=== PATIENT | female | born 1965 | race Caucasian/White ===

== ENCOUNTER 2020-04-01 14:48 | Emergency (ER) | payer OTHER, SELFPAY ==
[2020-04-01 14:48] VITALS: BP 132/66; PULSE 70; RESP 20; TEMP 37; O2SAT 95; BMI 52.4
[2020-04-01 15:18] VITALS: BP 130/70; PULSE 67; RESP 18; O2SAT 91
--- NOTE | 2020-04-01 15:29 | HMH.EDGENADL ---
ED Disposition Clinical Impression: Sciatica of left side Disposition: Home, Self-Care Condition on Discharge: Good Instructions: DI for Sciatica Prescriptions: predniSONE [Prednisone 20mg Tab] 20 mg PO DAILY 3 Days #3 tab Transmission Status: Pending to [facility] # methocarbamoL [Robaxin 750mg Tab] 750 mg PO BID PRN 4 Days #8 tab PRN Reason: back spasm Transmission Status: Pending to [facility] # Referrals: Lizzeth Guerrero [Primary Care Provider] - - Critical Care Critical Care Time: No Attestation: On 04/01/20, the high probability of a clinically significant, sudden or life threatening deterioration of the following system(s) required my full and direct attention, intervention and personal management. The time I documented below is in addition to time spent performing reported procedures but includes the following listed in this critical care notation. Medical Decision Making - Medical Records Medical records reviewed: Yes: I reviewed the patient's medical records. - Win Inquiry Pt receiving controlled substance: No Vital Signs: 04/01/20 14:48 04/01/20 15:18 04/01/20 15:36 Temperature 98.6 F Temperature Source Oral Pulse Rate [Left Radial] 70 67 70 Respiratory Rate 20 18 18 Blood Pressure [Right Arm] 132/66 130/70 125/76 Blood Pressure Mean [Right Arm] 88 90 92 Blood Pressure Source [Right Arm] Automatic Cuff Automatic Cuff Automatic Cuff Blood Pressure Position [Right Arm] Sitting Sitting Supine 02 Sat by Pulse Oximetry 95 91 L 92 L Oxygen Delivery Method Room Air 04/01/20 16:31 Temperature Temperature Source Pulse Rate [Left Radial] 73 Respiratory Rate 18 Blood Pressure [Right Arm] 103/77 L Blood Pressure Mean [Right Arm] 85 Blood Pressure Source [Right Arm] Automatic Cuff Blood Pressure Position [Right Arm] Sitting 02 Sat by Pulse Oximetry 95 Oxygen Delivery Method Orders (Tests/Meds): ED MEDICATIONS Discontinued Medications Generic Name Dose Route Start Last Admin Trade Name Freq PRN Reason Stop Dose Admin Diazepam 5 mg 04/01/20 15:29 04/01/20 15:38 Diazepam 10mg/2ml Syringe IM 04/01/20 15:30 5 mg ONCE ONE Administration Ketorolac Tromethamine 30 mg 04/01/20 15:29 04/01/20 15:39 Ketorolac 30mg/Ml Vial IM 04/01/20 15:30 30 mg ONCE ONE Administration Methocarbamol 500 mg 04/01/20 15:30 04/01/20 15:38 Methocarbamol 500mg Tablet PO 04/01/20 15:31 500 mg ONCE ONE Administration Medical Decision Narrative: 54-year-old female who presents with shooting left hip pain that goes down the back of the leg worse with movement and raising of the leg. Patient has no history of surgery on the lower back has no symptoms of compressive syndrome and is overall well-appearing nontoxic. She was given 30 mg of Toradol IM and 5 mg of IM diazepam. With no recent trauma and no compressive symptoms feel there is no reason for imaging at this time. Following the medication therapy the patient was reevaluated and had significant improvement in symptoms. The diagnosis of sciatica was explained to the patient and she was given conservative management instructions and discharged home in good condition. General Adult HPI - General Chief complaint: PAIN Stated complaint: back pain Time Seen by Provider: 04/01/20 15:00 Mode of Arrival: EMS Source of Information: Patient Limitations: Physical Limitations Description of Symptoms (Recalled from ER Triage Doc. by RN): c/o left hip pain that goes into her left knee and calf. Denies any injury. States she has been having this pain for 3 days but when she went to turn earlier she has severe pain that made it hard to walk - History of Present Illness HPI narrative: 54-year-old female who presents with EMS for shooting left hip pain radiating from her left hip down the back of her left leg is worse with movement and raising the leg. Denies weakness to the leg denies numbne
[2020-04-01 15:36] VITALS: BP 125/76; PULSE 70; RESP 18; O2SAT 92
[2020-04-01 16:31] VITALS: BP 103/77; PULSE 73; RESP 18; O2SAT 95
[2020-04-01 17:13] VITALS: BP 111/68; PULSE 72; RESP 18; O2SAT 92
[2020-04-01 17:17] VITALS: BP 111/68; PULSE 78; RESP 20; TEMP 37; O2SAT 93
== END 2020-04-01 17:18 | disposition home or self-care (01) ==
PROVIDERS: Emergency Provider Student in an Organized Health Care Education/Training Program; PCP Family Medicine
DX: M54.32 Sciatica, left side (principal)
CPT/HCPCS: 96372; 99282

== ENCOUNTER → 2022-04-23 06:51 | Outpatient (CLI) | payer OTHER, SELFPAY ==
[2022-04-23 18:33] LABS: Basophils # 0.1 K/mm3 (0-0.2); Basophils % 0.9 % (0.1-2.0); Eosinophils # 0.3 K/mm3 (0.0-0.4); Eosinophils % 2.5 % (0.1-12.0); Hematocrit 54.5 % (37.0-47.0); Hemoglobin 16.4 g/dL (12.2-16.2); Lymphocytes # 2.8 K/mm3 (0.7-4.5); Lymphocytes % 24.7 % (10-50); Mean Corpuscular Hemoglobin 29.2 pg (27.0-31.2); Mean Corpuscular Volume 97.2 fl (81-99); Mean Platelet Volume 9.9 fl (7.4-10.4); Monocytes # 0.7 K/mm3 (0.1-1.0); Monocytes % 6.3 % (1.7-9.3); Neutrophils # 7.3 K/mm3 (1.8-7.8); Neutrophils % 65.6 % (37.0-80.0); Platelet Count 328 K/mm3 (142-424); Red Cell Distribution Width 15.9 % (11.5-17.5); White Blood Count 11.2 K/mm3 (4.8-10.8)
[2022-04-23 18:44] LABS: Alanine Aminotransferase 37 U/L (12-78); Albumin Level 4.1 g/dl (3.5-5.0); Albumin/Globulin Ratio 1.3 (1.1-1.8); Alkaline Phosphatase 96 U/L (38-126); Aspartate Amino Transferase 33 U/L (14-36); Bilirubin,Total 0.5 mg/dl (0.2-1.3); Blood Urea Nitrogen 16 mg/dl (7-17); Calcium 9.1 mg/dl (8.4-10.2); Carbon Dioxide 28 mmol/L (22.0-30.0); Chol/HDL Ratio 4.6 (1-3.5); Cholesterol 238 mg/dl (140-200); Estimated Glomerular Filt Rate 128 ml/min (>60); GFR (African American) 155 ML/MIN (>60); Globulin 3.1 g/dL (1.3-3.2); Glucose 148 mg/dl (74-100); HDL Cholesterol 52 mg/dl (40-60); Potassium 4.5 mmoL/L (3.5-5.1); Sodium 138 mmol/L (136-145); Total Protein,Serum 7.2 g/dl (6.3-8.2); Triglycerides 197 mg/dl (30-150); VLDL Cholesterol 39 mg/dL (0-40)
[2022-04-23 18:55] LABS: Direct LDL Cholesterol 137.94 mg/dL (100-129)
[2022-04-23 19:15] LABS: Thyroid Stimulating Hormone < 0.02 uIU/mL (0.465-4.68)
[2022-04-23 19:36] LABS: Hemoglobin A1C 7.1 % (4.0-6.0)
[2022-04-23 19:46] LABS: Anion Gap 10.5 mEq/L (5-15); Chloride 104 mmol/L (98-107)
== END ==
PROVIDERS: PCP Nurse Practitioner Family; Visit Provider Nurse Practitioner Family
DX: E11.9 Type 2 diabetes mellitus without complications (principal); Z79.84 Long term (current) use of oral hypoglycemic drugs
CPT/HCPCS: 80053; 80061; 83036; 84443; 85025

== ENCOUNTER 2022-06-20 11:10 | Observation (INO) | payer OTHER, SELFPAY ==
[2022-06-20] VITALS (15 sets, daily range): BP systolic 107–152; BP diastolic 59–96; PULSE 86–112; RESP 18–22; TEMP 36.4–37.2; O2SAT 88–95; BMI 51.6; BMI 57.9
--- NOTE | 2022-06-20 11:34 | PC.NURSE ---
FÉLIX NEGRON at
--- NOTE | 2022-06-20 11:38 | CT_ITS ---
PROCEDURE INFORMATION: Exam: CT Chest With Contrast; Diagnostic Exam date and time: 06/20/2022 12:20 PM Age: 56 years old Clinical indication: Pain; Right-sided; Additional info: Right breast mass vs abscess, pain TECHNIQUE: Imaging protocol: Diagnostic computed tomography of the chest with contrast. Radiation optimization: All CT scans at this facility use at least one of these dose optimization techniques: automated exposure control; mA and/or kV adjustment per patient size (includes targeted exams where dose is matched to clinical indication); or iterative reconstruction. Contrast material: ISOVUE; Contrast volume: 75 ml; Contrast route: IV; REPORTING DATA: Count of CT and Cardiac NM exams in prior 12 months: This patient has received 0 known CTs and 0 known cardiac nuclear medicine studies in the 12 months prior to the current study. COMPARISON: No relevant prior studies available. FINDINGS: Lungs: Mild hypoventilatory changes posteriorly at the lung bases otherwise lung bowie are aerated and clear. No suspicious nodules or masses detected. Scattered granulomatous calcifications within the mediastinum and right hilum, chronic. Pleural spaces: Unremarkable. No pneumothorax. No pleural effusion. Heart: Heart is not significantly enlarged. No significant coronary artery calcifications. No significant pericardial effusion. Lymph nodes: Mild-moderate right axillary lymph nodes measuring up to 2.5 cm, nonspecific. Vasculature: Unremarkable. No aortic aneurysm. Adrenal glands: 3 cm left adrenal lesion, indeterminate. Bones/joints: Unremarkable. No acute fracture. Soft tissues: Unremarkable. IMPRESSION: 1. No acute intrathoracic abnormalities. 2. Mild-moderate right axillary lymphadenopathy, nonspecific. 3. 3 cm indeterminate left adrenal lesion. Recommend follow-up nonemergent CT adrenal imaging for further assessment.
[2022-06-20 11:51] LABS: Basophils # 0.1 K/mm3 (0-0.2); Basophils % 1.2 % (0.1-2.0); Eosinophils # 0.2 K/mm3 (0.0-0.4); Eosinophils % 2.1 % (0.1-12.0); Hematocrit 46.4 % (37.0-47.0); Hemoglobin 15.1 g/dL (12.2-16.2); Lymphocytes # 1.7 K/mm3 (0.7-4.5); Lymphocytes % 15.5 % (10-50); Mean Corpuscular HGB Conc 32.6 g/dL (31.8-35.4); Mean Corpuscular Hemoglobin 29.2 pg (27.0-31.2); Mean Corpuscular Volume 89.5 fl (81-99); Mean Platelet Volume 9.1 fl (7.4-10.4); Monocytes # 0.8 K/mm3 (0.1-1.0); Monocytes % 7.4 % (1.7-9.3); Neutrophils # 8.3 K/mm3 (1.8-7.8); Neutrophils % 73.8 % (37.0-80.0); Platelet Count 292 K/mm3 (142-424); Red Blood Count 5.19 M/mm3 (4.20-5.40); Red Cell Distribution Width 15.5 % (11.5-17.5); White Blood Count 11.2 K/mm3 (4.8-10.8)
--- NOTE | 2022-06-20 11:51 | PC.NURSE ---
Pt updated on plan of care.
[2022-06-20 12:05] LABS: Chloride 101 mmol/L (98-107)
[2022-06-20 12:06] LABS: Sodium 138 mmol/L (136-145)
[2022-06-20 12:08] LABS: Alanine Aminotransferase 25 U/L (12-78); Alkaline Phosphatase 82 U/L (38-126); Aspartate Amino Transferase 26 U/L (14-36); Bilirubin,Total 0.5 mg/dl (0.2-1.3); Blood Urea Nitrogen 13 mg/dl (7-17); Creatinine Clearance Estimated 85 mL/min (50-200); Estimated Glomerular Filt Rate 87 ml/min (>60); GFR (African American) 105 ML/MIN (>60)
[2022-06-20 12:09] LABS: Albumin Level 3.9 g/dl (3.5-5.0); Albumin/Globulin Ratio 1.1 (1.1-1.8); Calcium 8.8 mg/dl (8.4-10.2); Carbon Dioxide 30 mmol/L (22.0-30.0); Globulin 3.7 g/dL (1.3-3.2); Glucose 124 mg/dl (74-100); Total Protein,Serum 7.6 g/dl (6.3-8.2)
--- NOTE | 2022-06-20 12:13 | PC.NURSE ---
pt to radiology
[2022-06-20 12:14] LABS: C-Reactive Protein 211.8 mg/L (0-4)
--- NOTE | 2022-06-20 12:58 | PC.NURSE ---
SaO2 87% on RA placed pt on O2 at 2L per [facility] ER aware
--- NOTE | 2022-06-20 13:15 | PC.NURSE ---
speaking with surgeon certified recreational therapist
--- NOTE | 2022-06-20 13:33 | PC.NURSE ---
FÉLIX NEGRON at
--- NOTE | 2022-06-20 14:02 | PC.NURSE ---
FÉLIX NEGRON speaking with Dr. Yung (hospitalist.
--- NOTE | 2022-06-20 14:07 | PC.NURSE ---
notified bath house attendant of admission
--- NOTE | 2022-06-20 14:07 | PC.NURSE ---
notified pharmacy of vancomycin consult
--- NOTE | 2022-06-20 14:10 | HMH.EDGENADL ---
Discharge Plan Disposition Patient Disposition: Admitted As Inpatient Condition: Good Chief Complaint: Skin/Abscess/Foreign Body Prescriptions Prescriptions: No Action methocarbamol 750 mg tablet 750 mg PO HS levothyroxine 125 mcg tablet See Rx Instructions .ROUTE .COMPLEX Qty: 60 0RF Dose Instruction: TAKE 2 TABLETS BY MOUTH ONCE DAILY Rx Instructions: TAKE 2 TABLETS BY MOUTH ONCE DAILY losartan 50 mg tablet 50 mg PO DAILY metformin 500 mg tablet 500 mg PO BID simvastatin 10 mg tablet 10 mg PO HS atenolol 25 mg tablet 25 mg PO DAILY GaviLyte-C 240-22.72-6.72 -5.84 gram recon soln 240 ml PO Q10M Rx Instructions: follow mailed instructions Referrals Follow up/Referrals: Rosanna Ricardo APRN [Primary Care Provider] - See instructions Clinical Impressions Clinical Impression: Breast abscess, Cellulitis of right breast Instructions Patient Instructions: DI for Skin Abscess Discharge ED Provider: Magdalena Henning General Adult HPI General Chief complaint: Skin/Abscess/Foreign Body Stated complaint: Cyst on right breast Time Seen by Provider: 06/20/22 12:00 Mode of Arrival: Ambulatory Source of Information: Patient and Significant Other Limitations: No Limitations Description of Symptoms (Recalled from ER Triage Doc. by RN): Patient presents via POV. Pt went to [facility] ED d/t right breast abscess on 06/18/22. Given (2) abx, Septra DS 800-160 and Cephalexin. Pt has started only Septra d/t allergy to Cephalexin. Pt states the abscess is unchanged. [facility] recommended I&D, however told the patient they do not perform at bedside. History of Present Illness HPI narrative: The patient is a 56 year old female wiht a history of morbid obesity and DM who presents with right breast pain and swelling. The patient states that she had something like this in the past in the same spot which required surgical washout and admission to the hospital for a few days. She states her breast started hurting in the last week. She was seen at an outside hospital and put on bactrim and keflex but she states she was allergic to the keflex and her pain was getting worse. She denies fevers, nausea, vomiting, diarrhea or any other symptoms. Related Data Home Medications Medication Instructions Recorded Confirmed methocarbamol 750 mg tablet 750 mg PO HS muscle relaxant 04/23/22 04/28/22 atenolol 25 mg tablet 25 mg PO DAILY HTN 04/28/22 04/28/22 losartan 50 mg tablet 50 mg PO DAILY HTN 04/28/22 04/28/22 metformin 500 mg tablet 500 mg PO BID Diabetes 04/28/22 04/28/22 peg 3350 240 gram-electrolytes 240 ml PO Q10M prep 04/28/22 04/28/22 22.72 gram-6.72 g-5.84 g powdr for soln (Gavilyte-C) simvastatin 10 mg tablet 10 mg PO HS Cholesterol 04/28/22 04/28/22 Previous Rx's Medication Instructions Recorded levothyroxine 125 mcg tablet See Rx Instructions .Route 05/25/22 .COMPLEX #60 tabs Allergies Allergy/AdvReac Type Severity Reaction Status Date / Time cephalexin Allergy Verified 06/20/22 14:07 acetaminophen AdvReac Verified 04/23/22 09:21 [facility] Disclaimer: The information contained in this section may have been updated after the patient was seen, as this information can be updated by other users. Medical History (Updated 06/20/22 @ 14:19 by Magdalena Henning MD) Hypertension Renal cancer Thyroid cancer Surgical History H/O thyroidectomy History of Family History Mother Diabetes Hypertension Father Diabetes Hypertension Brother Cancer Social History Smoking Status: Current every day smoker tobacco type: cigarettes quit status: considering quitting alcohol intake: never substance use type: denies use current occupational status: disabled Travel in
--- NOTE | 2022-06-20 14:16 | EXP.PHA.CONS ---
Pharmacy Consult Date: 06/20/22 Time: 14:16 Referring provider: DR. ANDERSON Reason for Consult:: VANCOMYCIN DOSING Allergies Allergy/AdvReac Type Severity Reaction Status Date / Time cephalexin Allergy Verified 06/20/22 14:07 acetaminophen AdvReac Verified 04/23/22 09:21 Home Medications Medication Instructions Recorded Confirmed Type methocarbamol 750 mg tablet 750 mg PO HS muscle relaxant 04/23/22 04/28/22 History atenolol 25 mg tablet 25 mg PO DAILY HTN 04/28/22 04/28/22 History losartan 50 mg tablet 50 mg PO DAILY HTN 04/28/22 04/28/22 History metformin 500 mg tablet 500 mg PO BID Diabetes 04/28/22 04/28/22 History peg 3350 240 gram-electrolytes 240 ml PO Q10M prep 04/28/22 04/28/22 History 22.72 gram-6.72 g-5.84 g powdr for soln (Gavilyte-C) simvastatin 10 mg tablet 10 mg PO HS Cholesterol 04/28/22 04/28/22 History levothyroxine 125 mcg tablet See Rx Instructions .Route 05/25/22 Rx .COMPLEX #60 tabs New Prescriptions to Start Prescriptions: Height: 1.68 m Weight: 145.15 kg Laboratory Results:: Laboratory Results - last 24 hr 06/20/22 11:41: WBC 11.2 H, RBC 5.19, Hgb 15.1, Hct 46.4, MCV 89.5, MCH 29.2, MCHC 32.6, RDW 15.5, Plt Count 292, MPV 9.1, Neut % (Auto) 73.8, Lymph % (Auto) 15.5, [place] % (Auto) 7.4, Eos % (Auto) 2.1, Baso % (Auto) 1.2, Neut # (Auto) 8.3 H, Lymph # (Auto) 1.7, [place] # (Auto) 0.8, Eos # (Auto) 0.2, Baso # (Auto) 0.1 06/20/22 11:41: Sodium 138, Potassium 4.0, Chloride 101, Carbon Dioxide 30, Anion Gap 11.0, BUN 13, Creatinine 0.70, Estimated Creat Clear 85, Estimated GFR 87, Est GFR ( Amer) 105, Glucose 124 H, Calcium 8.8, Total Bilirubin 0.5, AST 26, ALT 25, Alkaline Phosphatase 82, C-Reactive Protein 211.8 H, Total Protein 7.6, Albumin 3.9, Globulin 3.7 H, Albumin/Globulin Ratio 1.1 Medical History: Medical History (Updated 04/23/22 @ 10:10 by Rosanna Ricardo APRN) Hypertension Renal cancer Thyroid cancer Assessment and Plan Assessment and plan all Dx Assessment and Plan for all problems:: Pharmacokinetic dosing service Objective: Patient: Floor: Age: 56 yo Serum creatinine: 0.70 mg/dL Height: 66.0 Inches Weight (kg): 145.2 Assessment: IBW (kg): 59.30 Dosing wt(kg): 145.2 Estimated Creatinine clearance (ml/min): 85.0 CRCL method: Cockcroft and Gault using ibw(default). Drug selected: Vancomycin Loading dose (mg): Vd (liters): 108.9 (factor used: 0.75 L/kg) Olaf (hr-1): 0.075 Half life (hrs): 9.24 CLvanco=?? 8.168 L/hr Recommended dose: 2250 mg Interval: 12 hrs Infusion time (hrs): 2.0 Predicted peak (mcg/mL): 32.3 Predicted trough (mcg/mL): 15.26 Total body weight is being used for vancomycin dosing. Recommendations: Give Vancomycin 2250 mg q 12 hrs with an expected Cpeak of 32.3 mcg/ml and an expected Ctrough of 15.26 mcg/ml AUC 0-24 /BRYON Data: BRYON 0.5 mcg/mL:?? AUC/BRYON:? 1101.9 BRYON 1.0 mcg/mL:?? AUC/BRYON:? 550.9 --------- BRYON 1.5 mcg/mL:?? AUC/BRYON:? 367.3 BRYON 2.0 mcg/mL:?? AUC/BRYON:? 275.5 Thank you for the consult, will continue to follow. -ERROL TUTTLED
[2022-06-20 14:17] LABS: Coronavirus 19, PCR Not Detected (NotDetected); Influenza A, PCR Not Detected (NotDetected); Influenza B, PCR Not Detected (NotDetected)
--- NOTE | 2022-06-20 14:34 | EXP.HP ---
History of Present Illness *Admission Date: 06/20/22 *Reason for visit:: right breast pain *History of present illness: Ms. Rodriguez is a 56-year-old female with history of diabetes and hypertension who presents with a week of worsening right breast pain and redness around her right nipple. She was seen at [facility] ED 2 days ago on 06/18 and started on Bactrim out of concern for abscess for cellulitis of her right breast. Unable to perform I&D at that time. Recommended she follow-up for further care if no improvement in the next day or 2. She presented today to the ER because of worsening swelling and pain. She has had a similar lesion like this in the past on the right breast which required surgical washout and admission for a few days of IV antibiotics. Denies any fever, nausea, vomiting, diarrhea. Pain is only gotten worse after starting antibiotics. Denies any nipple discharge or bleeding. No trauma prior to onset. ER consulted medicine for admission for further management and IV antibiotics. Discussed case with surgeon prior to admission. After arrival to the floor, patient states she feels a little better after aspiration of the abscess. ER was able to obtain approximately 80 cc of purulent material via needle aspiration. Right breast is quite tender. Started on vancomycin. Labs reviewed showing elevated inflammatory markers but otherwise relatively normal lab work. [facility] Disclaimer: The information contained in this section may have been updated after the patient was seen, as this information can be updated by other users. Medical History Hypertension Renal cancer Thyroid cancer Surgical History H/O thyroidectomy History of Family History Diabetes Mother Father Cancer Brother Hypertension Mother Father Social History Smoking Status: Current every day smoker tobacco type: cigarettes quit status: considering quitting alcohol intake: never substance use type: denies use current occupational status: disabled Travel in the last 8 weeks: None household members: children housing: apartment lives independently: Yes marital status: single education level: high school special cal needs: No agree to transfusion: No do you feel safe at home: Yes victim of physical abuse: No victim of emotional abuse: No victim of sexual abuse: No would you like helpful sources: No Review of Systems Review of Systems Review of systems (narrative): 14 point review of systems performed, pertinent positives and negatives as per [facility] Meds Home Medications and Allergies Home Medications Medication Instructions Recorded Confirmed Type atenolol 25 mg tablet 25 mg PO DAILY Hypertension 04/28/22 04/28/22 History losartan 50 mg tablet 50 mg PO DAILY Hypertension 04/28/22 04/28/22 History metformin 500 mg tablet 500 mg PO BID Diabetes 04/28/22 04/28/22 History simvastatin 10 mg tablet 10 mg PO HS Cholesterol 04/28/22 04/28/22 History levothyroxine 125 mcg tablet 250 mcg PO DAILY THYROID 06/20/22 06/20/22 History oxycodone 5 mg tablet 5 mg PO TIDP PRN Severe Pain 06/20/22 06/20/22 History (Scale Score 7-10) sulfamethoxazole 800 2 tab PO BID Infection 06/20/22 06/20/22 History mg-trimethoprim 160 mg tablet New Prescriptions to Start Prescriptions: Allergies Allergy/AdvReac Type Severity Reaction Status Date / Time cephalexin Allergy Verified 06/20/22 14:07 acetaminophen AdvReac Verified 04/23/22 09:21 Exam Data for Last 24 hours Vital signs and Labs for Last 24 Hours: Temp Pulse Resp BP Pulse Ox 98.1 F 87 22 124/77 93 L 06/20/22 11:21 06/20/22 14:10 06/20/22 14:10 06/20/22 14:10 06/20/22 14:10 Laboratory Results - last 24 hr
[2022-06-20 14:37] LABS: Hemoglobin A1C 6.5 % (4.0-6.0)
--- NOTE | 2022-06-20 14:50 | PC.NURSE ---
Report given to FATOUMATA Bonilla
[2022-06-20 14:56] LABS: Thyroid Stimulating Hormone < 0.02 uIU/mL (0.465-4.68)
--- NOTE | 2022-06-20 15:22 | PC.NURSE ---
Pt arrived to the floor at this time
--- NOTE | 2022-06-20 16:06 | PC.NURSE ---
pt has been admitted to the floor. Her R breast is reddened and inflamed. Painful to the touch. Pt denies any recent fevers. Reports this is not the first time she has had an abcess. went to psychiatric two days ago but did not take the medications given to her because they wanted to send her to [place]. Dr. Yung saw pt. Will fransico edges of redness to keep an eye on size.
--- NOTE | 2022-06-20 17:21 | PC.NURSE ---
pts pharmacy is closed and she is unsure of home medication dosages.
[2022-06-21 04:00] VITALS: BP 134/83; PULSE 85; RESP 20; TEMP 36.6; O2SAT 94; BMI 58.2
--- NOTE | 2022-06-21 06:07 | PC.NURSE ---
PATIENT UP AND HAD BATH. HAS BEEN NPO SINCE CO.
[2022-06-21 06:45] LABS: Basophils # 0.1 K/mm3 (0-0.2); Eosinophils # 0.3 K/mm3 (0.0-0.4); Eosinophils % 3.3 % (0.1-12.0); Hemoglobin 13.9 g/dL (12.2-16.2); Lymphocytes % 22.4 % (10-50); Mean Corpuscular HGB Conc 31.6 g/dL (31.8-35.4); Mean Corpuscular Hemoglobin 28.8 pg (27.0-31.2); Mean Platelet Volume 9.2 fl (7.4-10.4); Monocytes # 0.7 K/mm3 (0.1-1.0); Neutrophils # 5.7 K/mm3 (1.8-7.8); Neutrophils % 65.3 % (37.0-80.0); Platelet Count 258 K/mm3 (142-424); Red Blood Count 4.83 M/mm3 (4.20-5.40); Red Cell Distribution Width 15.5 % (11.5-17.5); White Blood Count 8.7 K/mm3 (4.8-10.8)
[2022-06-21 06:53] LABS: Alanine Aminotransferase 22 U/L (12-78); Albumin Level 3.3 g/dl (3.5-5.0); Alkaline Phosphatase 82 U/L (38-126); Anion Gap 7.4 mEq/L (5-15); Aspartate Amino Transferase 24 U/L (14-36); Bilirubin,Total 0.4 mg/dl (0.2-1.3); Blood Urea Nitrogen 10 mg/dl (7-17); Carbon Dioxide 33 mmol/L (22.0-30.0); Chloride 98 mmol/L (98-107); Creatinine Clearance Estimated 85 mL/min (50-200); Estimated Glomerular Filt Rate 87 ml/min (>60); GFR (African American) 105 ML/MIN (>60); Globulin 3.4 g/dL (1.3-3.2); Glucose 129 mg/dl (74-100); Magnesium 2.1 mg/dl (1.6-2.3); Potassium 4.4 mmoL/L (3.5-5.1); Sodium 134 mmol/L (136-145); Total Protein,Serum 6.7 g/dl (6.3-8.2)
[2022-06-21 06:59] LABS: C-Reactive Protein 153.8 mg/L (0-4)
[2022-06-21 07:18] LABS: Erythrocyte Sedimentation Rate 17 mm/hr (0-30)
[2022-06-21 07:29] VITALS: BP 128/76; PULSE 76; RESP 18; TEMP 36.7; O2SAT 90
--- NOTE | 2022-06-21 09:34 | HMH.PHAINT1 ---
Pharmacy Intervention Comments: MEDICATION RECONCILIATION COMPLETED ON PATIENT USING EXTERNAL FILL HISTORY FROM PHARMACY, PATIENT INTERVIEW, AND PATIENT RX BOTTLES. -CLARY SHIELDS, ERROLD
[2022-06-21 10:59] VITALS: BP 88/52; PULSE 89; RESP 18; TEMP 36.7; O2SAT 92
[2022-06-21 11:05] VITALS: BP 90/60
--- NOTE | 2022-06-21 11:55 | EXP.ACUTE.PN ---
Subjective *Date: 06/21/22 *Time: 11:55 Interval history: Patient remained afebrile overnight. Having some receding of redness on breast. Scant drainage from breast wound. No nausea or vomiting. Improvement in labs this morning with improvement in white cell count. Tolerating IV antibiotics. Pain still prominent but decreasing after aspiration yesterday. No acute complaints at this time Medical Exam Vital signs and Labs for Last 24 Hours: Vital Signs Temp Pulse Pulse Resp BP BP Pulse Ox 06/21/22 11:05 90/60 L 06/21/22 10:59 98.1 F 89 18 88/52 L 92 L 06/21/22 07:29 98.0 F 76 18 128/76 90 L 06/21/22 04:00 97.8 F 85 20 134/83 94 L 06/20/22 20:00 94 L 06/20/22 23:50 98.7 F 86 20 138/80 94 L 06/20/22 19:52 99.0 F 98 H 22 110/71 90 L 06/20/22 15:48 97.6 F 97 H 22 135/88 94 L 06/20/22 15:00 89 19 107/59 L 95 06/20/22 14:57 98 F 93 H 18 114/96 H 06/20/22 14:30 91 H 19 114/96 H 93 L 06/20/22 14:10 87 22 124/77 93 L 06/20/22 14:00 87 22 125/81 94 L 06/20/22 13:31 87 19 137/65 93 L 06/20/22 13:00 88 125/82 92 L 06/20/22 12:30 92 H 22 130/82 88 L 06/20/22 12:00 97 H 138/83 93 L 06/20/22 11:30 102 H 129/75 95 06/20/22 11:21 98.1 F 112 H 18 152/87 H 95 Intake and Output 06/20/22 06/21/22 06/21/22 22:59 07:59 15:59 Intake Total Output Total 0 / 0 Balance 0 / 350 Intake: Intake, Oral Amount Intake, Total IV Amount Meropenem 1 gm In 0.9 % Sodium Chloride 100 ml @ 100 mls/hr IV Q12H [facility] Rx#:[id number] Vancomycin HCl 2,250 mg In 0.9 % Sodium Chloride 250 ml @ 125 mls/hr IV Q12H [facility] Rx#:[id number] Output: Output, Urine Amount 0 / 0 Other: Number of Unmeasured Voids 1 Weight Patient Weight 06/22/22 00:59 Weight 164.427 kg Laboratory Results - last 24 hr 06/20/22 11:41: WBC 11.2 H, RBC 5.19, Hgb 15.1, Hct 46.4, MCV 89.5, MCH 29.2, MCHC 32.6, RDW 15.5, Plt Count 292, MPV 9.1, Neut % (Auto) 73.8, Lymph % (Auto) 15.5, Stanley % (Auto) 7.4, Eos % (Auto) 2.1, Baso % (Auto) 1.2, Neut # (Auto) 8.3 H, Lymph # (Auto) 1.7, Stanley # (Auto) 0.8, Eos # (Auto) 0.2, Baso # (Auto) 0.1 06/20/22 11:41: Sodium 138, Potassium 4.0, Chloride 101, Carbon Dioxide 30, Anion Gap 11.0, BUN 13, Creatinine 0.70, Estimated Creat Clear 85, Estimated GFR 87, Est GFR ( Amer) 105, Glucose 124 H, Calcium 8.8, Total Bilirubin 0.5, AST 26, ALT 25, Alkaline Phosphatase 82, C-Reactive Protein 211.8 H, Total Protein 7.6, Albumin 3.9, Globulin 3.7 H, Albumin/Globulin Ratio 1.1 06/20/22 11:41: Hemoglobin A1c 6.5 H 06/20/22 11:41: TSH < 0.02 L 06/20/22 14:10: SARS-CoV-2 (PCR) Not detected, Influenza A Untype (PCR) Not detected, Influenza Type B (PCR) Not detected 06/20/22 14:10: Lactate 1.0 06/21/22 06:15: WBC 8.7, RBC 4.83, Hgb 13.9, Hct 44.0, MCV 91.0, MCH 28.8, MCHC 31.6 L, RDW 15.5, Plt Count 258, MPV 9.2, Neut % (Auto) 65.3, Lymph % (Auto) 22.4, [place] % (Auto) 8.0, Eos % (Auto) 3.3, Baso % (Auto) 1.0, Neut # (Auto) 5.7, Lymph # (Auto) 2.0, Stanley # (Auto) 0.7, Eos # (Auto) 0.3, Baso # (Auto) 0.1, ESR 17 06/21/22 06:15: Sodium 134 L, Potassium 4.4, Chloride 98, Carbon Dioxide 33 H, Anion Gap 7.4, BUN 10, Creatinine 0.70, Estimated Creat Clear 85, Estimated GFR 87, Est GFR ( Amer) 105, Glucose 129 H, Calcium 8.0 L, Magnesium 2.1, Total Bilirubin 0.4, AST 24, ALT 22, Alkaline Phosphatase 82, C-Reactive Protein 153.8 H, Total Protein 6.7, Albumin 3.3 L D, Globulin 3.4 H, Albumin/Globulin Ratio 1.0 L I & O for Labs for Last 24 Hours: Intake & Output 06/18/22 06/19/22 06/20/22 06/22/22 23:59 23:59 23:59 00:59 Intake Total 480 / 480 350 / 350 Output Total 0 / 0 Balance 480 / 480 350 / 350 Weight 162.896 kg 164.427 kg Microbiology Reports for the Last 24 Hours: Microbiology 06/20/22 14:10 Blood Blood Culture - Preliminary
--- NOTE | 2022-06-21 12:39 | EXP.SURG.CON ---
History of Present Illness *Admission Date: 06/20/22 *Reason for visit:: Right breast abscess *History of present illness: Patient is a 56-year-old female from [place] with history of diabetes, class IV obesity (BMI 58.3), with prior history of right breast abscess treated with incision and drainage in [place]. She had presented yesterday with about a 1 week history of worsening right breast pain redness and tenderness. She had been seen at an outside emergency department on 06/18/2022 and started on Bactrim. She presented to the emergency department here at [facility] yesterday because of worsening swelling and pain. ER had performed aspiration after ultrasound revealed moderate abscess of 80 cc of purulent material after discussion with surgery. She was admitted for inpatient management with initiation of IV antibiotics and surgical consultation. She has subsequently shown some improvement in her inflammatory markers and cellulitis has shown some regression. [facility] Disclaimer: The information contained in this section may have been updated after the patient was seen, as this information can be updated by other users. Medical History Hypertension Renal cancer Thyroid cancer Surgical History H/O thyroidectomy History of Family History Diabetes Mother Father Cancer Brother Hypertension Mother Father Social History Smoking Status: Current every day smoker tobacco type: cigarettes quit status: considering quitting alcohol intake: never substance use type: denies use current occupational status: disabled Travel in the last 8 weeks: None household members: children housing: apartment lives independently: Yes marital status: single education level: high school special cal needs: No agree to transfusion: No do you feel safe at home: Yes victim of physical abuse: No victim of emotional abuse: No victim of sexual abuse: No would you like helpful sources: No Meds Home Medications and Allergies Home Medications Medication Instructions Recorded Confirmed Type atenolol 25 mg tablet 25 mg PO DAILY Hypertension 04/28/22 06/20/22 History losartan 50 mg tablet 50 mg PO DAILY Hypertension 04/28/22 06/20/22 History metformin 500 mg tablet 500 mg PO BID Diabetes 04/28/22 06/20/22 History simvastatin 10 mg tablet 10 mg PO HS Cholesterol 04/28/22 06/20/22 History levothyroxine 125 mcg tablet 250 mcg PO DAILY THYROID 06/20/22 06/20/22 History oxycodone 5 mg tablet 5 mg PO TIDP PRN Severe Pain 06/20/22 06/20/22 History (Scale Score 7-10) sulfamethoxazole 800 2 tab PO BID Infection 06/20/22 06/20/22 History mg-trimethoprim 160 mg tablet New Prescriptions to Start Prescriptions: Allergies Allergy/AdvReac Type Severity Reaction Status Date / Time cephalexin Allergy Verified 06/20/22 14:07 acetaminophen AdvReac Verified 04/23/22 09:21 Exam (Inpt) Vital signs and Labs for Last 24 Hours: Temp Pulse Resp BP Pulse Ox 98.1 F 89 18 90/60 L 92 L 06/21/22 10:59 06/21/22 10:59 06/21/22 10:59 06/21/22 11:05 06/21/22 10:59 Laboratory Results - last 24 hr 06/20/22 11:41: WBC 11.2 H, RBC 5.19, Hgb 15.1, Hct 46.4, MCV 89.5, MCH 29.2, MCHC 32.6, RDW 15.5, Plt Count 292, MPV 9.1, Neut % (Auto) 73.8, Lymph % (Auto) 15.5, [place] % (Auto) 7.4, Eos % (Auto) 2.1, Baso % (Auto) 1.2, Neut # (Auto) 8.3 H, Lymph # (Auto) 1.7, [place] # (Auto) 0.8, Eos # (Auto) 0.2, Baso # (Auto) 0.1 06/20/22 11:41: Sodium 138, Potassium 4.0, Chloride 101, Carbon Dioxide 30, Anion Gap 11.0, BUN 13, Creatinine 0.70, Estimated Creat Clear 85, Estimated GFR 87, Est GFR ( Amer) 105, Glucose 124 H, Calcium 8.8, Total Bilirubin 0.5, AST 26, ALT 25, Alkaline Phosphatase
[2022-06-21 15:05] VITALS: BP 93/63; PULSE 66; RESP 18; TEMP 36.5; O2SAT 91
--- NOTE | 2022-06-21 17:59 | PC.NURSE ---
No pain reported by patient unless palpating on abscess site. Pain medication given as pt stated her lower back had chronic pain. VS stable, pt remained on 2LNC. Abscess site redness getting better and receeding, some purulent drainage noticed on bandage, new telfa pad with gauze on top placed.
[2022-06-21 20:00] VITALS: BP 99/63; PULSE 60; RESP 17; TEMP 36.7; O2SAT 95
[2022-06-22] VITALS (18 sets, daily range): BP systolic 81–117; BP diastolic 50–69; PULSE 58–72; RESP 14–20; TEMP 35.9–43; O2SAT 91–100; BMI 58.2; BMI 58.1
[2022-06-22 02:47] LABS: Vancomycin,Trough 12.2 ug/mL (5.0-10.0)
--- NOTE | 2022-06-22 04:43 | PC.NURSE ---
patient rested well through the night. npo at midnight for ultrasound today (possible sx), 2L nc prn. no complaints of pain. iv abx.
[2022-06-22 06:24] LABS: Anion Gap 6.4 mEq/L (5-15); Blood Urea Nitrogen 14 mg/dl (7-17); Calcium 8.2 mg/dl (8.4-10.2); Carbon Dioxide 30 mmol/L (22.0-30.0); Chloride 102 mmol/L (98-107); Creatinine Clearance Estimated 74 mL/min (50-200); Estimated Glomerular Filt Rate 74 ml/min (>60); GFR (African American) 90 ML/MIN (>60); Glucose 119 mg/dl (74-100); Potassium 4.4 mmoL/L (3.5-5.1); Sodium 134 mmol/L (136-145)
[2022-06-22 06:30] LABS: C-Reactive Protein 87.7 mg/L (0-4)
[2022-06-22 06:40] LABS: Basophils # 0.1 K/mm3 (0-0.2); Basophils % 0.9 % (0.1-2.0); Eosinophils # 0.3 K/mm3 (0.0-0.4); Eosinophils % 2.9 % (0.1-12.0); Hematocrit 43.9 % (37.0-47.0); Hemoglobin 13.9 g/dL (12.2-16.2); Lymphocytes # 2.6 K/mm3 (0.7-4.5); Lymphocytes % 24.3 % (10-50); Mean Corpuscular HGB Conc 31.6 g/dL (31.8-35.4); Mean Corpuscular Hemoglobin 28.3 pg (27.0-31.2); Mean Corpuscular Volume 89.7 fl (81-99); Monocytes # 0.7 K/mm3 (0.1-1.0); Monocytes % 6.6 % (1.7-9.3); Neutrophils # 6.9 K/mm3 (1.8-7.8); Neutrophils % 65.2 % (37.0-80.0); Platelet Count 293 K/mm3 (142-424); Red Blood Count 4.89 M/mm3 (4.20-5.40); Red Cell Distribution Width 15.5 % (11.5-17.5); White Blood Count 10.6 K/mm3 (4.8-10.8)
--- NOTE | 2022-06-22 07:29 | P.PN_ITS ---
Subjective Patient reports: no new complaints Exam Data for Last 24 hours Vital signs and Labs for Last 24 Hours: Temp Pulse Resp BP Pulse Ox 98.2 F 67 16 117/68 95 06/22/22 04:00 06/22/22 04:00 06/22/22 04:00 06/22/22 04:00 06/22/22 04:00 Laboratory Results - last 24 hr 06/22/22 01:50: Vancomycin Trough 12.2 H 06/22/22 05:45: WBC 10.6, RBC 4.89, Hgb 13.9, Hct 43.9, MCV 89.7, MCH 28.3, MCHC 31.6 L, RDW 15.5, Plt Count 293, MPV 9.0, Neut % (Auto) 65.2, Lymph % (Auto) 24.3, [place] % (Auto) 6.6, Eos % (Auto) 2.9, Baso % (Auto) 0.9, Neut # (Auto) 6.9, Lymph # (Auto) 2.6, [place] # (Auto) 0.7, Eos # (Auto) 0.3, Baso # (Auto) 0.1 06/22/22 05:45: Sodium 134 L, Potassium 4.4, Chloride 102, Carbon Dioxide 30, Anion Gap 6.4, BUN 14 D, Creatinine 0.80, Estimated Creat Clear 74, Estimated GFR 74, Est GFR ( Amer) 90, Glucose 119 H, Calcium 8.2 L, C-Reactive Protein 87.7 H D 06/22/22 06:30: Vancomycin Peak 27.0 I & O for Last 24 hours: Intake & Output 06/19/22 06/20/22 06/21/22 06/22/22 10:59 10:59 11:59 11:59 Intake Total 1100 / 1100 Output Total 2 / 2 Balance 1098 / 1098 Weight 362 lb 8 oz Microbiology Reports for the Last 24 Hours: Microbiology 06/20/22 13:40 Breast,Right - Abscess Gram Stain - Final 06/20/22 13:40 Breast,Right - Abscess Abscess Culture - Preliminary NO GROWTH AFTER 24 HOURS 06/20/22 14:10 Blood Blood Culture - Preliminary Routine Chest/Breast/Axilla Exam Comments: She has decreased cellulitis. There is slightly diminished induration. She has developed focal fluctuance with some purulent drainage at previous incision and drainage scar. Progress Note: A&P Assessment and plan (1) Breast abscess: Status: Acute Assessment and plan: Likely be best treated with operative incision and drainage and either packing or drain placement. This is to be arranged for later today.
--- NOTE | 2022-06-22 08:46 | EXP.PHA.CONS ---
Pharmacy Consult Date: 06/22/22 Time: 08:46 Referring provider: DR. ANDERSON Reason for Consult:: VANCOMCYIN LEVELS Allergies Allergy/AdvReac Type Severity Reaction Status Date / Time cephalexin Allergy Verified 06/20/22 14:07 acetaminophen AdvReac Verified 04/23/22 09:21 Home Medications Medication Instructions Recorded Confirmed Type atenolol 25 mg tablet 25 mg PO DAILY Hypertension 04/28/22 06/20/22 History losartan 50 mg tablet 50 mg PO DAILY Hypertension 04/28/22 06/20/22 History metformin 500 mg tablet 500 mg PO BID Diabetes 04/28/22 06/20/22 History simvastatin 10 mg tablet 10 mg PO HS Cholesterol 04/28/22 06/20/22 History levothyroxine 125 mcg tablet 250 mcg PO DAILY THYROID 06/20/22 06/20/22 History oxycodone 5 mg tablet 5 mg PO TIDP PRN Severe Pain 06/20/22 06/20/22 History (Scale Score 7-10) sulfamethoxazole 800 2 tab PO BID Infection 06/20/22 06/20/22 History mg-trimethoprim 160 mg tablet New Prescriptions to Start Prescriptions: Height: 1.68 m Weight: 164.427 kg Laboratory Results:: Laboratory Results - last 24 hr 06/22/22 01:50: Vancomycin Trough 12.2 H 06/22/22 05:45: WBC 10.6, RBC 4.89, Hgb 13.9, Hct 43.9, MCV 89.7, MCH 28.3, MCHC 31.6 L, RDW 15.5, Plt Count 293, MPV 9.0, Neut % (Auto) 65.2, Lymph % (Auto) 24.3, [place] % (Auto) 6.6, Eos % (Auto) 2.9, Baso % (Auto) 0.9, Neut # (Auto) 6.9, Lymph # (Auto) 2.6, [place] # (Auto) 0.7, Eos # (Auto) 0.3, Baso # (Auto) 0.1 06/22/22 05:45: Sodium 134 L, Potassium 4.4, Chloride 102, Carbon Dioxide 30, Anion Gap 6.4, BUN 14 D, Creatinine 0.80, Estimated Creat Clear 74, Estimated GFR 74, Est GFR ( Amer) 90, Glucose 119 H, Calcium 8.2 L, C-Reactive Protein 87.7 H D 06/22/22 06:30: Vancomycin Peak 27.0 Medical History: Medical History (Updated 06/20/22 @ 16:02 by Raheem Anderson MD) Hypertension Renal cancer Thyroid cancer Assessment and Plan Assessment and plan all Dx Assessment and Plan for all problems:: PATIENT'S VANCOMCYIN LEVELS WERE 24.0 MCG/ML AND 12.2 MCG/ML FOR PEAK AND TROUGH, RESPECTIVLY. RECOMMEND CONTINUING WITH CURRENT DOSE AND INTERVAL OF VANCOMYCIN 2250 MG Q12H AT THIS TIME.
--- NOTE | 2022-06-22 12:25 | PC.NURSE ---
Patient down to surgery department via bed
--- NOTE | 2022-06-22 12:37 | P.PN_ITS ---
[facility] Disclaimer: The information contained in this section may have been updated after the patient was seen, as this information can be updated by other users. Medical History Hypertension Renal cancer Thyroid cancer Surgical History H/O thyroidectomy History of Family History Diabetes Mother Father Cancer Brother Hypertension Mother Father Social History Smoking Status: Current every day smoker tobacco type: cigarettes quit status: considering quitting alcohol intake: never substance use type: denies use current occupational status: disabled Travel in the last 8 weeks: None household members: children housing: apartment lives independently: Yes marital status: single education level: high school special cal needs: No agree to transfusion: No do you feel safe at home: Yes victim of physical abuse: No victim of emotional abuse: No victim of sexual abuse: No would you like helpful sources: No [facility] Anesthesia Checklist Patient Identification Patient Identification: Arm Band and Verbal (Name & ) Structural Data Admitted From: Inpatient Planned Operative Procedure/s: I&D right breast Consent for Planned Operative Procedure(s) Verified: Yes Verified Documents: Surgical Consent NPO Status Verified Time NPO: 00:00 Chart Verification Results Verified: CBC and BMP Airway Assessment C-Spine Mobility Assessed: Yes TMJ Mobility Assessed: Yes Dentition: Edentulous Neurological Assessment Level of Consciousness: Awake, Alert and Appropriate Anesthesia Plan Anesthesia Risk discussed: Yes ASA Class: III Anesthesia Type: MAC
--- NOTE | 2022-06-22 13:33 | EXP.ACUTE.PN ---
Subjective *Date: 06/22/22 *Time: 13:33 Interval history: Patient stable overnight. Tolerating room air. N.p.o. this morning for planned I&D. Denies any chest pain. Swelling still prominent in breast. More fluctuant on exam today. Redness stable, no further recession. Denies shortness of breath, nausea, vomiting, sweats or fevers. Medical Exam Vital signs and Labs for Last 24 Hours: Vital Signs Temp Pulse Resp BP Pulse Ox 06/22/22 12:00 98.1 F 60 18 98/61 L 95 06/22/22 08:00 98.3 F 72 18 112/64 100 06/22/22 04:00 98.2 F 67 16 117/68 95 06/22/22 00:00 97.9 F 61 16 101/68 L 96 06/21/22 20:00 98.1 F 60 17 99/63 L 95 06/21/22 15:05 97.7 F 66 18 93/63 L 91 L Intake and Output 06/21/22 06/22/22 06/22/22 23:59 07:59 15:59 Intake Total 590 / 1450 150 / 150 0 / 150 Output Total 0 / 0 2 / 2 Balance 590 / 1450 148 / 148 0 / 148 Intake: Intake, Oral Amount 240 / 750 150 / 150 0 / 150 Intake, Total IV Amount 350 / 700 Meropenem 1 gm In 0.9 % Sodium 100 / 200 Chloride 100 ml @ 100 mls/hr IV Q12H ALIYA Rx#:[id number] Vancomycin HCl 2,250 mg In 0.9 250 / 500 % Sodium Chloride 250 ml @ 125 mls/hr IV Q12H ALIYA Rx#:[id number] Output: Output, Urine Amount 0 / 0 2 / 2 Other: Number of Voids 1 Number of Unmeasured Voids 1 1 Number of Bowel Movements 1 Weight 164.427 kg 164.427 kg Patient Weight 06/22/22 23:59 Weight 164.427 kg Laboratory Results - last 24 hr 06/22/22 01:50: Vancomycin Trough 12.2 H 06/22/22 05:45: WBC 10.6, RBC 4.89, Hgb 13.9, Hct 43.9, MCV 89.7, MCH 28.3, MCHC 31.6 L, RDW 15.5, Plt Count 293, MPV 9.0, Neut % (Auto) 65.2, Lymph % (Auto) 24.3, [place] % (Auto) 6.6, Eos % (Auto) 2.9, Baso % (Auto) 0.9, Neut # (Auto) 6.9, Lymph # (Auto) 2.6, [place] # (Auto) 0.7, Eos # (Auto) 0.3, Baso # (Auto) 0.1 06/22/22 05:45: Sodium 134 L, Potassium 4.4, Chloride 102, Carbon Dioxide 30, Anion Gap 6.4, BUN 14 D, Creatinine 0.80, Estimated Creat Clear 74, Estimated GFR 74, Est GFR ( Amer) 90, Glucose 119 H, Calcium 8.2 L, C-Reactive Protein 87.7 H D 06/22/22 06:30: Vancomycin Peak 27.0 I & O for Labs for Last 24 Hours: Intake & Output 06/19/22 06/20/22 06/21/22 06/22/22 22:59 22:59 23:59 23:59 Intake Total 150 / 150 Output Total 2 / 2 Balance 148 / 148 Weight 164.427 kg Microbiology Reports for the Last 24 Hours: Microbiology 06/20/22 14:10 Blood Blood Culture - Preliminary Gram Positive Cocci 06/20/22 13:40 Breast,Right - Abscess Gram Stain - Final 06/20/22 13:40 Breast,Right - Abscess Abscess Culture - Preliminary NO GROWTH AFTER 24 HOURS Constitutional: Present no acute distress, morbidly obese and cooperative Head: Present atraumatic and normocephalic ENT: Present normal exam Neck: Present normal inspection Respiratory: Present normal respiratory effort; Absent rhonchi, wheezes or crackles Cardiac: Present Reg Rate and Rhythm GI: Present soft and normal bowel sounds; Absent distention or tenderness Extremities: Present normal inspection and full ROM; Absent edema Comment:: Varicosities of bilateral lower extremities Skin: Present intact and erythema (Right breast, stable leading edge of erythema. Induration has become more fluctuant today. Scant purulent nipple discharge. Tender to palpation) Neuro: Present Grossly Intact, alert, awake, oriented x 3 and moves all extremities Assessment and Plan *Assessment and plan (1) Breast abscess: Status: Acute Category: Medical Code(s): N61.1 - Abscess of the breast and nipple (2) Cellulitis of right breast: Status: Acute Category: Medical Code(s): N61.0 - Mastitis without abscess (3) Hypertension: Status: Chronic Qualifiers: Hypertension type: primary hypertension Qualified Code(s): I10 - Essential (primary) hypertensi
--- NOTE | 2022-06-22 13:53 | P.OP_ITS ---
Date of procedure: 06/22/22 Pre-op Diagnosis:: Right breast abscess Post-op Diagnosis:: Same Procedure performed:: Incision and drainage of complex right breast abscess Surgeon:: Rao Aguiar MD FORENSIC ACCOUNTANT:: Michael Norton Anesthesia: MAC and local Estimated blood loss (mL): 20 Clinical Note:: Patient is a 56-year-old female from [place] with history of diabetes, class IV obesity (BMI 58.3), with prior history of right breast abscess treated with incision and drainage in [place].? She had presented 06/19/22 with about a 1 week history of worsening right breast pain redness and tenderness.? She had been seen at an outside emergency department on 06/18/2022 and started on Bactrim.? She presented to the emergency department here at [facility] because of worsening swelling and pain.? ER had performed aspiration after ultrasound revealed moderate abscess of 80 cc of purulent material after discussion with surgery.? She was admitted for inpatient management with initiation of IV antibiotics and surgical consultation.? She has subsequently shown some improvement in her inflammatory markers and cellulitis has shown some regression. She continued to show some regression of the cellulitis and mild regression of induration. Consideration was being given for possible follow-up ultrasound and aspiration. However, she developed fluctuance in her previous incision and drainage site scar and it was felt that the best plan of action would be operative incision and drainage. Operative findings:: She had well formed abscess pocket with findings consistent with established chronic abscess with firm fibrotic tissues. There was reddish-brown and pus which exuded from the abscess cavity after incision and drainage. Operative note:: Patient was taken the operating room. She was positioned in supine position. Heavy intravenous sedation was achieved. The area was prepped and draped in the standard surgical fashion. Local anesthetic was infiltrated at the site of fluctuance. Limited incision was performed. There was relatively thin reddish- brown pus which exuded from the wound. This was sent for culture. Incision was opened somewhat. Wound was probed and there was findings consistent with firm fibrotic established inflammation and abscess cavity. Any potential loculations were digitally broken up. A portion of the firm tissues, likely inflamed, was grasped with an Allis clamp and incised and sent for histopathology. Wound was then thoroughly irrigated. There appeared to be good hemostasis. Wound was packed with dry 4 x 4 and covered with clean dry sterile dressing. Condition: stable Disposition: PACU Complications:: None immediately apparent
--- NOTE | 2022-06-22 16:31 | PC.NURSE ---
Pt alert and oriented. VSS. Up ad barb in room. Right breast I&D with dressing intact with shadow. Percocet for pain. On 1L O2 while sleeping postop. IV antibiotics infusing per orders.
[2022-06-23] VITALS: BP 93/57; PULSE 66; RESP 20; TEMP 37.3; O2SAT 92
[2022-06-23 04:00] VITALS: BP 110/70; PULSE 78; RESP 20; TEMP 36.8; O2SAT 91; BMI 59.3
[2022-06-23 07:03] LABS: Basophils # 0.1 K/mm3 (0-0.2); Basophils % 0.6 % (0.1-2.0); Eosinophils # 0.3 K/mm3 (0.0-0.4); Eosinophils % 2.3 % (0.1-12.0); Hematocrit 42.8 % (37.0-47.0); Hemoglobin 13.4 g/dL (12.2-16.2); Lymphocytes # 2.4 K/mm3 (0.7-4.5); Lymphocytes % 21.7 % (10-50); Mean Corpuscular HGB Conc 31.4 g/dL (31.8-35.4); Mean Corpuscular Hemoglobin 28.4 pg (27.0-31.2); Mean Corpuscular Volume 90.4 fl (81-99); Mean Platelet Volume 9.2 fl (7.4-10.4); Monocytes # 0.6 K/mm3 (0.1-1.0); Monocytes % 5.5 % (1.7-9.3); Neutrophils # 7.8 K/mm3 (1.8-7.8); Neutrophils % 69.8 % (37.0-80.0); Platelet Count 318 K/mm3 (142-424); Red Blood Count 4.73 M/mm3 (4.20-5.40); Red Cell Distribution Width 15.7 % (11.5-17.5); White Blood Count 11.1 K/mm3 (4.8-10.8)
[2022-06-23 07:10] LABS: Anion Gap 11.4 mEq/L (5-15); Blood Urea Nitrogen 18 mg/dl (7-17); Calcium 8.1 mg/dl (8.4-10.2); Carbon Dioxide 28 mmol/L (22.0-30.0); Chloride 99 mmol/L (98-107); Creatinine Clearance Estimated 66 mL/min (50-200); Estimated Glomerular Filt Rate 65 ml/min (>60); GFR (African American) 79 ML/MIN (>60); Glucose 109 mg/dl (74-100); Potassium 4.4 mmoL/L (3.5-5.1); Sodium 134 mmol/L (136-145)
[2022-06-23 07:15] LABS: C-Reactive Protein 83.5 mg/L (0-4)
--- NOTE | 2022-06-23 07:20 | EXP.SURG.PN ---
Subjective Patient reports: no new complaints Narrative: Tolerated dressing changes. Exam Data for Last 24 hours Vital signs and Labs for Last 24 Hours: Temp Pulse Resp BP Pulse Ox 98.2 F 78 20 110/70 91 L 06/23/22 04:00 06/23/22 04:00 06/23/22 04:00 06/23/22 04:00 06/23/22 04:00 Laboratory Results - last 24 hr 06/23/22 06:40: WBC 11.1 H, RBC 4.73, Hgb 13.4, Hct 42.8, MCV 90.4, MCH 28.4, MCHC 31.4 L, RDW 15.7, Plt Count 318, MPV 9.2, Neut % (Auto) 69.8, Lymph % (Auto) 21.7, [place] % (Auto) 5.5, Eos % (Auto) 2.3, Baso % (Auto) 0.6, Neut # (Auto) 7.8, Lymph # (Auto) 2.4, [place] # (Auto) 0.6, Eos # (Auto) 0.3, Baso # (Auto) 0.1 06/23/22 06:40: Sodium 134 L, Potassium 4.4, Chloride 99, Carbon Dioxide 28, Anion Gap 11.4, BUN 18 H D, Creatinine 0.90, Estimated Creat Clear 66, Estimated GFR 65, Est GFR ( Amer) 79, Glucose 109 H, Calcium 8.1 L, C-Reactive Protein 83.5 H I & O for Last 24 hours: Intake & Output 06/20/22 06/21/22 06/22/22 06/23/22 10:59 11:59 11:59 11:59 Intake Total 1100 / 1100 1490 / 1490 Output Total 2 / 2 0 / 0 Balance 1098 / 1098 1490 / 1490 Weight 362 lb 8 oz 369 lb 1.6 oz Microbiology Reports for the Last 24 Hours: Microbiology 06/22/22 13:40 Breast,Right - Abscess Gram Stain - Final 06/20/22 14:10 Blood Blood Culture - Preliminary NO GROWTH AFTER 48 HOURS 06/20/22 13:40 Breast,Right - Abscess Gram Stain - Final 06/20/22 13:40 Breast,Right - Abscess Abscess Culture - Preliminary NO GROWTH AFTER 48 HOURS 06/20/22 14:10 Blood Blood Culture - Preliminary Gram Positive Cocci Routine Chest/Breast/Axilla Exam Comments: Wound with stable cellulitis. Somewhat diminished induration. Progress Note: A&P Assessment and plan (1) Breast abscess: Status: Acute Assessment and plan: Continue dressing changes and wound care. (2) Cellulitis of right breast: Status: Acute (3) Hypertension: Status: Chronic (4) Diabetes: Status: Chronic (5) Hypothyroidism (acquired): Status: Chronic (6) Class 3 obesity: Status: Chronic (7) Tobacco use disorder: Status: Chronic
[2022-06-23 08:00] VITALS: BP 126/68; PULSE 69; RESP 20; TEMP 36.8; O2SAT 93
--- NOTE | 2022-06-23 08:32 | EXP.PHA.PN ---
Subjective *Date: 06/23/22 *Time: 08:32 Medical Exam Vital signs and Labs for Last 24 Hours: Vital Signs Temp Pulse Resp BP BP Pulse Ox 06/23/22 08:00 98.3 F 69 20 126/68 93 L 06/23/22 04:00 98.2 F 78 20 110/70 91 L 06/23/22 00:00 99.1 F 66 20 93/57 L 92 L 06/22/22 20:00 97.9 F 67 20 96/69 L 91 L 06/22/22 18:24 98 F 65 18 91/55 L 94 L 06/22/22 17:43 98 F 65 18 91/55 L 92 L 06/22/22 16:50 63 18 101/67 L 94 L 06/22/22 16:22 97.8 F 58 L 16 88/56 L 91 L 06/22/22 15:58 62 16 117/62 93 L 06/22/22 15:25 97.3 F L 66 18 110/67 93 L 06/22/22 14:55 97.2 F L 66 18 101/66 L 93 L 06/22/22 14:40 96.7 F L 60 16 102/52 L 92 L 06/22/22 14:25 97.7 F 61 18 103/65 L 92 L 06/22/22 14:20 63 16 100/66 L 92 L 06/22/22 14:10 61 14 92/57 L 91 L 06/22/22 14:06 97.0 F L 61 14 81/50 L 92 L 06/22/22 12:00 98.1 F 60 18 98/61 L 95 Intake and Output 06/22/22 06/23/22 06/23/22 23:59 07:59 15:59 Intake Total 840 / 1640 650 / 1250 600 / 1250 Output Total 0 / 2 0 / 0 Balance 840 / 1638 650 / 1250 600 / 1250 Intake: Intake, Oral Amount 840 / 1290 300 / 900 600 / 900 Intake, Total IV Amount 350 / 350 Meropenem 1 gm In 0.9 % Sodium 100 / 100 Chloride 100 ml @ 100 mls/hr IV Q12H ALIYA Rx#:[id number] Vancomycin HCl 2,250 mg In 0.9 250 / 250 % Sodium Chloride 250 ml @ 125 mls/hr IV Q12H ALIYA Rx#:[id number] Output: Output, Urine Amount 0 / 2 0 / 0 Other: Number of Voids 3 Number of Unmeasured Voids 1 1 Weight 167.421 kg Patient Weight 06/23/22 23:59 Weight 167.421 kg Laboratory Results - last 24 hr 06/23/22 06:40: WBC 11.1 H, RBC 4.73, Hgb 13.4, Hct 42.8, MCV 90.4, MCH 28.4, MCHC 31.4 L, RDW 15.7, Plt Count 318, MPV 9.2, Neut % (Auto) 69.8, Lymph % (Auto) 21.7, [place] % (Auto) 5.5, Eos % (Auto) 2.3, Baso % (Auto) 0.6, Neut # (Auto) 7.8, Lymph # (Auto) 2.4, [place] # (Auto) 0.6, Eos # (Auto) 0.3, Baso # (Auto) 0.1 06/23/22 06:40: Sodium 134 L, Potassium 4.4, Chloride 99, Carbon Dioxide 28, Anion Gap 11.4, BUN 18 H D, Creatinine 0.90, Estimated Creat Clear 66, Estimated GFR 65, Est GFR ( Amer) 79, Glucose 109 H, Calcium 8.1 L, C-Reactive Protein 83.5 H I & O for Labs for Last 24 Hours: Intake & Output 06/20/22 06/21/22 06/22/22 06/23/22 22:59 23:59 23:59 23:59 Intake Total 990 / 1640 1250 / 1250 Output Total 2 / 2 0 / 0 Balance 988 / 1638 1250 / 1250 Weight 164 kg 167.421 kg Microbiology Reports for the Last 24 Hours: Microbiology 06/20/22 13:40 Breast,Right - Abscess Gram Stain - Final 06/20/22 13:40 Breast,Right - Abscess Abscess Culture - Preliminary 06/20/22 14:10 Blood Blood Culture - Final Staphylococcus hominis 06/22/22 13:40 Breast,Right - Abscess Gram Stain - Final 06/20/22 14:10 Blood Blood Culture - Preliminary NO GROWTH AFTER 48 HOURS The patient's infection will respond to the chosen ABx?: Yes Is the patient receiving the right drug, dose, and route?: Yes Could a more targeted ABx be ordered?: No (wbc 11.1k, afebrile, cx pending still, cellulitis improving.)
--- NOTE | 2022-06-23 11:48 | EXP.ACUTE.PN ---
Subjective *Date: 06/23/22 *Time: 13:14 Interval history: Patient had no significant pain overnight. Taken for I&D yesterday. Tolerated procedure well. Packing in place with bloody discharge but no purulence. Improved redness on exam. Denies any shortness of breath, chest pain, nausea, vomiting. Medical Exam Vital signs and Labs for Last 24 Hours: Vital Signs Temp Pulse Resp BP BP Pulse Ox 06/23/22 08:00 98.3 F 69 20 126/68 93 L 06/23/22 04:00 98.2 F 78 20 110/70 91 L 06/23/22 00:00 99.1 F 66 20 93/57 L 92 L 06/22/22 20:00 97.9 F 67 20 96/69 L 91 L 06/22/22 18:24 98 F 65 18 91/55 L 94 L 06/22/22 17:43 98 F 65 18 91/55 L 92 L 06/22/22 16:50 63 18 101/67 L 94 L 06/22/22 16:22 97.8 F 58 L 16 88/56 L 91 L 06/22/22 15:58 62 16 117/62 93 L 06/22/22 15:25 97.3 F L 66 18 110/67 93 L 06/22/22 14:55 97.2 F L 66 18 101/66 L 93 L 06/22/22 14:40 96.7 F L 60 16 102/52 L 92 L 06/22/22 14:25 97.7 F 61 18 103/65 L 92 L 06/22/22 14:20 63 16 100/66 L 92 L 06/22/22 14:10 61 14 92/57 L 91 L 06/22/22 14:06 97.0 F L 61 14 81/50 L 92 L 06/22/22 12:00 98.1 F 60 18 98/61 L 95 Intake and Output 06/22/22 06/23/22 06/23/22 23:59 07:59 15:59 Intake Total 840 / 1640 650 / 1250 600 / 1250 Output Total 0 / 2 0 / 0 0 / 0 Balance 840 / 1638 650 / 1250 600 / 1250 Intake: Intake, Oral Amount 840 / 1290 300 / 900 600 / 900 Intake, Total IV Amount 350 / 350 Meropenem 1 gm In 0.9 % Sodium 100 / 100 Chloride 100 ml @ 100 mls/hr IV Q12H [facility] Rx#:[id number] Vancomycin HCl 2,250 mg In 0.9 250 / 250 % Sodium Chloride 250 ml @ 125 mls/hr IV Q12H [facility] Rx#:[id number] Output: Output, Urine Amount 0 / 2 0 / 0 0 / 0 Other: Number of Voids 3 Number of Unmeasured Voids 1 1 1 Weight 167.421 kg Patient Weight 06/23/22 23:59 Weight 167.421 kg Laboratory Results - last 24 hr 06/23/22 06:40: WBC 11.1 H, RBC 4.73, Hgb 13.4, Hct 42.8, MCV 90.4, MCH 28.4, MCHC 31.4 L, RDW 15.7, Plt Count 318, MPV 9.2, Neut % (Auto) 69.8, Lymph % (Auto) 21.7, [place] % (Auto) 5.5, Eos % (Auto) 2.3, Baso % (Auto) 0.6, Neut # (Auto) 7.8, Lymph # (Auto) 2.4, [place] # (Auto) 0.6, Eos # (Auto) 0.3, Baso # (Auto) 0.1 06/23/22 06:40: Sodium 134 L, Potassium 4.4, Chloride 99, Carbon Dioxide 28, Anion Gap 11.4, BUN 18 H D, Creatinine 0.90, Estimated Creat Clear 66, Estimated GFR 65, Est GFR ( Amer) 79, Glucose 109 H, Calcium 8.1 L, C-Reactive Protein 83.5 H I & O for Labs for Last 24 Hours: Intake & Output 06/20/22 06/21/22 06/22/22 06/23/22 22:59 23:59 23:59 23:59 Intake Total 990 / 1640 1250 / 1250 Output Total 2 / 2 0 / 0 Balance 988 / 1638 1250 / 1250 Weight 164 kg 167.421 kg Microbiology Reports for the Last 24 Hours: Microbiology 06/20/22 13:40 Breast,Right - Abscess Gram Stain - Final 06/20/22 13:40 Breast,Right - Abscess Abscess Culture - Preliminary 06/20/22 14:10 Blood Blood Culture - Final Staphylococcus hominis 06/22/22 13:40 Breast,Right - Abscess Gram Stain - Final 06/20/22 14:10 Blood Blood Culture - Preliminary NO GROWTH AFTER 48 HOURS Constitutional: Present no acute distress, morbidly obese and cooperative Head: Present atraumatic and normocephalic ENT: Present normal exam Neck: Present normal inspection Respiratory: Present normal respiratory effort; Absent rhonchi, wheezes or crackles Cardiac: Present Reg Rate and Rhythm GI: Present soft and normal bowel sounds; Absent distention or tenderness Extremities: Present normal inspection and full ROM; Absent edema Comment:: Varicosities of bilateral lower extremities Skin: Present intact and erythema (Right breast, improved redness. Improved induration. Packing and wound with bloody discharge, no purulence. Improved tenderness) Neuro: Present Grossly In
[2022-06-23 12:00] VITALS: BP 108/65; PULSE 73; RESP 16; TEMP 36.9; O2SAT 95
--- NOTE | 2022-06-23 15:48 | PC.NURSE ---
Patient alert and oriented. VSS. UP ad brab in room for voids and to chair. Dressing/packing changed prn. Percocet for pain after dressing change. Oral bactrim administered this afternoon. Patient states understanding of reporting increased pain or redness.
[2022-06-23 16:00] VITALS: BP 123/79; PULSE 79; RESP 18; TEMP 36.9; O2SAT 96
[2022-06-23 20:00] VITALS: BP 116/80; PULSE 70; RESP 18; TEMP 36.8; O2SAT 94
[2022-06-24 03:44] VITALS: BP 103/47; PULSE 64; RESP 20; TEMP 37.1; O2SAT 92; BMI 60.1
[2022-06-24 06:21] LABS: Basophils # 0.1 K/mm3 (0-0.2); Basophils % 0.9 % (0.1-2.0); Eosinophils # 0.3 K/mm3 (0.0-0.4); Eosinophils % 2.7 % (0.1-12.0); Hematocrit 42.5 % (37.0-47.0); Hemoglobin 13.2 g/dL (12.2-16.2); Lymphocytes # 2.3 K/mm3 (0.7-4.5); Lymphocytes % 20.3 % (10-50); Mean Corpuscular HGB Conc 31.1 g/dL (31.8-35.4); Mean Corpuscular Hemoglobin 27.9 pg (27.0-31.2); Mean Corpuscular Volume 89.9 fl (81-99); Monocytes # 0.8 K/mm3 (0.1-1.0); Monocytes % 6.9 % (1.7-9.3); Neutrophils # 7.8 K/mm3 (1.8-7.8); Neutrophils % 69.3 % (37.0-80.0); Platelet Count 305 K/mm3 (142-424); Red Blood Count 4.73 M/mm3 (4.20-5.40); Red Cell Distribution Width 15.5 % (11.5-17.5); White Blood Count 11.2 K/mm3 (4.8-10.8)
[2022-06-24 06:35] LABS: Anion Gap 5.4 mEq/L (5-15); Blood Urea Nitrogen 16 mg/dl (7-17); Calcium 8.7 mg/dl (8.4-10.2); Carbon Dioxide 32 mmol/L (22.0-30.0); Chloride 100 mmol/L (98-107); Creatinine Clearance Estimated 74 mL/min (50-200); Estimated Glomerular Filt Rate 74 ml/min (>60); GFR (African American) 90 ML/MIN (>60); Glucose 125 mg/dl (74-100); Potassium 4.4 mmoL/L (3.5-5.1); Sodium 133 mmol/L (136-145)
[2022-06-24 06:41] LABS: C-Reactive Protein 78.6 mg/L (0-4)
[2022-06-24 08:00] VITALS: BP 118/65; PULSE 65; RESP 18; TEMP 36.9; O2SAT 94
--- NOTE | 2022-06-24 08:22 | P.PN_ITS ---
Subjective Patient reports: no new complaints and feels better Exam Data for Last 24 hours Vital signs and Labs for Last 24 Hours: Temp Pulse Resp BP Pulse Ox 98.4 F 65 18 118/65 94 L 06/24/22 08:00 06/24/22 08:00 06/24/22 08:00 06/24/22 08:00 06/24/22 08:00 Laboratory Results - last 24 hr 06/24/22 05:30: WBC 11.2 H, RBC 4.73, Hgb 13.2, Hct 42.5, MCV 89.9, MCH 27.9, MCHC 31.1 L, RDW 15.5, Plt Count 305, MPV 9.0, Neut % (Auto) 69.3, Lymph % (Auto) 20.3, [place] % (Auto) 6.9, Eos % (Auto) 2.7, Baso % (Auto) 0.9, Neut # (Auto) 7.8, Lymph # (Auto) 2.3, [place] # (Auto) 0.8, Eos # (Auto) 0.3, Baso # (Auto) 0.1 06/24/22 05:30: Sodium 133 L, Potassium 4.4, Chloride 100, Carbon Dioxide 32 H, Anion Gap 5.4, BUN 16, Creatinine 0.80, Estimated Creat Clear 74, Estimated GFR 74, Est GFR ( Amer) 90, Glucose 125 H, Calcium 8.7, C-Reactive Protein 78.6 H I & O for Last 24 hours: Intake & Output 06/21/22 06/22/22 06/23/22 06/24/22 11:59 11:59 11:59 11:59 Intake Total 1100 / 1100 2089 1570 / 1570 Output Total 2 / 2 0 / 0 0 / 0 Balance 1098 / 1098 2089 1570 / 1570 Weight 362 lb 8 oz 369 lb 1.6 oz 374 lb 6.4 oz Microbiology Reports for the Last 24 Hours: Microbiology 06/20/22 13:40 Breast,Right - Abscess Gram Stain - Final 06/20/22 13:40 Breast,Right - Abscess Abscess Culture - Preliminary 06/22/22 13:40 Breast,Right - Abscess Gram Stain - Final 06/22/22 13:40 Breast,Right - Abscess Wound Culture - Preliminary NO GROWTH AFTER 24 HOURS 06/20/22 14:10 Blood Blood Culture - Final Staphylococcus hominis Constitutional Constitutional: no acute distress Routine Chest/Breast/Axilla Exam Comments: Right breast wound base and margin clean. Minimal blush (significant improvement with regard to cellulitic component). *Routine Respiratory Exam Respiratory: Absent respiratory distress *Routine Cardiovascular Exam Cardiovascular: Absent tachycardia Progress Note: A&P Assessment and plan (1) Breast abscess: Status: Acute Assessment and plan: Significant improvement status post incision and drainage. Now on Bactrim with no sign of clinical regression. Likely discharge home with close outpatient follow-up Continue dressing changes Complete course of antibiotics (2) Cellulitis of right breast: Status: Acute Assessment and plan: Dramatic improvement with regard to cellulitic component (almost resolved with only blush remaining). (3) Hypothyroidism (acquired): Status: Chronic
[2022-06-24 12:00] VITALS: BP 124/66; PULSE 66; RESP 18; TEMP 36.8; O2SAT 94
--- NOTE | 2022-06-24 12:39 | EXP.DC.SUM ---
General Admission date:: 06/20/22 Discharge date: 06/24/22 HPI HPI HPI: Patient is a 56-year-old female from [place] with history of diabetes, class IV obesity (BMI 58.3), with prior history of right breast abscess treated with incision and drainage in [place]. She had presented yesterday with about a 1 week history of worsening right breast pain redness and tenderness. She had been seen at an outside emergency department on 06/18/2022 and started on Bactrim. She presented to the emergency department here at [facility] yesterday because of worsening swelling and pain. ER had performed aspiration after ultrasound revealed moderate abscess of 80 cc of purulent material after discussion with surgery. She was admitted for inpatient management with initiation of IV antibiotics and surgical consultation. She has subsequently shown some improvement in her inflammatory markers and cellulitis has shown some regression. Hospital Course Hospital Course Hospital Course: The patient was admitted to the medical floor with general surgery consult. Blood cultures were acquired that identified 1 bottle growing a contaminant and the second bottle being no growth to date. General surgery recommended operative intervention and she underwent evaluation in the ER on 06/22/2022. Her laboratory studies and inflammatory markers were trended. She tolerated her IV antibiotic with no adverse events. Her wound cultures identified no growth to date. Wound care education and dressing changes were reviewed with the patient. She identified improvement and inquired about discharge home. She will be discharged home on antibiotic therapy to follow-up with general surgery as scheduled. I spent 35 minutes in [id number] time with the patient and nursing staff (Chelsea HAM) concerning the discharge process. We discussed the admitting diagnoses and hospital course. We discussed identified improvement and the patient's desire to be discharged. We reviewed inpatient studies and imaging. The patient voiced understanding on the importance of follow-up with her primary care provider and general surgeon. The patient plans to be compliant with the medication regimen prescribed and follow-up appointments. She understands that she can return to the emergency department with any sudden changes or concerns. Exam Data for Last 24 hours Vital signs and Labs for Last 24 Hours: Temp Pulse Resp BP Pulse Ox 98.4 F 65 18 118/65 94 L 06/24/22 08:00 06/24/22 08:00 06/24/22 08:00 06/24/22 08:00 06/24/22 08:00 Laboratory Results - last 24 hr 06/24/22 05:30: WBC 11.2 H, RBC 4.73, Hgb 13.2, Hct 42.5, MCV 89.9, MCH 27.9, MCHC 31.1 L, RDW 15.5, Plt Count 305, MPV 9.0, Neut % (Auto) 69.3, Lymph % (Auto) 20.3, [place] % (Auto) 6.9, Eos % (Auto) 2.7, Baso % (Auto) 0.9, Neut # (Auto) 7.8, Lymph # (Auto) 2.3, [place] # (Auto) 0.8, Eos # (Auto) 0.3, Baso # (Auto) 0.1 06/24/22 05:30: Sodium 133 L, Potassium 4.4, Chloride 100, Carbon Dioxide 32 H, Anion Gap 5.4, BUN 16, Creatinine 0.80, Estimated Creat Clear 74, Estimated GFR 74, Est GFR ( Amer) 90, Glucose 125 H, Calcium 8.7, C-Reactive Protein 78.6 H I & O for Last 24 hours: Intake & Output 06/21/22 06/22/22 06/23/22 06/24/22 23:59 23:59 23:59 23:59 Intake Total 990 / 1640 2210 / 2460 610 / 610 Output Total 2 / 2 0 / 0 0 / 0 Balance 988 / 1638 2210 / 2460 610 / 610 Weight 164 kg 167.421 kg 169.825 kg Microbiology Reports for the Last 24 Hours: Microbiology 06/20/22 13:40 Breast,Right - Abscess Gram Stain - Final 06/20/22 13:40 Breast,Right - Abscess Abscess Culture - Preliminary 06/22/22 13:40 Breast,Right - Abscess Gram Stain - Final 06/22/22 13:40 Breast,Right - Abscess Wound Culture - Preliminary NO GROWTH AFTER 24 HOURS Constitutional Constitutional: no acute distress *Routine HEENT Exam Head: Present normocephalic Eye: Present EOMI and PERRL ENT:
--- NOTE | 2022-06-24 12:59 | HMH.PHAINT1 ---
Pharmacy Intervention Comments: Discussed discharge medications with patient. Patient verbalized understanding and had no questions at this time
--- NOTE | 2022-06-29 11:17 | CARE MANAGER ---
Attempted to contact patient x2 related to hospital discharge. Unable to leave . FATOUMATA Stack
== END 2022-06-24 13:47 | disposition home or self-care (01) ==
LOC: ER 14:19 → 2ND 14:35
PROVIDERS: Surgery; Admitting Provider Internal Medicine Adolescent Medicine; Emergency Provider Emergency Medicine; PCP Nurse Practitioner Family; Visit Provider Internal Medicine Adolescent Medicine
DX: N61.1 Abscess of the breast and nipple (principal); N61.0 Mastitis without abscess; I10 Essential (primary) hypertension; E11.9 Type 2 diabetes mellitus without complications; E03.9 Hypothyroidism, unspecified; E66.01 Morbid (severe) obesity due to excess calories; Z68.43 Body mass index [BMI] 50.0-59.9, adult; Z79.84 Long term (current) use of oral hypoglycemic drugs; Z20.822 Contact with and (suspected) exposure to COVID-19
CPT/HCPCS: 19020; 10060; 36415; 71260; 80048; 80053; 80202; 83036; 83605; 83735; 84443; 85025; 85651; 86140; 87040; 87070; 87075; 87077; 87186; 87205; 88304; 88312; 99285; C9803; G0378; J2185; J2405; J3370; Q9967; U0003; U0005

== ENCOUNTER → 2022-07-06 10:10 | Outpatient (CLI) | payer OTHER, SELFPAY ==
[2022-07-06 18:34] LABS: Chloride 98 mmol/L (98-107); Potassium 5.1 mmoL/L (3.5-5.1); Sodium 136 mmol/L (136-145)
[2022-07-06 18:37] LABS: Alanine Aminotransferase 34 U/L (12-78); Albumin Level 4.2 g/dl (3.5-5.0); Albumin/Globulin Ratio 1.2 (1.1-1.8); Alkaline Phosphatase 109 U/L (38-126); Anion Gap 14.1 mEq/L (5-15); Aspartate Amino Transferase 36 U/L (14-36); Bilirubin,Total 0.7 mg/dl (0.2-1.3); Blood Urea Nitrogen 16 mg/dl (7-17); Carbon Dioxide 29 mmol/L (22.0-30.0); Cholesterol 291 mg/dl (140-200); Estimated Glomerular Filt Rate 65 ml/min (>60); GFR (African American) 79 ML/MIN (>60); Globulin 3.6 g/dL (1.3-3.2); Total Protein,Serum 7.8 g/dl (6.3-8.2); Triglycerides 273 mg/dl (30-150); VLDL Cholesterol 55 mg/dL (0-40)
[2022-07-06 18:38] LABS: Calcium 9.5 mg/dl (8.4-10.2); Chol/HDL Ratio 6.5 (1-3.5); Glucose 137 mg/dl (74-100); HDL Cholesterol 45 mg/dl (40-60)
[2022-07-06 18:38] LABS: Basophils # 0.1 K/mm3 (0-0.2); Eosinophils # 0.2 K/mm3 (0.0-0.4); Eosinophils % 1.9 % (0.1-12.0); Hemoglobin 15.5 g/dL (12.2-16.2); Lymphocytes # 3.1 K/mm3 (0.7-4.5); Lymphocytes % 25.3 % (10-50); Mean Corpuscular HGB Conc 31.6 g/dL (31.8-35.4); Mean Corpuscular Hemoglobin 28.8 pg (27.0-31.2); Mean Corpuscular Volume 91.2 fl (81-99); Mean Platelet Volume 9.4 fl (7.4-10.4); Monocytes # 0.7 K/mm3 (0.1-1.0); Monocytes % 6.2 % (1.7-9.3); Neutrophils # 7.9 K/mm3 (1.8-7.8); Neutrophils % 65.6 % (37.0-80.0); Platelet Count 469 K/mm3 (142-424); Red Blood Count 5.38 M/mm3 (4.20-5.40); Red Cell Distribution Width 15.9 % (11.5-17.5)
[2022-07-06 18:49] LABS: Direct LDL Cholesterol 177.31 mg/dL (100-129)
[2022-07-06 18:59] LABS: Hemoglobin A1C 6.7 % (4.0-6.0)
[2022-07-06 19:08] LABS: Thyroid Stimulating Hormone < 0.02 uIU/mL (0.465-4.68)
--- NOTE | 2022-09-03 12:13 | PC.NURSE ---
I have attempted to call the patient in regards to a HST but the call goes straight to voicemail box which is full and unable to leave a message.
== END ==
PROVIDERS: PCP Family Medicine; Visit Provider Family Medicine
DX: Z00.00 Encounter for general adult medical examination without abnormal findings (principal); I10 Essential (primary) hypertension; E11.9 Type 2 diabetes mellitus without complications; E03.9 Hypothyroidism, unspecified; Z79.84 Long term (current) use of oral hypoglycemic drugs
CPT/HCPCS: 80053; 80061; 83036; 84443; 85025

== ENCOUNTER 2022-10-19 19:49 | Emergency (ER) | payer OTHER, SELFPAY ==
[2022-10-19 19:50] VITALS: BP 157/93; PULSE 89; RESP 20; TEMP 37.2; O2SAT 100; BMI 51.6
--- NOTE | 2022-10-19 20:18 | HMH.EDGENADL ---
Discharge Plan Disposition Patient Disposition: Home, Self-Care Prescriptions Prescriptions: New doxycycline hyclate 100 mg capsule 100 mg PO BID Qty: 14 0RF No Action clindamycin HCl 300 mg capsule 300 mg PO Q8H 7 Days Qty: 21 0RF atenolol 25 mg tablet 25 mg PO DAILY 30 Days Qty: 30 3RF losartan 50 mg tablet 50 mg PO DAILY 30 Days Qty: 30 3RF simvastatin 10 mg tablet 20 mg PO HS 30 Days Qty: 60 2RF metformin 500 mg tablet 500 mg PO BID 30 Days Qty: 60 2RF levothyroxine 125 mcg tablet 250 mcg PO DAILY Referrals Follow up/Referrals: Martinez Weaver MD [Primary Care Provider] - See instructions Activity Restrictions/Add. Instructions Additional Instructions/Restrictions: Return for worsening pain swelling or any other concerns within the next 8 hours. Take out the packing after improvement in the wound site. Otherwise follow-up with surgery within the next few days for reevaluation Clinical Impressions Clinical Impression: Abscess of breast Instructions Patient Instructions: DI for Skin Abscess Discharge ED Provider: Antony Panchal General Adult HPI General Chief complaint: Skin/Abscess/Foreign Body Stated complaint: breast drainage Time Seen by Provider: 10/19/22 20:00 Mode of Arrival: Wheelchair Source of Information: Patient Limitations: No Limitations Description of Symptoms (Recalled from ER Triage Doc. by RN): pt c/o rt breast abcess that started on wednesday. pt does have history of abcess. History of Present Illness HPI narrative: 56-year-old female with recurrent breast abscesses presents to the emergency department with a right breast abscess. She says this is typical for her as she has had this several times. No drainage from the breast and no fever or chills no chest pain abdominal pain vomiting back pain or any other concerns Related Data Home Medications Medication Instructions Recorded Confirmed levothyroxine 125 mcg tablet 250 mcg PO DAILY hypothyroidism 06/20/22 07/06/22 Previous Rx's Medication Instructions Recorded clindamycin HCl 300 mg capsule 300 mg PO Q8H 7 days #21 caps 06/30/22 atenolol 25 mg tablet 25 mg PO DAILY Hypertension 30 07/07/22 days #30 tabs losartan 50 mg tablet 50 mg PO DAILY Hypertension 30 07/07/22 days #30 tabs metformin 500 mg tablet 500 mg PO BID Diabetes 30 days #60 07/10/22 tabs simvastatin 10 mg tablet 20 mg PO HS Cholesterol 30 days 07/10/22 #60 tabs doxycycline hyclate 100 mg capsule 100 mg PO BID #14 caps 10/19/22 Allergies Allergy/AdvReac Type Severity Reaction Status Date / Time cephalexin Allergy Verified 07/06/22 09:24 acetaminophen AdvReac Verified 07/06/22 09:24 [facility] Disclaimer: The information contained in this section may have been updated after the patient was seen, as this information can be updated by other users. Medical History Class 3 obesity Diabetes Hypertension Hypothyroidism (acquired) Renal cancer Sciatica of left side Thyroid cancer Tobacco use disorder Surgical History H/O thyroidectomy History of History of incision and drainage Rt breast Family History Mother Diabetes Hypertension Father Diabetes Hypertension Brother Cancer Social History Smoking Status: Current every day smoker tobacco type: cigarettes quit status: considering quitting alcohol intake: never substance use type: denies use current occupational status: disabled Travel in the last 8 weeks: None household members: children housing: apartment lives independently: Yes marital status: single education level: high school special cal needs: No agree to transfusion: No do you feel safe at home: Yes victim of physical abuse: No victim of
[2022-10-19 20:32] VITALS: BP 134/85; PULSE 94; RESP 18; TEMP 37.2; O2SAT 96
== END 2022-10-19 20:32 | disposition home or self-care (01) ==
PROVIDERS: Emergency Provider Emergency Medicine; PCP Family Medicine
DX: N61.1 Abscess of the breast and nipple (principal); E11.9 Type 2 diabetes mellitus without complications; I10 Essential (primary) hypertension; E89.0 Postprocedural hypothyroidism; F17.210 Nicotine dependence, cigarettes, uncomplicated
CPT/HCPCS: 10060; 99283; 99284

== ENCOUNTER → 2022-11-17 10:31 | Outpatient (CLI) | payer OTHER, SELFPAY ==
--- NOTE | 2022-11-17 10:31 | US_ITS ---
PROCEDURE INFORMATION: Exam: US Right Breast, Complete Exam date and time: 11/17/2022 11:10 AM Age: 57 years old Clinical indication: Screening exam; No personal or family HX of malignancy; possible abcess x 1 month ago no prev imaging TECHNIQUE: Imaging protocol: Complete ultrasound of all four quadrants of the right breast and the retroareolar regions, including ultrasound of the axilla when performed. COMPARISON: No relevant prior studies available. FINDINGS: Breast: Sonographic images of the right breast including the retroareolar region, all 4 quadrants and the axilla do not demonstrate any solid or cystic masses. No architectural distortion or acoustical shadowing. No skin thickening or axillary adenopathy. IMPRESSION: No sonographic evidence of malignancy or abscess. A diagnostic bilateral mammogram is recommended at the current time if the patient has not already done ASSESSMENT: BI-RADS Category 0: Incomplete- Need Additional Imaging Evaluation and/or Prior Mammograms for Comparison
== END ==
PROVIDERS: PCP Family Medicine; Visit Provider Surgery
DX: N61.1 Abscess of the breast and nipple (principal)
CPT/HCPCS: 76641

== ENCOUNTER 2023-07-06 20:30 | Outpatient (CLI) | payer OTHER, SELFPAY ==
[2023-07-06 18:00] LABS: Basophils # 0.2 K/mm3 (0-0.2); Basophils % 1.5 % (0.1-2.0); Eosinophils # 0.4 K/mm3 (0.0-0.4); Eosinophils % 3.8 % (0.1-12.0); Hematocrit 50.1 % (37.0-47.0); Hemoglobin 15.5 g/dL (12.2-16.2); Lymphocytes # 2.7 K/mm3 (0.7-4.5); Lymphocytes % 24.5 % (10-50); Mean Corpuscular HGB Conc 30.9 g/dL (31.8-35.4); Mean Corpuscular Hemoglobin 30.8 pg (27.0-31.2); Mean Corpuscular Volume 99.8 fl (81-99); Monocytes # 0.8 K/mm3 (0.1-1.0); Monocytes % 7.4 % (1.7-9.3); Neutrophils # 6.8 K/mm3 (1.8-7.8); Neutrophils % 62.8 % (37.0-80.0); Platelet Count 262 K/mm3 (142-424); Red Blood Count 5.01 M/mm3 (4.20-5.40); White Blood Count 10.8 K/mm3 (4.8-10.8)
[2023-07-06 18:50] LABS: Chloride 104 mmol/L (98-107); Sodium 138 mmol/L (136-145)
[2023-07-06 18:51] LABS: Potassium 5.4 mmoL/L (3.5-5.1)
[2023-07-06 18:53] LABS: Alanine Aminotransferase 24 U/L (12-78); Albumin Level 3.7 g/dl (3.5-5.0); Albumin/Globulin Ratio 1.2 (1.1-1.8); Alkaline Phosphatase 115 U/L (38-126); Anion Gap 11.4 mEq/L (5-15); Aspartate Amino Transferase 22 U/L (14-36); Bilirubin,Total 0.3 mg/dl (0.2-1.3); Blood Urea Nitrogen 21 mg/dl (7-17); Calcium 9.7 mg/dl (8.4-10.2); Carbon Dioxide 28 mmol/L (22.0-30.0); Estimated Glomerular Filt Rate 87 ml/min (>60); GFR (African American) 105 ML/MIN (>60); Globulin 3.1 g/dL (1.3-3.2); Glucose 354 mg/dl (74-100); Total Protein,Serum 6.8 g/dl (6.3-8.2)
[2023-07-06 19:24] LABS: Thyroid Stimulating Hormone 0.02 uIU/mL (0.465-4.68)
[2023-07-06 19:59] LABS: Hemoglobin A1C 8.8 % (4.0-6.0)
== END 2023-07-06 23:59 ==
LOC: LAB.DROPOF 20:31
PROVIDERS: PCP Family Medicine; Visit Provider Family Medicine
DX: E11.9 Type 2 diabetes mellitus without complications (principal); E03.9 Hypothyroidism, unspecified; I10 Essential (primary) hypertension; Z79.84 Long term (current) use of oral hypoglycemic drugs; F17.210 Nicotine dependence, cigarettes, uncomplicated
CPT/HCPCS: 80053; 83036; 84443; 85025

== ENCOUNTER 2023-10-25 11:00 | Outpatient (CLI) | payer OTHER, SELFPAY ==
[2023-10-25 17:57] LABS: Chloride 100 mmol/L (98-107); Sodium 136 mmol/L (136-145)
[2023-10-25 17:58] LABS: Potassium 4.8 mmoL/L (3.5-5.1)
[2023-10-25 18:00] LABS: Alanine Aminotransferase 41 U/L (12-78); Albumin Level 3.8 g/dl (3.5-5.0); Albumin/Globulin Ratio 1.1 (1.1-1.8); Alkaline Phosphatase 122 U/L (38-126); Anion Gap 12.8 mEq/L (5-15); Aspartate Amino Transferase 31 U/L (14-36); Bilirubin,Total 0.5 mg/dl (0.2-1.3); Blood Urea Nitrogen 14 mg/dl (7-17); Carbon Dioxide 28 mmol/L (22.0-30.0); Cholesterol 259 mg/dl (140-200); Estimated Glomerular Filt Rate 87 ml/min (>60); GFR (African American) 105 ML/MIN (>60); Globulin 3.4 g/dL (1.3-3.2); Total Protein,Serum 7.2 g/dl (6.3-8.2); Triglycerides 185 mg/dl (30-150); VLDL Cholesterol 37 mg/dL (0-40)
[2023-10-25 18:01] LABS: Calcium 9.2 mg/dl (8.4-10.2); Chol/HDL Ratio 5.5 (1-3.5); Glucose 205 mg/dl (74-100); HDL Cholesterol 47 mg/dl (40-60)
[2023-10-25 18:13] LABS: Direct LDL Cholesterol 170.23 mg/dL (100-129)
[2023-10-25 18:27] LABS: Thyroid Stimulating Hormone 0.16 uIU/mL (0.465-4.68)
[2023-10-25 20:09] LABS: Hemoglobin A1C 11.2 % (4.0-6.0)
== END 2023-10-25 23:59 | disposition home or self-care (01) ==
LOC: LAB.DROPOF 10-26 11:00
PROVIDERS: PCP Family Medicine; Visit Provider Family Medicine
DX: E03.9 Hypothyroidism, unspecified (principal); I10 Essential (primary) hypertension; F17.210 Nicotine dependence, cigarettes, uncomplicated
CPT/HCPCS: 80053; 80061; 83036; 84443

== ENCOUNTER 2024-02-09 11:17 | Outpatient (CLI) | payer OTHER, SELFPAY ==
[2024-02-09 16:42] LABS: Basophils # 0.1 K/mm3 (0-0.2); Eosinophils # 0.2 K/mm3 (0.0-0.4); Eosinophils % 1.9 % (0.1-12.0); Lymphocytes # 2.8 K/mm3 (0.7-4.5); Lymphocytes % 25.8 % (10-50); Mean Corpuscular HGB Conc 32.1 g/dL (31.8-35.4); Mean Corpuscular Hemoglobin 29.6 pg (27.0-31.2); Mean Corpuscular Volume 92.1 fl (81-99); Mean Platelet Volume 9.6 fl (7.4-10.4); Monocytes # 0.7 K/mm3 (0.1-1.0); Neutrophils # 7.2 K/mm3 (1.8-7.8); Neutrophils % 65.3 % (37.0-80.0); Platelet Count 312 K/mm3 (142-424); Red Blood Count 5.75 M/mm3 (4.20-5.40); Red Cell Distribution Width 16.3 % (11.5-17.5)
[2024-02-09 17:01] LABS: Alanine Aminotransferase 26 U/L (12-78); Albumin/Globulin Ratio 1.3 (1.1-1.8); Alkaline Phosphatase 95 U/L (38-126); Anion Gap 15.8 mEq/L (5-15); Aspartate Amino Transferase 24 U/L (14-36); Bilirubin,Total 0.6 mg/dl (0.2-1.3); Blood Urea Nitrogen 17 mg/dl (7-17); Carbon Dioxide 27 mmol/L (22.0-30.0); Chloride 101 mmol/L (98-107); Cholesterol 245 mg/dl (140-200); Estimated Glomerular Filt Rate 103 ml/min (>60); GFR (African American) 125 ML/MIN (>60); Glucose 151 mg/dl (74-100); HDL Cholesterol 49 mg/dl (40-60); Potassium 4.8 mmoL/L (3.5-5.1); Sodium 139 mmol/L (136-145); Triglycerides 172 mg/dl (30-150); VLDL Cholesterol 34 mg/dL (0-40)
[2024-02-09 17:02] LABS: Microalbumin/Creatinine Ratio 55.2
[2024-02-09 17:17] LABS: Creatinine,Urine Random 216 mg/dL (Not Estab.)
[2024-02-09 17:30] LABS: Thyroid Stimulating Hormone < 0.02 uIU/mL (0.465-4.68)
[2024-02-09 17:35] LABS: HIV (1&2) Antibody Rapid NONREACTIVE (NONREACTIVE)
[2024-02-09 17:38] LABS: Hemoglobin A1C 8.1 % (4.0-6.0)
[2024-02-10 08:22] LABS: HCV Ab Non Reactive (Non Reactive)
== END 2024-02-09 23:59 | disposition home or self-care (01) ==
LOC: LAB.DROPOF 02-10 11:17
PROVIDERS: PCP Family Medicine; Visit Provider Family Medicine
DX: E03.9 Hypothyroidism, unspecified (principal); E11.9 Type 2 diabetes mellitus without complications; Z00.00 Encounter for general adult medical examination without abnormal findings; Z79.84 Long term (current) use of oral hypoglycemic drugs
CPT/HCPCS: 80050; 80053; 80061; 82043; 82570; 83036; 84443; 85025; 86803; 87389

== ENCOUNTER 2024-05-24 11:37 | Observation (INO) | payer OTHER, SELFPAY ==
[2024-05-24] VITALS (8 sets, daily range): BP systolic 105–124; BP diastolic 70–82; PULSE 70–85; RESP 13–26; TEMP 36.4–36.8; O2SAT 88–93; BMI 56.5; BMI 55.6
--- NOTE | 2024-05-24 11:36 | ECG_ITS ---
APPROVED REPORT Exam: Resting ECG HR:78 bpm ECG Measurements Heart Rate 78 AXES RI 169 P 29 QRSd 94 QRS 77 QT 383 T 75 QTc 416 Conclusion SINUS RHYTHM LOW QRS VOLTAGE IN PRECORDIAL LEADS [QRS DEFLECTION < 1.0 mV IN CHEST LEADS] Electronically signed by : LIBIA PORTILLO, 05/24/2024 15:57:46
--- NOTE | 2024-05-24 11:42 | XR_ITS ---
FINAL REPORT CLINICAL HISTORY: Shortness of breath, resp failure COMPARISON: None FINDINGS: A portable view of the chest is obtained. The heart is normal size. There is abnormal right hilar contour, mass or lymphadenopathy not excluded. Bibasilar opacity is present, right greater than left, atelectasis versus pneumonia. There is no pleural effusion or pneumothorax. IMPRESSION: Abnormal right hilar contour, mass or lymphadenopathy not excluded. Recommend upright PA and lateral chest x-ray. Right greater than left basilar opacity, atelectasis versus pneumonia. Reviewed, Interpreted and Dictated by Lupe Caballero MD Transcribed by Lory Wray Authenticated and [facility]
--- NOTE | 2024-05-24 11:47 | PC.NURSE ---
placed patient on 2L of O2 via NC due to triaged room air sat being 88%, pt came up to 94% with O2
[2024-05-24 11:56] LABS: Coronavirus 19, PCR Not Detected (NotDetected); Influenza B, PCR Not Detected (NotDetected)
[2024-05-24 11:57] LABS: Basophils % 0.2 % (0.1-2.0); Eosinophils % 0.3 % (0.1-12.0); Hematocrit 46.3 % (37.0-47.0); Hemoglobin 15.1 g/dL (12.2-16.2); Lymphocytes # 1.7 K/mm3 (0.7-4.5); Lymphocytes % 19.2 % (10-50); Mean Corpuscular HGB Conc 32.6 g/dL (31.8-35.4); Mean Corpuscular Hemoglobin 28.8 pg (27.0-31.2); Mean Corpuscular Volume 88.2 fl (81-99); Mean Platelet Volume 11.9 fl (7.4-10.4); Monocytes # 0.8 K/mm3 (0.1-1.0); Monocytes % 9.1 % (1.7-9.3); Neutrophils # 6.1 K/mm3 (1.8-7.8); Neutrophils % 70.7 % (37.0-80.0); Platelet Count 181 K/mm3 (142-424); Red Blood Count 5.25 M/mm3 (4.20-5.40); Red Cell Distribution Width 15.5 % (11.5-17.5); White Blood Count 8.6 K/mm3 (4.8-10.8)
[2024-05-24 11:59] LABS: Lactate Venous 1.7 mmol/L (0.4-2.0); VBG Base Excess -1.2 mmol/L (-2.4-2.3); VBG HCO3 24.4 mmol/L (23-30); VBG Oxygen Saturation 75.1 % (50-70); VBG PCO2 45.2 mmol/L (35-51); VBG PH 7.35 mmol/L (7.31-7.41); VBG PO2 42.9 mmol/L (28-40); VBG Total CO2 25.8 mmol/L (23-27)
[2024-05-24] MEDS: METHYLPREDNISOLONE SOD SUCC 125MG VIAL 125 MG IV (11:59)
[2024-05-24] MEDS: IPRATROPIUM/ALBUTEROL 3 ML NEB 9 ML IH (11:59)
[2024-05-24 12:09] LABS: Alanine Aminotransferase 44 U/L (12-78); Albumin/Globulin Ratio 1.3 (1.1-1.8); Alkaline Phosphatase 60 U/L (38-126); Anion Gap 14.4 mEq/L (5-15); Aspartate Amino Transferase 50 U/L (14-36); Bilirubin,Total 0.3 mg/dl (0.2-1.3); Blood Urea Nitrogen 20 mg/dl (7-17); Calcium 8.7 mg/dl (8.4-10.2); Carbon Dioxide 27 mmol/L (22.0-30.0); Chloride 100 mmol/L (98-107); Creatinine Clearance Estimated 58 mL/min (50-200); Estimated Glomerular Filt Rate 57 ml/min (>60); GFR (African American) 69 ML/MIN (>60); Globulin 3.2 g/dL (1.3-3.2); Glucose 161 mg/dl (74-100); Magnesium 1.6 mg/dl (1.6-2.3); Potassium 4.4 mmoL/L (3.5-5.1); Sodium 137 mmol/L (136-145); Total Protein,Serum 7.2 g/dl (6.3-8.2)
[2024-05-24 12:14] LABS: D-Dimer 0.79 ug/mL (0.0-0.5)
[2024-05-24 12:21] LABS: Influenza A, PCR Detected (NotDetected)
[2024-05-24 12:23] LABS: NT Pro Brain Natriuretic Pep. < 20.0 pg/mL (0-125)
[2024-05-24 12:25] LABS: Troponin I < 0.01 ng/ml (0.00-0.034)
[2024-05-24 12:28] LABS: T4 (Thyroxine) 12.7 ug/dl (5.53-11.0)
[2024-05-24 12:41] LABS: Thyroid Stimulating Hormone 0.11 uIU/mL (0.465-4.68)
--- NOTE | 2024-05-24 13:22 | PC.NURSE ---
DR PORTILLO SPEAKING WITH HOSPITALIST FOR ADMISSION
--- NOTE | 2024-05-24 13:23 | PC.NURSE ---
ROUNDED ON THE PT. THE PT VOICES THAT SHE DOES NOT NEED ANYTHING AT THIS TIME. CALL LIGHT IS WITHIN REACH OF THE PT.
--- NOTE | 2024-05-24 13:24 | PC.NURSE ---
SOFTWARE QUALITY SPECIALIST NOTIFIED OF ADMISSION
--- NOTE | 2024-05-24 13:24 | HMH.EDCP ---
Discharge Plan Disposition Patient Disposition: Admitted Condition: Good Prescriptions Prescriptions: No Action (DME) blood-glucose meter [Blood Glucose Monitoring] Kit See Rx Instructions .Route Qty: 1 0RF Rx Instructions: As directed (DME) lancets [Fingerstix Lancets] Misc See Rx Instructions .Route Qty: 100 1RF Rx Instructions: Pt is to test BID prn meloxicam 15 mg tablet 15 mg PO DAILY Qty: 30 2RF (DME) blood-glucose meter [Blood Glucose Monitoring] Kit See Rx Instructions .ROUTE .MEDSUPPLY Qty: 1 1RF Rx Instructions: As directed (DME) Blood Glucose Test Strip See Rx Instructions .Route Qty: 100 1RF Rx Instructions: pt is to test BID prn losartan 50 mg tablet 50 mg PO DAILY 30 Days Qty: 30 3RF albuterol sulfate 90 mcg/actuation HFA aerosol inhaler 2 puff inhalation Q6H PRN (Reason: shortness of breath or wheezing) Qty: 8.5 3RF metformin 500 mg tablet 1,000 mg PO BID 30 Days Qty: 120 3RF simvastatin 80 mg tablet 80 mg PO HS 30 Days Qty: 30 3RF levothyroxine 125 mcg tablet 250 mcg PO DAILY Qty: 180 3RF atenolol 25 mg tablet 25 mg PO DAILY 30 Days Qty: 30 2RF Clinical Impressions Clinical Impression: Influenza A, Acute exacerbation of chronic obstructive pulmonary disease, Hyperthyroidism, Respiratory failure Print Language Print Language: [place] Discharge ED Provider: Malena Black HPI General Chief Complaint: Shortness of Breath/Dyspnea Stated Complaint: Flu like symptoms,SOA Time Seen by Provider: 05/24/24 11:39 Mode of Arrival: EMS Source of Information: Patient and EMS Limitations: No Limitations Description of Symptoms (Recalled from ER Triage Doc. by RN): pt was on way to pcp office to be evaulated for soa possible flu and became short of breath and leaning over and someone called 911. pt does have hx of copd and ems gave one breathing treatment, 20g left ac History of Present Illness HPI narrative: This patient is a 58-year-old female with a history of obesity, hypothyroidism, tobacco use disorder, COPD, hypertension, hyperlipidemia, and diabetes presenting to the emergency department for evaluation with concern for shortness of breath. Patient was on her way to her doctor's office because she had been short of breath and having cough for couple days, she thought maybe she had the flu. She was trying to walk into the doctor's office but was not able to catch her breath to walk up there, leaning over in the parking lot. A bystander called 911. She arrives by EMS who noted that she was hypoxic on room air. They gave a neb with some improvement in her breathing, but she still feels very short of breath. She notes cough and congestion but denies any other concerns or complaints at this time. Related Data Previous Rx's ?Medication ?Instructions ?Recorded blood-glucose meter (Blood Glucose #1 ea 07/06/23 Monitoring kit) lancets (Fingerstix Lancets) #100 ea 07/06/23 albuterol sulfate 90 mcg/actuation 2 puff inhalation Q6H PRN 12/16/23 aerosol inhaler shortness of breath or wheezing #8.5 grams losartan 50 mg tablet 50 mg PO DAILY Hypertension 30 12/16/23 days #30 tabs blood sugar diagnostic (Blood #100 ea 02/09/24 Glucose Test strips) blood-glucose meter (Blood Glucose #1 ea 02/09/24 Monitoring kit) meloxicam 15 mg tablet 15 mg PO DAILY Arthritis #30 tabs 02/09/24 metformin 500 mg tablet 1,000 mg (2 x 500 mg) PO BID 30 02/10/24 days #120 tabs simvastatin 80 mg tablet 80 mg PO HS 30 days #30 tabs 02/10/24 levothyroxine 125 mcg tablet 250 mcg (2 x 125 mcg) PO DAILY 02/11/24 hypothyroidism #180 tabs atenolol 25 mg tablet 25 mg PO DAILY 30 days #30 tabs 05/17/24 Allergies Allergy/AdvReac Type Severity Reaction Status Date / Time cephalexin Allergy Rash Verified 05/24/24 12:28 acetaminophen AdvReac Nausea Verified 05/24/24 12:28 [facility] Disclaimer: The information contained in this section may have been updated after the patient was seen, as this information can be updated by other users. Medical History Tobacco use disorder Class 3 obesity Hypothyroidism (acquired) Diabetes Renal cancer Thyroid cancer Hypertension Sciatica of left side Surgical History History of incision and drainage History of H/O thyroidectomy Family History Mother Diabetes Hypertension Father Diabetes Hypertension Brother Cancer Social History Smoking Status: Current every day smoker tobacco type: cigarettes quit status: considering quitting alcohol intake: never substance use type: denies use current occupational status: disabled Travel in the last 8 weeks: None household members: children housing: apartment lives independently: Yes marital status: single education level: high school special cal needs: No agree to transfusion: No do you feel safe at home: Yes victim of physical abuse: No victim of emotional abuse: No victim of sexual abuse: No would you like helpful sources: No Have you lived/traveled outside [place] in past 30 days?: No Contact w/someone who lives/traveled outside US past 30 days?: No Exposure to someone with infectious disease in past 14 days?: No Do you have a fever (greater than 100.4 F or 38 C)?: Yes Have you tested positive for COVID-19: No Exposed to someone with COVID-19 in past 14 days?: No Do you have a sore throat?: Yes Do you have a cough?: Yes Do you have any weakness?: Yes Do you have any diarrhea?: Yes Are you experiencing any unusual bleeding?: No Do you have any muscle aches/pain?: Yes Do you have any abdominal pain?: Yes Are you experiencing loss of taste or smell?: No Other Medical History Have you received the Flu Vaccine for this season: No Have you received the Pneumonia Vaccine: No ROS Obtained: Yes All systems reviewed & no additional complaints except as documented Physical Exam General General appearance: alert, in distress and obese Head Head exam: atraumatic and normocephalic Eye Eye exam: Present normal appearance, PERRL and EOMI ENT ENT exam: Present normal exam, normal oropharynx, mucous membranes moist and normal external ear exam Neck Neck exam: Present normal inspection, full ROM and trachea midline; Absent tenderness Chest Chest inspection: Present normal inspection and symmetric chest wall rise; Absent tenderness Respiratory Respiratory exam: Present respiratory distress, wheezes, accessory muscle use, prolonged expiratory phase and other (Bilateral wheezing and rhonchi heard); Absent stridor Cardiovascular Cardiovascular exam: Present regular rate and normal rhythm Abdominal Exam Abdominal exam: Present soft; Absent distention, tenderness or guarding Extremities Exam Extremities exam: Present normal inspection, full ROM and normal capillary refill; Absent tenderness or edema Back Exam Back exam: Present normal inspection and full ROM; Absent tenderness Neurological Exam Neurological exam: Present alert, oriented X3, CN II-XII intact and normal gait; Absent motor sensory deficit Psychiatric Psychiatric exam: Present normal affect and normal mood Skin Skin exam: Present warm and dry HEART Score HEART Score HEART Score assessment performed?: Yes History (anamnesis): Slightly suspicious ECG: Normal Age: 45-65 years Risk factors: 3 or more risk factors Troponin: </= normal limit HEART Score: 3 Critical Care Critical Care Time Critical Care Time: No Medical Decision Making Win Inquiry Pt receiving controlled substance: No Vital Signs Vital Signs: 05/24/24 11:37 05/24/24 12:00 05/24/24 12:30 Temperature 98.3 F Temperature Source Oral Pulse Rate 80 84 Pulse Rate [Right Radial] 78 Respiratory Rate 26 H 23 13 Blood Pressure 119/75 119/76 Blood Pressure [Right Arm] 120/82 Blood Pressure Mean [Right Arm] 94 02 Sat by Pulse Oximetry 88 L 93 L 90 L Oxygen Delivery Method Room Air 05/24/24 13:00 Temperature Temperature Source Pulse Rate 83 Pulse Rate [Right Radial] Respiratory Rate 16 Blood Pressure 122/77 Blood Pressure [Right Arm] Blood Pressure Mean [Right Arm] 02 Sat by Pulse Oximetry 91 L Oxygen Delivery Method Lab Data Labs: Lab Results 05/24/24 11:42: VBG pH 7.35, VBG pCO2 45.2, VBG pO2 42.9 H, VBG HCO3 24.4, VBG Total CO2 25.8, VBG O2 Saturation 75.1 H, VBG Base Excess -1.2, VBG Lactic Acid 1.7 05/24/24 11:50: WBC 8.6, RBC 5.25, Hgb 15.1, Hct 46.3, MCV 88.2, MCH 28.8, MCHC 32.6, RDW 15.5, Plt Count 181, MPV 11.9 H, Neut % (Auto) 70.7, Lymph % (Auto) 19.2, [place] % (Auto) 9.1, Eos % (Auto) 0.3, Baso % (Auto) 0.2, Neut # (Auto) 6.1, Lymph # (Auto) 1.7, [place] # (Auto) 0.8, Eos # (Auto) 0.0, Baso # (Auto) 0.0, D-Dimer 0.79 H, Sodium 137, Potassium 4.4, Chloride 100, Carbon Dioxide 27, Anion Gap 14.4, BUN 20 H, Creatinine 1.00, Estimated Creat Clear 58, Estimated GFR 57 L, Est GFR ( Amer) 69, Glucose 161 H, Calcium 8.7, Magnesium 1.6, Total Bilirubin 0.3, AST 50 H, ALT 44, Alkaline Phosphatase 60, Troponin I < 0.01, NT-Pro-B Natriuret Pep < 20.0, Total Protein 7.2, Albumin 4.0, Globulin 3.2, Albumin/Globulin Ratio 1.3, TSH 0.11 L, Thyroxine (T4) 12.7 H 05/24/24 11:53: SARS-CoV-2 (PCR) Not detected, Influenza A Untype (PCR) Detected A, Influenza Type B (PCR) Not detected 05/24/24 11:50 05/24/24 11:50 Response Orders (Tests/Meds): ED MEDICATIONS Discontinued Medications Generic Name Dose Route Start Last Admin Trade Name Freq PRN Reason Stop Dose Admin Albuterol/Ipratropium 9 ml 05/24/24 11:44 05/24/24 11:59 Ipratropium/Albuterol 3 Ml Neb IH 05/24/24 11:45 9 ml ONCE ONE Administration Doxycycline Hyclate 100 mg 05/24/24 13:19 Doxycycline Hycl 100 Mg Tablet PO 05/24/24 13:20 ONCE ONE Methylprednisolone Sodium Succinate 125 mg 05/24/24 11:44 05/24/24 11:59 Methylprednisolone Sod Succ 125mg Vial IV 05/24/24 11:45 125 mg ONCE ONE Administration ORDERS Category Date Time Status CXR --portable [XR chest portable] Stat Exams 05/24/24 11:42 Completed BNP [NT Pro Brain Natriuretic Pep.] Stat Lab 05/24/24 11:50 Completed Complete Blood Count Auto Diff Stat Lab 05/24/24 11:50 Completed Comprehensive Metabolic Panel Stat Lab 05/24/24 11:50 Completed D-Dimer Stat Lab 05/24/24 11:50 Completed MAG [Magnesium] Stat Lab 05/24/24 11:50 Completed Rapid PCR Covid and Flu A/B Stat Lab 05/24/24 11:53 Completed T4 (Thyroxine) Stat Lab 05/24/24 11:50 Completed TSH [Thyroid Stimulating Hormone] Stat Lab 05/24/24 11:50 Completed Trop I [Troponin I] Stat Lab 05/24/24 11:50 Completed Troponin I Q3H Lab 05/24/24 14:45 Ordered Troponin I Q3H Lab 05/24/24 17:45 Ordered Blood Culture Stat Micro 05/24/24 11:55 Received VBG [Venous Blood Gas] Stat RT 05/24/24 11:42 Completed ECG Data Tracing #1: Attestation: I reviewed this ECG and interpreted as documented below: ECG Narrative: Normal sinus rhythm with a ventricular rate of [address] changes concerning for STEMI. Normal intervals. Some motion artifact degrades study. ECG initial impression date: 05/24/24 ECG initial impression time: 11:39 MDM Narrative Medical Decision Narrative: In summary, this patient is a 58-year-old female presenting to the Emergency Department for evaluation of shortness of breath, cough, congestion. Differential diagnoses considered include but are not limited to viral syndrome, pneumonia, respiratory failure, COPD exacerbation, ACS, dysrhythmia, PE. Ruling out the most morbid conditions drove assessment. It should be noted patient's history includes morbid obesity, COPD, tobacco dependence, hypertension, lipidemia, diabetes which are not at goal therapy. This complicates all aspects of care by increasing patient's risk for morbidity. I reviewed patient's past medical records and noted previous PCP evaluations for maintenance of diabetes. On exam, the patient is in respiratory distress, but vitals are reassuring cardiac telemetry with the exception of hypoxia. She does have bilateral wheezes and rhonchi noted. Workup included lab evaluation to evaluate for infectious and cardiac causes. Unable to exclude PE given age greater than 50 using PERC criteria. Given this, D-dimer obtained.. I independently interpreted chest x-ray prior to the radiologist read and noted for developing pneumonia. Please see their read for final interpretation. Patient is positive for flu A. She also has hyperthyroidism in the setting of exogenous levothyroxine. Likely needs medication adjustment. Otherwise, labs reassuring with negative troponin, reassuring CBC with no significant leukocytosis, mildly elevated AST which is nonspecific. D-dimer is negative per years criteria. Ultimately, despite DuoNebs x 3, IV steroids, unable to wean the patient from oxygen with desaturations on room air. She is still tachypneic with wheezing rhonchi noted. She does not have oxygen at home and has never required in the past. Given continued oxygen requirement which is new, I feel the patient would benefit from mission for continued monitoring. I started the patient on doxycycline with concern for pneumonia. Patient was admitted in stable condition for further evaluation and management after I had an interactive discussion with the hospitalist.
--- NOTE | 2024-05-24 13:29 | PC.NURSE ---
Patient was given a phone to call her son and let him know she will be staying over night.
--- NOTE | 2024-05-24 13:35 | PC.NURSE ---
called austyn martinez report an answered all questsions
[2024-05-24] MEDS: DOXYCYCLINE HYCL 100 MG TABLET PO (13:36)
--- NOTE | 2024-05-24 13:48 | HMH.PHAINT1 ---
Pharmacy Intervention Comments: MEDICATION RECONCILIATION COMPLETED ON PATIENT USING EXTERNAL FILL HISTORY FROM PHARMACY. -[facility], [place]
--- NOTE | 2024-05-24 14:31 | EXP.HP ---
[facility] Disclaimer: The information contained in this section may have been updated after the patient was seen, as this information can be updated by other users. Medical History Tobacco use disorder Class 3 obesity Hypothyroidism (acquired) Diabetes Renal cancer Thyroid cancer Hypertension Sciatica of left side Surgical History History of incision and drainage History of H/O thyroidectomy Family History Mother Diabetes Hypertension Father Diabetes Hypertension Brother Cancer Social History Smoking Status: Current every day smoker tobacco type: cigarettes quit status: considering quitting alcohol intake: never substance use type: denies use current occupational status: disabled Travel in the last 8 weeks: None household members: children housing: apartment lives independently: Yes marital status: single education level: high school special cal needs: No agree to transfusion: No do you feel safe at home: Yes victim of physical abuse: No victim of emotional abuse: No victim of sexual abuse: No would you like helpful sources: No Have you lived/traveled outside US in past 30 days?: No Contact w/someone who lives/traveled outside [place] past 30 days?: No Exposure to someone with infectious disease in past 14 days?: No Do you have a fever (greater than 100.4 F or 38 C)?: Yes Have you tested positive for COVID-19: No Exposed to someone with COVID-19 in past 14 days?: No Do you have a sore throat?: Yes Do you have a cough?: Yes Do you have any weakness?: Yes Do you have any diarrhea?: Yes Are you experiencing any unusual bleeding?: No Do you have any muscle aches/pain?: Yes Do you have any abdominal pain?: Yes Are you experiencing loss of taste or smell?: No Other Medical History Have you received the Flu Vaccine for this season: No Have you received the Pneumonia Vaccine: No Meds Home Medications and Allergies Home Medications ?Medication ?Instructions ?Recorded ?Confirmed ?Type blood-glucose meter (Blood Glucose #1 ea 07/06/23 05/24/24 Rx Monitoring kit) lancets (Fingerstix Lancets) #100 ea 07/06/23 05/24/24 Rx losartan 50 mg tablet 50 mg PO DAILY Hypertension 30 12/16/23 05/24/24 Rx days #30 tabs blood sugar diagnostic (Blood #100 ea 02/09/24 05/24/24 Rx Glucose Test strips) blood-glucose meter (Blood Glucose #1 ea 02/09/24 05/24/24 Rx Monitoring kit) metformin 500 mg tablet 1,000 mg (2 x 500 mg) PO BID 30 02/10/24 05/24/24 Rx days #120 tabs simvastatin 80 mg tablet 80 mg PO HS 30 days #30 tabs 02/10/24 05/24/24 Rx atenolol 25 mg tablet 25 mg PO DAILY 30 days #30 tabs 05/17/24 05/24/24 Rx albuterol sulfate 90 mcg/actuation 2 puff inhalation Q6HP PRN 05/24/24 05/24/24 History aerosol inhaler shortness of breath or wheezing levothyroxine 125 mcg tablet 250 mcg PO DAILY 05/24/24 05/24/24 History meloxicam 15 mg tablet 15 mg PO DAILY 05/24/24 05/24/24 History New Prescriptions to Start Prescriptions: Allergies Allergy/AdvReac Type Severity Reaction Status Date / Time cephalexin Allergy Rash Verified 05/24/24 12:28 acetaminophen AdvReac Nausea Verified 05/24/24 12:28 Exam Data for Last 24 hours Vital signs and Labs for Last 24 Hours: Temp Pulse Resp BP Pulse Ox O2 Del Method O2 Flow Rate 98.2 F 85 20 120/76 91 L Nasal Cannula 2 05/24/24 13:38 05/24/24 13:38 05/24/24 13:38 05/24/24 13:38 05/24/24 13:00 05/24/24 13:38 05/24/24 13:38 Laboratory Results - last 24 hr 05/24/24 11:42: VBG pH 7.35, VBG pCO2 45.2, VBG pO2 42.9 H, VBG HCO3 24.4, VBG Total CO2 25.8, VBG O2 Saturation 75.1 H, VBG Base Excess -1.2, VBG Lactic Acid 1.7 05/24/24 11:50: WBC 8.6, RBC 5.25, Hgb 15.1, Hct 46.3, MCV 88.2, MCH 28.8, MCHC 32.6, RDW 15.5, Plt Count 181, MPV 11.9 H, Neut % (Auto) 70.7, Lymph % (Auto) 19.2, [place] % (Auto) 9.1, Eos % (Auto) 0.3, Baso % (Auto) 0.2, Neut # (Auto) 6.1, Lymph # (Auto) 1.7, [place] # (Auto) 0.8, Eos # (Auto) 0.0, Baso # (Auto) 0.0, D-Dimer 0.79 H, Sodium 137, Potassium 4.4, Chloride 100, Carbon Dioxide 27, Anion Gap 14.4, BUN 20 H, Creatinine 1.00, Estimated Creat Clear 58, Estimated GFR 57 L, Est GFR ( Amer) 69, Glucose 161 H, Calcium 8.7, Magnesium 1.6, Total Bilirubin 0.3, AST 50 H, ALT 44, Alkaline Phosphatase 60, Troponin I < 0.01, NT-Pro-B Natriuret Pep < 20.0, Total Protein 7.2, Albumin 4.0, Globulin 3.2, Albumin/Globulin Ratio 1.3, TSH 0.11 L, Thyroxine (T4) 12.7 H 05/24/24 11:53: SARS-CoV-2 (PCR) Not detected, Influenza A Untype (PCR) Detected A, Influenza Type B (PCR) Not detected I & O for Last 24 hours: Intake & Output 05/21/24 05/22/24 05/23/24 05/24/24 23:59 23:59 23:59 23:59 Weight 158.757 kg
--- NOTE | 2024-05-24 15:17 | PC.NURSE ---
Bug found crawling on patient. Bug collected and sent for confirmation. Patient instructed to remove all clothing and place in bag. Patient assisted to shower. All linens in room bagged and changed.
[2024-05-24 15:37] LABS: Troponin I < 0.01 ng/ml (0.00-0.034)
[2024-05-24] MEDS: MAGNESIUM SULFATE IN WATER 2 GM/50 ML PIGGYBACK IV ×2 (15:38→16:13)
[2024-05-24 17:00] LABS: POC Glucose,Bedside 190 (70-110)
[2024-05-24] MEDS: humaLOG 100 UNITS/ML 10ML VIAL (SSI) SUBCUT ×2 (17:13→20:55)
--- NOTE | 2024-05-24 17:24 | PC.NURSE ---
Pt alert and oriented. Bradycardic but asymptomatic. Other vital signs stable. On room air. Heart cath today with two stents. Right femoral site dressing dry and intact and right pedal pulse 2+. Patient denies pain, chest pain and shortness of breath. Plan for possible discharge home tomorrow.
--- NOTE | 2024-05-24 17:28 | PC.NURSE ---
Pt alert and oriented. Vital signs stable. On 2L O2. States she is feeling better than on arrival. Patient decontaminated after bedbug found. Up with 1 to BR for shower and void. Denies pain. Right breast discolored but skin is intact. Droplet/contact precautions observed.
[2024-05-24 18:25] LABS: Troponin I < 0.01 ng/ml (0.00-0.034)
[2024-05-24] MEDS: ACETAMINOPHEN 325MG TAB 650 MG PO (18:34)
[2024-05-24] MEDS: BUDESONIDE 0.5MG/2ML NEB 0.5 MG IH (18:52)
[2024-05-24] MEDS: IPRATROPIUM/ALBUTEROL 3 ML NEB IH (18:52)
--- NOTE | 2024-05-24 19:07 | P.HP_ITS ---
History of Present Illness *Admission Date: 05/24/24 *Reason for visit:: Shortness of breath *History of present illness: Sarah Acosta is a 58-year-old female with a medical history significant for COPD on room air, type 2 diabetes, hypertension, hypothyroidism, morbid obesity who presents with progressive shortness of breath over the past few days. She states she has been feeling dyspnea on exertion, especially today as she was trying to go to clinic. Endorses intermittent coughing, but denies fever/chills, abdominal pain, urinary symptoms, constipation/diarrhea. Workup in the ED significant for influenza A, with CXR showing bibasilar opacities. Case discussed with ED provider and decision was made to admit patient for acute hypoxic respiratory failure secondary to community-acquired pneumonia. [facility] Disclaimer: The information contained in this section may have been updated after the patient was seen, as this information can be updated by other users. Medical History Tobacco use disorder Class 3 obesity Hypothyroidism (acquired) Diabetes Renal cancer Thyroid cancer Hypertension Sciatica of left side Surgical History History of incision and drainage History of H/O thyroidectomy Family History Mother Diabetes Hypertension Father Diabetes Hypertension Brother Cancer Social History Smoking Status: Current every day smoker tobacco type: cigarettes quit status: considering quitting alcohol intake: never substance use type: denies use current occupational status: disabled Travel in the last 8 weeks: None household members: children housing: apartment lives independently: Yes marital status: single education level: high school special cal needs: No agree to transfusion: No do you feel safe at home: Yes victim of physical abuse: No victim of emotional abuse: No victim of sexual abuse: No would you like helpful sources: No Have you lived/traveled outside [place] in past 30 days?: No Contact w/someone who lives/traveled outside [place] past 30 days?: No Exposure to someone with infectious disease in past 14 days?: No Do you have a fever (greater than 100.4 F or 38 C)?: Yes Have you tested positive for COVID-19: No Exposed to someone with COVID-19 in past 14 days?: No Do you have a sore throat?: Yes Do you have a cough?: Yes Do you have any weakness?: Yes Do you have any diarrhea?: Yes Are you experiencing any unusual bleeding?: No Do you have any muscle aches/pain?: Yes Do you have any abdominal pain?: Yes Are you experiencing loss of taste or smell?: No Other Medical History Have you received the Flu Vaccine for this season: No Have you received the Pneumonia Vaccine: No Meds Home Medications and Allergies Home Medications ?Medication ?Instructions ?Recorded ?Confirmed ?Type blood-glucose meter (Blood Glucose #1 ea 07/06/23 05/24/24 Rx Monitoring kit) lancets (Fingerstix Lancets) #100 ea 07/06/23 05/24/24 Rx losartan 50 mg tablet 50 mg PO DAILY Hypertension 30 12/16/23 05/24/24 Rx days #30 tabs blood sugar diagnostic (Blood #100 ea 02/09/24 05/24/24 Rx Glucose Test strips) blood-glucose meter (Blood Glucose #1 ea 02/09/24 05/24/24 Rx Monitoring kit) metformin 500 mg tablet 1,000 mg (2 x 500 mg) PO BID 30 02/10/24 05/24/24 Rx days #120 tabs simvastatin 80 mg tablet 80 mg PO HS 30 days #30 tabs 02/10/24 05/24/24 Rx atenolol 25 mg tablet 25 mg PO DAILY 30 days #30 tabs 05/17/24 05/24/24 Rx albuterol sulfate 90 mcg/actuation 2 puff inhalation Q6HP PRN 05/24/24 05/24/24 History aerosol inhaler shortness of breath or wheezing levothyroxine 125 mcg tablet 250 mcg PO DAILY 05/24/24 05/24/24 History megestrol 40 mg tablet 40 mg PO DAILY 05/24/24 05/24/24 History meloxicam 15 mg tablet 15 mg PO DAILY 05/24/24 05/24/24 History New Prescriptions to Start Prescriptions: Allergies Allergy/AdvReac Type Severity Reaction Status Date / Time cephalexin Allergy Rash Verified 05/24/24 12:28 acetaminophen AdvReac Nausea Verified 05/24/24 12:28 Exam Data for Last 24 hours Vital signs and Labs for Last 24 Hours: Temp Pulse Resp BP Pulse Ox O2 Del Method O2 Flow Rate 98.2 F 70 20 120/76 90 L Nasal Cannula 2.5 05/24/24 13:38 05/24/24 18:53 05/24/24 13:38 05/24/24 13:38 05/24/24 18:53 05/24/24 18:53 05/24/24 18:53 Laboratory Results - last 24 hr 05/24/24 11:42: VBG pH 7.35, VBG pCO2 45.2, VBG pO2 42.9 H, VBG HCO3 24.4, VBG Total CO2 25.8, VBG O2 Saturation 75.1 H, VBG Base Excess -1.2, VBG Lactic Acid 1.7 05/24/24 11:50: WBC 8.6, RBC 5.25, Hgb 15.1, Hct 46.3, MCV 88.2, MCH 28.8, MCHC 32.6, RDW 15.5, Plt Count 181, MPV 11.9 H, Neut % (Auto) 70.7, Lymph % (Auto) 19.2, [place] % (Auto) 9.1, Eos % (Auto) 0.3, Baso % (Auto) 0.2, Neut # (Auto) 6.1, Lymph # (Auto) 1.7, [place] # (Auto) 0.8, Eos # (Auto) 0.0, Baso # (Auto) 0.0, D- Dimer 0.79 H, Sodium 137, Potassium 4.4, Chloride 100, Carbon Dioxide 27, Anion Gap 14.4, BUN 20 H, Creatinine 1.00, Estimated Creat Clear 58, Estimated GFR 57 L, Est GFR ( Amer) 69, Glucose 161 H, Calcium 8.7, Magnesium 1.6, Total Bilirubin 0.3, AST 50 H, ALT 44, Alkaline Phosphatase 60, Troponin I < 0.01, NT-Pro-B Natriuret Pep < 20.0, Total Protein 7.2, Albumin 4.0, Globulin 3.2, Albumin/Globulin Ratio 1.3, TSH 0.11 L, Thyroxine (T4) 12.7 H 05/24/24 11:53: SARS-CoV-2 (PCR) Not detected, Influenza A Untype (PCR) Detected A, Influenza Type B (PCR) Not detected 05/24/24 14:43: Troponin I < 0.01 05/24/24 16:17: POC Glucose 190 H 05/24/24 17:40: Troponin I < 0.01 I & O for Last 24 hours: Intake & Output 05/21/24 05/22/24 05/23/24 05/24/24 23:59 23:59 23:59 23:59 Intake Total 820 / 820 Output Total 0 / 0 Balance 820 / 820 Weight 157.028 kg Constitutional Constitutional: no acute distress and obese *Routine HEENT Exam Head: Present normocephalic Eye: Present EOMI and PERRL ENT: Present mucous membranes moist *Routine Neck Exam Neck: Present supple; Absent lymphadenopathy *Routine Respiratory Exam Respiratory: Present CTA bilaterally *Routine Cardiovascular Exam Cardiovascular: Present RRR *Routine Abdominal Exam Abdominal: Present soft and normoactive bowel sounds; Absent tenderness *Routine Rectal Exam Rectal:: deferred *Routine Genitalia Exam Genitalia:: deferred *Routine Extremities Exam Extremities: Absent cyanosis, clubbing or edema *Routine Skin Exam Skin: Present warm; Absent rash *Routine Neurological Exam Neurological: Present alert and oriented X3 Assessment and Plan *Assessment and plan (1) Pneumonia: Status: Acute Category: Medical Code(s): J18.9 - Pneumonia, unspecified organism Plan Sarah Acosta is a 58-year-old female with a medical history significant for COPD on room air, type 2 diabetes, hypertension, hypothyroidism, morbid obesity who presents with progressive shortness of breath over the past few days. She states she has been feeling dyspnea on exertion, especially today as she was trying to go to clinic. Endorses intermittent coughing, but denies fever/chills, abdominal pain, urinary symptoms, constipation/diarrhea. Workup in the ED significant for influenza A, with CXR showing bibasilar opacities. Case discussed with ED provider and decision was made to admit patient for acute hypoxic respiratory failure secondary to community-acquired pneumonia. #Acute hypoxic respiratory failure #Community-acquired pneumonia #Influenza A ? Progressive shortness of breath, positive for influenza A. VBG reassuring. ? CXR reveals bibasilar opacities. WBC normal, no signs of sepsis. ? Ceftriaxone, azithromycin day 04/16. ? Tamiflu 75 mg twice daily. ? Follow-up sputum, blood cultures, MRSA screen. #Physical deconditioning ? PT/OT consulted, pending recommendations. Open to SNF. #COPD ? Seems stable at this time. Continue monitor. #Type 2 diabetes ? LDSSI, ACHS glucose checks. ? Hemoglobin A1c 8.1, above goal for patient. ? Resume home metformin 1000 mg. #Hypertension ? Resume home medications once reconciled. #Hypothyroidism ? Hold home levothyroxine as TSH low 0.11. ? Follow-up free T4. Full code DVT prophylaxis: Lovenox 60 mg twice daily
[2024-05-24 20:40] LABS: POC Glucose,Bedside 314 (70-110)
[2024-05-24] MEDS: TRAZODONE 50MG TABLET 50 MG PO (20:57)
[2024-05-24] MEDS: METFORMIN 500MG TABLET 1000 MG PO (20:57)
[2024-05-24] MEDS: OSELTAMIVIR 75MG CAPSULE 75 MG PO (20:58)
[2024-05-25] VITALS: BP 111/72; PULSE 69; RESP 20; TEMP 36.4; O2SAT 91
[2024-05-25 04:00] VITALS: BP 126/88; PULSE 67; RESP 20; TEMP 36.4; O2SAT 95; BMI 56.3
[2024-05-25 05:50] LABS: POC Glucose,Bedside 202 (70-110)
[2024-05-25] MEDS: humaLOG 100 UNITS/ML 10ML VIAL (SSI) SUBCUT ×2 (05:55→11:38)
--- NOTE | 2024-05-25 06:17 | PC.NURSE ---
no significant changes overnight. pt slept on and off t/o shift. no complaints of soa voiced. cb within reach
[2024-05-25 06:36] LABS: Basophils % 0.1 % (0.1-2.0); Hematocrit 44.9 % (37.0-47.0); Hemoglobin 14.7 g/dL (12.2-16.2); Lymphocytes # 1.1 K/mm3 (0.7-4.5); Lymphocytes % 13.5 % (10-50); Mean Corpuscular HGB Conc 32.7 g/dL (31.8-35.4); Mean Corpuscular Hemoglobin 28.9 pg (27.0-31.2); Mean Corpuscular Volume 88.2 fl (81-99); Mean Platelet Volume 12.4 fl (7.4-10.4); Monocytes # 0.8 K/mm3 (0.1-1.0); Monocytes % 10.3 % (1.7-9.3); Neutrophils # 5.9 K/mm3 (1.8-7.8); Neutrophils % 75.6 % (37.0-80.0); Platelet Count 223 K/mm3 (142-424); Red Blood Count 5.09 M/mm3 (4.20-5.40); Red Cell Distribution Width 15.4 % (11.5-17.5); White Blood Count 7.8 K/mm3 (4.8-10.8)
[2024-05-25 07:25] LABS: Albumin Level 4.2 g/dl (3.5-5.0); Chloride 100 mmol/L (98-107); Potassium 4.4 mmoL/L (3.5-5.1); Sodium 134 mmol/L (136-145)
[2024-05-25 07:27] LABS: Blood Urea Nitrogen 32 mg/dl (7-17); Creatinine Clearance Estimated 53 mL/min (50-200); Estimated Glomerular Filt Rate 51 ml/min (>60)
[2024-05-25 07:28] LABS: Alanine Aminotransferase 43 U/L (12-78); Albumin/Globulin Ratio 1.2 (1.1-1.8); Alkaline Phosphatase 64 U/L (38-126); Anion Gap 15.4 mEq/L (5-15); Aspartate Amino Transferase 52 U/L (14-36); Bilirubin,Total 0.3 mg/dl (0.2-1.3); Calcium 8.8 mg/dl (8.4-10.2); Carbon Dioxide 23 mmol/L (22.0-30.0); GFR (African American) 62 ML/MIN (>60); Globulin 3.4 g/dL (1.3-3.2); Glucose 200 mg/dl (74-100); Total Protein,Serum 7.6 g/dl (6.3-8.2)
[2024-05-25 07:29] LABS: Magnesium 2.3 mg/dl (1.6-2.3)
[2024-05-25 07:43] LABS: Free T4 (Free Thyroxine) 1.89 ng/dl (0.78-2.19)
[2024-05-25 08:00] VITALS: BP 138/72; PULSE 69; RESP 20; TEMP 36.6; O2SAT 93
[2024-05-25] MEDS: OSELTAMIVIR PHOSPHATE 6MG/ML ORAL SUSP 60ML 30 MG PO (08:40)
[2024-05-25] MEDS: ENOXAPARIN 60MG/0.6ML SYRINGE 60 MG SUBCUT (08:40)
[2024-05-25] MEDS: METFORMIN 500MG TABLET 1000 MG PO (08:40)
[2024-05-25 09:00] VITALS: O2SAT 89
[2024-05-25] MEDS: SODIUM CHLORIDE 3% 15ML NEB 3 ML IH (10:12)
[2024-05-25 10:13] VITALS: PULSE 73; RESP 16
[2024-05-25 10:30] LABS: POC Glucose,Bedside 245 (70-110)
[2024-05-25] MEDS: LEVOTHYROXINE 150MCG (0.15MG)TAB 150 MCG PO (11:39)
--- NOTE | 2024-05-25 12:59 | PC.NURSE ---
pt room saturation @rest 86%
--- NOTE | 2024-05-25 13:07 | P.DS_ITS ---
General Admission date:: 05/24/24 HPI HPI HPI: Sarah Acosta is a 58-year-old female with a medical history significant for COPD on room air, type 2 diabetes, hypertension, hypothyroidism, morbid obesity who presents with progressive shortness of breath over the past few days. She states she has been feeling dyspnea on exertion, especially today as she was trying to go to clinic. Endorses intermittent coughing, but denies fever/ chills, abdominal pain, urinary symptoms, constipation/diarrhea. Workup in the ED significant for influenza A, with CXR showing bibasilar opacities. Case discussed with ED provider and decision was made to admit patient for acute hypoxic respiratory failure secondary to community-acquired pneumonia. Hospital Course Hospital Course Hospital Course: Sarah Acosta is a 58-year-old female with a medical history significant for COPD on room air, type 2 diabetes, hypertension, hypothyroidism, morbid obesity who presents with progressive shortness of breath over the past few days. She states she has been feeling dyspnea on exertion, especially today as she was trying to go to clinic. Endorses intermittent coughing, but denies fever/chills, abdominal pain, urinary symptoms, constipation/diarrhea. Workup in the ED significant for influenza A, with CXR showing bibasilar opacities. Case discussed with ED provider and decision was made to admit patient for acute hypoxic respiratory failure secondary to community-acquired pneumonia. #Acute hypoxic respiratory failure #Community-acquired pneumonia #Influenza A ? Progressive shortness of breath, positive for influenza A. VBG reassuring. ? CXR reveals bibasilar opacities. WBC normal, no signs of sepsis. ? Clinically improved with ceftriaxone, azithromycin, Tamiflu. ? Saturating 86% on room air with ambulation, requiring 2 L nasal cannula. ? Blood cultures NGTD. Will follow-up on sputum cultures. ? Discharged with levofloxacin and Tamiflu for 4 more days. #Hypothyroidism ? Hold home levothyroxine as TSH low 0.11. Free T4 normal at this time. ? Decreased levothyroxine from 250 to 200 mcg. ? Will need repeat TFTs in 4 to 6 weeks with PCP. #COPD #Obesity ? Seems stable at this time. Continue monitor. ? Referred to pulmonology for further evaluation and management. Would benefit from sleep study. #Type 2 diabetes ? LDSSI, ACHS glucose checks. ? Hemoglobin A1c 8.1, above goal for patient. ? Resume home metformin 1000 mg. #Hypertension ? Resume home medications. Exam Data for Last 24 hours Vital signs and Labs for Last 24 Hours: Temp Pulse Resp BP Pulse Ox O2 Del Method O2 Flow Rate 97.8 F 73 16 138/72 89 L Nasal Cannula 2 05/25/24 08:00 05/25/24 10:13 05/25/24 10:13 05/25/24 08:00 05/25/24 09:00 05/25/24 12:16 05/25/24 12:16 Laboratory Results - last 24 hr 05/24/24 14:43: Troponin I < 0.01 05/24/24 16:17: POC Glucose 190 H 05/24/24 17:40: Troponin I < 0.01 05/24/24 20:20: POC Glucose 314 H* 05/25/24 05:29: POC Glucose 202 H 05/25/24 05:58: WBC 7.8, RBC 5.09, Hgb 14.7, Hct 44.9, MCV 88.2, MCH 28.9, MCHC 32.7, RDW 15.4, Plt Count 223, MPV 12.4 H, Neut % (Auto) 75.6, Lymph % (Auto) 13.5, [place] % (Auto) 10.3 H, Eos % (Auto) 0.0 L, Baso % (Auto) 0.1, Neut # (Auto) 5.9, Lymph # (Auto) 1.1, [place] # (Auto) 0.8, Eos # (Auto) 0.0, Baso # (Auto) 0.0, Sodium 134 L, Potassium 4.4, Chloride 100, Carbon Dioxide 23, Anion Gap 15.4 H, BUN 32 H D, Creatinine 1.10 H, Estimated Creat Clear 53, Estimated GFR 51 L, Est GFR ( Amer) 62, Glucose 200 H D, Calcium 8.8, Magnesium 2.3 D, Total Bilirubin 0.3, AST 52 H, ALT 43, Alkaline Phosphatase 64, Total Protein 7.6, A lbumin 4.2, Globulin 3.4 H, Albumin/Globulin Ratio 1.2, Free T4 1.89 05/25/24 10:22: POC Glucose 245 H I & O for Last 24 hours: Intake & Output 05/22/24 05/23/24 05/24/24 02/13/25 23:59 23:59 23:59 23:59 Intake Total 820 / 820 600 / 600 Output Total 0 / 0 0 / 0 Balance 820 / 820 600 / 600 Weight 157.028 kg 158.984 kg Microbiology Reports for the Last 24 Hours: Microbiology 05/24/24 11:40 Blood Blood Culture - Preliminary NO GROWTH AFTER 24 HOURS 05/24/24 11:55 Blood Blood Culture - Preliminary Constitutional Constitutional: no acute distress and obese *Routine HEENT Exam Head: Present normocephalic Eye: Present EOMI and PERRL ENT: Present mucous membranes moist *Routine Neck Exam Neck: Present supple; Absent lymphadenopathy *Routine Respiratory Exam Respiratory: Present CTA bilaterally *Routine Cardiovascular Exam Cardiovascular: Present RRR *Routine Abdominal Exam Abdominal: Present soft and normoactive bowel sounds; Absent tenderness *Routine Extremities Exam Extremities: Absent cyanosis, clubbing or edema *Routine Skin Exam Skin: Present warm; Absent rash *Routine Neurological Exam Neurological: Present alert and oriented X3 Results Data Completed and Pending Labs on day of discharge: Labs from last 24 hours 05/25/24 05/25/24 05/25/24 10:22 05:58 05:29 WBC 7.8 RBC 5.09 Hgb 14.7 Hct 44.9 MCV 88.2 MCH 28.9 MCHC 32.7 RDW 15.4 Plt Count 223 MPV 12.4 H Neut % (Auto) 75.6 Lymph % (Auto) 13.5 [place] % (Auto) 10.3 H Eos % (Auto) 0.0 L Baso % (Auto) 0.1 Neut # (Auto) 5.9 Lymph # (Auto) 1.1 [place] # (Auto) 0.8 Eos # (Auto) 0.0 Baso # (Auto) 0.0 Sodium 134 L Potassium 4.4 Chloride 100 Carbon Dioxide 23 Anion Gap 15.4 H BUN 32 H D Creatinine 1.10 H Estimated Creat Clear 53 Estimated GFR 51 L Est GFR ( Amer) 62 Glucose 200 H D POC Glucose 245 H 202 H Calcium 8.8 Magnesium 2.3 D Total Bilirubin 0.3 AST 52 H ALT 43 Alkaline Phosphatase 64 Troponin I Total Protein 7.6 Albumin 4.2 Globulin 3.4 H Albumin/Globulin Ratio 1.2 Free T4 1.89 05/24/24 05/24/2405/24/25 20:20 17:40 16:17 WBC RBC Hgb Hct MCV MCH MCHC RDW Plt Count MPV Neut % (Auto) Lymph % (Auto) [place] % (Auto) Eos % (Auto) Baso % (Auto) Neut # (Auto) Lymph # (Auto) [place] # (Auto) Eos # (Auto) Baso # (Auto) Sodium Potassium Chloride Carbon Dioxide Anion Gap BUN Creatinine Estimated Creat Clear Estimated GFR Est GFR ( Amer) Glucose POC Glucose 314 H* 190 H Calcium Magnesium Total Bilirubin AST ALT Alkaline Phosphatase Troponin I < 0.01 Total Protein Albumin Globulin Albumin/Globulin Ratio Free T4 05/24/24 14:43 WBC RBC Hgb Hct MCV MCH MCHC RDW Plt Count MPV Neut % (Auto) Lymph % (Auto) [place] % (Auto) Eos % (Auto) Baso % (Auto) Neut # (Auto) Lymph # (Auto) [place] # (Auto) Eos # (Auto) Baso # (Auto) Sodium Potassium Chloride Carbon Dioxide Anion Gap BUN Creatinine Estimated Creat Clear Estimated GFR Est GFR ( Amer) Glucose POC Glucose Calcium Magnesium Total Bilirubin AST ALT Alkaline Phosphatase Troponin I < 0.01 Total Protein Albumin Globulin Albumin/Globulin Ratio Free T4 Preliminary micro results at discharge 05/24/24 11:40 Blood Culture - Preliminary Blood NO GROWTH AFTER 24 HOURS 05/24/24 11:55 Blood Culture - Preliminary Blood DS: Diagnosis Discharge Diagnosis (1) Pneumonia: Status: Acute Code(s): J18.9 - Pneumonia, unspecified organism Meds Home Medications and Allergies Home Medications ?Medication ?Instructions ?Recorded ?Confirmed ?Type blood-glucose meter (Blood Glucose #1 ea 07/06/23 05/24/24 Rx Monitoring kit) lancets (Fingerstix Lancets) #100 ea 07/06/23 05/24/24 Rx losartan 50 mg tablet 50 mg PO DAILY Hypertension 30 12/16/23 05/24/24 Rx days #30 tabs blood sugar diagnostic (Blood #100 ea 02/09/24 05/24/24 Rx Glucose Test strips) blood-glucose meter (Blood Glucose #1 ea 02/09/24 05/24/24 Rx Monitoring kit) metformin 500 mg tablet 1,000 mg (2 x 500 mg) PO BID 30 02/10/24 05/24/24 Rx days #120 tabs simvastatin 80 mg tablet 80 mg PO HS 30 days #30 tabs 02/10/24 05/24/24 Rx atenolol 25 mg tablet 25 mg PO DAILY 30 days #30 tabs 05/17/24 05/24/24 Rx albuterol sulfate 90 mcg/actuation 2 puff inhalation Q6HP PRN 05/24/24 05/24/24 History aerosol inhaler shortness of breath or wheezing megestrol 40 mg tablet 40 mg PO DAILY 05/24/24 05/24/24 History meloxicam 15 mg tablet 15 mg PO DAILY 05/24/24 05/24/24 History levofloxacin 750 mg tablet 750 mg PO DAILY 4 days #4 tabs 05/25/24 Rx levothyroxine 200 mcg capsule 200 mcg PO DAILY #30 caps 05/25/24 Rx oseltamivir 6 mg/mL oral 30 mg (5 mL) PO BID 4 days #40 mL 05/25/24 Rx suspension (Tamiflu) New Prescriptions to Start Prescriptions: levofloxacin George Wright levothyroxine George Wright oseltamivir [Tamiflu] George Wright Allergies Allergy/AdvReac Type Severity Reaction Status Date / Time cephalexin Allergy Rash Verified 05/24/24 12:28 acetaminophen AdvReac Nausea Verified 05/24/24 12:28 Discharge Plan Disposition Patient Disposition: Home, Self-Care Condition: Fair Follow up Plan Follow up with: Chance Reed MD [Physician] - 06/01/24 (Evaluation for sleep study) Prescriptions/Medication Reconciliation: New oseltamivir [Tamiflu] 6 mg/mL Suspension For Reconstitution 30 mg PO BID 4 Days Qty: 40 0RF levofloxacin 750 mg tablet 750 mg PO DAILY 4 Days Qty: 4 0RF levothyroxine 200 mcg capsule 200 mcg PO DAILY Qty: 30 0RF Continued (DME) blood-glucose meter [Blood Glucose Monitoring] Kit See Rx Instructions .Route Qty: 1 0RF Rx Instructions: As directed (DME) lancets [Fingerstix Lancets] Misc See Rx Instructions .Route Qty: 100 1RF Rx Instructions: Pt is to test BID prn (DME) blood-glucose meter [Blood Glucose Monitoring] Kit See Rx Instructions .ROUTE .MEDSUPPLY Qty: 1 1RF Rx Instructions: As directed (DME) Blood Glucose Test Strip See Rx Instructions .Route Qty: 100 1RF Rx Instructions: pt is to test BID prn losartan 50 mg tablet 50 mg PO DAILY 30 Days Qty: 30 3RF metformin 500 mg tablet 1,000 mg PO BID 30 Days Qty: 120 3RF simvastatin 80 mg tablet 80 mg PO HS 30 Days Qty: 30 3RF atenolol 25 mg tablet 25 mg PO DAILY 30 Days Qty: 30 2RF meloxicam 15 mg tablet 15 mg PO DAILY albuterol sulfate 90 mcg/actuation HFA aerosol inhaler 2 puff inhalation Q6HP PRN (Reason: shortness of breath or wheezing) megestrol 40 mg tablet 40 mg PO DAILY Discontinued levothyroxine 125 mcg tablet 250 mcg PO DAILY Problem Reconciliation Problems Reviewed?: Yes Patient Discharge Instructions Patient Instructions: How to Avoid a Cold or Flu, Influenza, Respiratory Failure Print Language: [place] Providers Primary Care Provider: Charlie Ortiz Admit Provider: George Wright Attending Provider: George Wright
--- NOTE | 2024-05-25 13:41 | CARE MANAGER ---
Patient will require O2 at home and requests [facility] as provider. Information sent to them.
--- NOTE | 2024-05-26 11:03 | SW/DCPLANNER ---
Spoke with patient on the phone. Patient stated that she is aware of her upcoming appointment. Patient stated that [facility] to bring her new medicine to her bedside before she was discharged. Patient stated that she has a question about her breast turning purple where they done the procedure. I gave patient the number to the DR that done patient procedure to talk with staff. Patient stated that she has no other concerns or questions. Daniel Cornell
== END 2024-05-25 15:55 | disposition home or self-care (01) ==
LOC: ER 13:22 → 2ND 13:28
PROVIDERS: Admitting Provider Student in an Organized Health Care Education/Training Program; Emergency Provider Emergency Medicine; PCP Internal Medicine; Visit Provider Student in an Organized Health Care Education/Training Program
DX: J18.9 Pneumonia, unspecified organism (principal); J96.01 Acute respiratory failure with hypoxia; J10.1 Influenza due to other identified influenza virus with other respiratory manifestations; E03.9 Hypothyroidism, unspecified; E66.01 Morbid (severe) obesity due to excess calories; E11.9 Type 2 diabetes mellitus without complications; J44.9 Chronic obstructive pulmonary disease, unspecified; F17.210 Nicotine dependence, cigarettes, uncomplicated; Z85.850 Personal history of malignant neoplasm of thyroid; Z85.528 Personal history of other malignant neoplasm of kidney; Z80.9 Family history of malignant neoplasm, unspecified; Z68.43 Body mass index [BMI] 50.0-59.9, adult; Z83.3 Family history of diabetes mellitus; Z82.49 Family history of ischemic heart disease and other diseases of the circulatory system; Z79.890 Hormone replacement therapy; Z79.84 Long term (current) use of oral hypoglycemic drugs; Z79.899 Other long term (current) drug therapy
CPT/HCPCS: 36415; 71045; 80053; 82803; 82962; 83735; 83880; 84436; 84439; 84443; 84484; 85025; 85378; 87040; 87077; 87186; 87636; 93005; 94640; 94761; 99285; G0378; J1650; J2919; J3475; J7620

== ENCOUNTER 2024-09-18 18:12 | Observation (INO) | payer OTHER, SELFPAY ==
--- NOTE | 2024-09-18 18:19 | ED_ITS ---
Discharge Plan Disposition Patient Disposition: Admitted Clinical Impressions Clinical Impression: Acute hypoxemic respiratory failure, Acute exacerbation of chronic obstructive pulmonary disease, Infection due to human metapneumovirus (hMPV), Pulmonary embolism Discharge ED Provider: Bakari Silverman General Adult HPI General Chief complaint: Shortness of Breath/Dyspnea Stated complaint: SOA; Possible Pnemonuia; Headaches Time Seen by Provider: 09/18/24 18:16 Mode of Arrival: Ambulatory Source of Information: Patient Limitations: No Limitations History of Present Illness HPI narrative: This is a 58-year-old female with a history of COPD on room air, type 2 diabetes, hypertension, hypothyroidism, morbid obesity who presents with worsening shortness of breath. States that she has felt more short of breath since yesterday. Reports dyspnea with exertion. States that she wears nasal cannula while sleeping occasionally. Denies any chest pain. Reports cough. Denies fever. Believes she might have pneumonia. Related Data Home Medications ?Medication ?Instructions ?Recorded ?Confirmed albuterol sulfate 90 mcg/actuation 2 puff inhalation Q 6HP PRN 05/24/24 05/24/24 aerosol inhaler shortness of breath or wheez ing Previous Rx's ?Medication ?Instructions ?Recorded blood-glucose meter (Blood Glucose #1 ea 07/06/23 Monitoring kit) lancets (Fingerstix Lancets) #100 ea 07/06/23 losartan 50 mg tablet 50 mg PO DAILY Hypertension 30 12/16/23 days #30 tabs blood sugar diagnostic (Blood #100 ea 02/09/24 Glucose Test strips) blood-glucose meter (Blood Glucose #1 ea 02/09/24 Monitoring kit) metformin 500 mg tablet 1,000 mg (2 x 500 mg) PO BID 30 02/10/24 days #120 tabs atenolol 25 mg tablet 25 mg PO DAILY 30 days #30 t abs 09/11/24 levothyroxine 200 mcg capsule 200 mcg PO DAILY #30 cap s 09/11/24 megestrol 40 mg tablet 40 mg PO DAILY #30 tabs 06/06 meloxicam 15 mg tablet See Rx Instructions .Route 0 09/11/24 .COMPLEX #30 tabs simvastatin 80 mg tablet 80 mg PO HS 30 days #30 tabs 09/11/24 Allergies Allergy/AdvReac Type Severity Reaction Status Date / Time cephalexin Allergy Rash Verified 09/18/24 18:39 acetaminophen AdvReac Nausea Verified 09/18/24 18:39 PFSH [facility] Disclaimer: The information contained in this section may have been updated after the patient was seen, as this information can be updated by other users. Medical History Tobacco use disorder Class 3 obesity Hypothyroidism (acquired) Diabetes Renal cancer Thyroid cancer Hypertension Sciatica of left side Surgical History History of incision and drainage History of H/O thyroidectomy Family History Mother Diabetes Hypertension Father Diabetes Hypertension Brother Cancer Social History Smoking Status: Current every day smoker tobacco type: cigarettes quit status: considering quitting alcohol intake: never substance use type: denies use current occupational status: disabled Travel in the last 8 weeks?: None household members: children housing: apartment lives independently: Yes marital status: single education level: high school special cal needs: No agree to transfusion: No do you feel safe at home: Yes victim of physical abuse: No victim of emotional abuse: No victim of sexual abuse: No would you like helpful sources: No Have you lived/traveled outside [place] in past 30 days?: No Contact w/someone who lives/traveled outside [place] past 30 days?: No Exposure to someone with infectious disease in past 14 days?: No Do you have a fever (greater than 100.4 F or 38 C)?: No Have you tested positive for COVID-19?: No Exposed to someone with COVID-19 in past 14 days?: No Do you have a sore throat?: No Do you have a cough?: No Do you have any weakness?: No Do you have any diarrhea?: No Are you experiencing any unusual bleeding?: No Do you have any muscle aches/pain?: No Do you have any abdominal pain?: No Are you experiencing loss of taste or smell?: No Other Medical History Have you received the Flu Vaccine for this season: No Have you received the Pneumonia Vaccine: No ROS Obtained: Yes All systems reviewed & no additional complaints except as documented Physical Exam General General appearance: alert Comment: In respiratory distress Head Head exam: atraumatic Eye Eye exam: Present normal appearance, PERRL and EOMI Neck Neck exam: Present normal inspection and full ROM Chest Chest inspection: Present symmetric chest wall rise Respiratory Respiratory exam: Present respiratory distress and other (Rhonchorous breath sounds bilaterally however significantly limited by body habitus) Cardiovascular Cardiovascular exam: Present regular rate and normal rhythm Abdominal Exam Abdominal exam: Present soft; Absent distention Extremities Exam Extremities exam: Present normal inspection Neurological Exam Neurological exam: Present alert and oriented X3 Psychiatric Psychiatric exam: Present normal affect and normal mood Skin Skin exam: Present warm and dry Medical Decision Making Medical Records Medical records reviewed: Yes I reviewed the patient's medical records. Screening: Per USPSTF and CDC recommendations, given the prevalence of disease in our region, it is our hospital?s policy to screen for HIV and viral Hepatitis for all patients aged 18 and over and those with ongoing risk factors. Win Inquiry Pt receiving controlled substance: No Vital Signs: 09/18/24 18:33 09/18/24 19:00 09/18/24 19:30 Temperature 98.6 F Temperature Source Oral Pulse Rate 77 89 Pulse Rate [Left Radial] 80 Respiratory Rate 20 Blood Pressure 139/81 135/82 Blood Pressure [Left Arm] 152/83 H Blood Pressure Mean [Left Arm] 106 Blood Pressure Source [Left Arm] Automatic Cuff 02 Sat by Pulse Oximetry 81 L 94 L 90 L Oxygen Delivery Method Room Air Oxygen Flow Rate (LPM) 2 2 09/18/24 20:30 09/18/24 21:01 Temperature Temperature Source Pulse Rate 77 76 Pulse Rate [Left Radial] Respiratory Rate Blood Pressure 135/75 133/79 Blood Pressure [Left Arm] Blood Pressure Mean [Left Arm] Blood Pressure Source [Left Arm] 02 Sat by Pulse Oximetry 90 L 93 L Oxygen Delivery Method Oxygen Flow Rate (LPM) Lab Data Lab Results 09/18/24 18:23: VBG pH 7.36, VBG pCO2 54.0 H, VBG pO2 45.8 H, VBG HCO3 29.6, VBG Total CO2 31.3 H, VBG O2 Saturation 82.2 H, VBG Base Excess 4.1 H, VBG Lactic Acid 1.9 09/18/24 18:34: WBC 13.3 H, RBC 5.07, Hgb 15.1, Hct 47.1 H, MCV 92.9, MCH 29.8, MCHC 32.1, RDW 14.7, Plt Count 284, MPV 10.7 H, Neut % (Auto) 66.7, Lymph % (Auto) 23.1, [place] % (Auto) 6.3, Eos % (Auto) 1.7, Baso % (Auto) 0.5, Neut # (Auto) 8.9 H, Lymph # (Auto) 3.1, Wy[place] # (Auto) 0.8, Eos # (Auto) 0.2, Baso # (Auto) 0.1, Sodium 139, Potassium 4.2, Chloride 100, Carbon Dioxide 35 H, Anion Gap 8.2, BUN 19 H, Creatinine 0.80, Estimated Creat Clear 73, Estimated GFR 74, Est GFR ( Amer) 89, Glucose 194 H, Calcium 9.2, Total Bilirubin 0.2, AST 22, ALT 29, Alkaline Phosphatase 76, Troponin I < 0.01, Total Protein 7.9, Albumin 4.0, Globulin 3.9 H, Albumin/Globulin Ratio 1.0 L 09/18/24 19:34: Chlamy pneumoniae PCR Not detected, Adenovirus (PCR) Not detected, B. pertussis DNA (PCR) Not detected, Coronavirus OC43 (PCR) Not detected, Coronavirus HKU1 (PCR) Not detected, Coronavirus 229E (PCR) Not detected, SARS-CoV-2 (PCR) Not detected, Coronavirus NL63 (PCR) Not detected, H uman Metapneumovir PCR Detected A, Influenza A (H1) PCR Not detected, Influ A (H1N1/09) PCR Not detected, Influenza A (H3) PCR Not detected, Influenza Type A (PCR) Not detected, Influenza Type B (PCR) Not detected, M. pneumoniae (PCR) Not detected, Parainfluenza 1 (PCR) Not detected, Parainfluenza 2 (PCR) Not detected, Parainfluenza 3 (PCR) Not detected, Parainfluenza 4 (PCR) Not detected, RSV (PCR) Not detected, Entero/Rhino (PCR) Not detected 09/18/24 18:34 09/18/24 18:34 Orders (Tests/Meds): ED MEDICATIONS Generic Name Dose Route Start Last Admin Trade Name Freq PRN Reason Stop Dose Admin Acetaminophen 650 mg 09/18/24 22:31 Acetaminophen 325mg Tab PO 07/09/25 22:30 Q4HP PRN Fever or Mild Pain (1-3) Hydrocodone Bitart/Acetaminophen 1 tab 09/18/24 22:31 Hydrocodone/Apap 5/325 Mg Tablet PO 10/18/24 22:30 Q4HP PRN Mild to Moderate Pain (1-6) Ceftriaxone Sodium 2 gm/ 100 mls @ 200 mls/hr 09/18/24 19:00 09/18/24 19:27 Sodium Chloride IV 09/28/24 18:59 200 mls/hr Q24H ALIYA Administration Azithromycin 500 mg/ Sodium 250 mls @ 250 mls/hr 09/18/24 19:00 09/18/24 19:28 Chloride IV 09/28/24 18:59 250 mls/hr Q24H ALIYA Administration Ondansetron HCl 4 mg 09/18/24 22:31 Ondansetron 4mg/2ml Vial IV 10/18/24 22:30 Q8HP PRN Nausea Pantoprazole Sodium 40 mg 09/18/24 22:31 Pantoprazole 40mg Tablet PO 10/19/24 20:59 HS PRN Acid Reflux Promethazine HCl 25 mg 09/18/24 22:31 Promethazine Hcl 25mg/Ml 1ml Vial IV 10/18/24 22:30 Q6HP PRN Nausea And Vomiting Rivaroxaban 15 mg 09/19/24 07:30 Rivaroxaban 15mg Tablet PO 10/09/24 07:29 BIDWMEAL ALIYA Rivaroxaban 20 mg 10/10/24 17:30 Rivaroxaban 10mg Tablet PO 11/09/24 17:29 QPMWITHMEAL ALIYA Sodium Chloride 25 ml 09/18/24 22:31 Sodium Chloride 0.9% 25ml Bag IV 09/18/24 22:32 ONCE ONE Discontinued Medications Generic Name Dose Route Start Last Admin Trade Name Freq PRN Reason Stop Dose Admin Albuterol/Ipratropium 9 ml 09/18/24 18:29 09/18/24 19:04 Ipratropium/Albuterol 3 Ml Neb IH 09/18/24 18:30 9 ml ONCE ONE Administration Iopamidol 80 ml 09/18/24 19:58 09/18/24 20:01 Iopamidol-370 (76%);100ml Bottle IV 09/18/24 19:59 80 ml ONCE ONE Administration Methylprednisolone Sodium Succinate 125 mg 09/18/24 18:29 09/18/24 19:19 Methylprednisolone Sod Succ 125mg Vial IV 09/18/24 18:30 125 mg ONCE ONE Administration Rivaroxaban 15 mg 09/18/24 22:18 Rivaroxaban 15mg Tablet PO 09/18/24 22:19 ONCE ONE Sodium Chloride 10 ml 09/18/24 19:58 09/18/24 20:00 Sodium Chloride 0.9% 10ml Syr (Rad Only) IV 09/18/24 19:59 10 ml ONCE ONE Administration Sodium Chloride 50 ml 09/18/24 19:58 09/18/24 20:00 0.9 % Sodium Chloride 50 Ml Vial IV 09/18/24 19:59 50 ml ONCE ONE Administration ORDERS Category Date Time Status CTA Chest [CT angio chest PE protocol] Stat Cat Scan 09/18/24 18:29 Completed Chest XR 2 view (NOT portable) [XR chest 2V] Stat Exams 09/18/24 18:23 Completed BNP [NT Pro Brain Natriuretic Pep.] Urgent Lab 09/18/24 21:33 Received CBC w/Auto Diff [Complete Blood Count Auto Diff] Stat Lab 09/18/24 18:34 Completed CMP [Comprehensive Metabolic Panel] Stat Lab 09/18/24 18:34 Completed Complete Blood Count Auto Diff AMLAB Lab 09/19/24 06:00 Ordered Comprehensive Metabolic Panel AMLAB Lab 09/19/24 06:00 Ordered D-Dimer Urgent Lab 09/18/24 22:40 Received Full Resp Panel w/COVID ([facility]) Routine Lab 09/18/24 19:34 Completed Magnesium AMLAB Lab 09/19/24 06:00 Ordered Phosphorous AMLAB Lab 09/19/24 06:00 Ordered Troponin I Q3H Lab 09/18/24 21:33 Received Troponin I Q3H Lab 09/19/24 00:30 Ordered Troponin I Stat Lab 09/18/24 18:34 Completed Blood Culture Stat Micro 09/18/24 19:24 Received VBG [Venous Blood Gas] Stat RT 09/18/24 18:23 Completed CA echo doppler complete Routine Y 09/18/24 22:33 Ordered ECG Data Tracing #1: I reviewed this ECG and interpreted as documented below: Normal sinus rhythm at a rate of 80, QTc 417, normal axis, no STEMI Medical Decision Narrative: In summary, this 58-year-old female with a history of COPD on room air, type 2 diabetes, hypertension, hypothyroidism, morbid obesity presents to the emergency department today with worsening shortness of breath since yesterday. On initial evaluation patient is afebrile, hemodynamically stable, in acute distress and satting 75% on room air while at rest. Differential diagnosis includes but is not limited to COPD exacerbation, pneumonia, pulmonary embolism, ACS. Based on these concerns, I ordered CBC, CMP, troponin, EKG, chest x-ray, VBG, CT PE. ECG personally interpreted as noted above. Patient received DuoNeb x 3, 125 of methylprednisolone for treatment. Labs personally reviewed demonstrate white blood cell count of 13, unremarkable VBG with venous pH of 7.36 and mild CO2 retention with a PCO2 of 54 that is likely patient's baseline, undetectable troponin. Also tested positive for human metapneumovirus. XR personally interpreted demonstrates right-sided infiltrates concerning for pneumonia. Started on ceftriaxone and azithromycin awaiting CT imaging. CT imaging personally interpreted demonstrates filling defects in the bibasilar segmental pulmonary arteries consistent with likely pulmonary emboli. No evidence of right heart strain. On reassessment patient remained requiring nasal cannula. Consulted hospital medicine. Patient was initiated on Xarelto and ultimately admitted for acute hypoxic respiratory failure secondary to pulmonary emboli and human metapneumovirus infection. Critical Care Critical Care Time Critical Care Time: No
--- OUTSIDE RECORDS SUMMARY | 2024-09-18 18:22 | XMS_ITS | Clinical Summary ---
Author Organization [facility] Address [address] [place] [address] Care Team Providers Care Injection Operator Name Role Phone Martinez Weaver MD Primary Care Provider [phone] Alycia Florence CASSEROLE PREPARER Unavailable [phone] Allergies Active Allergy Reactions Criticality Noted Date Comments Cephalexin Itching,Rash Medium 06/20/2022 Acetaminophen Nausea 02/29/2024 Medications potassium chloride CR (Klor-Con M20) 20 MEQ ER tablet 7 Active metFORMIN (Glucophage) 500 MG tablet Take 1 tablet (500 mg) by mouth 2 (two) times a day with meals. 0 Active losartan (Cozaar) 100 MG tablet Take 1 tablet (100 mg) by mouth 1 (one) time each day. 2 Active simvastatin (Zocor) 20 MG tablet 3 Active Ventolin HFA 108 (90 Base) MCG/ACT inhaler Please take 2 puffs every 4 to 6 hours as needed for cough or shortness of air. 1 each 3 Active atenolol (Tenormin) 25 MG tabletIndications :Papillary carcinoma, follicular variant,Elevated heart rate with elevated blood pressure and diagnosis of hypertension Take 1 tablet (25 mg) by mouth 1 (one) time each day. 90 tablet 3 3 Active ibuprofen 200 MG tablet Take 1 tablet (200 mg) by mouth every 6 (six) hours if needed for mild pain. Active levothyroxine (Synthroid) 125 MCG tabletIndications :Papillary carcinoma, follicular variant,Postproce dural hypothyroidism,Th yroid cancer (CMS/HCC) Take 2 tablets (250 mcg) by mouth 1 (one) time each day. Total daily dose 250mcg. 180 tablet 3 4 02/29/20 25 Active megestrol (Megace) 40 MG tablet Take 2 tablets (80 mg total) by mouth 2 (two) times a day. 120 tablet 11 4 Active Active Problems Problem Noted Date Diagnosed Date Medication management 02/29/2024 Mass of right ovary 02/29/2024 Endometrial cancer 02/29/2024 Second hand smoke exposure 01/06/2022 Sleep apnea 01/04/2020 Lower back pain 01/04/2020 DM2 (diabetes mellitus, type 2) 10/29/2017 Papillary carcinoma, follicular variant 10/16/19 Cancer Staging:Clinical stage from 01/07/2021:Stage I(ycT2, ycN0b, cM0, Age at diagnosis: < 55 years) - Signed by Martinez Gonzalez MD on 01/07/2021 Class 3 severe obesity due t o excess calories with serious comorbidity and body mass index (BMI) of 60.0 to 69.9 in adult 10/15/2016 Elevated tumor markers 10/15/2016 Tobacco dependence 08/22/2013 Essential (primary) hypertension 08/16/2012 Erosive osteoarthritis of multiple sites 013 Pulmonary emphysema 06/06/2012 Postprocedural hypothyroidism 06/06/2012 Asthma 05/04/2012 Gastro-esophageal reflux disease without esophag itis 05/04/2012 Immunizations Immunization Administration Dates Next Due Influenza, seasonal, injectable 02/12/2009,02/17 [employer] COVID-19 Vaccine (Purple Cap) 12 + 05/08/2021,01/23/2021 TD (adult), 2 Lf tetanus tox oid, preservative free, adsorbed 10/30/2005 Td (adult), unspecified 10/31/2010 Family History Medical History Relation Name Comments Diabetes type II Brother Conversions - Other Father Poor kid sienna function Diabetes type II Father Hypertension Father Conversions - Other Mother FH: CABG (coronary artery bypass surgery) Coronary artery disease Mother Diabetes Mother Diabetes Other 1 Hypertension Other 2 Diabetes type II Sister Thyroid cancer Neg Hx Relation Name Status Comments Brother Father Mother Other 1 Other 2 Sister Social History Tobacco Use Types Packs/Day Years Used Date Smoking Tobacco: Every Day Cigarettes 0.5 44.4 Started: 1980 Passive Smoke Exposure: Past Smokeless Tobacco: Former Tobacco Cessation:Ready to Q uit: No; Counseling Given: No Alcohol Use Standard Drinks/Week Comments No 0 (1 standard drink = 0.6 oz pure alcohol) Alcoholic Drinks/day: Never Drank Alcohol PHQ-2 Answer Date Recorded Patient Health Questionnaire-2 Score 2 04/14/2024 PHQ-2A Answer Date Recorded Patient Health Questionnaire-2 Score 1 02/24/2023 Comments No Sex and Gender Information Value Date Recorded Sex Assigned at Not on file Legal Sex Female 7:54 PM EDT Gender Identity Not on file Sexual Orientation Not on file Occupation Industry Job Start Date Job End Date unemployed Not on file Not on file Not on file Last Filed Vital Signs Vital Sign Reading Time Taken Comments Blood Pressure 137/90 04/14/2024 12:59 PM EST Pulse 80 04/14/2024 12:59 PM EST Temperature 35.6 C (96.1 F) 04/14/2024 12:59 PM EST Respiratory Rate 22 04/14/2024 12:59 PM EST Oxygen Saturation 91% 04/14/2024 12:59 PM EST Inhaled Oxygen Concentration - - Weight 164 kg (361 lb 15.9 oz) 04/14/2024 12:59 PM EST Height 167.6 cm (5' 6 ) 04/14/2024 12:59 PM EST Body Mass Index 58.43 04/14/2024 12:59 PM EST Plan of Treatment Upcoming Encounters Date Type Department Care Team (Late st Contact Info) Description 10/27/2024 12:20 PM EDT Appointment [facility] Radiology [address] [place] [phone] 10/27/2024 2:15 PM EDT Office Visit [facility] Gynecology [address] [place] [id number] Rosario Sam MD [address] [facility] [address] [place] [address] 01/24/2025 12:45 PM EDT Appointment [facility] [address] [place] [phone] 01/24/2025 2:30 PM EDT Clinical Support [facility] [address] [facility] [place] [address] 01/24/2025 3:00 PM EDT Office Visit [facility] [address] [facility] [place] [address] Savana Jamison, C[employer]EROLE PREPARER, [employer] [address] [place] [address] Health Maintenance Due Date Last Done Comments [facility]-Diabetes: Hemoglobin A1C 1966 [facility]-HIV Screening 1966 [facility]-Hepatitis C Screening 1966 [facility]-Infant/Child/Adol SDOH Screenings 1966 Diabetes: Dental Exam 1976 [facility]- SDOH Screenings 1984 [facility]-Adult SDOH Screenings 1984 [facility]-Hepatitis B Vaccines (1 of 3 - 19+ 3-dose series) 1985 [facility]-Pneumococcal Vaccine: 50+ Years (1 of 2 - PCV) 1985 [facility]-Zoster Vaccines (1 of 2) 1985 [facility]-DTaP,Tdap,and Td Vaccines (1 - Tdap) 11/01/2010 10/31/2010, 10/30/2005 CT Colonography 11/18/2011 Colonoscopy 11/18/2011 FIT-DNA 11/18/2011 FIT 11/18/2011 FOBT 11/18/2011 Sigmoidoscopy 11/18/2011 [facility]-Colorectal Cancer Screening 11/18/2011 [facility]-Breast Cancer Screening 2016 MLR-IXDOL-18 Vaccine (3 - Pfizer risk series) 06/05/2021 05/08/2021, 01/23/2021 [facility]-Influenza Vaccine (Season Ended) 2024 02/12/2009, 02/18/2008 [facility]-Depression Screening 04/14/2025 04/14/2024 [facility]-Lung Cancer Screening 04/14/20252024, 12/28/2022, 01/04/2020, Additional history exists [facility]-Pap Smear 01/22/2026 01/22/2023, 10/10/2003 [facility]-Cervical Cancer Screening 01/23/2028 [facility]-HPV/Cotest 01/23/2028 01/22/2023, 10/10/2003 [facility]-Obesity Intervention Completed 023, 02/24/2023, 12/28/2022, Additional history exists HPV Vaccines Aged Out No longer eligi ble based on patient's age to complete this topic [facility]-HIB Vaccines Aged Out No longer e ligible based on patient's age to complete this topic [facility]-Hepatitis A Vaccines Aged Out No longer eligible based on patient's age to complete this topic [facility]-IPV Vaccines Aged Out No longer e ligible based on patient's age to complete this topic [facility]-Rotavirus Vaccines Aged Out No lo nger eligible based on patient's age to complete this topic Procedures Procedure Name Priority Date/Time Associated Diagnosis Comments CT CHEST W IV CONTRAST Routine 04/14/2024 10:18 AM EST Endometrial cancer (CMS/HCC) PAP TEST - CYTOLOGY Routine 01/22/2023 1 :50 PM EDT Thickened endometrium from Last 3 Months or Most Recently Relevant to Health Maintenance Results * CT Chest w IV Contrast (04/14/2024 10:18 AM EST) Anatomical Region Laterality Modality Chest Computed Tomogra phy Impressions 04/14/2024 11:12 AM EST Chest: No evidence of disease progression. Abdomen/Pelvis: Small interval increase in size of the previously demonstrated right ovarian mass. Stable bilateral external iliac and inguinal adenopathy. No new evidence of metastases in the abdomen or pelvis. CRITICAL RESULT: No. COMMUNICATION: Per this written report. Drafted by Casey Baxter MD on 04/14/2024 11:08 AM Final report signed by Casey Baxter MD on 04/14/2024 11:12 AM Narrative 04/14/2024 11:12 AM EST CLINICAL INDICATION: Endometrial cancer, adnexal mass, pelvic pain TECHNIQUE: Multiple axial CT images were obtained from thoracic inlet through pubic symphysis following administration of IV contrast, Omnipaque 300, 100 mL. Reformatted images of the abdomen and pelvis in the coronal and sagittal planes were generated from the axial data set to facilitate diagnostic accuracy. Total DLP (Dose-Length Product): 2182.34 mGy.cm. Please note: The reported value represents the total of one or more individual components during the CT acquisition on this date and at this time, and as such, the same value may appear in more than one CT report depending on the interpreting/reporting physicians. COMPARISON: CT scan of the chest abdomen pelvis 12/28/2022, MRI scan of the pelvis 02/24/2023 FINDINGS: Chest: Lymph Nodes and Mediastinum: No lymphadenopathy by CT size criteria. No mediastinal mass lesions. No suspicious thyroid findings. Cardiovascular: The heart is normal in caliber. Thoracic great vessels are patent. Lungs and Pleura: A few scattered tiny 2 mm micronodules in the upper lobes are unchanged. No suspicious pulmonary nodules or masses to suggest metastases. No pleural effusions or suspicious thickening. Musculoskeletal and Body Wall: No clearly aggressive bone lesions. Abdomen/Pelvis: Solid Abdominal Organs: Moderate diffuse hepatic steatosis. No suspicious liver lesions. Normal gallbladder. No biliary obstruction. Normal pancreas, spleen. Stable bilateral renal low-attenuation lesions. Cortical scarring in the right kidney is unchanged. No hydronephrosis. Stable bilateral adrenal nodules. GI Tract/Mesentery/Peritoneum: The large and small bowel appear normal in caliber. No evidence of inflammatory change. No suspicious peritoneal/mesenteric findings.. Pelvic Viscera: Redemonstration of a bulky uterus. The right ovary is enlarged measuring approximately 7.8 x 6.9 cm, previously 7.7 x 6.1 cm (series 3 image 256). Normal-appearing left ovary. Lymph Nodes/Vasculature: Redemonstration of stable mildly enlarged external iliac nodes bilaterally measuring up to 12 mm (series 3 image 256, 263). There is also a stable 13 mm left external iliac node (series 3 image 261). Stable mildly enlarged inguinal nodes bilaterally, the largest measuring up to 17 mm in the left groin (series 3 image 25). No suspicious retroperitoneal lymph nodes. Patent portal and hepatic vasculature. Free Fluid:No ascites Musculoskeletal and Body Wall:No aggressive or suspicious findings. Procedure Note Casey Baxter MD - 04/14/2024 CLINICAL INDICATION: Endometrial cancer, adnexal mass, pelvic pain TECHNIQUE: Multiple axial CT images were obtained from thoracic inlet through pubicsymphysis following administration of IV contrast, Omnipaque 300, 100 mL.Reformatted images of the abdomen and pelvis in the coronal and sagittalplanes were generated from the axial data set to facilitate diagnosticaccuracy. Total DLP (Dose-Length Product): 2182.34 mGy.cm. Please note: The reportedvalue represents the total of one or more individual components during theCT acquisition on this date and at this time, and as such, the same valuemay appear in more than one CT report depending on theinterpreting/reporting physicians. COMPARISON: CT scan of the chest abdomen pelvis 12/28/2022, MRI scan of the ladvza0802/24/2023 FINDINGS: Chest: Lymph Nodes and Mediastinum: No lymphadenopathy by CT size criteria. Nomediastinal mass lesions. No suspicious thyroid findings. Cardiovascular: The heart is normal in caliber. Thoracic great vessels arepatent. Lungs and Pleura: A few scattered tiny 2 mm micronodules in the upperlobes are unchanged. No suspicious pulmonary nodules or masses to suggestmetastases. No pleural effusions or suspicious thickening. Musculoskeletal and Body Wall: No clearly aggressive bone lesions. Abdomen/Pelvis: Solid Abdominal Organs: Moderate diffuse hepatic steatosis. No suspiciousliver lesions. Normal gallbladder. No biliary obstruction. Normalpancreas, spleen. Stable bilateral renal low-attenuation lesions. Corticalscarring in the right kidney is unchanged. No hydronephrosis. Stablebilateral adrenal nodules. GI Tract/Mesentery/Peritoneum: The large and small bowel appear normal incaliber. No evidence of inflammatory change. No suspiciousperitoneal/mesenteric findings.. Pelvic Viscera: Redemonstration of a bulky uterus. The right ovary isenlarged measuring approximately 7.8 x 6.9 cm, previously 7.7 x 6.1 cm(series 3 image 256). Normal-appearing left ovary. Lymph Nodes/Vasculature: Redemonstration of stable mildly enlargedexternal iliac nodes bilaterally measuring up to 12 mm (series 3 [id number], 263). There is also a stable 13 mm left external iliac node (series 3image 261). Stable mildly enlarged inguinal nodes bilaterally, the largestmeasuring up to 17 mm in the left groin (series 3 image 25). No suspiciousretroperitoneal lymph nodes. Patent portal and hepatic vasculature. Free Fluid:No ascites Musculoskeletal and Body Wall:No aggressive or suspicious findings. IMPRESSION: Chest: No evidence of disease progression. Abdomen/Pelvis: Small interval increase in size of the previouslydemonstrated right ovarian mass. Stable bilateral external iliac and inguinal adenopathy. No new evidence of metastases in the abdomen or pelvis. CRITICAL RESULT: No. COMMUNICATION: Per this written report. Drafted by Casey Baxter MD on 04/14/2024 11:08 AM Final report signed by Casey Baxter MD on 04/14/2024 11:12 AM us Rosario Sam MD IMG CT PROCEDURES Final R esult * Pap Test (01/22/2023 1:50 PM EDT) Case Report Cytology Case: [id number] Authorizing Provider: Rosario Sam MD Collected: 01/22/2023 1350 Ordering Location: [facility] Gynecology Received: 01/25/2023 1102 First Screen: Aiden [place] Pathologist: Bernarda Allen MD Specimen: ThinPrep Pap Test, Liquid-Based Cervical/Vaginal 02/01/2023 10:46 AM EDT [facility] Interpretation NEGATIVE FOR INTRAEPITHELIAL LESION OR MALIGNANCY 02/01/2023 10:46 AM EDT [facility] at 1046 EDT Specimen Adequacy Satisfactory for evaluation; endocervical/colin sformation zone component absent/insufficie nt. Slide imaged by the ThinPrep Imaging system and selected 22 bowie reviewed then full manual screening. 02/01/2023 10:46 AM EDT [facility] Cervical cytology is a screening test primarily for squamous cancers and precursors and has associated false negative and positive results. New technologies such as liquid based sampling may decrease but will not eliminate all false negative results. Regular screening and follow-up of unexplained clinical signs and symptoms are recommended to minimize false negative results. Please see the ASCCP website (www.asccp.org)fo r followup recommendations. If HPV testing was requested, correlation with the results is suggested (please call Microbiology at [phone] for results). 02/01/2023 10:46 AM EDT [facility] Menstrual Status Post-Menopausal 10:46 AM EDT [facility] History of Hysterectomy Not Applicable 02/01/2023 10:46 AM EDT [facility] Contraceptive History Not Applicable 02/01/2023 10:46 AM EDT [facility] Screening Type Routine Screen 2022 10:46 AM EDT [facility] High Risk? No 02/01/2023 10:46 AM EDT [facility] HPV Testing Requested? Request HPV testing if ASCUS or LSIL. 02/01/2023 10:46 AM EDT [facility] Previous Cancer History No 02/01/2023 10:46 AM EDT [facility] Clinical Information R93.89 - Thickened endometrium [ICD-10-CM] 02/01/2023 10:46 AM EDT [facility] Swab Vaginal and cervical cytologic material / Unknown Non-blood Collection / Unknown 01/22/2023 1:50 PM EDT 01/25/2023 11:02 AM EDT Rosario Sam MD LAB CYTOLOGY ORDERABLES F inal Result [facility] [address] [place] [address] from Last 3 Months or Most Recently Relevant to Health Maintenance Insurance [employer] [facility] MEDICAID Advance Directives * Full Code (Latest Code Status on File) Date Activated Date Inactivated Comments 03/26/2023 11:15 AM 03/27/2023 2:37 AM Question Answer Comments Patient has decision-making capacity? Yes Care Teams Injection Operator Relationship Specialty Start Date End Date Martinez Weaver MD [address] [place] [address] PCP - General Family Medicine 11/24/22 Alycia Florence APRN [address] [address] Nurse Practitioner Medical Oncology 01/18/23
--- OUTSIDE RECORDS SUMMARY | 2024-09-18 18:22 | XMS_ITS ---
Author Organization [facility] Address [address] [place] [address] Care Team Providers Care Community Health Nurse Supervisor Name Role Phone Martinez Weaver MD Primary Care Provider [phone] Alycia Florence [employer]IMING M[employer]TURE CARRIER Unavailable [phone] Active Problems Problem Noted Date Diagnosed Date Medication management 02/29/2024 Mass of right ovary 02/29/2024 Endometrial cancer 02/29/2024 Second hand smoke exposure 01/06/2022 Sleep apnea 01/04/2020 Lower back pain 01/04/2020 DM2 (diabetes mellitus, type 2) 10/29/2017 Papillary carcinoma, follicular variant 10/16/19 17 Cancer Staging:Clinical stage from 01/07/2021:Stage I(ycT2, ycN0b, [...] Gastro-esophageal reflux disease without esophag itis 05/04/2012 Current Treatment and Therapy Plans No current plan information found. Past Treatment and Therapy Plans No past plan information found. Lifetime Dose Tracking * Chemical Lifetime Dose Automatic Entry Manual Entr y Radiation (DLP) Retired 3,446 mGy-cm. 3,446 mGy-cm. 0 mGy-cm. CTDIvol 456 mGy 456 mGy 0 mGy
--- OUTSIDE RECORDS SUMMARY | 2024-09-18 18:22 | XMS_ITS | Data Portability ---
Author Organization [facility] Address [address] [place] [address] Assessment Encounter Date Assessment Date Assessment LastModified by Organization Details LastModified Time 09/21/2019 09/21/2019 Service was provided using telemedicine. The patient verbally consents to virtual services and the consent is documented in the medical record prior to using the service. Patient is located at their place of residence Provider is located at medical clinic. Names and roles of all persons participating in telemedicine services include:Claudia Muro APRN, Horace Mayer MA and patient Sarah dupree Not available 09/21/2019 10:26:51 04/15/2020 04/15/2020 -Medications were reviewed and any necessary updates and renewals were made, patient instructed to complete as prescribed. -The potential side effects of medications were discussed. -Counseling was done on care goals and ways to prevent future hospitalizations . -Further treatment per orders listed below. Not available 04/15/2020 10:57:41 02/17/2021 02/17/2021 -Medications were reviewed and any necessary updates and renewals were made, patient instructed to complete as prescribed. -The potential side effects of medications were discussed. -Counseling was done on care goals and ways to prevent future hospitalizations . -Further treatment per orders listed below. Not available 02/17/2021 16:00:32 Plan of Treatment Reminders Order Date Submit Date Provider Last Modified By Organization Details Last Modified Time Details Appointments None recorded. Lab HbA1c (hemoglobi n A1c), blood 2020 021 [facility], [address], [address], [place], [address], 1 10:12:44 CMP, serum or plasma 2020 021 J[facility], [address], [address], [place], [address], 1 10:12:43 CBC w/ auto diff 2020 021 [facility], [address], [address], [place], [address], 1 10:12:42 TSH + free T4, serum 2020 021 [facility], [address], [address], [place], [address], 1 10:12:41 T3, free, serum or plasma 2020 021 [facility], [address], [address], [place], [address], 1 10:12:45 pathology study 2019 020 [facility], [address], [address], [place], [address], 0 13:08:37 Referral physical therapist referral 2020 021 joon [facility], [address], [place], [address], 1 13:01:33 bariatric surgery referral 2020 021 [facility], [address], [place], [address], 1 05:00:57 endocrinol ogy referral 2019 020 [email or web address] Savana Jamison [facility] [facility], [address] [facility], [place], [address], 0 16:49:19 Procedures None recorded. Surgeries None recorded. Imaging XR, lumbar spine 2020 [facility], [address] [place] [address], [place], [address], 1 13:05:30 US, transvagin al 2019 [place] [facility], [address] [place] [address] , [place], [address], 0 08:18:48 Medication Orders losartan 100 mg tablet [address] [facility], [address] [place] [address], [address], 1 16:16:26 Diflucan 150 mg tablet 2020 [facility], [address] [place] [address], [place], [address], 1 16:13:41 methocarba mol 750 mg tablet [address], [address] [place] [address], [address], 1 11:14:27 Solu-Medro l (PF) 125 mg/2 mL solution for injection [address] [facility], [address] [place] [address], [address], 1 11:25:34 OneTouch Ultra Blue Test Strip 2019 [facility] [place] [employer] [facility], [address] [place] [address], [address], 0 10:30:27 metformin 500 mg tablet 2019 [facility], [address] [place] [address], [address], 0 10:30:26 Patient TargetsNo targets recorded. Patient Instructions Encounter Date Encounter Id Patient Instructions Last Modified By Organization Details Last Modified Time 07/28/2019 [id number] 1. US images reviewed and discussed with patient. Anteverted uterus upper limits of normal size with 2 small fibroids with the largest measuring 1.7 cms. Endometrium measured 8 mm. Left ovary not visualized. Right ovary slightly enlarged without any obvious abnormality. Left ovary not visualized. 2. Recommend endometrial biopsy. [place] would like to schedule for another day. Not available 07/31/2019 08:22:01 08/30/2019 [id number] 1. Await pathology for further recommendations. She will need progestin therapy for any endometrial hyperplasia. Not available 08/30/2019 12:52:45 We will call abnormal test results in 7-10 days. Patient is advised that normal test results will be retrievable through [facility] Patient Portal and that they will be notified of the availability of normal results from [facility] by phone call, text or email. Not available 08/30/2019 12:52:49 09/21/2019 [id number] Plan for next steps: Not available 09/21/2019 10:08:01 Due to the natur e of telemedicine the ability to do a physical assessment was limited to what can be accomplished by patient directed video conferencing. Those limits are understood by the patient and myself. Impression is based on history, available information and physical findings accomplished with video assistance. Chronic disease/problem list/medication list reviewed and updated where indicated. Discussed diagnosis, plan including risks, benefits and options of treatment. PMH, FHx, SHx, Surgical Hx and preventive care review were addressed as documented today as part of this visit. Medication list was reviewed and adjusted as indicated. Medication requiring a refill was addressed. Risk and benefits of any new medications were discussed and all questions answered. Advised to call for new, worsening or persistent symptoms. Level of patient risk was of low complexity due to the documented nature of presentation, the information assessment required and the nature of the development of an evaluation and treatment plan as documented. [email or web address] Not available 09/21/2019 10:33:32 04/15/2020 [id number] body mass index: care instructions [email or web address] Not available 04/15/2020 11:13:39 learning about healthy weight [email or web address] Not available 04/15/2020 11:13:39 back care and preventing injuries: care instructions [email or web address] Not available 04/15/2020 11:13:39 getting back to normal after low back pain: care instructions [email or web address] Not available 04/15/2020 11:13:39 learning about relief for back pain Not available 04/15/2020 11:13:39 When You Want to Lose Weight: Care Instructions [email or web address] Not available 04/15/2020 11:16:11 plan on PT for low back pain as well as referral to bariatic surgery for weight loss options f.u if no improvement on back reports the muscle relaxants help that she got from the ER [email or web address] Not available 04/15/2020 12:53:00 02/17/2021 [id number] high blood pressure: care instructions [email or web address] Not available 02/17/2021 16:13:34 learning about high blood pressure [email or web address] Not available 02/17/2021 16:13:34 hypothyroidism: care instructions [email or web address] Not available 02/17/2021 16:13:34 Reason for Referral 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 Referring Physician: Claudia Muro [facility], Encounter Date: 09/21/2019 Physical Therapist Referral for Low back pain Referring Physician: Claudia Muro [facility], Encounter Date: 04/15/2020 Bariatric Surgery Referral f or Morbid obesity Referring Physician: Claudia Muro [facility], Encounter Date: 04/15/2020 Results Created Date Observation Date Name Description Value Unit Range Abnormal Flag Note LastModifiedBy Organization Detail LastModifiedTime 07/12/1907/13/2019 TSH + free T4, serum TSH 0.011 uIU/m L 0.450- 4.500 below low normal Not Available [facility] ([facility]) [address] [facility], [place], [address], 07/13/2019 06:14:15 07/12/1907/13/2019 TSH + free T4, serum T4,free(dire ct) 1.98 NG/dL 0.82-1 .77 above high normal Not Available [facility] ([facility]) [address] [place], [address], 07/13/2019 06:14:15 07/12/19 20 07/13/2019 CBC w/ auto diff WBC 10.8 x10e3 /uL 3.4-10 .8 Not Available [facility] ([facility]) [address] [place], [address], 07/13/2019 06:14:16 07/12/1907/13/2019 CBC w/ auto diff RBC 5.32 x10e6 /uL 3.77-5 .28 above high normal Not Available [facility] ([facility]) [address] [place], [address], 07/13/2019 06:14:16 07/12/1907/13/2019 CBC w/ auto diff hemoglobin 15.8 g/dL 11.1-1 5.9 Not Available [facility] ([facility]) [address] [place], [address], 07/13/2019 06:14:16 07/12/1907/13/2019 CBC w/ auto diff hematocrit 46.8 % 34.0-4 6.6 above high normal Not Available [facility] ([facility]) [address] [place], [address], 07/13/2019 06:14:16 07/12/1907/13/2019 CBC w/ auto diff MCV 88 fL 79-97 Not Available [facility] ([facility]) [address] [place], [address], 07/13/2019 06:14:16 07/12/1907/13/2019 CBC w/ auto diff MCH 29.7 pg 26.6-3 3.0 Not Available [facility] ([facility]) [address] [place], [address], 07/13/2019 06:14:16 07/12/1907/13/2019 CBC w/ auto diff MCHC 33.8 g/dL 31.5-3 5.7 Not Available [facility] ([facility]) [address] [facility], [place], [address], 07/13/2019 06:14:16 07/12/19 20 07/13/2019 CBC w/ auto diff RDW 15.4 % 11.7-1 5.4 Not Available [facility] ([facility]) [address] [facility], [place], [address], 07/13/2019 06:14:16 07/12/1907/13/2019 CBC w/ auto diff platelets 319 x10e3 /uL 150-45 0 Not Available [facility] ([facility]) [address] [facility], [place], [address], 07/13/2019 06:14:16 07/12/1907/13/2019 CBC w/ auto diff neutrophils 67 % not estab. Not Available [facility] ([facility]) [address] [facility], [place], [address], 07/13/2019 06:14:16 07/12/1907/13/2019 CBC w/ auto diff lymphs 22 % not estab. Not Available [facility] ([facility]) [address] [facility], [place], [address], 07/13/2019 06:14:16 07/12/1907/13/2019 CBC w/ auto diff monocytes 8 % not estab. Not Available [facility] ([facility]) [address] [place], [address], 07/13/2019 06:14:16 07/12/1907/13/2019 CBC w/ auto diff eos 2 % not estab. Not Available [facility] ([facility]) [address] [place], [address], 07/13/2019 06:14:16 07/12/19 20 07/13/2019 CBC w/ auto diff basos 0 % not estab. Not Available [facility] ([facility]) [address] [place], [address], 07/13/2019 06:14:16 07/12/19 20 07/13/2019 CBC w/ auto diff immature cells SUBSCRIPTION CLERK Not Available [facility] ([facility]) [address] [place], [address], 07/13/2019 06:14:16 07/12/1907/13/2019 CBC w/ auto diff neutrophils (absolute) 7.4 x10e3 /uL 1.4-7. 0 above high normal Not Available [facility] ([facility]) [address] [place], [address], 07/13/2019 06:14:16 07/12/19 20 07/13/2019 CBC w/ auto diff lymphs (absolute) 2.3 x10e3 /uL 0.7-3. 1 Not Available [facility] ([facility]) [address] [place], [address], 07/13/2019 06:14:16 07/12/19 20 07/13/2019 CBC w/ auto diff monocytes(ab solute) 0.9 x10e3 /uL 0.1-0. 9 Not Available [facility] ([facility]) [address] [place], [address], 07/13/2019 06:14:16 07/12/19 20 07/13/2019 CBC w/ auto diff eos (absolute) 0.2 x10e3 /uL 0.0-0. 4 Not Available [facility] ([facility]) [address] [place], [address], 07/13/2019 06:14:16 07/12/19 20 07/13/2019 CBC w/ auto diff baso (absolute) 0.0 x10e3 /uL 0.0-0. 2 Not Available [facility] ([facility]) [address] [facility] [place], [address], 07/13/2019 06:14:16 07/12/1907/13/2019 CBC w/ auto diff immature granulocytes 1 % not estab. Not Available [facility] ([facility]) [address] [facility] [place], [address], 07/13/2019 06:14:16 07/12/1907/13/2019 CBC w/ auto diff immature grans (abs) 0.1 x10e3 /uL 0.0-0. 1 Not Available [facility] ([facility]) [address] [facility] [place], [address], 07/13/2019 06:14:16 07/12/1907/13/2019 CBC w/ auto diff NRBC SUBSCRIPTION CLERK Not Available [facility] ([facility]) [address] [place], [address], 07/13/2019 06:14:16 07/12/1907/13/2019 CBC w/ auto diff hematology comments: SUBSCRIPTION CLERK Not Available [facility] ([facility]) [address] [facility], [place], [address], 07/13/2019 06:14:16 07/12/1907/13/2019 CMP, serum or plasm a glucose 119 mg/dL 65-99 above high normal Not Available [facility] ([facility]) [address] [place], [address], 07/13/2019 06:14:17 07/12/1907/13/2019 CMP, serum or plasm a BUN 9 mg/dL 6-24 Not Available [facility] ([facility]) [address] [place], [address], 07/13/2019 06:14:17 07/12/1907/13/2019 CMP, serum or plasm a creatinine 0.68 mg/dL 0.57-1 .00 Not Available [facility] ([facility]) [address] [facility] [place], [address], 07/13/2019 06:14:17 07/12/1907/13/2019 CMP, serum or plasm a eGFR if nonafricn AM 101 mL/mi n/1.7 3 >59 Not Available [facility] ([facility]) [address] [facility] [place], [address], 07/13/2019 06:14:17 07/12/19 20 07/13/2019 CMP, serum or plasm a eGFR if africn AM 116 mL/mi n/1.7 3 >59 Not Available [facility] ([facility]) [address] [facility] [place], [address], 07/13/2019 06:14:17 07/12/1907/13/2019 CMP, serum or plasm a BUN/creatini ne ratio 13 9-23 Not Available [facility] ([facility]) [address] [facility] [place], [address], 07/13/2019 06:14:17 07/12/1907/13/2019 CMP, serum or plasm a sodium 140 mmol/ L 134-14 4 Not Available [facility] ([facility]) [address] [facility] [place], [address], 07/13/2019 06:14:17 07/12/1907/13/2019 CMP, serum or plasm a potassium 4.5 mmol/ L 3.5-5. 2 Not Available [facility] ([facility]) [address] [facility] [place], [address], 07/13/2019 06:14:17 07/12/1907/13/2019 CMP, serum or plasm a chloride 99 mmol/ L 96-106 Not Available [facility] ([facility]) [address] [facility] [place], [address], 07/13/2019 06:14:17 07/12/1907/13/2019 CMP, serum or plasm a carbon dioxide, total 24 mmol/ L 20- Not Available [facility] ([facility]) [address] [facility] [place], [address], 07/13/2019 06:14:17 07/12/1907/13/2019 CMP, serum or plasm a calcium 9.6 mg/dL 8.7-10 .2 Not Available [facility] ([facility]) [address] [facility] [place], [address], 07/13/2019 06:14:17 07/12/1907/13/2019 CMP, serum or plasm a protein, total 7.2 g/dL 6.0-8. 5 Not Available [facility] ([facility]) [address] [facility] [place], [address], 07/13/2019 06:14:17 07/12/1907/13/2019 CMP, serum or plasm a albumin 4.2 g/dL 3.8-4. 9 Not Available [facility] ([facility]) [address] [facility] [place], [address], 07/13/2019 06:14:17 07/12/1907/13/2019 CMP, serum or plasm a globulin, total 3.0 g/dL 1.5-4. 5 Not Available [facility] ([facility]) [address] [place], [address], 07/13/2019 06:14:17 07/12/1907/13/2019 CMP, serum or plasm a A/G ratio 1.4 1.2-2. 2 Not Available [facility] ([facility]) [address] [facility] [place], [address], 07/13/2019 06:14:17 07/12/1907/13/2019 CMP, serum or plasm a bilirubin, total 0.4 mg/dL 0.0-1. 2 Not Available [facility] ([facility]) [address] [place], [address], 07/13/2019 06:14:17 07/12/19 20 07/13/2019 CMP, serum or plasm a alkaline phosphatase 87 IU/L 39-117 Not Available [facility] ([facility]) [address] [place], [address], 07/13/2019 06:14:17 07/12/19 20 07/13/2019 CMP, serum or plasm a AST (SGOT) 20 IU/L 0-40 Not Available [facility] ([facility]) [address] [place], [address], 07/13/2019 06:14:17 07/12/19 20 07/13/2019 CMP, serum or plasm a ALT (SGPT) 34 IU/L 0-32 above high normal Not Available [facility] ([facility]) [address] [place], [address], 07/13/2019 06:14:17 07/12/19 20 07/13/2019 lipid panel , serum cholesterol, total 201 mg/dL 100-19 9 above high normal Not Available [facility] ([facility]) [address] [place], [address], 07/13/2019 06:14:18 07/12/19 20 07/13/2019 lipid panel , serum triglyceride s 119 mg/dL 0-149 Not Available [facility] ([facility]) [address] [place], [address], 07/13/2019 06:14:18 07/12/19 20 07/13/2019 lipid panel , serum HDL cholesterol 49 mg/dL >39 Not Available [facility] ([facility]) [address] [place], [address], 07/13/2019 06:14:18 07/12/19 20 07/13/2019 lipid panel , serum VLDL cholesterol courtney 24 mg/dL 5-40 Not Available [facility] ([facility]) [address] [facility], [place], [address], 07/13/2019 06:14:18 07/12/1907/13/2019 lipid panel , serum LDL cholesterol calc 128 mg/dL 0-99 above high normal Not Available [facility] ([facility]) [address] [place], [address], 07/13/2019 06:14:18 07/12/1907/13/2019 lipid panel , serum comment: SUBSCRIPTION CLERK Not Available [facility] ([facility]) [address] [facility], [place], [address], 07/13/2019 06:14:18 07/12/1907/13/2019 HbA1c (hemo globi n A1c), blood hemoglobin A1C 6.2 % 4.8-5. 6 above high normal Predi abete s: 5.7 - 6.4 Diabe ousmane: >6.4 Glyce prashant contr ol for adult s with diabe ousmane: <7.0 Not Available [facility] ([facility]) [address] [facility], [place], [address], 07/13/2019 06:14:18 07/12/1907/13/2019 T3, free, serum or plasm a triiodothyro nine (T3), free 3.2 pg/mL 2.0-4. 4 Not Available [facility] ([facility]) [address] [facility], [place], [address], 07/13/2019 06:14:19 07/12/1907/13/2019 pap, IG + CT/NG + HR HPV + refle x HPV (16+1 8) diagnosis: Commen t NEGAT PAYTON FOR INTRA EPITH ELIAL LESIO N OR REGINE MACK . TRICH OMONA S VAGIN CALLI IS PRESE NT. CELLU LAR YANG ES ASSOC IATED WITH INFLA MMATI ON ARE PRESE NT. Not Available [facility] ([facility] [address] [facility] [place], [address], 07/13/2019 20:07:26 07/12/19 20 07/13/2019 pap, IG + CT/NG + HR HPV + refle x HPV (16+1 8) specimen adequacy: Nikki murphy Satis facto ry for evalu ation . Endoc ervic al and/o r squam ous metap lasti c cells (endo cervi courtney compo nent) are prese nt. Not Available [facility] ([facility]) [address] [facility], [place], [address], 07/13/2019 20:07:26 07/12/19 20 07/13/2019 pap, IG + CT/NG + HR HPV + refle x HPV (16+1 8) clinician provided ICD10: Nikki murphy N95.0 Z12.4 N89.8 Not Available [facility] ([facility]) [address] [place], [address], 07/13/2019 20:07:26 07/12/19 20 07/13/2019 pap, IG + CT/NG + HR HPV + refle x HPV (16+1 8) performed by: Nikki hanson, Tarsha murphy (ASCP ) Not Available [facility] ([facility]) [address] [place], [address], 07/13/2019 20:07:26 07/12/19 20 07/13/2019 pap, IG + CT/NG + HR HPV + refle x HPV (16+1 8) . . Not Available [facility] ([facility]) [address] [place], [address], 07/13/2019 20:07:26 07/12/19 20 07/13/2019 pap, IG + CT/NG + HR HPV + refle x HPV (16+1 8) note: Nikki murphy The Pap smear is a scree ammy test desfartun candy to aid in the detec tion of chris ligna nt and malig nant condi tions of the uteri ne cervi x. It is not a diagn ostic proce dure and shoul d not be used as the sole means of detec ting cervi courtney cance r. Both false -posi tive and false -nega tive repor ts do occur . Not Available [facility] ([facility]) [address] [place], [address], 07/13/2019 20:07:26 07/12/1907/13/2019 pap, IG + CT/NG + HR HPV + refle x HPV (16+1 8) test methodology: Commen t This liqui d based ThinP rep(R ) pap test was maríae candy with the use of an image guide alberto lawler. Not Available [facility] ([facility]) [address] [place], [address], 07/13/2019 20:07:26 07/12/19 20 07/13/2019 pap, IG + CT/NG + HR HPV + refle x HPV (16+1 8) HPV, high-risk Negati ve negati ve This nucle ic acid ampli ficat ion high- risk HPV test detec ts thirt een high- risk types (16,1 8,31, 33,35 ,39,4 5,51, 52,56 ,58,5 9,68) witho ut diffe renti ation . Not Available [facility] ([facility]) [address] [place], [address], 07/13/2019 20:07:26 07/12/1907/13/2019 pap, IG + CT/NG + HR HPV + refle x HPV (16+1 8) chlamydia, nuc. acid amp Negati ve negati ve Not Available [facility] ([facility]) [address] [place], [address], 07/13/2019 20:07:26 07/12/19 20 07/13/2019 pap, IG + CT/NG + HR HPV + refle x HPV (16+1 8) gonococcus, nuc. acid amp Negati ve negati ve Not Available [facility] ([facility]) [address] [place], [address], 07/13/2019 20:07:26 07/12/19 20 07/18/2019 bacte rial vagin osis + vagin itis panel , vagin al trich vag by MAX Positi ve negati ve abnormal Not Available [facility] ([facility]) [address] [place], [address], 07/19/2019 06:15:11 07/12/19 20 07/19/2019 bacte rial vagin osis + vagin itis panel , vagin al atopobium vaginae High - 2 score abnormal Not Available [facility] ([facility]) [address] [place], [address], 07/19/2019 06:15:11 07/12/19 20 07/19/2019 bacte rial vagin osis + vagin itis panel , vagin al bvab 2 High - 2 score abnormal Not Available [facility] ([facility]) [address] [place], [address], 07/19/2019 06:15:11 07/12/19 20 07/19/2019 bacte rial vagin osis + vagin itis panel , vagin al megasphaera 1 High - 2 score abnormal Calcu late total score by misael gauthier the 3 indiv idual bacte rial vagin osis (BV) marke r score s toget her. Total score is inter prete d as follo ws: Total score 0-1: Indic ates the absen ce of BV. Total score 2: Indet ermin ate for BV. Addit ional clini courtney data shoul d be evalu ated to estab eliza a diagn osis. Total score 3-6: Indic ates the prese nce of BV. This test was devel oped and its perfo rmanc e joyce cteri stics deter mined by [facility]. It has not been clear ed or appro janis by the Food and Drug Admin istra tion. The FDA has deter mined that such clear ance or appro zuleyma is not lauraandrea farfan. Not Available [facility] ([facility]) [address] [place], [address], 07/19/2019 06:15:11 07/12/1907/19/2019 bacte rial vagin osis + vagin itis panel , vagin al rashawn albicans, MAX Negati ve negati ve Not Available [facility] ([facility]) [address] [place], [address], 07/19/2019 06:15:11 07/12/1907/19/2019 bacte rial vagin osis + vagin itis panel , vagin al rashawn glabrata, MAX Negati ve negati ve Not Available [facility] ([facility]) [address] [place], [address], 07/19/2019 06:15:11 07/12/1907/13/2019 lh + FSH, serum LH 21.7 mIU/m L Adult Femal e: Folli cular phase 2.4 - 12.6 Ovula tion phase 14.0 - 95.6 Lutea l phase 1.0 - 11.4 Postm enopa usal 7.7 - 58.5 Not Available [facility] ([facility]) [address] [place], [address], 07/19/2019 06:15:11 07/12/1907/13/2019 lh + FSH, serum FSH 18.9 mIU/m L Adult Femal e: Folli cular phase 3.5 - 12.5 Ovula tion phase 4.7 - 21.5 Lutea l phase 1.7 - 7.7 Postm enopa usal 25.8 - 134.8 Not Available [facility] ([facility]) [address] [place], [address], 07/19/2019 06:15:11 07/12/1907/13/2019 estra diol, serum estradiol 26.9 pg/mL Adult Femal e: Folli cular phase 12.5 - 166.0 Ovula tion phase 85.8 - 498.0 Lutea l phase 43.8 - 211.0 Postm enopa usal <6.0 - 54.7 Pregn cortney 1st trime ster 215.0 - >4300 .0 Girls (1-10 years ) 6.0 - 27.0 Dewayne ECLIA metho dolog y Not Available [facility] ([facility]) [address] [facility], [place], [address], 07/19/2019 06:15:12 08/30/19 20 09/01/2019 patho logy study . Commen t Mater ial submi tted: . endom etriu m - ENDOM ETRIA L BIOPS Y Not Available [facility] ([facility]) [address] [facility], [place], [address], 09/01/2019 13:08:37 08/30/1909/01/2019 patho logy study . Commen t Diagn osis: ENDOM ETRIA L BIOPS Y: POLYP OID FRAGM ENTS OF WEAKL Y PROLI FERAT [place] TYPE ENDOM ETRIU M SUGGE STIVE OF BENIG N ENDOM ETRIA L POLYP S. SCANT Y BACKG ROUND ENDOM ETRIU M WITH FEATU RES SUGGE STIVE OF INACT [place] ENDOM ETRIU M. NO ATYPI A OR MALIG FREDERICK . [facility] 08/31 1250 Local Not Available [facility] ([facility]) [address] [facility], [place], [address], 09/01/2019 13:08:37 08/30/19 20 09/01/2019 patho logy study . Commtatiana t Britney brumfield d: . Kelsea guajardo MD, Patho logis t Not Available [facility] ([facility]) [address] [facility], [place], [address], 09/01/2019 13:08:37 08/30/19 20 09/01/2019 patho logy study . Commtatiana murphy Gross descr iptio n: . 1 Conta iner, forma vandana-f illed , label ed with patie nt ident ifica tion. ENDOM ETRIA L BIOPS Y: MULTI PLE FRAGM ENT(S ) OF SOFT MATER IAL, BLOOD , AND MUCUS MEASU RING 3.0 X 1.6 X 0.1 CM IN AGGRE GATE. FILTE RED AND SUBMI TTED IN CASSE TTE(S ) A1. HAV/H AV 08/30 0720 Local Not Available [facility] ([facility]) [address] [facility], [place], [address], 09/01/2019 13:08:37 08/30/19 20 09/01/2019 patho logy study . Commtatiana t Patho logis t provi ded ICD-1 0: N85.8 Not Available [facility] ([facility]) [address] [facility], [place], [address], 09/01/2019 13:08:37 08/30/19 20 09/01/2019 patho logy study . Commtatiana t CPT . 31798 1 Not Available [facility] ([facility]) [address] [facility], [place], [address], 09/01/2019 13:08:37 02/18/20 21 02/18/2021 TSH+F REE T4 TSH 0.010 uIU/m L 0.450- 4.500 below low normal Not Available [facility] ([facility]) [address] [facility], [place], [address], 02/18/2021 10:12:41 02/18/20 21 02/18/2021 TSH+F REE T4 T4,free(dire ct) 2.26 NG/dL 0.82-1 .77 above high normal Not Available [facility] ([facility]) [address] [facility], [place], [address], 02/18/2021 10:12:41 02/18/20 21 02/18/2021 CBC WITH DIFFE RENTI AL/PL ATELE T WBC 12.1 x10e3 /uL 3.4-10 .8 above high normal Not Available [facility] ([facility]) [address] [facility], [place], [address], 02/18/2021 10:12:42 02/18/20 21 02/18/2021 CBC WITH DIFFE RENTI AL/PL ATELE T RBC 5.31 x10e6 /uL 3.77-5 .28 above high normal Not Available [facility] ([facility]) [address] [place], [address], 02/18/2021 10:12:42 02/18/20 21 02/18/2021 CBC WITH DIFFE RENTI AL/PL ATELE T hemoglobin 15.3 g/dL 11.1-1 5.9 Not Available [facility] ([facility]) [address] [place], [address], 02/18/2021 10:12:42 02/18/20 21 02/18/2021 CBC WITH DIFFE RENTI AL/PL ATELE T hematocrit 45.0 % 34.0-4 6.6 Not Available [facility] ([facility]) [address] [place], [address], 02/18/2021 10:12:42 02/18/20 21 02/18/2021 CBC WITH DIFFE RENTI AL/PL ATELE T MCV 85 fL 79-97 Not Available [facility] ([facility]) [address] [facility], [place], [address], 02/18/2021 10:12:42 02/18/20 21 02/18/2021 CBC WITH DIFFE RENTI AL/PL ATELE T MCH 28.8 pg 26.6-3 3.0 Not Available [facility] ([facility]) [address] [facility], [place], [address], 02/18/2021 10:12:42 02/18/20 21 02/18/2021 CBC WITH DIFFE RENTI AL/PL ATELE T MCHC 34.0 g/dL 31.5-3 5.7 Not Available [facility] ([facility]) [address] [facility], [place], [address], 02/18/2021 10:12:42 02/18/20 21 02/18/2021 CBC WITH DIFFE RENTI AL/PL ATELE T RDW 14.2 % 11.7-1 5.4 Not Available [facility] ([facility]) [address] [place], [address], 02/18/2021 10:12:42 02/18/20 21 02/18/2021 CBC WITH DIFFE RENTI AL/PL ATELE T platelets 383 x10e3 /uL 150-45 0 Not Available [facility] ([facility]) [address] [facility], [place], [address], 02/18/2021 10:12:42 02/18/20 21 02/18/2021 CBC WITH DIFFE RENTI AL/PL ATELE T neutrophils 63 % not estab. Not Available [facility] ([facility]) [address] [place], [address], 02/18/2021 10:12:42 02/18/20 21 02/18/2021 CBC WITH DIFFE RENTI AL/PL ATELE T lymphs 24 % not estab. Not Available [facility] ([facility]) [address] [place], [address], 02/18/2021 10:12:42 02/18/20 21 02/18/2021 CBC WITH DIFFE RENTI AL/PL ATELE T monocytes 7 % not estab. Not Available [facility] ([facility]) [address] [facility], [place], [address], 02/18/2021 10:12:42 02/18/20 21 02/18/2021 CBC WITH DIFFE RENTI AL/PL ATELE T eos 3 % not estab. Not Available [facility] ([facility]) [address] [place], [address], 02/18/2021 10:12:42 02/18/20 21 02/18/2021 CBC WITH DIFFE RENTI AL/PL ATELE T basos 1 % not estab. Not Available [facility] ([facility]) [address] [facility], [place], [address], 02/18/2021 10:12:42 02/18/20 21 02/18/2021 CBC WITH DIFFE RENTI AL/PL ATELE T immature cells SUBSCRIPTION CLERK Not Available [facility] ([facility]) [address] [place], [address], 02/18/2021 10:12:42 02/18/20 21 02/18/2021 CBC WITH DIFFE RENTI AL/PL ATELE T neutrophils (absolute) 7.7 x10e3 /uL 1.4-7. 0 above high normal Not Available [facility] ([facility]) [address] [place], [address], 02/18/2021 10:12:42 02/18/20 21 02/18/2021 CBC WITH DIFFE RENTI AL/PL ATELE T lymphs (absolute) 2.9 x10e3 /uL 0.7-3. 1 Not Available [facility] ([facility]) [address] [place], [address], 02/18/2021 10:12:42 02/18/20 21 02/18/2021 CBC WITH DIFFE RENTI AL/PL ATELE T monocytes(ab solute) 0.9 x10e3 /uL 0.1-0. 9 Not Available [facility] ([facility]) [address] [facility], [place], [address], 02/18/2021 10:12:42 02/18/20 21 02/18/2021 CBC WITH DIFFE RENTI AL/PL ATELE T eos (absolute) 0.4 x10e3 /uL 0.0-0. 4 Not Available [facility] ([facility]) [address] [place], [address], 02/18/2021 10:12:42 02/18/20 21 02/18/2021 CBC WITH DIFFE RENTI AL/PL ATELE T baso (absolute) 0.1 x10e3 /uL 0.0-0. 2 Not Available [facility] ([facility]) [address] [facility], [place], [address], 02/18/2021 10:12:42 02/18/20 21 02/18/2021 CBC WITH DIFFE RENTI AL/PL ATELE T immature granulocytes 2 % not estab. Not Available [facility] ([facility]) [address] [place], [address], 02/18/2021 10:12:42 02/18/20 21 02/18/2021 CBC WITH DIFFE RENTI AL/PL ATELE T immature grans (abs) 0.2 x10e3 /uL 0.0-0. 1 above high normal (An eleva chin perce ntage of Immat ure Granu locyt es has not been found to be clini raj signi fican t as a sole clini courtney predi ctor of disea se. Does NOT inclu de bands or blast cells . Pregn cortney assoc iated physi ologi courtney leuko cytos is may also show incre ased immat ure granu locyt es witho ut clini courtney signi luaren ce.) Not Available [facility] ([facility]) [address] [facility], [place], [address], 02/18/2021 10:12:42 02/18/20 21 02/18/2021 CBC WITH DIFFE RENTI AL/PL ATELE T NRBC SUBSCRIPTION CLERK Not Available [facility] ([facility]) [address] [facility], [place], [address], 02/18/2021 10:12:42 02/18/20 21 02/18/2021 CBC WITH DIFFE RENTI AL/PL ATELE T hematology comments: SUBSCRIPTION CLERK Not Available [facility] ([facility]) [address] [facility], [place], [address], 02/18/2021 10:12:42 02/18/20 21 02/18/2021 COMP. METAB OLIC PANEL (14) glucose 110 mg/dL 65-99 above high normal Not Available [facility] ([facility]) [address] [facility], [place], [address], 02/18/2021 10:12:43 02/18/20 21 02/18/2021 COMP. METAB OLIC PANEL (14) BUN 11 mg/dL 6-24 Not Available [facility] ([facility]) [address] [place], [address], 02/18/2021 10:12:43 02/18/20 21 02/18/2021 COMP. METAB OLIC PANEL (14) creatinine 0.67 mg/dL 0.57-1 .00 Not Available [facility] ([facility]) [address] [place], [address], 02/18/2021 10:12:43 02/18/20 21 02/18/2021 COMP. METAB OLIC PANEL (14) eGFR if nonafricn AM 100 mL/mi n/1.7 3 >59 Not Available [facility] ([facility]) [address] [place], [address], 02/18/2021 10:12:43 02/18/20 21 02/18/2021 COMP. METAB OLIC PANEL (14) eGFR if africn AM 115 mL/mi n/1.7 3 >59 In accor dance with recom menda tichrystal from the NKF-A SN Task force , [facility] is in the proce ss of updat ing its eGFR calcu latio n to the 2020 CKD-E PI creat inine equat ion that estim ates kidne y funct ion witho ut a race varia ble. Not Available [facility] ([facility]) [address] [facility], [place], [address], 02/18/2021 10:12:43 02/18/20 21 02/18/2021 COMP. METAB OLIC PANEL (14) BUN/creatini ne ratio 16 9-23 Not Available [facility] ([facility]) [address] [facility], [place], [address], 02/18/2021 10:12:43 02/18/20 21 02/18/2021 COMP. METAB OLIC PANEL (14) sodium 142 mmol/ L 134-14 4 Not Available [facility] ([facility]) [address] [place], [address], 02/18/2021 10:12:43 02/18/20 21 02/18/2021 COMP. METAB OLIC PANEL (14) potassium 5.2 mmol/ L 3.5-5. 2 Not Available [facility] ([facility]) [address] [facility], [place], [address], 02/18/2021 10:12:43 02/18/20 21 02/18/2021 COMP. METAB OLIC PANEL (14) chloride 101 mmol/ L 96-106 Not Available [facility] ([facility]) [address] [facility], [place], [address], 02/18/2021 10:12:43 02/18/20 21 02/18/2021 COMP. METAB OLIC PANEL (14) carbon dioxide, total 23 mmol/ L 20-29 Not Available [facility] ([facility]) [address] [facility], [place], [address], 02/18/2021 10:12:43 02/18/20 21 02/18/2021 COMP. METAB OLIC PANEL (14) calcium 9.8 mg/dL 8.7-10 .2 Not Available [facility] ([facility]) [address] [facility], [place], [address], 02/18/2021 10:12:43 02/18/20 21 02/18/2021 COMP. METAB OLIC PANEL (14) protein, total 7.3 g/dL 6.0-8. 5 Not Available [facility] ([facility]) [address] [facility], [place], [address], 02/18/2021 10:12:43 02/18/20 21 02/18/2021 COMP. METAB OLIC PANEL (14) albumin 4.0 g/dL 3.8-4. 9 Not Available [facility] ([facility]) [address] [facility], [place], [address], 02/18/2021 10:12:43 02/18/20 21 02/18/2021 COMP. METAB OLIC PANEL (14) globulin, total 3.3 g/dL 1.5-4. 5 Not Available [facility] ([facility]) [address] [facility], [place], [address], 02/18/2021 10:12:43 02/18/20 21 02/18/2021 COMP. METAB OLIC PANEL (14) A/G ratio 1.2 1.2-2. 2 Not Available [facility] ([facility]) [address] [facility], [place], [address], 02/18/2021 10:12:43 02/18/20 21 02/18/2021 COMP. METAB OLIC PANEL (14) bilirubin, total <0.2 mg/dL 0.0-1. 2 Not Available [facility] ([facility]) [address] [place], [address], 02/18/2021 10:12:43 02/18/20 21 02/18/2021 COMP. METAB OLIC PANEL (14) alkaline phosphatase 87 IU/L 44-121 Ple ase note refer ence inter zuleyma yang e Not Available [facility] ([facility]) [address] [place], [address], 02/18/2021 10:12:43 02/18/20 21 02/18/2021 COMP. METAB OLIC PANEL (14) AST (SGOT) 30 IU/L 0-40 Not Available [facility] ([facility]) [address] [place], [address], 02/18/2021 10:12:43 02/18/20 21 02/18/2021 COMP. METAB OLIC PANEL (14) ALT (SGPT) 47 IU/L 0-32 above high normal Not Available [facility] ([facility]) [address] [place], [address], 02/18/2021 10:12:43 02/18/20 21 02/18/2021 HEMOG LOBIN A1C hemoglobin A1C 7.1 % 4.8-5. 6 above high normal Predi abete s: 5.7 - 6.4 Diabe ousmane: >6.4 Glyce prashant contr ol for adult s with diabe ousmane: <7.0 Not Available [facility] ([facility]) [address] [place], [address], 02/18/2021 10:12:44 02/18/20 21 02/18/2021 TRIIO DOTHY SIMONE E (T3), FREE triiodothyro nine (T3), free 3.1 pg/mL 2.0-4. 4 Not Available [facility] ([facility]) [address] [facility] [place], [address], 02/18/2021 10:12:45 02/18/20 21 02/17/2021 DESIREE Gomez NOTE please note Commen t The date and/o r time of colle ction was not indic ated on the requi sitio n as requi red by state and letty al law. The date of recei pt of the speci men was used as the colle ction date if not suppl ied. Not Available [facility] ([facility]) [address] [facility], [place], [address], 02/18/2021 10:12:46 07/28/19 20 US, trans vagin al No observ ation record ed. Not Available 2019 08:21:00 07/31/19 20 07/28/2019 US, trans vagin al No observ ation record ed. [email or web address] [place] [employer] [address] [place] [address] , [place], [address], 07/31/2019 09:25:52 07/31/19 20 07/28/2019 US, trans vagin al No observ ation record ed. [email or web address] [place] [employer] [address] [place] [address] , [place], [address], 07/31/2019 09:06:25 04/15/19 21 XR, lumba r spine No observ ation record ed. [facility] [address], [place], [address], 04/15/2020 13:37:05 Result Notes None recorded. Problems Name Problem SNOMED Code Status Onset Date Resolution Date Notes Provider Name and Address Organization Details Recorded Time Chronic obstructive pulmonary disease 78958058 Active 2017 EDI Santos - [facility] 8 09:11:47 Hypothyroidism 92621337 Active 2017 EDI Santos - [facility] 8 09:11:53 Hypertensive disorder 27806424 Active 2017 Horacegraham Mayer null, [place] - [facility] 8 09:12:11 Arthritis 9888600 Active 2017 Horacegraham Mayer null, [place] - [facility] 8 09:12:15 Gastroesophage al reflux disease 701261090 Active 2017 Horacegraham Mayer null, [place] - [facility] 8 09:16:17 Diabetes mellitus 03734786 Active 2017 Horace Mayer null, [place] - [facility] 8 13:29:33 Hyperlipidemia 25862711 Active 2017 Horace Mayer null, [place] - [facility] 8 13:29:47 History of malignant neoplasm of thyroid 218608198 Active 2019 Amanda Noonan, [employer] [address], [place], [address], [place] - [facility] 0 09:57:24 Trichomonal vaginitis 317857295 Active 2019 Amanda Noonan, [employer] [address], [place], [address], [place] - [facility] 0 07:53:58 Uterine leiomyoma 67231061 Active 2019 Amanda Noonan, [employer] [address], [place], [address], [place] - [facility] 0 08:22:08 Problem Notes None recorded. Procedures Surgical History Date Name Laterality Status Provider Name and Address Organization Details Recorded Time 02/18/20 21 Medication Reconcilliation completed Horace Mayer [place] - [facility] 02/17/2021 16:00:32 04/15/19 21 Diastolic B/P 80-89 mm Hg completed Horacekedar Mayer [place] - [facility] 04/15/2020 11:05:37 04/15/19 21 Systolic B/P 130-139 mm Hg completed Horace Trenton [place] - [facility] 04/15/2020 11:05:34 04/15/19 21 Medication Reconcilliation completed Horace Trenton [place] - [facility] 04/15/2020 10:57:42 08/30/19 20 Endometrial Biopsy completed Amanda Noonan APRN [address], [place], [address], [facility] - [facility] 08/30/2019 10:34:06 08/30/19 20 Endometrial Biopsy completed Amanda Noonan APRN [address], [place], [address], [facility] - [facility] 09/05/2019 09:55:18 07/12/19 Date of Last Pap Smear completed Amanda Noonan APRN [address], [place], [address], [facility] - [facility] 07/14/2019 07:55:20 02/24/20 04 Caesarean Section completed Gabriela DALEY [facility] 07/12/2019 09:44:41 Lipoma Removal completed Gabriela DALEY [facility] 07/12/2019 09:46:21 Thyroidectomy completed Gabriela Jamison [facility] 07/12/2019 09:45:14 Renal bx surg exposure kdn completed Gabriela Jamison [facility] 07/12/2019 09:45:58 Imaging Results None recorded. Procedure Notes None recorded. Medical Equipment None Reported. Allergies Allergen ID Allergen Name Allergen Category Reaction Reaction Severity Criticality Documentation Date Start Date Code Code System Note Provider Name and Address Organization Details Recorded Time 40375 codeine medicatio n vomiting Not available Not available 08/13/2017 2670 RxNorm [facility] 8 09:13:27 Medications Name Sig Start Date Stop Date Status Note LastModified by Organization Details LastModified Time losartan 50 mg tablet TAKE 1 TABLET BY MOUTH ONCE DAILY active Not Available Not Available No t Available cyclobenzap rine 10 mg tablet Take 1 tablet 3 times a day by oral route for 10 days. 06/18 completed Not Available Not Available Not Available furosemide 40 mg tablet Take 1 tablet every day by oral route for 30 days. 06/18 completed Not Available Not Available Not Available metformin 500 mg tablet TAKE 1 TABLET BY MOUTH TWICE A DAY 2021 active Not Available Not Available Not Avai lable clindamycin HCl 300 mg capsule TAKE 1 CAPSULE BY MOUTH EVERY 8 HOURS active Not Available Not Available No t Available albuterol sulfate 2.5 mg/3 mL (0.083 %) solution for nebulizatio n 06/18 completed Not Available Not Available Not Available azithromyci n 250 mg tablet 06/18 completed Not Available Not Available Not Available fluconazole 150 mg tablet TAKE ONE (1) TABLET EVERY OTHER DAY BY ORAL ROUTE FOR 8 DAYS. active Not Available Not Available No t Available hydrocodone 5 mg-acetamin ophen 325 mg tablet TAKE 1 TABLET BY MOUTH EVERY FOUR HOURS NEEDED FOR PAIN SCALE 4-6 active Not Available Not Available No t Available prednisone 20 mg tablet TAKE 1 TABLET BY MOUTH DAILY FOR 3 DAYS 04/15 completed Not Available Not Available Not Available simvastatin 10 mg tablet TAKE 1 TABLET BY MOUTH AT BEDTIME 2021 active Not Available Not Available Not Avai lable metronidazo le 500 mg tablet Take 4 tablets by oral route for 1 day. 08/29 completed Not Available Not Available Not Available sulfamethox azole 800 mg-trimetho prim 160 mg tablet 09/20 completed Not Available Not Available Not Available levothyroxi ne 25 mcg tablet 04/15 completed Not Available Not Available Not Available meloxicam 7.5 mg tablet Take 1 tablet every day by oral route for 30 days. 08/24 completed Not Available Not Available Not Available potassium chloride ER 20 mEq tablet,exte nded release(par t/cryst) TAKE 1 TABLET BY MOUTH TWO TIMES A DAY active Not Available Not Available No t Available methocarbam ol 750 mg tablet TAKE 1 TABLET BY MOUTH TWICE DAILY FOR 4 DAYS NEEDED FOR BACK OR SPASM active Not Available Not Available No t Available levothyroxi ne 50 mcg tablet TAKE 1 TABLET DAILY WITH A 200 MCG TABLET DAILY FOR A TOTAL OF 250 MCG DAILY. active Not Available Not Available No t Available cephalexin 500 mg capsule 08/13 completed Not Available Not Available Not Available levothyroxi ne 125 mcg tablet TAKE 2 TABLETS BY MOUTH ONCE DAILY(TOT AL DOSE OF 250 MCG) active Not Available Not Available No t Available nystatin 100,000 unit/gram topical cream APPLY TO THE AFFECTED AREA(S) BY TOPICAL ROUTE 2 TIMES PER DAY 06/18 completed Not Available Not Available Not Available losartan 25 mg tablet TAKE 2 TABLETS BY MOUTH ONCE DAILY active Not Available Not Available No t Available omeprazole 20 mg capsule,del ayed release Take 1 capsule every day by oral route for 30 days. 06/18 completed Not Available Not Available Not Available levothyroxi ne 200 mcg tablet TAKE 1 TABLET DAILY WITH A 50 MCG DOSE TABLET FOR A TOTAL OF 250 MCG DAILY. active Not Available Not Available No t Available Vitamin D2 1,250 mcg (50,000 unit) capsule TAKE 1 CAPSULE BY MOUTH ONCE A WEEK 2021 active Not Available Not Available Not Avai lable losartan 100 mg tablet Take 1 tablet every day by oral route for 30 days. active Not Available Not Available No t Available naproxen 500 mg tablet 06/18 completed Not Available Not Available Not Available Ventolin HFA 90 mcg/actuati on aerosol inhaler INHALE 1-2 PUFFS BY MOUTH EVERY 4 HOURS NEEDED active Not Available Not Available No t Available Nyamyc 100,000 unit/gram topical powder APPLY TO THE AFFECTED AREA(S) BY TOPICAL ROUTE 2 TIMES PER DAY active Not Available Not Available No t Available Symbicort 160 mcg-4.5 mcg/actuati on HFA aerosol inhaler USE 2 PUFFS BY MOUTH TWO TIMES A DAY 08/13 completed Not Available Not Available Not Available Solu-Medrol (PF) 125 mg/2 mL solution for injection give 125 mg im now 2020 active Not Available Not Available Not Avai lable Breo Ellipta 100 mcg-25 mcg/dose powder for inhalation USE 1 PUFF BY MOUTH ONCE DAILY DIRECTED active Not Available Not Available No t Available OneTouch Ultra Blue Test Strip test once daily E11.9 active Not Available Not Available No t Available Vitals Date Recorded Body height Body mass index (BMI) Body weight Body temperature Heart rate Oxygen saturation Oxygen saturation in Arterial blood by Pulse oximetry Respiratory rate Systolic blood pressure Diastolic blood pressure Provider Name and Address Organization Details Last Updated DateTime 1 167.64 cm 64.9 kg/m2 899120. 53 g 98 [degF] 90 /min 97 % 97 % 18 /min 130 mm[Hg] 88 mm[Hg] Horace Ricourn [place] - [facility] 1 11:05:20 Date Recorded Body height Body mass index (BMI) Body weight Systolic blood pressure Diastolic blood pressure Provider Name and Address Organization Details Last Updated DateTime 07/28/2019 167.64 cm 58.4 kg/m2 353589.4 4 g 136 mm[Hg] 84 mm[Hg] Gabriela Jamison [place] - [facility] 0 14:49:16 Date Recorded Body height Body mass index (BMI) Body weight Systolic blood pressure Diastolic blood pressure Provider Name and Address Organization Details Last Updated DateTime 08/30/2019 167.64 cm 58.4 kg/m2 549837.4 4 g 138 mm[Hg] 80 mm[Hg] Gabriela Jamison [place] - [facility] 0 10:02:43 Date Recorded Body height Provider Name an d Address Organization Details Last Updated DateTime 09/21/2019 167.64 cm Horace Mayer [place] - [facility] 02/2020 10:06:54 Date Recorded Body height Body mass index (BMI) Body weight Body temperature Heart rate Oxygen saturation Oxygen saturation in Arterial blood by Pulse oximetry Respiratory rate Systolic blood pressure Diastolic blood pressure Provider Name and Address Organization Details Last Updated DateTime 1 167.64 cm 58.4 kg/m2 556162. 14 g 98.3 [degF] 97 /min 97 % 97 % 18 /min 170 mm[Hg] 78 mm[Hg] Horace Mayer [place] - [facility] 1 16:01:16 Social History Question Answer Notes LastModified by Organizat ion Details LastModified Time Tobacco Smoking Status Current Every Day Smoker Horace magaña, [place] - [facility] 08/13/2017 09:17:38 Do You Have An Advance Directive? No Information not available 08/13/2017 Are You Blind Or Do You Have Difficulty Seeing? No Information not available 08/13/2017 Is Blood Transfusion Acceptable In An Emergency? Yes [email or web address] Information not available 07/12/2019 What Is Your Level Of Caffeine Consumption? Moderate Information not available 08/13/2017 How Much Tobacco Do You Chew? None [email or web address] Information not available 07/12/2019 Are You Deaf Or Do You Have Serious Difficulty Hearing? No Information not available 08/13/2017 What Type Of Diet Are You Following? REGULAR Information not available 08/13/2017 Which Illicit Or Recreational Drugs Have You Used? Declines [email or web address] Information not available 07/12/2019 What Is The Highest Grade Or Level Of School You Have Completed Or The Highest Degree You Have Received? [id number] Information not available 07/12/2019 How Many Days Of Moderate To Strenuous Exercise, Like A Brisk Walk, Did You Do In The Last 7 Days? 0 Information not available 07/12/2019 On Those Days That You Engage In Moderate To Strenuous Exercise, How Many Minutes, On Average, Do You Exercise? 0 Information not available 07/12/2019 How Hard Is It For You To Pay For The Very Basics Like Food, Housing, Medical Care, And Heating? [id number] [email or web address] Information not available 07/12/2019 Live Alone Or With Others? With Others Information not available 08/13/2017 Last Menstrual Period? 06/19/2019 [email or web address] Information not available 07/12/2019 What Was The Date Of Your Most Recent Tobacco Screening? 08/24/2018 Information not available 11/02/2018 How Many Children Do You Have? 1 [email or web address] Information not available 07/12/2019 What Is Your Current Pack Years? [email or web address] Information not available 08/13/2017 Performs Monthly Self-breast Exam? Yes [email or web address] Information no t available 07/12/2019 Do You Use Protection During Sex? Always Information not available 08/13/2017 What Is Your Relationship Status? [email or web address] Information not available 07/12/2019 Seat Belts Used Routinely Yes Information not available 08/13/2017 Are You Sexually Active? Yes Information not available 08/13/2017 Smoke Alarm In Home Yes Information not available 08/13/2017 Are You Passively Exposed To Smoke? Yes Information no t available 08/13/2017 How Much Tobacco Do You Smoke? 0.5 PPD Information not available 08/13/2017 General Stress Level Low Information not available 08/13/2017 Do You Use Sunscreen Routinely? Yes [email or web address] Information not available 07/12/2019 Has Tobacco Cessation Counseling Been Provided? Yes Information not available 08/13/2017 On What Date Was Tobacco Cessation Counseling Provided? 08/24/2018 Information not available 08/24/2018 How Many Years Have You Smoked Tobacco? 30 Information not available 08/13/2017 Do You Have Difficulty Walking Or Climbing Stairs? No Information not available 08/13/2017 Sex: Female Functional Status Question Answer Note LastModified by Organizat ion Details LastModified Time What is your level of alcohol consumption? None Information not available 08/13/2017 Do you or have you ever used smokeless tobacco? Never used smokeless tobacco Information not available 06/19/2019 Are you currently employed? No [email or web address] Information not available 07/12/2019 Are you able to walk? YESWOREST Information not available 08/13/2017 Do you have difficulty doing errands alone? No Information not available 08/13/2017 Are you able to care for yourself? Yes Information not available 08/13/2017 Do you have difficulty dressing or bathing? No Information not available 08/13/2017 Do you or have you ever used e-cigarettes or vape? Never used electronic cigarettes Information not available 06/19/2019 What is your exercise level? None Information not available 07/12/2019 Mental Status Question Answer Note LastModified by Organizat ion Details LastModified Time Do you feel stressed (tense, restless, nervous, or anxious, or unable to sleep at night)? [id number] [email or web address] Information not available 07/12/2019 Do you have difficulty concentrating, remembering or making decisions? No Information no t available 08/13/2017 Family History Relationship Description Onset Age of this Age Resolved Age Notes LastModified by Organization Details LastModified Time Unspecified Relation Diabetes mellitus Not available 2017 09:17:03 Unspecified Relation Hypertensive disorder Not available 2017 09:17:11 Unspecified Relation Disorder of thyroid gland Not available 2017 09:17:18 Unspecified Relation Family history of malignant neoplasm Not available 2017 09:17:28 Medical History No medical history recorded. Gynecological History Statement/Question Response Date of Last Mammogram Flow Heavy Date of LMP 06/19/2019 On BCP's at Conception? N STIs/STDs N Duration of Flow (days) 5 Current Control Method None Age at First Child 38 Last Annual Exam/Provider 07-12-20192017 If Post Menopausal, Age at Menopause 49 Date of Last Colonoscopy Sexually Active? Y Date of Last Cervical Culture 07/12/2019 Menses Monthly N Date of Last Pap Smear 07/12/2019 Sexual Problems? N LMP Approximate Obstetrics History GPAL:G 2 P 1 0 1 1 Type Value Full Term 1 Spontaneous 1 Living 1 Total 2 Past Encounters Encounter ID Performer Location Encounter Start Date Encounter Closed Date Diagnosis/Indication Diagnosis SNOMED-CT Code Diagnosis ICD10 Code Diagnosis Note [id number] [facility] [address] [place] [address] 08/13/2017 08:57:05 08/13/2017 10:10:56 Body mass index 40+ - severely obese 184643257 Z68.44 Nicotine dependence 5629 4008 F17.200 Hypothyroidism 35250694 E03.9 Hypertensive disorder 38 534652 I10 Chronic ob structive pulmonary disease 87576944 J44.9 Edema of l ower extremity 500148377 R60.0 Cough 56996542 R05 Hyperlipidemia 06147443 E78.5 Candidiasis of skin 4988 3006 B37.2 Vitamin D deficiency 347 07213 E55.9 [id number] Caludia [facility] [address] [place] [address] 08/30/2017 10:49:27 08/30/2017 11:31:38 Mixed hyperlipidemia 566553284 E78.2 Essential hypertension 64003193 I10 Vitamin D deficiency 347 78858 E55.9 Osteoarthr itis of knee 857694114 M17.9 Impaired g lucose tolerance 9563777 R73.02 [id number] [facility] [address] [place] [place] [address] 09/27/2017 09:47:24 09/27/2017 10:48:00 General examination of patient 373449311 Z00.00 Screening mammography 24 576642 Z12.31 Body mass index 40+ - severely obese 430823496 Z68.44 Screening for malignant neoplasm of colon 614196427 Z12.11 Screening for malignant neoplasm of cervix 381514382 Z12.4 Pain in left knee 702819 8510 19145 M25.562 Candidiasis of skin 4988 3006 B37.2 Prediabetes 875783115 R7 3.03 [id number] [facility] [address] [place] [place] [address] 02/16/2018 13:20:43 02/16/2018 14:30:13 Mixed hyperlipidemia 328519818 E78.2 Diabetes mellitus 962469 09 E11.9 Body mass index 40+ - severely obese 311739683 Z68.44 Edema of l ower extremity 270504166 R60.0 Hypothyroidism 93930196 E03.9 Sleep apnea 19330189 G47 .30 History of malignant neoplasm of thyroid 940630385 Z85.850 Cervical lymphadenopathy 530235217 R59.0 [id number] [facility] [address] [place] [address] 08/24/2018 11:05:18 08/24/2018 11:38:42 Body mass index 40+ - severely obese 766150015 Z68.43 Candidiasis of skin 4988 3006 B37.2 Diabetes mellitus 877682 09 E11.9 Mixed hyperlipidemia 267 753106 E78.2 Chronic ob structive pulmonary disease 78720253 J44.9 Vitamin D deficiency 347 35590 E55.9 Pain in left knee 371259 3577 00451 M25.562 Hyperlipidemia 06523972 E78.5 Gastroesop hageal reflux disease 757392461 K21.9 Arthritis 5780993 M19.90 Hypertensive disorder 38 943732 I10 Hypothyroidism 58430453 E03.9 [id number] [facility] [address] [place] [address] 06/19/2019 09:23:05 06/19/2019 10:01:51 Diabetes mellitus 73362259 E11.9 Body mass index 40+ - severely obese 429908457 Z68.43 Postmenopa usal bleeding 78989786 N95.0 Hyperlipidemia 95407972 E78.5 Hypothyroidism 43246567 E03.9 Chronic ob structive pulmonary disease 71959320 J44.9 [id number] Amanda [facility]onan [facility]N [facility] [address] [place] [address] 07/12/2019 09:24:32 07/12/2019 10:52:00 Routine gynecologic examination done 9691286029 9101 Z01.419 Examinatio n of blood pressure 527936131 Z01.30 BP goal < 140/90 Depression screening 171 220851 Z13.31 Diet education 59382163 Z71.3 2436-1178 calorie diet recommende d with emphasis on low saturated fat, low carbohydra te, and adequate protein intake. She declines dietary consult. Counseling 803995743 Z71 .82 Exercise counselvandana betts Patient encouraged to exercise 30 minutes 5 days a week. Screening for malignant neoplasm of breast 048422286 Z12.31 Postmenopa usal bleeding 17682583 N95.0 Tinea corporis 76104465 B35.4 Screening for malignant neoplasm of cervix 531471728 Z12.4 Vaginal discharge 924764 006 N89.8 Body mass index 40+ - severely obese 634990310 Z68.43 Chronic ob structive pulmonary disease 29876251 J44.9 Diabetes mellitus 829129 09 E11.9 History of malignant neoplasm of thyroid 362110874 Z85.850 Hypertensive disorder 38 126611 I10 Hypothyroidism 82636425 E03.9 [id number] HERO Sewell [employer] [address] [facility] [place] [address] 07/28/2019 13:42:06 07/28/2019 15:15:04 Postmenopausal bleeding 29893585 N95.0 Uterine leiomyoma 085619 05 D25.9 Body mass index 40+ - severely obese 637960889 Z68.43 [id number] HERO Sewell [facility] [address] [place] [address] 08/30/2019 09:47:26 08/30/2019 10:29:36 Postmenopausal bleeding 80096211 N95.0 Screening for malignant neoplasm of breast 497615984 Z12.31 Order placed already. [facility] Central scheduled phone number given. [id number] HERO Fuentes [facility] [address] [place] [address] 09/21/2019 10:02:56 09/21/2019 10:34:43 Diabetes mellitus 72502826 E11.9 Papillary thyroid carcinoma 152013876 C73 [id number] Claudia Muro APRN [facility] [address] [address] 04/15/2020 10:52:20 04/15/2020 11:36:38 Body mass index 40+ - severely obese 312766972 Z68.44 Low back pain 192754338 M54.5 Morbid obesity 506186675 E66.01 [id number] HERO Fuentesleslieabilio shivani [facility] [address] [place] [address] 02/17/2021 15:46:30 02/17/2021 16:21:40 Abscess of breast 36492661 N61.1 improving Essential hypertension 78586874 I10 chronic uncontroll ed Diabetes mellitus 891262 09 E11.9 chronic stable Medication side effects present 072929434 T50.905A Hypothyroidism 52639635 E03.9 chronic stable, sees Dr Gonzalez for history of thyroid cancer. Health Concerns Section Related Observation LastModified by Organization Detai ls LastModified Time None Recorded Concern Status LastModified by Organization Details LastModified Time None Recorded Advance Directives Directive N: Payers Insurance Date Sequence Insurance Name Policy Number Policy Pierce Covered Member ID Pierce Member ID Guarantor Name 03/18/2021 1 [employer] [facility] (MEDICAID HMO) Sarah Acosta [id number] Sarah Acosta 03/12/2021 [place] [facility] [employer] [place] ([place]ICAID) Sarah Acosta [id number] Sarah Acosta Notes Date Note Type Note Provider Name and Address Organization Details Recorded Time 07/28/2019 text/html Sarah is here for ultrasound and visit. No further bleeding. FSH perimenopausal with no bleeding x 4 years except for June 2019, Amanda Noonan APRN [address], [place], [address], [place] - [facility] 07/31/2019 08:22:50 08/30/2019 text/html Sarah is here for Endometrial Biopsy r/t one episode of PMB. No bleeding since then. She is c/o new tenderness around her right nipple. Denies any discharge. She has not had her recommended screening mammogram yet. Amanda Noonan, [employer] [address], [place], [address], [place] - [facility] 08/30/2019 12:54:32 09/21/2019 text/html Patient is being seen via telemed. Called patient to obtain consent to allow video conferencing, verbal consent was granted. Patient is being seen today for follow up and needing refills on DM medications, need test strips and lancets. Needs new referral to endocrinolgy Claudia Muro, [employer] [address], [place], [address], [place] - [facility] 09/21/2019 10:34:05 04/15/2020 text/html Back PainReporte d bypatient.Location:[facility];pain radiating to the legs Severity:worsening;pa in level 9/10 Onset/Timing:days ago Associated Symptoms:no weak limbs;numbness of the legs/feetEmergency Department Follow-Up RecordReported bypatient.Discharge InformationName of hospital/urgent care patient was seen: ([facility]); Patient presented to hospital/urgent care on or around: actual date 04/01/2020; Patient presented to hospital for treatment of: (back pain); Patient's condition has: unchanged; Hospital records available at the time of this visit: No She desires weight loss as well. She has tried multiple diets without success and she feels like the weight of her body is making her back hurt even more. Claudia Muro, [employer] [address], [place], [address], [place] - [facility] 04/15/2020 12:53:13 02/17/2021 text/html Emergency Depart ment Follow-Up RecordReported bypatient.Discharge InformationName of hospital/urgent care patient was seen: ([facility]); Patient presented to hospital/urgent care on or around: actual date 02/09/2021; Patient presented to hospital for treatment of: (Breast Abscess); Hospital records available at the time of this visit: YesNotes:has a f.u with Dr Mi in 2 weeks, currently taking clindamycin for breast abscessneeds labs today for chronic diseaseher blood pressure is high. Claudia Muro, [employer] [address], [place], [address], [place] [facility] 02/17/2021 17:32:29 OBGyn Episode No OBEpisode recorded.
--- NOTE | 2024-09-18 18:23 | XR_ITS ---
PROCEDURE INFORMATION: Exam: XR Chest Exam date and time: 09/18/2024 6:31 PM Age: 58 years old Clinical indication: Cough; Additional info: Fever, cough TECHNIQUE: Imaging protocol: Radiologic exam of the chest. Views: 2 views. COMPARISON: CR XR CHEST PORTABLE 05/24/2024 11:48 AM FINDINGS: Lungs: Central opacities with peribronchial cuffing, seen to advantage on the lateral chest radiograph. Lingular opacities may represent developing consolidation. Pleural spaces: Unremarkable. No pleural effusion. No pneumothorax. Heart/Mediastinum: Unremarkable. No cardiomegaly. Bones/joints: Unremarkable. IMPRESSION: Combination of findings that suggests viral process with possible developing consolidation.
--- NOTE | 2024-09-18 18:24 | ECG_ITS ---
APPROVED REPORT Exam: Resting ECG HR:80 bpm ECG Measurements Heart Rate 80 AXES DE 162 P 1 QRSd 91 QRS 51 QT 381 T 71 QTc 417 Conclusion SINUS RHYTHM LOW QRS VOLTAGE IN PRECORDIAL LEADS [QRS DEFLECTION < 1.0 mV IN CHEST LEADS] BORDERLINE ECG UNCONFIRMED REPORT Electronically signed by : FEI BIRD, 09/21/2024 01:18:09
--- NOTE | 2024-09-18 18:29 | CT_ITS ---
PROCEDURE INFORMATION: Exam: CTA Chest With Contrast Exam date and time: 09/18/2024 7:58 PM Age: 58 years old Clinical indication: Other: Hypoxia TECHNIQUE: Imaging protocol: Computed tomographic angiography of the chest with contrast. Exam focused on the arteries. 3D rendering (Not supervised by radiologist): MIP and/or 3D reconstructed images were created by the technologist. Radiation optimization: All CT scans at this facility use at least one of these dose optimization techniques: automated exposure control; mA and/or kV adjustment per patient size (includes targeted exams where dose is matched to clinical indication); or iterative reconstruction. Contrast material: ISOVUE; Contrast volume: 80 ml; Contrast route: INTRAVENOUS (IV); COMPARISON: CT CHEST W CON 06/20/2022 12:20 PM FINDINGS: Pulmonary arteries: Filling defects involving the bibasilar posterior segmental pulmonary arteries compatible with pulmonary embolism. Aorta: Unremarkable. No aortic aneurysm. No aortic dissection. Lungs: Prominent right paratracheal, bilateral hilar, and subcarinal shelley groups similar to prior exam can be seen with granulomatous process such as sarcoid. Pleural spaces: Unremarkable. No pneumothorax. No pleural effusion. Heart: Unremarkable. No cardiomegaly. No pericardial effusion. Lymph nodes: Unremarkable. No enlarged lymph nodes. Adrenal glands: Left adrenal nodule unchanged from prior exam measuring 23 mm. Kidneys: Right renal Bosniak 1 cystic lesion that is homogeneous and fluid density (-9-20 HU), no septations or calcifications, having long smooth and thin. Measurement is 2.7 cm. No follow-up recommended. Bones/joints: Unremarkable. No acute fracture. Soft tissues: Unremarkable. IMPRESSION: 1. Filling defects involving the bibasilar posterior segmental pulmonary arteries compatible with pulmonary embolism. RV/LV = 1.0, no right heart strain. 2. Prominent right paratracheal, bilateral hilar, and subcarinal shelley groups similar to prior exam can be seen with granulomatous process such as sarcoid. THIS REPORT CONTAINS FINDINGS THAT MAY BE CRITICAL TO PATIENT CARE. The findings were verbally communicated via telephone conference with Bakari Silverman at 8:27 PM EDT on 09/18/2024. The findings were acknowledged and understood. COMMENTS: Consistent with the [employer]'s Incidental Findings Committee white paper (J Am Quang Radiol 2018): Any incidental renal lesion less than 1 cm or classified as too small to characterize, or any incidental cystic renal lesion characterized as simple-appearing, is likely benign. No follow-up imaging is recommended for these lesions per consensus recommendations based on imaging criteria.
[2024-09-18 18:33] VITALS: BP 152/83; PULSE 80; RESP 20; TEMP 37; O2SAT 81; BMI 48.4
[2024-09-18 18:46] LABS: Basophils # 0.1 K/mm3 (0-0.2); Basophils % 0.5 % (0.1-2.0); Eosinophils # 0.2 Kmm3 (0.0-0.4); Eosinophils % 1.7 % (0.1-12.0); Hematocrit 47.1 % (37.0-47.0); Hemoglobin 15.1 g/dL (12.2-16.2); Immature Granulocytes # 0.23 10^3uL; Immature Granulocytes % 1.7 %; Lymphocytes # 3.1 K/mm3 (0.7-4.5); Lymphocytes % 23.1 % (10-50); Mean Corpuscular HGB Conc 32.1 g/dL (31.8-35.4); Mean Corpuscular Hemoglobin 29.8 pg (27.0-31.2); Mean Corpuscular Volume 92.9 fl (81-99); Mean Platelet Volume 10.7 fl (7.4-10.4); Monocytes # 0.8 K/mm3 (0.1-1.0); Monocytes % 6.3 % (1.7-9.3); Neutrophils # 8.9 K/mm3 (1.8-7.8); Neutrophils % 66.7 % (37.0-80.0); Nucleated Red Blood Cells # 0 10^3/uL; Nucleated Red Blood Cells % 0 %; Platelet Count 284 K/mm3 (142-424); Red Blood Count 5.07 M/mm3 (4.20-5.40); Red Cell Distribution Width 14.7 % (11.5-17.5); Red Cell Distribution Width-SD 49.1 fL; White Blood Count 13.3 K/mm3 (4.8-10.8)
[2024-09-18 18:51] LABS: Chloride 100 mmol/L (98-107); Potassium 4.2 mmoL/L (3.5-5.1); Sodium 139 mmol/L (136-145)
[2024-09-18 18:52] LABS: Lactate Venous 1.9 mmol/L (0.4-2.0); VBG Base Excess 4.1 mmol/L (-2.4-2.3); VBG HCO3 29.6 mmol/L (23-30); VBG Oxygen Saturation 82.2 % (50-70); VBG PH 7.36 mmol/L (7.31-7.41); VBG PO2 45.8 mmol/L (28-40); VBG Total CO2 31.3 mmol/L (23-27)
[2024-09-18 18:54] LABS: Alanine Aminotransferase 29 U/L (12-78); Alkaline Phosphatase 76 U/L (38-126); Anion Gap 8.2 mEq/L (5-15); Aspartate Amino Transferase 22 U/L (14-36); Bilirubin,Total 0.2 mg/dl (0.2-1.3); Blood Urea Nitrogen 19 mg/dl (7-17); Carbon Dioxide 35 mmol/L (22.0-30.0); Creatinine Clearance Estimated 73 mL/min (50-200); Estimated Glomerular Filt Rate 74 ml/min (>60); GFR (African American) 89 ML/MIN (>60); Globulin 3.9 g/dL (1.3-3.2); Total Protein,Serum 7.9 g/dl (6.3-8.2)
[2024-09-18 18:55] LABS: Calcium 9.2 mg/dl (8.4-10.2); Glucose 194 mg/dl (74-100)
[2024-09-18 19:00] VITALS: BP 139/81; PULSE 77; O2SAT 94
[2024-09-18] MEDS: IPRATROPIUM/ALBUTEROL 3 ML NEB 9 ML IH (19:04)
[2024-09-18 19:12] LABS: Troponin I < 0.01 ng/ml (0.00-0.034)
[2024-09-18] MEDS: METHYLPREDNISOLONE SOD SUCC 125MG VIAL 125 MG IV (19:19)
[2024-09-18] MEDS: CEFTRIAXONE SODIUM 2 GM in 0.9 % SODIUM CHLORIDE 100 ML IV (19:27)
[2024-09-18] MEDS: AZITHROMYCIN 500 MG in 0.9 % SODIUM CHLORIDE 250 ML 250 MG IV (19:28)
[2024-09-18 19:30] VITALS: BP 135/82; PULSE 89; O2SAT 90
[2024-09-18 19:38] LABS: Adenovirus,PCR Not Detected (NotDetected); Bordetella Pertussis Not Detected (NotDetected); Chlamydophila Pneumoniae, PCR Not Detected (NotDetected); Coronavirus 19, PCR Not Detected (NotDetected); Coronavirus 229E Not Detected (NotDetected); Coronavirus NL63 Not Detected (NotDetected); Coronavirus OC43 Not Detected (NotDetected); Coronovirus HKU1,PCR Not Detected (NotDetected); Influenza A, PCR Not Detected (NotDetected); Influenza AH1, 2009 Not Detected (NotDetected); Influenza AH1, PCR Not Detected (NotDetected); Influenza AH3,PCR Not Detected (NotDetected); Influenza B, PCR Not Detected (NotDetected); Mycoplasma Pneumoniae, PCR Not Detected (NotDetected); Parainfluenza 1, PCR Not Detected (NotDetected); Parainfluenza 2, PCR Not Detected (NotDetected); Parainfluenza 3, PCR Not Detected (NotDetected); Parainfluenza 4, PCR Not Detected (NotDetected); Respiratory Syncytial Virus Not Detected (NotDetected); Rhinovirus/Enterovirus Not Detected (NotDetected)
--- NOTE | 2024-09-18 19:46 | EXP.HP ---
History of Present Illness *Admission Date: 09/18/24 *Reason for visit:: Symptoms of breast *History of present illness: This is a 58-year-old female with a history of COPD on room air, type 2 diabetes, hypertension, hypothyroidism, morbid obesity who presents with worsening shortness of breath. States that she has felt more short of breath since yesterday. Reports dyspnea with exertion. States that she wears nasal cannula while sleeping occasionally. Denies any chest pain. Reports cough. Denies fever. resp panel + metapneumovirus In the emergency department ECG normal sinus rhythm no ST deviations DuoNeb x 3, 125 of methylprednisolone for treatment. Labs white blood cell count of 13, unremarkable VBG with venous pH of 7.36 and mild CO2 retention with a PCO2 of 54 that is likely patient's baseline, undetectable troponin. XR suggests viral process with possibly developing consolidation started on ceftriaxone and azithromycin. CTA obtained demonstrating illing defects involving the bibasilar posterior segmental pulmonary arteries compatible with pulmonary embolism. RV/LV = 1.0, no right heart strain. History independently obtained. Diagnostics independently interpreted. Case discussed with ER physician. Old records reviewed. [facility] Disclaimer: The information contained in this section may have been updated after the patient was seen, as this information can be updated by other users. Medical History Tobacco use disorder Class 3 obesity Hypothyroidism (acquired) Diabetes Renal cancer Thyroid cancer Hypertension Sciatica of left side Surgical History History of incision and drainage History of H/O thyroidectomy Family History Mother Diabetes Hypertension Father Diabetes Hypertension Brother Cancer Social History Smoking Status: Current every day smoker tobacco type: cigarettes quit status: considering quitting alcohol intake: never substance use type: denies use current occupational status: disabled Travel in the last 8 weeks?: None household members: children housing: apartment lives independently: Yes marital status: single education level: high school special cal needs: No agree to transfusion: No do you feel safe at home: Yes victim of physical abuse: No victim of emotional abuse: No victim of sexual abuse: No would you like helpful sources: No Have you lived/traveled outside US in past 30 days?: No Contact w/someone who lives/traveled outside US past 30 days?: No Exposure to someone with infectious disease in past 14 days?: No Do you have a fever (greater than 100.4 F or 38 C)?: No Have you tested positive for COVID-19?: No Exposed to someone with COVID-19 in past 14 days?: No Do you have a sore throat?: No Do you have a cough?: No Do you have any weakness?: No Do you have any diarrhea?: No Are you experiencing any unusual bleeding?: No Do you have any muscle aches/pain?: No Do you have any abdominal pain?: No Are you experiencing loss of taste or smell?: No Other Medical History Have you received the Flu Vaccine for this season: No Have you received the Pneumonia Vaccine: No Review of Systems Review of Systems Review of systems:: pertinent systems reviewed and negative unless documented below Meds Home Medications and Allergies Home Medications ?Medication ?Instructions ?Recorded ?Confirmed ?Type blood-glucose meter (Blood Glucose #1 ea 07/06/23 05/24/24 Rx Monitoring kit) lancets (Fingerstix Lancets) #100 ea 07/06/23 05/24/24 Rx losartan 50 mg tablet 50 mg PO DAILY Hypertension 30 12/16/23 05/24/24 Rx days #30 tabs blood sugar diagnostic (Blood #100 ea 02/09/24 05/24/24 Rx Glucose Test strips) blood-glucose meter (Blood Glucose #1 ea 02/09/24 05/24/24 Rx Monitoring kit) metformin 500 mg tablet 1,000 mg (2 x 500 mg) PO BID 30 02/10/24 05/24/24 Rx days #120 tabs albuterol sulfate 90 mcg/actuation 2 puff inhalation Q6HP PRN 05/24/24 05/24/24 History aerosol inhaler shortness of breath or wheezing atenolol 25 mg tablet 25 mg PO DAILY 30 days #30 tabs 09/11/24 Rx levothyroxine 200 mcg capsule 200 mcg PO DAILY #30 caps 09/11/24 Rx megestrol 40 mg tablet 40 mg PO DAILY #30 tabs 09/11/24 Rx meloxicam 15 mg tablet See Rx Instructions .Route 09/11/24 Rx .COMPLEX #30 tabs simvastatin 80 mg tablet 80 mg PO HS 30 days #30 tabs 09/11/24 Rx New Prescriptions to Start Prescriptions: Allergies Allergy/AdvReac Type Severity Reaction Status Date / Time cephalexin Allergy Rash Verified 09/18/24 18:39 acetaminophen AdvReac Nausea Verified 09/18/24 18:39 Exam Data for Last 24 hours Vital signs and Labs for Last 24 Hours: Temp Pulse Resp BP Pulse Ox O2 Del Method 98.6 F 80 20 152/83 H 81 L Room Air 09/18/24 18:33 09/18/24 18:33 09/18/24 18:33 09/18/24 18:33 09/18/24 18:33 09/18/24 18:33 Laboratory Results - last 24 hr 09/18/24 18:23: VBG pH 7.36, VBG pCO2 54.0 H, VBG pO2 45.8 H, VBG HCO3 29.6, VBG Total CO2 31.3 H, VBG O2 Saturation 82.2 H, VBG Base Excess 4.1 H, VBG Lactic Acid 1.9 09/18/24 18:34: WBC 13.3 H, RBC 5.07, Hgb 15.1, Hct 47.1 H, MCV 92.9, MCH 29.8, MCHC 32.1, RDW 14.7, Plt Count 284, MPV 10.7 H, Neut % (Auto) 66.7, Lymph % (Auto) 23.1, [place] % (Auto) 6.3, Eos % (Auto) 1.7, Baso % (Auto) 0.5, Neut # (Auto) 8.9 H, Lymph # (Auto) 3.1, [place] # (Auto) 0.8, Eos # (Auto) 0.2, Baso # (Auto) 0.1, Sodium 139, Potassium 4.2, Chloride 100, Carbon Dioxide 35 H, Anion Gap 8.2, BUN 19 H, Creatinine 0.80, Estimated Creat Clear 73, Estimated GFR 74, Est GFR ( Amer) 89, Glucose 194 H, Calcium 9.2, Total Bilirubin 0.2, AST 22, ALT 29, Alkaline Phosphatase 76, Troponin I < 0.01, Total Protein 7.9, Albumin 4.0, Globulin 3.9 H, Albumin/Globulin Ratio 1.0 L I & O for Last 24 hours: Intake & Output 09/15/24 09/16/24 09/17/24 09/18/24 23:59 23:59 23:59 23:59 Weight 136.078 kg Constitutional Constitutional: mild distress and obese *Routine HEENT Exam Head: Present normocephalic Eye: Present EOMI and PERRL ENT: Present mucous membranes moist *Routine Neck Exam Neck: Present supple; Absent lymphadenopathy *Routine Respiratory Exam Respiratory: Present CTA bilaterally *Routine Cardiovascular Exam Cardiovascular: Present RRR *Routine Abdominal Exam Abdominal: Present soft and normoactive bowel sounds; Absent tenderness *Routine Rectal Exam Rectal:: deferred *Routine Genitalia Exam Genitalia:: deferred *Routine Extremities Exam Extremities: Absent cyanosis, clubbing or edema *Routine Skin Exam Skin: Present warm; Absent rash *Routine Neurological Exam Neurological: Present alert and oriented X3 Assessment and Plan *Assessment and plan (1) Respiratory failure: Status: Acute Category: Medical Code(s): J96.90 - Respiratory failure, unspecified, unspecified whether with hypoxia or hypercapnia (2) Human metapneumovirus (hMPV) pneumonia: Status: Acute Category: Medical Code(s): J12.3 - Human metapneumovirus pneumonia (3) Obesity: Status: Acute Category: Medical Code(s): E66.9 - Obesity, unspecified (4) Hypothyroid: Status: Acute Category: Medical Code(s): E03.9 - Hypothyroidism, unspecified (5) Hyperlipidemia: Status: Acute Category: Medical Code(s): E78.5 - Hyperlipidemia, unspecified Plan 58-year-old female with pneumonia and acute hypoxic respiratory failure secondary to metapneumovirus. 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 Will check D-dimer to assess chronicity - Will start Xarelto 15 mg twice daily for 3 weeks followed by 20 mg p.o. daily to prevent CTEPH - Echo ordered, eval RVSP given pickwickian habitus and concern for CTEPH Hypertension - Resume home medications Hypothyroidism-resume home levothyroxine Diabetes - SSI Hyperlipidemia - Stop simvastatin, she needs a high intensity statin - Will start atorvastatin 80 mg
[2024-09-18] MEDS: SODIUM CHLORIDE 0.9% 10ML SYR (RAD ONLY) 10 ML IV (20:00)
[2024-09-18] MEDS: 0.9 % SODIUM CHLORIDE 50 ML VIAL IV (20:00)
[2024-09-18] MEDS: IOPAMIDOL-370 (76%);100ML BOTTLE 80 ML IV (20:01)
[2024-09-18 20:30] VITALS: BP 135/75; PULSE 77; O2SAT 90
[2024-09-18 21:01] VITALS: BP 133/79; PULSE 76; O2SAT 93
[2024-09-18 21:17] LABS: Human Metapneumovirus Detected (NotDetected)
--- NOTE | 2024-09-18 22:47 | PC.NURSE ---
report called to Otis [facility]
[2024-09-18 22:53] LABS: NT Pro Brain Natriuretic Pep. 258 pg/mL (0-125)
[2024-09-18 22:56] LABS: Troponin I < 0.01 ng/ml (0.00-0.034)
[2024-09-18 23:04] LABS: D-Dimer 0.72 ug/mL (0.0-0.5)
[2024-09-18 23:05] VITALS: BP 119/69; PULSE 79; RESP 20; TEMP 36.6; O2SAT 95
[2024-09-18] MEDS: RIVAROXABAN 15MG TABLET 15 MG PO (23:40)
[2024-09-19] VITALS (8 sets, daily range): BP systolic 138–172; BP diastolic 66–94; PULSE 76–96; RESP 18–22; TEMP 36.5–36.9; O2SAT 90–94; BMI 59.3; BMI 59.1
[2024-09-19 00:56] LABS: Troponin I < 0.01 ng/ml (0.00-0.034)
[2024-09-19 06:31] LABS: POC Glucose,Bedside 308 (70-110)
[2024-09-19] MEDS: humaLOG 100 UNITS/ML 10ML VIAL (SSI) SUBCUT ×4 (06:45→20:40)
[2024-09-19 06:49] LABS: Basophils % 0.3 % (0.1-2.0); Hematocrit 44.9 % (37.0-47.0); Hemoglobin 14.2 g/dL (12.2-16.2); Immature Granulocytes # 0.25 10^3uL; Immature Granulocytes % 2.2 %; Lymphocytes # 1.2 K/mm3 (0.7-4.5); Lymphocytes % 10.5 % (10-50); Mean Corpuscular HGB Conc 31.6 g/dL (31.8-35.4); Mean Corpuscular Hemoglobin 29.3 pg (27.0-31.2); Mean Corpuscular Volume 92.8 fl (81-99); Mean Platelet Volume 11.1 fl (7.4-10.4); Monocytes # 0.2 K/mm3 (0.1-1.0); Monocytes % 1.5 % (1.7-9.3); Neutrophils # 9.7 K/mm3 (1.8-7.8); Neutrophils % 85.5 % (37.0-80.0); Nucleated Red Blood Cells # 0 10^3/uL; Nucleated Red Blood Cells % 0 %; Platelet Count 270 K/mm3 (142-424); Red Blood Count 4.84 M/mm3 (4.20-5.40); Red Cell Distribution Width 14.7 % (11.5-17.5); Red Cell Distribution Width-SD 49.6 fL; White Blood Count 11.4 K/mm3 (4.8-10.8)
[2024-09-19 07:03] LABS: Chloride 99 mmol/L (98-107)
[2024-09-19 07:04] LABS: Potassium 4.9 mmoL/L (3.5-5.1); Sodium 136 mmol/L (136-145)
[2024-09-19 07:06] LABS: Blood Urea Nitrogen 20 mg/dl (7-17); Creatinine Clearance Estimated 97 mL/min (50-200); Estimated Glomerular Filt Rate 103 ml/min (>60); GFR (African American) 125 ML/MIN (>60)
[2024-09-19 07:07] LABS: Alanine Aminotransferase 28 U/L (12-78); Albumin/Globulin Ratio 1.1 (1.1-1.8); Alkaline Phosphatase 72 U/L (38-126); Anion Gap 10.9 mEq/L (5-15); Aspartate Amino Transferase 22 U/L (14-36); Bilirubin,Total 0.2 mg/dl (0.2-1.3); Calcium 8.9 mg/dl (8.4-10.2); Carbon Dioxide 31 mmol/L (22.0-30.0); Globulin 3.5 g/dL (1.3-3.2); Glucose 372 mg/dl (74-100); Phosphorous 3.5 mg/dl (2.5-4.5); Total Protein,Serum 7.5 g/dl (6.3-8.2)
[2024-09-19 07:08] LABS: Magnesium 1.5 mg/dl (1.6-2.3)
[2024-09-19] MEDS: MAGNESIUM SULFATE IN WATER 2 GM/50 ML PIGGYBACK IV ×2 (10:07→11:17)
[2024-09-19] MEDS: IRBESARTAN 75MG TABLET 75 MG PO (10:07)
[2024-09-19] MEDS: RIVAROXABAN 15MG TABLET 15 MG PO ×2 (10:08→16:50)
[2024-09-19] MEDS: guaiFENesin 600 MG TAB.ER.12H 1200 MG PO ×2 (10:08→20:40)
[2024-09-19] MEDS: LEVOTHYROXINE 100MCG (0.1MG) TAB 200 MCG PO (10:08)
--- NOTE | 2024-09-19 10:10 | P.CONS_ITS ---
History of Present Illness History of present illness: Ms. Acosta is a 58-year-old female current smoker greater than [id number] smoking history presented to the ER with worsening respiratory distress and pulmonary was called for further evaluation and management. Admits using oxygen supplementation at night. Not using during the daytime. Using albuterol on an as-needed basis, needing it daily. Sedentary lifestyle. [facility] Disclaimer: The information contained in this section may have been updated after the patient was seen, as this information can be updated by other users. Medical History (Updated 09/19/24 @ 11:37 by Chance Reed MD) Mediastinal lymphadenopathy Hilar lymphadenopathy Tobacco use disorder Class 3 obesity Hypothyroidism (acquired) Diabetes Renal cancer Thyroid cancer Hypertension Sciatica of left side Surgical History History of incision and drainage History of H/O thyroidectomy Family History Mother Diabetes Hypertension Father Diabetes Hypertension Brother Cancer Social History Smoking Status: Current every day smoker tobacco type: cigarettes quit status: considering quitting alcohol intake: never substance use type: denies use current occupational status: disabled Travel in the last 8 weeks?: None household members: children housing: apartment lives independently: Yes marital status: single education level: high school special cal needs: No agree to transfusion: No do you feel safe at home: Yes victim of physical abuse: No victim of emotional abuse: No victim of sexual abuse: No would you like helpful sources: No Have you lived/traveled outside US in past 30 days?: No Contact w/someone who lives/traveled outside US past 30 days?: No Exposure to someone with infectious disease in past 14 days?: No Do you have a fever (greater than 100.4 F or 38 C)?: No Have you tested positive for COVID-19?: No Exposed to someone with COVID-19 in past 14 days?: No Do you have a sore throat?: No Do you have a cough?: No Do you have any weakness?: No Do you have any diarrhea?: No Are you experiencing any unusual bleeding?: No Do you have any muscle aches/pain?: No Do you have any abdominal pain?: No Are you experiencing loss of taste or smell?: No Review of Systems Constitutional Constitutional: Reports anorexia and Reports fatigue Eyes Eyes: Denies eye discharge, Denies dry eyes, Denies irritation and Denies itchy eyes ENT Ears, Nose, Mouth, and Throat: Denies epistaxis, Denies facial pain, Denies lip swelling and Denies throat swelling *Cardiovascular Cardiovascular: Reports dyspnea and Reports dyspnea on exertion *Respiratory Respiratory: Denies change in phlegm color, Reports chest congestion, Reports cough, Reports dyspnea, Reports dyspnea on exertion, Denies excessive phlegm production, Denies hemoptysis, Denies pain on inspiration, Denies pain with cough and Reports wheezing *Gastrointestinal Gastrointestinal: Denies abdominal pain, Denies belching and Denies cramping *Musculoskeletal Musculoskeletal: Reports back pain, Reports myalgias and Reports other (No small joint swelling or Pain) Psychiatric Psychiatric: Denies homicidal ideation and Denies suicidal ideation Endocrine Endocrine: Reports fatigue and Denies heat intolerance Hematologic/Lymphatic Hematologic/Lymphatic: Denies easy bleeding and Denies lymphadenopathy Allergic/Immunologic Allergic/Immunologic: Denies itchy eyes, Denies lip swelling, Denies throat swelling and Reports wheezing Pulmonology Exam Inpatient Vital signs and Labs for Last 24 Hours: Temp Pulse Resp BP Pulse Ox O2 Del Method O2 Flow Rate 98.3 F 83 18 151/66 H 90 L Nasal Cannula 3 09/19/24 08:00 09/19/24 08:00 09/19/24 08:00 09/19/24 08:00 09/19/24 08:00 09/19/24 08:00 09/19/24 08:00 Laboratory Results - last 24 hr 09/18/24 18:23: VBG pH 7.36, VBG pCO2 54.0 H, VBG pO2 45.8 H, VBG HCO3 29.6, VBG Total CO2 31.3 H, VBG O2 Saturation 82.2 H, VBG Base Excess 4.1 H, VBG Lactic Acid 1.9 09/18/24 18:34: WBC 13.3 H, RBC 5.07, Hgb 15.1, Hct 47.1 H, MCV 92.9, MCH 29.8, MCHC 32.1, RDW 14.7, Plt Count 284, MPV 10.7 H, Neut % (Auto) 66.7, Lymph % (Auto) 23.1, [place] % (Auto) 6.3, Eos % (Auto) 1.7, Baso % (Auto) 0.5, Neut # (Auto) 8.9 H, Lymph # (Auto) 3.1, [place] # (Auto) 0.8, Eos # (Auto) 0.2, Baso # (Auto) 0.1, Sodium 139, Potassium 4.2, Chloride 100, Carbon Dioxide 35 H, Anion Gap 8.2, BUN 19 H, Creatinine 0.80, Estimated Creat Clear 73, Estimated GFR 74, Est GFR ( Amer) 89, Glucose 194 H, Calcium 9.2, Total Bilirubin 0.2, AST 22, ALT 29, Alkaline Phosphatase 76, Troponin I < 0.01, Total Protein 7.9, Albumin 4.0, Globulin 3.9 H, Albumin/Globulin Ratio 1.0 L 09/18/24 19:34: Chlamy pneumoniae PCR Not detected, Adenovirus (PCR) Not detected, B. pertussis DNA (PCR) Not detected, Coronavirus OC43 (PCR) Not detected, Coronavirus HKU1 (PCR) Not detected, Coronavirus 229E (PCR) Not detected, SARS-CoV-2 (PCR) Not detected, Coronavirus NL63 (PCR) Not detected, H uman Metapneumovir PCR Detected A, Influenza A (H1) PCR Not detected, Influ A (H1N1/09) PCR Not detected, Influenza A (H3) PCR Not detected, Influenza Type A (PCR) Not detected, Influenza Type B (PCR) Not detected, M. pneumoniae (PCR) Not detected, Parainfluenza 1 (PCR) Not detected, Parainfluenza 2 (PCR) Not detected, Parainfluenza 3 (PCR) Not detected, Parainfluenza 4 (PCR) Not detected, RSV (PCR) Not detected, Entero/Rhino (PCR) Not detected 09/18/24 21:33: Troponin I < 0.01, NT-Pro-B Natriuret Pep 258 H 09/18/24 22:40: D-Dimer 0.72 H 09/19/24 00:22: Troponin I < 0.01 09/19/24 05:51: POC Glucose 308 H* 09/19/24 05:52: WBC 11.4 H, RBC 4.84, Hgb 14.2, Hct 44.9, MCV 92.8, MCH 29.3, M CHC 31.6 L, RDW 14.7, Plt Count 270, MPV 11.1 H, Neut % (Auto) 85.5 H, Lymph % (Auto) 10.5, [place] % (Auto) 1.5 L, Eos % (Auto) 0.0 L, Baso % (Auto) 0.3, Neut # (Auto) 9.7 H, Lymph # (Auto) 1.2, [place] # (Auto) 0.2, Eos # (Auto) 0.0, Baso # (Auto) 0.0, Sodium 136, Potassium 4.9, Chloride 99, Carbon Dioxide 31 H, Anion Gap 10.9, BUN 20 H, Creatinine 0.60 D, Estimated Creat Clear 97, Estimated GFR 103, Est GFR ( Amer) 125 D, Glucose 372 H D, Calcium 8.9, Phosphorus 3.5, Magnesium 1.5 L, Total Bilirubin 0.2, AST 22, ALT 28, Alkaline Phosphatase 72, Total Protein 7.5, Albumin 4.0, Globulin 3.5 H, Albumin/Globulin Ratio 1.1 I & O for Labs for Last 24 Hours: Intake & Output 09/16/24 09/17/24 09/18/24 09/19/24 23:59 23:59 23:59 23:59 Intake Total 740 / 740 Output Total 0 / 0 Balance 740 / 740 Weight 300 lb 368 lb Constitutional: Present moderate distress Head: Present normocephalic and atraumatic ENT: Present normal exam, normal oropharynx and mucous membranes moist Neck: Present normal inspection and full ROM Respiratory: Present respiratory distress, diminished air movement and able to speak in complete sentences; Absent wheezes or crackles Cardiac: Present S1/S2, Tachycardia and radial pulses present GI: Present soft and distention; Absent tenderness or guarding Rectal (female): Present deferred (female): Present deferred Skin: Present intact; Absent cyanosis or jaundice Neuro: Present alert, awake and oriented x 3 Extremities: Present normal inspection; Absent clubbing or cyanosis Psychiatric: Present normal affect and cooperative Meds Home Medications and Allergies Home Medications ?Medication ?Instructions ?Recorded ?Confirmed ?Type losartan 50 mg tablet 50 mg PO DAILY Hypertension 30 12/16/23 09/18/24 Rx days #30 tabs metformin 500 mg tablet 1,000 mg (2 x 500 mg) PO BID 30 02/10/24 09/18/24 Rx days #120 tabs albuterol sulfate 90 mcg/actuation 2 puff inhalation Q 6HP PRN 05/24/24 09/18/24 History aerosol inhaler shortness of breath or wheez ing atenolol 25 mg tablet 25 mg PO DAILY 30 days #30 t abs 09/11/24 09/18/24 Rx levothyroxine 200 mcg capsule 200 mcg PO DAILY #30 cap s 09/11/24 09/18/24 Rx megestrol 40 mg tablet 40 mg PO DAILY #30 tabs 06/0609/18/24 Rx simvastatin 80 mg tablet 80 mg PO HS 30 days #30 tabs 09/11/24 09/18/24 Rx meloxicam 15 mg tablet 15 mg PO DAILY 09/18/2401/04 History New Prescriptions to Start Prescriptions: Allergies Allergy/AdvReac Type Severity Reaction Status Date / Time cephalexin Allergy Rash Verified 09/18/24 18:39 acetaminophen AdvReac Nausea Verified 09/18/24 18:39 Results Laboratory Findings 09/19/24 05:52 09/19/24 05:52 PT/INR, D-dimer D-Dimer 0.72 ug/mL (0.0-0.5) H 09/18/24 22:40 Abnormal lab findings: Abnormal Labs 09/18/24 09/18/24 09/18/24 18:23 18:34 19:34 WBC 13.3 H Hct 47.1 H MCHC MPV 10.7 H Neut % (Auto) [place] % (Auto) Eos % (Auto) Neut # (Auto) 8.9 H D-Dimer VBG pCO2 54.0 H VBG pO2 45.8 H VBG Total CO2 31.3 H VBG O2 Saturation 82.2 H VBG Base Excess 4.1 H Carbon Dioxide 35 H BUN 19 H Glucose 194 H POC Glucose Magnesium NT-Pro-B Natriuret Pep Globulin 3.9 H Albumin/Globulin Ratio 1.0 L Human Metapneumovir PCR Detected A 09/18/24 09/18/24 09/19/24 21:33 22:40 05:51 WBC Hct MCHC MPV Neut % (Auto) [place] % (Auto) Eos % (Auto) Neut # (Auto) D-Dimer 0.72 H VBG pCO2 VBG pO2 VBG Total CO2 VBG O2 Saturation VBG Base Excess Carbon Dioxide BUN Glucose POC Glucose 308 H* Magnesium NT-Pro-B Natriuret Pep 258 H Globulin Albumin/Globulin Ratio Human Metapneumovir PCR 09/19/24 05:52 WBC 11.4 H Hct MCHC 31.6 L MPV 11.1 H Neut % (Auto) 85.5 H [place] % (Auto) 1.5 L Eos % (Auto) 0.0 L Neut # (Auto) 9.7 H D-Dimer VBG pCO2 VBG pO2 VBG Total CO2 VBG O2 Saturation VBG Base Excess Carbon Dioxide 31 H BUN 20 H Glucose 372 H D POC Glucose Magnesium 1.5 L NT-Pro-B Natriuret Pep Globulin 3.5 H Albumin/Globulin Ratio Human Metapneumovir PCR Assessment and Plan *Assessment and plan (1) Pulmonary embolism: Status: Acute Qualifiers: Acute cor pulmonale presence: without acute cor pulmonale Chronicity: a cute Pulmonary embolism type: unspecified Qualified Code(s): I26.99 - Other pulmonary embolism without acute cor pulmonale Category: Medical Code(s): I26.99 - Other pulmonary embolism without acute cor pulmonale (2) Infection due to human metapneumovirus (hMPV): Status: Acute Category: Medical Code(s): B34.8 - Other viral infections of unspecified site (3) Acute exacerbation of chronic obstructive pulmonary disease: Status: Acute Category: Medical Code(s): J44.1 - Chronic obstructive pulmonary disease with (acute) exacerbation (4) Acute hypoxemic respiratory failure: Status: Acute Category: Medical Code(s): J96.01 - Acute respiratory failure with hypoxia (5) Hilar lymphadenopathy: Status: Acute Category: Medical Code(s): R59.0 - Localized enlarged lymph nodes (6) Mediastinal lymphadenopathy: Status: Acute Category: Medical Code(s): R59.0 - Localized enlarged lymph nodes Plan Ms. Acosta is a 58-year-old female current smoker greater than [id number] smoking history presented to the ER with worsening respiratory distress and pulmonary was called for further evaluation and management. Admits using oxygen supplementation at night. Not using during the daytime. Using albuterol on an as-needed basis, needing it daily. Sedentary lifestyle. Afebrile. Hemodynamically stable. Neutrophilic predominant leukocytosis. Blood gas venous upon admission mild hypercarbic respiratory failure with a pH of 7.36 and pCO2 54. Respiratory viral PCR panel positive for human metapneumovirus. CTA upon admission, bilateral basilar segmental pulmonary embolism noted. D- dimer 0.72. Troponin less than 0.01, No dense consolidative/airspace changes noted. No evidence of right heart strain on CT imaging. Hilar and mediastinal lymphadenopathy similar to prior. On examination moderate respiratory distress. No significant wheezing noted on auscultation. Lower extremity varicose veins noted. Plan: -Incentive spirometry 3 times daily -Trelegy 100 inhaler along with DuoNebs 4 times daily. -Full dose anticoagulation for the noted pulmonary embolism. Currently receiving Xarelto. Likely unprovoked given her other core morbidities despite her current admission respiratory PCR panel resulted positive for metapneumovirus. Will continue anticoagulantion for at least 6 months and we will reevaluate the risk-benefit analysis to determine the need for long-term anticoagulation. Hematology follow-up as an outpatient basis for possible hypercoagulable workup. -No need for steroids or antibiotics at this point of time # For the noted hilar and mediastinal lymphadenopathy though similar cannot completely rule out underlying autoimmune disease/sarcoidosis especially in setting of having pulmonary embolism. Will consider EBUS FNA as an outpatient basis. # Thank you for involving pulmonary in this patient care. Will continue to follow.
[2024-09-19] MEDS: SODIUM CHLORIDE 3% 15ML NEB 3 ML IH (10:23)
[2024-09-19 11:20] LABS: POC Glucose,Bedside 392 (70-110)
--- NOTE | 2024-09-19 11:36 | CA_ITS ---
FINAL REPORT TECHNIQUE: Bilateral lower extremity venous duplex was performed with augmentation and compression. CLINICAL HISTORY: Smoker, home o2, PE, HTN, HLD, DM, obesity FINDINGS: Proper flow is seen throughout the deep venous systems bilaterally. There is no evidence of deep venous thrombosis. IMPRESSION: No evidence of deep venous thrombosis. Reviewed, Interpreted and Dictated by Shant Lockett MD Transcribed by Gwendolyn Richardson Authenticated and [facility]
--- OUTSIDE RECORDS SUMMARY | 2024-09-19 15:23 | XMS_ITS | Clinical Summary ---
Author Organization [facility] Address [address] [place] [address] Care Team Providers Care Partnership Manager Name Role Phone Martinez Weaver MD Primary Care Provider [phone]- [phone] Alycia Florence WOOD CHOPPER Unavailable [phone] Allergies Active Allergy Reactions Criticality Noted Date [...] Dates Next Due Influenza, seasonal, injectable 02/12/2009,02/17 [employer] COVID-19 Vaccine (Purple Cap) 12 + 05/08/2021,01/23/2021 [...] EDT Appointment [facility] Radiology [address] [place] [id number] 10/27/2024 2:15 PM EDT Office Visit [facility] Gynecology [address] [place] [id number] Rosario Sam MD [address] [facility] [address] [place] [address] 01/24/2025 12:45 PM EDT Appointment [facility] Radiology [address] [place] [phone] 01/24/2025 2:30 PM EDT Clinical Support [facility] [address] [facility], [address] [place] [address] 01/24/2025 3:00 PM EDT Office Visit [facility] [address] [facility], [address] [place] [address] Savana Jamison, WOOD CHOPPER, GIRLS SWIMMING COACH [address] [place] [address] Health Maintenance Due Date Last [...] Cancer Screening 11/18/2011 [facility]-Breast Cancer Screening 2016 [id number] Vaccine (3 - Pfizer risk series) 06/05/2021 [...] aggressive or suspicious findings. Procedure Note Casey Batxer MD - 04/14/2024 CLINICAL INDICATION: Endometrial cancer, [...] abdomen pelvis 12/28/2022, MRI scan of the [id number]/24/2023 FINDINGS: Chest: Lymph Nodes and Mediastinum: No [...] measuring up to 12 mm (series 3 [id number], 263). There is also a stable 13 [...] 1:50 PM EDT) Case Report Cytology Case: [id number] Authorizing Provider: Rosario Sam MD Collected: 01/22/2023 1350 Ordering Location: [facility] Gynecology Received: 01/25/2023 1102 First Screen: Aiden [place]amo Pathologist: Bernarda Allen MD Specimen: ThinPrep Pap Test, Liquid-Based Cervical/Vaginal 02/01/2023 10:46 AM EDT [facility] Interpretation NEGATIVE FOR INTRAEPITHELIAL LESION OR MALIGNANCY 02/01/2023 10:46 AM EDT [facility] at 1046 EDT Specimen Adequacy Satisfactory [...] results is suggested (please call Microbiology at [phone] for results). 02/01/2023 10:46 AM EDT [facility] Menstrual Status Post-Menopausal 10:46 AM EDT [facility] History of Hysterectomy Not Applicable 02/01/2023 10:46 AM EDT [facility] Contraceptive History Not Applicable 02/01/2023 10:46 AM EDT [facility] Screening Type Routine Screen 2022 10:46 AM EDT [facility] High Risk? No 02/01/2023 10:46 AM EDT [facility] HPV Testing Requested? Request HPV testing if ASCUS or LSIL. 02/01/2023 10:46 AM EDT [facility] Previous Cancer History No 02/01/2023 10:46 AM EDT [facility] Clinical Information R93.89 - Thickened endometrium [ICD-10-CM] 02/01/2023 10:46 AM EDT [facility] Swab Vaginal and cervical cytologic material / Unknown Non-blood Collection / Unknown 01/22/2023 1:50 PM EDT 01/25/2023 11:02 AM EDT Rosario Sam MD LAB CYTOLOGY ORDERABLES F inal Result [facility] [address] [place] [address] from Last 3 Months or Most Recently Relevant to Health Maintenance Insurance [employer] [facility] MEDICAID Advance Directives * Full Code (Latest Code Status on File) Date Activated Date Inactivated Comments 03/26/2023 11:15 AM 03/27/2023 2:37 AM Question Answer Comments Patient has decision-making capacity? Yes Care Teams Partnership Manager Relationship Specialty Start Date End Date Martinez Weaver MD [address] [place] [address] PCP - General Family Medicine 11/24/22 Alycia Florence APRN [address] [address] Nurse Practitioner Medical Oncology 01/18/23
--- OUTSIDE RECORDS SUMMARY | 2024-09-19 15:23 | XMS_ITS ---
Author Organization [facility] Address [address] [place] [address] Care Team Providers Care Proposal Director Name Role Phone Martinez Weaver MD Primary Care Provider [phone]- [phone] Alycia Florence COMIC ARTIST Unavailable [phone] Active Problems Problem Noted Date Diagnosed Date [...]
[2024-09-19 17:13] LABS: POC Glucose,Bedside 360 (70-110)
--- NOTE | 2024-09-19 17:29 | EXP.ACUTE.PN ---
Subjective *Date: 09/19/24 *Time: 21:25 Interval history: Dyspneic on interview. Requiring 3 L oxygen. Still feels quite short of breath. No nausea or vomiting. Denies chest pain or confusion. Does feel somewhat better from admission however. Afebrile Medical Exam Vital signs and Labs for Last 24 Hours: Vital Signs Temp Pulse Pulse Resp BP BP Pulse Ox 09/19/24 16:31 09/19/24 16:00 98.2 F 86 18 148/67 H 90 L 09/19/24 15:00 09/19/24 13:00 09/19/24 12:00 98.1 F 79 18 164/74 H 91 L 09/19/24 11:00 09/19/24 10:24 80 18 09/19/24 09:00 09/19/24 08:00 09/19/24 08:00 98.3 F 83 18 151/66 H 90 L 09/19/24 07:00 09/19/24 05:00 09/19/24 04:00 98.2 F 76 22 138/92 H 90 L 09/19/24 03:00 09/19/24 01:00 09/19/24 00:00 98.4 F 77 20 172/94 H 91 L 09/18/24 23:05 98 F 79 20 119/69 09/18/24 22:55 09/18/24 21:01 76 133/79 93 L 09/18/24 20:30 77 135/75 90 L 09/18/24 19:30 89 135/82 90 L 09/18/24 19:00 77 139/81 94 L 09/18/24 18:33 98.6 F 80 20 152/83 H 81 L O2 Del Method O2 Flow Rate 09/19/24 16:31 Nasal Cannula 3 09/19/24 16:00 Nasal Cannula 3 09/19/24 15:00 Nasal Cannula 3 09/19/24 13:00 Nasal Cannula 3 09/19/24 12:00 Nasal Cannula 3 09/19/24 11:00 Nasal Cannula 3 09/19/24 10:24 09/19/24 09:00 Nasal Cannula 3 09/19/24 08:00 Nasal Cannula 3 09/19/24 08:00 Nasal Cannula 3 09/19/24 07:00 Nasal Cannula 3 09/19/24 05:00 Nasal Cannula 3 09/19/24 04:00 Nasal Cannula 3 09/19/24 03:00 Nasal Cannula 3 09/19/24 01:00 Nasal Cannula 3 09/19/24 00:00 Nasal Cannula 3 09/18/24 23:05 Nasal Cannula 2 09/18/24 22:55 Nasal Cannula 3 09/18/24 21:01 09/18/24 20:30 09/18/24 19:30 2 09/18/24 19:00 2 09/18/24 18:33 Room Air Intake and Output 09/19/24 09/19/24 09/19/24 07:59 15:59 23:59 Intake Total 200 / 1090 890 / 1090 Output Total 0 / 900 900 / 900 Balance 200 / 190 -10 / 190 Intake: Intake, Oral Amount 200 / 1090 890 / 1090 Output: Output, Urine Amount 0 / 900 900 / 900 Other: Number of Voids 2 Number of Unmeasured Voids 1 Weight 166.922 kg Patient Weight 09/19/24 23:59 Weight 166.922 kg Laboratory Results - last 24 hr 09/18/24 18:23: VBG pH 7.36, VBG pCO2 54.0 H, VBG pO2 45.8 H, VBG HCO3 29.6, VBG Total CO2 31.3 H, VBG O2 Saturation 82.2 H, VBG Base Excess 4.1 H, VBG Lactic Acid 1.9 09/18/24 18:34: WBC 13.3 H, RBC 5.07, Hgb 15.1, Hct 47.1 H, MCV 92.9, MCH 29.8, MCHC 32.1, RDW 14.7, Plt Count 284, MPV 10.7 H, Neut % (Auto) 66.7, Lymph % (Auto) 23.1, [place] % (Auto) 6.3, Eos % (Auto) 1.7, Baso % (Auto) 0.5, Neut # (Auto) 8.9 H, Lymph # (Auto) 3.1, [place] # (Auto) 0.8, Eos # (Auto) 0.2, Baso # (Auto) 0.1, Sodium 139, Potassium 4.2, Chloride 100, Carbon Dioxide 35 H, Anion Gap 8.2, BUN 19 H, Creatinine 0.80, Estimated Creat Clear 73, Estimated GFR 74, Est GFR ( Amer) 89, Glucose 194 H, Calcium 9.2, Total Bilirubin 0.2, AST 22, ALT 29, Alkaline Phosphatase 76, Troponin I < 0.01, Total Protein 7.9, Albumin 4.0, Globulin 3.9 H, Albumin/Globulin Ratio 1.0 L 09/18/24 19:34: Chlamy pneumoniae PCR Not detected, Adenovirus (PCR) Not detected, B. pertussis DNA (PCR) Not detected, Coronavirus OC43 (PCR) Not detected, Coronavirus HKU1 (PCR) Not detected, Coronavirus 229E (PCR) Not detected, SARS-CoV-2 (PCR) Not detected, Coronavirus NL63 (PCR) Not detected, Human Metapneumovir PCR Detected A, Influenza A (H1) PCR Not detected, Influ A (H1N1/) PCR Not detected, Influenza A (H3) PCR Not detected, Influenza Type A (PCR) Not detected, Influenza Type B (PCR) Not detected, M. pneumoniae (PCR) Not detected, Parainfluenza 1 (PCR) Not detected, Parainfluenza 2 (PCR) Not detected, Parainfluenza 3 (PCR) Not detected, Parainfluenza 4 (PCR) Not detected, RSV (PCR) Not detected, Entero/Rhino (PCR) Not detected 09/18/24 21:33: Troponin I < 0.01, NT-Pro-B Natriuret Pep 258 H 09/18/24 22:40: D-Dimer 0.72 H 09/19/24 00:22: Troponin I < 0.01 09/19/24 05:51: POC Glucose 308 H* 09/19/24 05:52: WBC 11.4 H, RBC 4.84, Hgb 14.2, Hct 44.9, MCV 92.8, MCH 29.3, MCHC 31.6 L, RDW 14.7, Plt Count 270, MPV 11.1 H, Neut % (Auto) 85.5 H, Lymph % (Auto) 10.5, [place] % (Auto) 1.5 L, Eos % (Auto) 0.0 L, Baso % (Auto) 0.3, Neut # (Auto) 9.7 H, Lymph # (Auto) 1.2, [place] # (Auto) 0.2, Eos # (Auto) 0.0, Baso # (Auto) 0.0, Sodium 136, Potassium 4.9, Chloride 99, Carbon Dioxide 31 H, Anion Gap 10.9, BUN 20 H, Creatinine 0.60 D, Estimated Creat Clear 97, Estimated GFR 103, Est GFR ( Amer) 125 D, Glucose 372 H D, Calcium 8.9, Phosphorus 3.5, Magnesium 1.5 L, Total Bilirubin 0.2, AST 22, ALT 28, Alkaline Phosphatase 72, Total Protein 7.5, Albumin 4.0, Globulin 3.5 H, Albumin/Globulin Ratio 1.1 09/19/24 11:13: POC Glucose 392 H* 09/19/24 16:42: POC Glucose 360 H* I & O for Labs for Last 24 Hours: Intake & Output 09/16/24 09/17/24 09/18/24 09/19/24 23:59 23:59 23:59 23:59 Intake Total 1090 / 1090 Output Total 900 / 900 Balance 190 / 190 Weight 136.078 kg 166.922 kg Constitutional: Present mild distress, morbidly obese, chronically ill appearing and cooperative Head: Present atraumatic and normocephalic ENT: Present normal exam Neck: Present normal inspection Respiratory: Present wheezes and normal respiratory effort; Absent rhonchi or crackles Cardiac: Present Reg Rate and Rhythm GI: Present soft and normal bowel sounds; Absent distention or tenderness Extremities: Present normal inspection and full ROM; Absent edema Comment:: Varicosities of bilateral lower extremities Skin: Present intact; Absent erythema Neuro: Present Grossly Intact, alert, awake, oriented x 3 and moves all extremities Assessment and Plan *Assessment and plan (1) Respiratory failure: Status: Acute Qualifiers: Chronicity: acute Respiratory failure complication: hypoxia Qualified Code(s): J96.01 - Acute respiratory failure with hypoxia Category: Medical Code(s): J96.90 - Respiratory failure, unspecified, unspecified whether with hypoxia or hypercapnia (2) Pulmonary embolism: Status: Acute Qualifiers: Acute cor pulmonale presence: without acute cor pulmonale Chronicity: acute Pulmonary embolism type: unspecified Qualified Code(s): I26.99 - Other pulmonary embolism without acute cor pulmonale Category: Medical Code(s): I26.99 - Other pulmonary embolism without acute cor pulmonale (3) Infection due to human metapneumovirus (hMPV): Status: Acute Category: Medical Code(s): B34.8 - Other viral infections of unspecified site (4) Acute exacerbation of chronic obstructive pulmonary disease: Status: Acute Category: Medical Code(s): J44.1 - Chronic obstructive pulmonary disease with (acute) exacerbation (5) Hilar lymphadenopathy: Status: Acute Category: Medical Code(s): R59.0 - Localized enlarged lymph nodes (6) Mediastinal lymphadenopathy: Status: Acute Category: Medical Code(s): R59.0 - Localized enlarged lymph nodes (7) Obesity: Status: Acute Category: Medical Code(s): E66.9 - Obesity, unspecified (8) Hypothyroid: Status: Acute Category: Medical Code(s): E03.9 - Hypothyroidism, unspecified (9) Hyperlipidemia: Status: Acute Category: Medical Code(s): E78.5 - Hyperlipidemia, unspecified Plan 58-year-old female with pneumonia and acute hypoxic respiratory failure secondary to human metapneumovirus. Found to have segmental pulmonary emboli no RV strain. Pulmonology consulted to assist with care. Continues to require inpatient management. Problems addressed as follows: Pneumonia, possibly viral with developing consolidation Acute hypoxic respiratory failure Leukocytosis - Continue supplemental oxygen as needed for goal sats greater 90%. Currently on 3 L. - Continue incentive spirometry 3 times a day. Discussed case with pulmonology, recommend initiating Trelegy 100 inhaler and DuoNebs every 6 hours scheduled. - Respiratory panel positive for human metapneumovirus - White count mildly elevated 11.4, hemoglobin 14.2. Repeat CBC, CMP, magnesium ordered for the morning. - Hold on further steroids or antibiotics due to viral etiology Segmental pulmonary emboli - Echo obtained, normal BiV systolic function with no valvular stenosis or regurgitation - Venous Doppler with no evidence of DVT bilaterally lower extremities - continue Xarelto 15 mg twice daily, will defer duration of management after discharge to pulmonology. Hypertension: Continue irbesartan 75 mg daily, continue atenolol 25 mg daily Hyperlipidemia: Continue Lipitor 80 mg nightly Hypothyroid: Continue levothyroxine 200 mcg daily GERD: Continue pantoprazole 40 mg nightly Diabetes: -Resume home metformin twice daily. Continue sliding scale insulin with fingersticks ACHS. Full code Diabetic diet
[2024-09-19] MEDS: IBUPROFEN 400 MG TABLET PO (19:37)
[2024-09-19] MEDS: ATORVASTATIN 40MG TABLET 80 MG PO (20:40)
[2024-09-19] MEDS: METFORMIN 500MG TABLET 1000 MG PO (20:40)
[2024-09-19 20:56] LABS: POC Glucose,Bedside 347 (70-110)
--- NOTE | 2024-09-19 22:33 | CA_ITS ---
APPROVED REPORT EXAM: Comprehensive 2D, Doppler, and color-flow Echocardiogram Log Chain Feeder: Geena Jackson RDCS Ht: 5 ft 6 in Wt: 300lbs BSA: 2.38 BP: 152/83 mmHg Indications: PE TDS M-Mode Dimensions RVDd 1.45 cm (0.9-2.6) LA Diam 3.20 cm (1.9-4.0) LVDd 4.43 cm (3.5-5.7) LVDs 2.39 cm (3.5-5.7) IVSd 1.19 cm (0.6-1.1) PWd 1.02 cm (0.6-1.1) EF (Teich) 77.60% FS 46.00% EDV (Teich) 89.10 mL ESV (Teich) 20.00 mL LV Diastology E Decel Time 193 (160-240 msec) E/A Ratio 0.7 Mitral Valve MV E Max Gerard. 60.0 (40-130 cm/s) MV A Velocity 87.0 (40-130 cm/s) E/A Ratio 0.68 MV Mean Gr. 1.70 (<2mmHg) MV PHT 57.0 ms Left Ventricle The left ventricle is normal size. The left ventricular systolic function is normal. The left ventricular ejection fraction is within the normal range. There is normal left ventricular wall thickness. There is normal LV segmental wall motion. The left ventricular diastolic function is normal. LVEF is 55%. Right Ventricle The right ventricle is normal size. The right ventricular systolic function is normal. Atria The left atrium size is normal. The right atrium size is normal. There is no Doppler evidence of interatrial shunt. Aortic Valve The aortic valve is mildly thickened. There is no aortic valvular stenosis. Trace aortic regurgitation is present. Mitral Valve The mitral valve is normal in structure. No evidence of mitral valve stenosis. Trace mitral regurgitation. Tricuspid Valve Tricuspid valve is grossly normal in structure and function. Trace tricuspid regurgitation. There is insufficient TR jet to estimate RVSP. Pulmonic Valve The pulmonary valve is normal in structure. Trace pulmonic regurgitation. Great Vessels The aortic root is normal in size. IVC is normal in size and collapses >50% with inspiration. Pericardium There is no pericardial effusion. Other Information Study Quality: Fair Conclusion Normal biventricular systolic function. No significant valvular stenosis or regurgitation. Electronically signed by : Georgina Serna MD 09/19/2024 12:15:37
[2024-09-20 03:53] VITALS: BP 157/86; PULSE 80; RESP 22; TEMP 36.7; O2SAT 91; BMI 59.1
[2024-09-20] MEDS: humaLOG 100 UNITS/ML 10ML VIAL (SSI) SUBCUT ×2 (06:39→11:57)
[2024-09-20] MEDS: LEVOTHYROXINE 100MCG (0.1MG) TAB 200 MCG PO (06:39)
[2024-09-20 06:53] LABS: Basophils # 0.1 K/mm3 (0-0.2); Basophils % 0.4 % (0.1-2.0); Eosinophils # 0.1 Kmm3 (0.0-0.4); Eosinophils % 0.4 % (0.1-12.0); Hemoglobin 14.1 g/dL (12.2-16.2); Immature Granulocytes # 0.25 10^3uL; Immature Granulocytes % 1.9 %; Lymphocytes % 22.4 % (10-50); Mean Corpuscular Hemoglobin 28.2 pg (27.0-31.2); Mean Platelet Volume 10.8 fl (7.4-10.4); Monocytes # 1.1 K/mm3 (0.1-1.0); Monocytes % 8.6 % (1.7-9.3); Neutrophils # 8.7 K/mm3 (1.8-7.8); Neutrophils % 66.3 % (37.0-80.0); Nucleated Red Blood Cells # 0 10^3/uL; Nucleated Red Blood Cells % 0 %; Platelet Count 283 K/mm3 (142-424); Red Cell Distribution Width 14.9 % (11.5-17.5); White Blood Count 13.2 K/mm3 (4.8-10.8)
[2024-09-20 06:59] LABS: Albumin Level 3.8 g/dl (3.5-5.0); Chloride 103 mmol/L (98-107)
[2024-09-20 06:59] LABS: POC Glucose,Bedside 191 (70-110)
[2024-09-20 07:00] LABS: Potassium 4.6 mmoL/L (3.5-5.1); Sodium 139 mmol/L (136-145)
[2024-09-20 07:02] LABS: Alanine Aminotransferase 25 U/L (12-78); Alkaline Phosphatase 69 U/L (38-126); Anion Gap 5.6 mEq/L (5-15); Aspartate Amino Transferase 23 U/L (14-36); Bilirubin,Total 0.2 mg/dl (0.2-1.3); Blood Urea Nitrogen 23 mg/dl (7-17); Carbon Dioxide 35 mmol/L (22.0-30.0); Creatinine Clearance Estimated 83 mL/min (50-200); Estimated Glomerular Filt Rate 86 ml/min (>60); GFR (African American) 104 ML/MIN (>60)
[2024-09-20 07:03] LABS: Albumin/Globulin Ratio 1.1 (1.1-1.8); Globulin 3.6 g/dL (1.3-3.2); Glucose 216 mg/dl (74-100); Magnesium 1.9 mg/dl (1.6-2.3); Total Protein,Serum 7.4 g/dl (6.3-8.2)
[2024-09-20 08:00] VITALS: BP 135/66; PULSE 86; RESP 18; TEMP 36.4; O2SAT 92
[2024-09-20] MEDS: guaiFENesin 600 MG TAB.ER.12H 1200 MG PO (08:31)
[2024-09-20] MEDS: IRBESARTAN 75MG TABLET 75 MG PO (08:31)
[2024-09-20] MEDS: METFORMIN 500MG TABLET 1000 MG PO (08:31)
[2024-09-20] MEDS: RIVAROXABAN 15MG TABLET 15 MG PO (08:31)
[2024-09-20] MEDS: ATENOLOL 25MG TABLET 25 MG PO (08:31)
--- NOTE | 2024-09-20 09:35 | EXP.PULM.PN ---
Subjective *Date: 09/20/24 *Time: 12:09 Interval history: No acute respiratory events overnight. Patient admits continued improvement in respiratory symptoms Pulmonology Exam Inpatient Vital signs and Labs for Last 24 Hours: Temp Pulse Resp BP Pulse Ox O2 Del Method O2 Flow Rate 98.1 F 80 22 157/86 H 91 L Nasal Cannula 3 09/20/24 03:53 09/20/24 03:53 09/20/24 03:53 09/20/24 03:53 09/20/24 03:53 09/20/24 07:00 09/20/24 07:00 Laboratory Results - last 24 hr 09/19/24 11:13: POC Glucose 392 H* 09/19/24 16:42: POC Glucose 360 H* 09/19/24 20:39: POC Glucose 347 H* 09/20/24 05:43: WBC 13.2 H, RBC 5.00, Hgb 14.1, Hct 47.0, MCV 94.0, MCH 28.2, MCHC 30.0 L, RDW 14.9, Plt Count 283, MPV 10.8 H, Neut % (Auto) 66.3, Lymph % (Auto) 22.4, [place] % (Auto) 8.6, Eos % (Auto) 0.4, Baso % (Auto) 0.4, Neut # (Auto) 8.7 H, Lymph # (Auto) 3.0, [place] # (Auto) 1.1 H, Eos # (Auto) 0.1, Baso # (Auto) 0.1, Sodium 139, Potassium 4.6, Chloride 103, Carbon Dioxide 35 H, Anion Gap 5.6, BUN 23 H, Creatinine 0.70, Estimated Creat Clear 83, Estimated GFR 86, Est GFR ( Amer) 104, Glucose 216 H D, Calcium 9.0, Magnesium 1.9 D, Total Bilirubin 0.2, AST 23, ALT 25, Alkaline Phosphatase 69, Total Protein 7.4, Albumin 3.8, Globulin 3.6 H, Albumin/Globulin Ratio 1.1 09/20/24 06:38: POC Glucose 191 H Temp Pulse Resp BP Pulse Ox O2 Del Method O2 Flow Rate 98.3 F 83 18 151/66 H 90 L Nasal Cannula 3 09/19/24 08:00 09/19/24 08:00 09/19/24 08:00 09/19/24 08:00 09/19/24 08:00 09/19/24 08:00 09/19/24 08:00 Laboratory Results - last 24 hr 09/18/24 18:23: VBG pH 7.36, VBG pCO2 54.0 H, VBG pO2 45.8 H, VBG HCO3 29.6, VBG Total CO2 31.3 H, VBG O2 Saturation 82.2 H, VBG Base Excess 4.1 H, VBG Lactic Acid 1.9 09/18/24 18:34: WBC 13.3 H, RBC 5.07, Hgb 15.1, Hct 47.1 H, MCV 92.9, MCH 29.8, MCHC 32.1, RDW 14.7, Plt Count 284, MPV 10.7 H, Neut % (Auto) 66.7, Lymph % (Auto) 23.1, [place] % (Auto) 6.3, Eos % (Auto) 1.7, Baso % (Auto) 0.5, Neut # (Auto) 8.9 H, Lymph # (Auto) 3.1, [place] # (Auto) 0.8, Eos # (Auto) 0.2, Baso # (Auto) 0.1, Sodium 139, Potassium 4.2, Chloride 100, Carbon Dioxide 35 H, Anion Gap 8.2, BUN 19 H, Creatinine 0.80, Estimated Creat Clear 73, Estimated GFR 74, Est GFR ( Amer) 89, Glucose 194 H, Calcium 9.2, Total Bilirubin 0.2, AST 22, ALT 29, Alkaline Phosphatase 76, Troponin I < 0.01, Total Protein 7.9, Albumin 4.0, Globulin 3.9 H, Albumin/Globulin Ratio 1.0 L 09/18/24 19:34: Chlamy pneumoniae PCR Not detected, Adenovirus (PCR) Not detected, B. pertussis DNA (PCR) Not detected, Coronavirus OC43 (PCR) Not detected, Coronavirus HKU1 (PCR) Not detected, Coronavirus 229E (PCR) Not detected, SARS-CoV-2 (PCR) Not detected, Coronavirus NL63 (PCR) Not detected, Human Metapneumovir PCR Detected A, Influenza A (H1) PCR Not detected, Influ A (H1N1/09) PCR Not detected, Influenza A (H3) PCR Not detected, Influenza Type A (PCR) Not detected, Influenza Type B (PCR) Not detected, M. pneumoniae (PCR) Not detected, Parainfluenza 1 (PCR) Not detected, Parainfluenza 2 (PCR) Not detected, Parainfluenza 3 (PCR) Not detected, Parainfluenza 4 (PCR) Not detected, RSV (PCR) Not detected, Entero/Rhino (PCR) Not detected 09/18/24 21:33: Troponin I < 0.01, NT-Pro-B Natriuret Pep 258 H 09/18/24 22:40: D-Dimer 0.72 H 09/19/24 00:22: Troponin I < 0.01 09/19/24 05:51: POC Glucose 308 H* 09/19/24 05:52: WBC 11.4 H, RBC 4.84, Hgb 14.2, Hct 44.9, MCV 92.8, MCH 29.3, MCHC 31.6 L, RDW 14.7, Plt Count 270, MPV 11.1 H, Neut % (Auto) 85.5 H, Lymph % (Auto) 10.5, [place] % (Auto) 1.5 L, Eos % (Auto) 0.0 L, Baso % (Auto) 0.3, Neut # (Auto) 9.7 H, Lymph # (Auto) 1.2, [place] # (Auto) 0.2, Eos # (Auto) 0.0, Baso # (Auto) 0.0, Sodium 136, Potassium 4.9, Chloride 99, Carbon Dioxide 31 H, Anion Gap 10.9, BUN 20 H, Creatinine 0.60 D, Estimated Creat Clear 97, Estimated GFR 103, Est GFR ( Amer) 125 D, Glucose 372 H D, Calcium 8.9, Phosphorus 3.5, Magnesium 1.5 L, Total Bilirubin 0.2, AST 22, ALT 28, Alkaline Phosphatase 72, Total Protein 7.5, Albumin 4.0, Globulin 3.5 H, Albumin/Globulin Ratio 1.1 I & O for Labs for Last 24 Hours: Intake & Output 09/17/24 09/18/24 09/19/24 09/20/24 23:59 23:59 23:59 23:59 Intake Total 1540 / 1790 550 / 550 Output Total 900 / 900 900 / 900 Balance 640 / 890 -350 / -350 Weight 300 lb 368 lb 368 lb 4.8 oz Intake & Output 09/16/24 09/17/24 09/18/24 09/19/24 23:59 23:59 23:59 23:59 Intake Total 740 / 740 Output Total 0 / 0 Balance 740 / 740 Weight 300 lb 368 lb Microbiology Reports for the Last 24 Hours: Microbiology 09/18/24 19:24 Blood Blood Culture - Preliminary NO GROWTH AFTER 24 HOURS 09/18/24 18:34 Blood Blood Culture - Preliminary NO GROWTH AFTER 24 HOURS Constitutional: Present moderate distress Head: Present normocephalic and atraumatic ENT: Present normal exam, normal oropharynx and mucous membranes moist Neck: Present normal inspection and full ROM Respiratory: Present respiratory distress, diminished air movement and able to speak in complete sentences; Absent rhonchi, wheezes or crackles Cardiac: Present S1/S2, Tachycardia and radial pulses present GI: Present soft and distention; Absent tenderness or guarding Rectal (female): Present deferred (female): Present deferred Skin: Present intact; Absent cyanosis or jaundice Neuro: Present alert, awake and oriented x 3 Extremities: Present normal inspection; Absent clubbing or cyanosis Psychiatric: Present normal affect and cooperative Assessment and Plan *Assessment and plan (1) Pulmonary embolism: Status: Acute Qualifiers: Acute cor pulmonale presence: without acute cor pulmonale Chronicity: acute Pulmonary embolism type: unspecified Qualified Code(s): I26.99 - Other pulmonary embolism without acute cor pulmonale Category: Medical Code(s): I26.99 - Other pulmonary embolism without acute cor pulmonale (2) Infection due to human metapneumovirus (hMPV): Status: Acute Category: Medical Code(s): B34.8 - Other viral infections of unspecified site (3) Acute exacerbation of chronic obstructive pulmonary disease: Status: Acute Category: Medical Code(s): J44.1 - Chronic obstructive pulmonary disease with (acute) exacerbation (4) Acute hypoxemic respiratory failure: Status: Acute Category: Medical Code(s): J96.01 - Acute respiratory failure with hypoxia (5) Hilar lymphadenopathy: Status: Acute Category: Medical Code(s): R59.0 - Localized enlarged lymph nodes (6) Mediastinal lymphadenopathy: Status: Acute Category: Medical Code(s): R59.0 - Localized enlarged lymph nodes Plan Ms. Acosta is a 58-year-old female current smoker greater than 69-[id number]-eobw smoking history presented to the ER with worsening respiratory distress and pulmonary was called for further evaluation and management. Admits using oxygen supplementation at night. Not using during the daytime. Using albuterol on an as-needed basis, needing it daily. Sedentary lifestyle. Afebrile. Hemodynamically stable. Neutrophilic predominant leukocytosis. Blood gas venous upon admission mild hypercarbic respiratory failure with a pH of 7.36 and pCO2 54. Respiratory viral PCR panel positive for human metapneumovirus. CTA upon admission, bilateral basilar segmental pulmonary embolism noted. D-dimer 0.72. Troponin less than 0.01, No dense consolidative/airspace changes noted. No evidence of right heart strain on CT imaging. Hilar and mediastinal lymphadenopathy similar to prior. On initial examination examination moderate respiratory distress. No significant wheezing noted on auscultation. Lower extremity varicose veins noted. Interval update: Bilateral lower extremity Doppler negative for DVT. Echocardiogram normal diastolic function. EF at 55%. RV size and function within normal limits. Blood cultures no growth 24 hours. Slight worsening leukocytosis. Improving oxygen requirements. Plan: -Incentive spirometry 3 times daily -Trelegy 100 inhaler along with DuoNebs 4 times daily. -Full dose anticoagulation for the noted pulmonary embolism. Currently receiving Xarelto. Likely unprovoked given her other core morbidities despite her current admission respiratory PCR panel resulted positive for metapneumovirus. Will continue anticoagulantion for at least 6 months and we will reevaluate the risk-benefit analysis to determine the need for long-term anticoagulation. Hematology follow-up as an outpatient basis for possible hypercoagulable workup. -No need for steroids or antibiotics at this point of time given continued clinical improvement. # For the noted hilar and mediastinal lymphadenopathy though similar cannot completely rule out underlying autoimmune disease/sarcoidosis especially in setting of having pulmonary embolism. Will consider EBUS FNA as an outpatient basis. # Thank you for involving pulmonary in this patient care. Will follow the patient in pulmonary clinic 2-3 weeks postdischarge
--- NOTE | 2024-09-20 11:00 | PC.NURSE ---
PATIENT IS 84% ON ROOM AIR AT REST.
[2024-09-20 11:43] VITALS: BP 137/72; PULSE 79; RESP 18; TEMP 36.6
[2024-09-20] MEDS: IBUPROFEN 400 MG TABLET PO (11:56)
--- NOTE | 2024-09-20 12:38 | EXP.DC.SUM ---
General Admission date:: 09/18/24 Discharge date: 09/20/24 HPI HPI HPI: This is a 58-year-old female with a history of COPD on room air, type 2 diabetes, hypertension, hypothyroidism, morbid obesity who presents with worsening shortness of breath. States that she has felt more short of breath since yesterday. Reports dyspnea with exertion. States that she wears nasal cannula while sleeping occasionally. Denies any chest pain. Reports cough. Denies fever. resp panel + metapneumovirus In the emergency department ECG normal sinus rhythm no ST deviations DuoNeb x 3, 125 of methylprednisolone for treatment. Labs white blood cell count of 13, unremarkable VBG with venous pH of 7.36 and mild CO2 retention with a PCO2 of 54 that is likely patient's baseline, undetectable troponin. XR suggests viral process with possibly developing consolidation started on ceftriaxone and azithromycin. CTA obtained demonstrating illing defects involving the bibasilar posterior segmental pulmonary arteries compatible with pulmonary embolism. RV/LV = 1.0, no right heart strain. History independently obtained. Diagnostics independently interpreted. Case discussed with ER physician. Old records reviewed. Hospital Course Hospital Course Hospital Course: 58-year-old female with pneumonia and acute hypoxic respiratory failure secondary to human metapneumovirus. Found to have segmental pulmonary emboli no RV strain. Pulmonology consulted to assist with care. Overall did well. Continues to require supplemental oxygen at discharge however. Will discharge home for close follow-up. Problems addressed as follows: Pneumonia, secondary to human metapneumovirus Acute hypoxic respiratory failure Leukocytosis - Presented with respiratory distress and imaging concerning for pneumonia. Respiratory panel found to be positive for human metapneumovirus. White count remained elevated, 13.2 on day of discharge. Pulmonology was consulted, recommended initiating Trelegy 100 inhaler and DuoNebs. Continue incentive spirometry. No indication for antibiotics at this time due to viral etiology. CTA of chest on admission also showed multiple pulmonary emboli. Likely unprovoked given her other comorbidities and viral infection. Initiated on anticoagulation. Transitioned to Xarelto therapeutic dosing at discharge. Only hematology follow-up as an outpatient for possible hypercoagulable workup. - Plan to follow-up with pulmonology as an outpatient for further management. Patient noted to have hilar mediastinal lymphadenopathy. Recommend evaluation as an outpatient for possible autoimmune/sarcoidosis. Will consider EBUS FNA as an outpatient. Segmental pulmonary emboli - Echo obtained, normal BiV systolic function with no valvular stenosis or regurgitation. Venous Doppler with no evidence of DVT bilaterally lower extremities.continue Xarelto 15 mg twice daily for 21 days, transition to 20 mg daily thereafter. Complete atleast 3 months of antibiotics. Hypertension: Continue irbesartan 75 mg daily, continue atenolol 25 mg daily Hyperlipidemia: Continue Lipitor 80 mg nightly Hypothyroid: Continue levothyroxine 200 mcg daily GERD: Continue pantoprazole 40 mg nightly Diabetes: -Resume home metformin twice daily. Continue sliding scale insulin with fingersticks ACHS. Total time spent on discharge 32 minutes in counseling, documentation, chart review, and direct care with patient. Room air saturation of 84% at rest on day of discharge. Continue nasal cannula oxygen Exam Data for Last 24 hours Vital signs and Labs for Last 24 Hours: Temp Pulse Resp BP Pulse Ox O2 Del Method O2 Flow Rate 97.9 F 79 18 137/72 92 L Nasal Cannula 3 09/20/24 11:43 09/20/24 11:43 09/20/24 11:43 09/20/24 11:43 09/20/24 08:00 09/20/24 12:29 09/20/24 12:29 Laboratory Results - last 24 hr 09/19/24 16:42: POC Glucose 360 H* 09/19/24 20:39: POC Glucose 347 H* 09/20/24 05:43: WBC 13.2 H, RBC 5.00, Hgb 14.1, Hct 47.0, MCV 94.0, MCH 28.2, MCHC 30.0 L, RDW 14.9, Plt Count 283, MPV 10.8 H, Neut % (Auto) 66.3, Lymph % (Auto) 22.4, [place] % (Auto) 8.6, Eos % (Auto) 0.4, Baso % (Auto) 0.4, Neut # (Auto) 8.7 H, Lymph # (Auto) 3.0, [place] # (Auto) 1.1 H, Eos # (Auto) 0.1, Baso # (Auto) 0.1, Sodium 139, Potassium 4.6, Chloride 103, Carbon Dioxide 35 H, Anion Gap 5.6, BUN 23 H, Creatinine 0.70, Estimated Creat Clear 83, Estimated GFR 86, Est GFR ( Amer) 104, Glucose 216 H D, Calcium 9.0, Magnesium 1.9 D, Total Bilirubin 0.2, AST 23, ALT 25, Alkaline Phosphatase 69, Total Protein 7.4, Albumin 3.8, Globulin 3.6 H, Albumin/Globulin Ratio 1.1 09/20/24 06:38: POC Glucose 191 H I & O for Last 24 hours: Intake & Output 09/17/24 09/18/24 09/19/24 09/20/24 23:59 23:59 23:59 23:59 Intake Total 1540 / 1790 550 / 550 Output Total 900 / 900 900 / 900 Balance 640 / 890 -350 / -350 Weight 136.078 kg 166.922 kg 167.058 kg Microbiology Reports for the Last 24 Hours: Microbiology 09/18/24 19:24 Blood Blood Culture - Preliminary NO GROWTH AFTER 24 HOURS 09/18/24 18:34 Blood Blood Culture - Preliminary NO GROWTH AFTER 24 HOURS Constitutional Constitutional: mild distress, morbidly obese, chronically ill appearing and cooperative *Routine HEENT Exam Head: Present normocephalic Eye: Present EOMI and PERRL ENT: Present mucous membranes moist *Routine Neck Exam Neck: Present supple; Absent lymphadenopathy *Routine Respiratory Exam Respiratory: Present rhonchi and normal respiratory effort; Absent wheezes or crackles *Routine Cardiovascular Exam Cardiovascular: Present RRR *Routine Abdominal Exam Abdominal: Present soft, normoactive bowel sounds and obese; Absent tenderness *Routine Rectal Exam Patient deferred: visual exam *Routine Exam Patient deferred: external exam *Routine Extremities Exam Extremities: Absent cyanosis, clubbing or edema *Routine Skin Exam Skin: Present warm; Absent rash *Routine Neurological Exam Neurological: Present alert, oriented X3 and moving all extremities; Absent altered mental status Results Data Completed and Pending Labs on day of discharge: Labs from last 24 hours 09/20/24 09/20/24 09/19/24 06:38 05:43 20:39 WBC 13.2 H RBC 5.00 Hgb 14.1 Hct 47.0 MCV 94.0 MCH 28.2 MCHC 30.0 L RDW 14.9 Plt Count 283 MPV 10.8 H Neut % (Auto) 66.3 Lymph % (Auto) 22.4 Wy[place] % (Auto) 8.6 Eos % (Auto) 0.4 Baso % (Auto) 0.4 Neut # (Auto) 8.7 H Lymph # (Auto) 3.0 Wy[place] # (Auto) 1.1 H Eos # (Auto) 0.1 Baso # (Auto) 0.1 Sodium 139 Potassium 4.6 Chloride 103 Carbon Dioxide 35 H Anion Gap 5.6 BUN 23 H Creatinine 0.70 Estimated Creat Clear 83 Estimated GFR 86 Est GFR ( Amer) 104 Glucose 216 H D POC Glucose 191 H 347 H* Calcium 9.0 Magnesium 1.9 D Total Bilirubin 0.2 AST 23 ALT 25 Alkaline Phosphatase 69 Total Protein 7.4 Albumin 3.8 Globulin 3.6 H Albumin/Globulin Ratio 1.1 09/19/24 16:42 WBC RBC Hgb Hct MCV MCH MCHC RDW Plt Count MPV Neut % (Auto) Lymph % (Auto) [place] % (Auto) Eos % (Auto) Baso % (Auto) Neut # (Auto) Lymph # (Auto) Wy[place] # (Auto) Eos # (Auto) Baso # (Auto) Sodium Potassium Chloride Carbon Dioxide Anion Gap BUN Creatinine Estimated Creat Clear Estimated GFR Est GFR ( Amer) Glucose POC Glucose 360 H* Calcium Magnesium Total Bilirubin AST ALT Alkaline Phosphatase Total Protein Albumin Globulin Albumin/Globulin Ratio Preliminary micro results at discharge 09/18/24 19:24 Blood Culture - Preliminary Blood NO GROWTH AFTER 24 HOURS 09/18/24 18:34 Blood Culture - Preliminary Blood NO GROWTH AFTER 24 HOURS DS: Diagnosis Discharge Diagnosis (1) Pulmonary embolism: Status: Acute Code(s): I26.99 - Other pulmonary embolism without acute cor pulmonale Qualifiers: Acute cor pulmonale presence: without acute cor pulmonale Chronicity: acute Pulmonary embolism type: unspecified Qualified Code(s): I26.99 - Other pulmonary embolism without acute cor pulmonale (2) Infection due to human metapneumovirus (hMPV): Status: Acute Code(s): B34.8 - Other viral infections of unspecified site (3) Acute exacerbation of chronic obstructive pulmonary disease: Status: Acute Code(s): J44.1 - Chronic obstructive pulmonary disease with (acute) exacerbation (4) Acute hypoxemic respiratory failure: Status: Acute Code(s): J96.01 - Acute respiratory failure with hypoxia (5) Hilar lymphadenopathy: Status: Acute Code(s): R59.0 - Localized enlarged lymph nodes (6) Mediastinal lymphadenopathy: Status: Acute Code(s): R59.0 - Localized enlarged lymph nodes Meds Home Medications and Allergies Home Medications ?Medication ?Instructions ?Recorded ?Confirmed ?Type losartan 50 mg tablet 50 mg PO DAILY Hypertension 30 12/16/23 09/18/24 Rx days #30 tabs metformin 500 mg tablet 1,000 mg (2 x 500 mg) PO BID 30 02/10/24 09/18/24 Rx days #120 tabs albuterol sulfate 90 mcg/actuation 2 puff inhalation Q6HP PRN 05/24/24 09/18/24 History aerosol inhaler shortness of breath or wheezing atenolol 25 mg tablet 25 mg PO DAILY 30 days #30 tabs 09/11/24 09/18/24 Rx levothyroxine 200 mcg capsule 200 mcg PO DAILY #30 caps 09/11/24 09/18/24 Rx megestrol 40 mg tablet 40 mg PO DAILY #30 tabs 09/11/24 09/18/24 Rx meloxicam 15 mg tablet 15 mg PO DAILY 09/18/24 09/18/24 History Held on 09/20/24. Instructions: do not take with anticoagulant atorvastatin 40 mg tablet 80 mg (2 x 40 mg) PO HS 30 days 09/20/24 Rx #60 tabs rivaroxaban 15 mg tablet (Xarelto) 15 mg PO BIDWMEAL #40 tabs 09/20/24 Rx rivaroxaban 20 mg tablet 20 mg PO HS #30 tabs 09/20/24 Rx New Prescriptions to Start Prescriptions: Raheem Wong rivaroxaban [Xarelto] Raheem Yung rivaroxaban Raheem Yung Allergies Allergy/AdvReac Type Severity Reaction Status Date / Time cephalexin Allergy Rash Verified 09/18/24 18:39 acetaminophen AdvReac Nausea Verified 09/18/24 18:39 Discharge Plan Disposition Patient Disposition: Home, Self-Care Condition: Fair Follow up Plan Follow up with: Allie Rodrigez APRN [Nurse Practitioner, Family Practice] - 09/26/24 1:00 pm Chance Reed MD [Physician, Pulmonology] - 10/12/24 1:00 pm Prescriptions/Medication Reconciliation: New atorvastatin 40 mg Tablet 80 mg PO HS 30 Days Qty: 60 0RF Xarelto 15 mg Tablet 15 mg PO BIDWMEAL Qty: 40 0RF rivaroxaban 20 mg tablet 20 mg PO HS Qty: 30 0RF Rx Instructions: start after completion of 15mg twice daily course (10/11/24) Continued losartan 50 mg tablet 50 mg PO DAILY 30 Days Qty: 30 3RF metformin 500 mg tablet 1,000 mg PO BID 30 Days Qty: 120 3RF levothyroxine 200 mcg capsule 200 mcg PO DAILY Qty: 30 3RF atenolol 25 mg tablet 25 mg PO DAILY 30 Days Qty: 30 3RF megestrol 40 mg tablet 40 mg PO DAILY Qty: 30 3RF albuterol sulfate 90 mcg/actuation HFA aerosol inhaler 2 puff inhalation Q6HP PRN (Reason: shortness of breath or wheezing) Held meloxicam 15 mg tablet 15 mg PO DAILY Hold Instructions: do not take with anticoagulant Discontinued simvastatin 80 mg tablet 80 mg PO HS 30 Days Qty: 30 3RF Problem Reconciliation Problems Reviewed?: Yes Patient Discharge Instructions ACTIVITY: Continue current activity DIET: continue same diet Patient Instructions: DI for Chronic Obstructive Pulmonary Disease, DI for Pulmonary Embolism, DI for Respiratory Failure, DI for Hypoxia, Stop Light Pneumonia, Stop Light COPD Print Language: Bengali Providers Primary Care Provider: Martinez Weaver Admit Provider: Raheem Yung Attending Provider: Raheem Yung
[2024-09-20 13:52] LABS: POC Glucose,Bedside 227 (70-110)
--- NOTE | 2024-09-21 11:54 | SW/DCPLANNER ---
Spoke with patient on the phone. Patient stated that she is okay but has a headache. Patient stated that she [facility] Patient stated that she is aware of her upcoming appointments. Patient stated that she has no concerns or questions at this time. Daniel Cornell
== END 2024-09-20 15:31 | disposition home or self-care (01) ==
LOC: ER 18:20 → 2ND 22:52
PROVIDERS: Student in an Organized Health Care Education/Training Program; Admitting Provider Internal Medicine Adolescent Medicine; Emergency Provider Student in an Organized Health Care Education/Training Program; PCP Family Medicine; Visit Provider Internal Medicine Adolescent Medicine
DX: J96.01 Acute respiratory failure with hypoxia (principal); I26.93 Single subsegmental thrombotic pulmonary embolism without acute cor pulmonale; J12.3 Human metapneumovirus pneumonia; D72.829 Elevated white blood cell count, unspecified; J44.1 Chronic obstructive pulmonary disease with (acute) exacerbation; I10 Essential (primary) hypertension; E89.0 Postprocedural hypothyroidism; E78.5 Hyperlipidemia, unspecified; K21.9 Gastro-esophageal reflux disease without esophagitis; E11.9 Type 2 diabetes mellitus without complications; J43.9 Emphysema, unspecified; E66.01 Morbid (severe) obesity due to excess calories; R59.0 Localized enlarged lymph nodes; F17.210 Nicotine dependence, cigarettes, uncomplicated; Z88.1 Allergy status to other antibiotic agents; Z88.6 Allergy status to analgesic agent; Z79.84 Long term (current) use of oral hypoglycemic drugs; Z99.81 Dependence on supplemental oxygen; Z85.048 Personal history of other malignant neoplasm of rectum, rectosigmoid junction, and anus; Z98.890 Other specified postprocedural states; Z85.850 Personal history of malignant neoplasm of thyroid; Z68.43 Body mass index [BMI] 50.0-59.9, adult; Z79.890 Hormone replacement therapy; Z79.899 Other long term (current) drug therapy
CPT/HCPCS: 0223U; 36415; 71046; 71275; 80053; 82803; 82962; 83735; 83880; 84100; 84484; 85025; 85378; 87040; 87070; 87205; 87633; 93005; 93306; 93970; 96374; 96375; 96376; 99285; G0378; J0456; J0696; J2919; J3475; J7050; Q9967

== ENCOUNTER 2024-10-02 13:25 | Emergency (ER) | payer OTHER, SELFPAY ==
[2024-10-02] VITALS (7 sets, daily range): BP systolic 109–139; BP diastolic 62–83; PULSE 63–98; RESP 17–20; TEMP 36.6; O2SAT 84–97; BMI 58.1
--- OUTSIDE RECORDS SUMMARY | 2024-10-02 14:24 | XMS_ITS | Data Portability ---
Author Organization [place] - [facility] Address [address] [place] [address] Assessment Encounter Date Assessment Date Assessment LastModified [...] Muro APRN, Horace Mayer MA and patient Saba dupree Not available 09/21/2019 10:26:51 04/15/2020 04/15/2020 [...] HbA1c (hemoglobi n A1c), blood 2020 021 [facility], [address], [address], [place], [address], 1 10:12:44 CMP, serum or plasma 2020 021 [facility], [address], [address], [place], [address], 1 10:12:43 CBC w/ auto diff 2020 021 [facility], [address], [address], [place], [address], 1 10:12:42 TSH + free T4, serum 2020 021 [facility], [address], [address], [place], [address], 1 10:12:41 T3, free, serum or plasma 2020 021 J[facility], [address], [address], [place], [address], 1 10:12:45 pathology study 2019 020 [facility], [address], [address], [place], [address], 0 13:08:37 Referral physical therapist referral 2020 021 joon [facility], [address], [place], [address], 1 13:01:33 bariatric surgery referral 2020 021 J[facility], [address] [facility], [place], [address], 1 05:00:57 endocrinol ogy referral 2019 020 [email or web address] Savana Jamison APRN, [address], [place], [address], 0 16:49:19 Procedures None recorded. Surgeries None recorded. Imaging XR, lumbar spine 2020 [facility], [address] [place] [address], [place], [address], 1 13:05:30 US, transvagin al 2019 [facility], [address] [place] [address] , [place], [address], 0 08:18:48 Medication Orders losartan 100 mg tablet 2020 [facility] [facility], [address] [place] [address], [address], 1 16:16:26 Diflucan 150 mg tablet 2020 [facility], [address] [place] [address], [place], [address], 1 16:13:41 methocarba mol 750 mg tablet 2020 [facility] [employer] [facility], [address] [place] [address], [address], 1 11:14:27 Solu-Medro l (PF) 125 mg/2 mL solution for injection 2020 [employer] [facility], [address] [place] [address], [address], 1 11:25:34 OneTouch Ultra Blue Test Strip 2019 [facility], [address] [place] [address], [address], 0 10:30:27 metformin 500 mg tablet 2019 [facility], [address] [place] [address], [address], 0 10:30:26 Patient TargetsNo targets recorded. Patient Instructions Encounter Date Encounter Id Patient Instructions Last Modified By Organization Details Last Modified Time 07/28/2019 [id number] 1. US images reviewed and discussed with patient. Anteverted uterus upper limits of normal size with 2 small fibroids with the largest measuring 1.7 cms. Endometrium measured 8 mm. Left ovary not visualized. Right ovary slightly enlarged without any obvious abnormality. Left ovary not visualized. 2. Recommend endometrial biopsy. [place] would like to schedule for another day. Not available 07/31/2019 08:22:01 08/30/2019 [id number] 1. Await pathology for further recommendations. She will need progestin therapy for any endometrial hyperplasia. Not available 08/30/2019 12:52:45 We will call abnormal test results in 7-10 days. Patient is advised that normal test results will be retrievable through [employer] Patient Portal and that they will be notified of the availability of normal results from [employer] by phone call, text or email. Not available 08/30/2019 12:52:49 09/21/2019 [id number] Plan for next steps: Not available 09/21/2019 [...] an evaluation and treatment plan as documented. [email or web address] Not available 09/21/2019 10:33:32 04/15/2020 [id number] body mass index: care instructions [email or web address] Not available 04/15/2020 11:13:39 learning about healthy weight [email or web address] Not available 04/15/2020 11:13:39 back care and preventing injuries: care instructions [email or web address] Not available 04/15/2020 11:13:39 getting back to normal after low back pain: care instructions [email or web address] Not available 04/15/2020 11:13:39 learning about relief for back pain [email or web address] Not available 04/15/2020 11:13:39 When You Want to Lose Weight: Care Instructions [email or web address] Not available 04/15/2020 11:16:11 plan on PT for low back pain as well as referral to bariatic surgery for weight loss options f.u if no improvement on back reports the muscle relaxants help that she got from the ER [email or web address] Not available 04/15/2020 12:53:00 02/17/2021 [id number] high blood pressure: care instructions [email or web address] Not available 02/17/2021 16:13:34 learning about high blood pressure [email or web address] Not available 02/17/2021 16:13:34 hypothyroidism: care instructions [email or web address] Not available 02/17/2021 16:13:34 Reason for Referral 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 Referring Physician: Claudia Muro [facility], Encounter Date: 09/21/2019 Physical Therapist Referral for Low back pain Referring Physician: Claudia Muro [facility], Encounter Date: 04/15/2020 Bariatric Surgery Referral f or Morbid obesity Referring Physician: Claudia Muro [facility], Encounter Date: 04/15/2020 Results Created Date Observation Date Name Description Value Unit Range Abnormal Flag Note LastModifiedBy Organization Detail LastModifiedTime 07/12/1907/13/2019 TSH + free T4, serum TSH 0.011 uIU/m L 0.450- 4.500 below low normal Not Available [facility] ([facility] [place] [facility] [address] [facility], [place], [address], 07/13/2019 06:14:15 07/12/1907/13/2019 TSH + free T4, serum T4,free(dire ct) 1.98 NG/dL 0.82-1 .77 above high normal Not Available [facility] ([facility] [address] [place], [address], 07/13/2019 06:14:15 07/12/1907/13/2019 CBC w/ auto diff WBC 10.8 x10e3 /uL 3.4-10 .8 Not Available [facility] ([facility] [address] [place], [address], 07/13/2019 06:14:16 07/12/1907/13/2019 CBC w/ auto diff RBC 5.32 x10e6 /uL 3.77-5 .28 above high normal Not Available [facility] ([facility] [address] [place], [address], 07/13/2019 06:14:16 07/12/1907/13/2019 CBC w/ auto diff hemoglobin 15.8 g/dL 11.1-1 5.9 Not Available [facility] ([facility] [address] [place], [address], 07/13/2019 06:14:16 07/12/1907/13/2019 CBC w/ auto diff hematocrit 46.8 % 34.0-4 6.6 above high normal Not Available [facility] ([facility]) [address] [place], [address], 07/13/2019 06:14:16 07/12/1907/13/2019 CBC w/ auto diff MCV 88 fL 79-97 Not Available [facility] ([facility] [address] [place], [address], 07/13/2019 06:14:16 07/12/1907/13/2019 CBC w/ auto diff MCH 29.7 pg 26.6-3 3.0 Not Available [facility] ([facility] [address] [place], [address], 07/13/2019 06:14:16 07/12/19 20 07/13/2019 CBC w/ auto diff MCHC 33.8 g/dL 31.5-3 5.7 Not Available [facility] ([facility] [address] [facility], [place], [address], 07/13/2019 06:14:16 07/12/1907/13/2019 CBC w/ auto diff RDW 15.4 % 11.7-1 5.4 Not Available [facility] ([facility] [address] [facility], [place], [address], 07/13/2019 06:14:16 07/12/1907/13/2019 CBC w/ auto diff platelets 319 x10e3 /uL 150-45 0 Not Available [facility] ([facility] [address] [facility], [place], [address], 07/13/2019 06:14:16 07/12/1907/13/2019 CBC w/ auto diff neutrophils 67 % not estab. Not Available [facility] ([facility] [address] [facility], [place], [address], 07/13/2019 06:14:16 07/12/1907/13/2019 CBC w/ auto diff lymphs 22 % not estab. Not Available [facility] ([facility] [address] [facility], [place], [address], 07/13/2019 06:14:16 07/12/1907/13/2019 CBC w/ auto diff monocytes 8 % not estab. Not Available [facility] ([facility] [address] [place], [address], 07/13/2019 06:14:16 07/12/1907/13/2019 CBC w/ auto diff eos 2 % not estab. Not Available [facility] ([facility] [address] [place], [address], 07/13/2019 06:14:16 07/12/19 20 07/13/2019 CBC w/ auto diff basos 0 % not estab. Not Available [facility] ([facility] [address] [place], [address], 07/13/2019 06:14:16 07/12/19 20 07/13/2019 CBC w/ auto diff immature cells GEM EXPERT Not Available [facility] ([facility] [address] [place], [address], 07/13/2019 06:14:16 07/12/1907/13/2019 CBC w/ auto diff neutrophils (absolute) 7.4 x10e3 /uL 1.4-7. 0 above high normal Not Available [facility] ([facility] [address] [place], [address], 07/13/2019 06:14:16 07/12/19 20 07/13/2019 CBC w/ auto diff lymphs (absolute) 2.3 x10e3 /uL 0.7-3. 1 Not Available [facility] ([facility] [address] [place], [address], 07/13/2019 06:14:16 07/12/19 20 07/13/2019 CBC w/ auto diff monocytes(ab solute) 0.9 x10e3 /uL 0.1-0. 9 Not Available [facility] ([facility] [place] [facility] [address] [place], [address], 07/13/2019 06:14:16 07/12/1907/13/2019 CBC w/ auto diff eos (absolute) 0.2 x10e3 /uL 0.0-0. 4 Not Available [facility] ([facility] [address] [place], [address], 07/13/2019 06:14:16 07/12/19 20 07/13/2019 CBC w/ auto diff baso (absolute) 0.0 x10e3 /uL 0.0-0. 2 Not Available [facility] ([facility] [address] [place], [address], 07/13/2019 06:14:16 07/12/1907/13/2019 CBC w/ auto diff immature granulocytes 1 % not estab. Not Available [facility] ([facility] [address] [place], [address], 07/13/2019 06:14:16 07/12/1907/13/2019 CBC w/ auto diff immature grans (abs) 0.1 x10e3 /uL 0.0-0. 1 Not Available [facility] ([facility] [place] [facility] [address] [place], [address], 07/13/2019 06:14:16 07/12/1907/13/2019 CBC w/ auto diff NRBC GEM EXPERT Not Available [facility] ([facility] [place] [facility] [address] [place], [address], 07/13/2019 06:14:16 07/12/1907/13/2019 CBC w/ auto diff hematology comments: GEM EXPERT Not Available [facility] ([facility] [place] [facility] [address] [place], [address], 07/13/2019 06:14:16 07/12/1907/13/2019 CMP, serum or plasm a glucose 119 mg/dL 65-99 above high normal Not Available [facility] ([facility] [address] [place], [address], 07/13/2019 06:14:17 07/12/1907/13/2019 CMP, serum or plasm a BUN 9 mg/dL 6-24 Not Available [facility] ([facility] [place] [facility] [address] [place], [address], 07/13/2019 06:14:17 07/12/1907/13/2019 CMP, serum or plasm a creatinine 0.68 mg/dL 0.57-1 .00 Not Available [facility] ([facility] [place] [facility] [address] [facility] [place], [address], 07/13/2019 06:14:17 07/12/19 20 07/13/2019 CMP, serum or plasm a eGFR if nonafricn AM 101 mL/mi n/1.7 3 >59 Not Available [facility] ([facility] [address] [facility] [place], [address], 07/13/2019 06:14:17 07/12/19 20 07/13/2019 CMP, serum or plasm a eGFR if africn AM 116 mL/mi n/1.7 3 >59 Not Available [facility] ([facility] [place] [facility] [address] [facility] [place], [address], 07/13/2019 06:14:17 07/12/1907/13/2019 CMP, serum or plasm a BUN/creatini ne ratio 13 9-23 Not Available [facility] ([facility] [place] [facility] [address] [facility] [place], [address], 07/13/2019 06:14:17 07/12/1907/13/2019 CMP, serum or plasm a sodium 140 mmol/ L 134-14 4 Not Available [facility] ([facility] [place] [facility] [address] [facility] [place], [address], 07/13/2019 06:14:17 07/12/1907/13/2019 CMP, serum or plasm a potassium 4.5 mmol/ L 3.5-5. 2 Not Available [facility] ([facility] [place] [facility] [address] [facility] [place], [address], 07/13/2019 06:14:17 07/12/1907/13/2019 CMP, serum or plasm a chloride 99 mmol/ L 96-106 Not Available [facility] ([facility] [place] [facility] [address] [facility] [place], [address], 07/13/2019 06:14:17 07/12/1907/13/2019 CMP, serum or plasm a carbon dioxide, total 24 mmol/ L 20- Not Available [facility] ([facility] [place] [facility] [address] [place], [address], 07/13/2019 06:14:17 07/12/1907/13/2019 CMP, serum or plasm a calcium 9.6 mg/dL 8.7-10 .2 Not Available [facility] ([facility] [place] [facility] [address] [place], [address], 07/13/2019 06:14:17 07/12/1907/13/2019 CMP, serum or plasm a protein, total 7.2 g/dL 6.0-8. 5 Not Available [facility] ([facility] [place] [facility] [address] [place], [address], 07/13/2019 06:14:17 07/12/1907/13/2019 CMP, serum or plasm a albumin 4.2 g/dL 3.8-4. 9 Not Available [facility] ([facility] [place] [facility] [address] [place], [address], 07/13/2019 06:14:17 07/12/1907/13/2019 CMP, serum or plasm a globulin, total 3.0 g/dL 1.5-4. 5 Not Available [facility] ([facility] [place] [facility] [address] [place], [address], 07/13/2019 06:14:17 07/12/1907/13/2019 CMP, serum or plasm a A/G ratio 1.4 1.2-2. 2 Not Available [facility] ([facility] [place] [facility] [address] [place], [address], 07/13/2019 06:14:17 07/12/1907/13/2019 CMP, serum or plasm a bilirubin, total 0.4 mg/dL 0.0-1. 2 Not Available [facility] ([facility] [place] [facility] [address] [facility], [place], [address], 07/13/2019 06:14:17 07/12/1907/13/2019 CMP, serum or plasm a alkaline phosphatase 87 IU/L 39-117 Not Available [facility] ([facility] [place] [facility] [address] [facility] [place], [address], 07/13/2019 06:14:17 07/12/1907/13/2019 CMP, serum or plasm a AST (SGOT) 20 IU/L 0-40 Not Available [facility] ([facility] [place] [facility] [address] [facility] [place], [address], 07/13/2019 06:14:17 07/12/1907/13/2019 CMP, serum or plasm a ALT (SGPT) 34 IU/L 0-32 above high normal Not Available [facility] ([facility] [place] [facility] [address] [place], [address], 07/13/2019 06:14:17 07/12/1907/13/2019 lipid panel , serum cholesterol, total 201 mg/dL 100-19 9 above high normal Not Available [facility] ([facility] [place] [facility] [address] [facility], [place], [address], 07/13/2019 06:14:18 07/12/1907/13/2019 lipid panel , serum triglyceride s 119 mg/dL 0-149 Not Available [facility] ([facility] [place] [facility] [address] [place], [address], 07/13/2019 06:14:18 07/12/1907/13/2019 lipid panel , serum HDL cholesterol 49 mg/dL >39 Not Available [facility] [place] [facility] [address] [facility] [place], [address], 07/13/2019 06:14:18 07/12/1907/13/2019 lipid panel , serum VLDL cholesterol courtney 24 mg/dL 5-40 Not Available [facility] ([facility] [place] [facility] [address] [place], [address], 07/13/2019 06:14:18 07/12/1907/13/2019 lipid panel , serum LDL cholesterol calc 128 mg/dL 0-99 above high normal Not Available [facility] ([facility] [place] [facility] [address] [place], [address], 07/13/2019 06:14:18 07/12/1907/13/2019 lipid panel , serum comment: GEM EXPERT Not Available [facility] ([facility] [address] [place], [address], 07/13/2019 06:14:18 07/12/1907/13/2019 HbA1c (hemo globi n A1c), blood hemoglobin A1C 6.2 % 4.8-5. 6 above high normal Predi abete s: 5.7 - 6.4 Diabe ousmane: >6.4 Glyce prashant contr ol for adult s with diabe ousmane: <7.0 Not Available [facility] ([facility] [place] [facility] [address] [place], [address], 07/13/2019 06:14:18 07/12/1907/13/2019 T3, free, serum or plasm a triiodothyro nine (T3), free 3.2 pg/mL 2.0-4. 4 Not Available [facility] ([facility] [place] [facility] [address] [place], [address], 07/13/2019 06:14:19 07/12/1907/13/2019 pap, IG + CT/NG + HR HPV + refle x HPV (16+1 8) diagnosis: Commen t NEGAT PAYTON FOR INTRA EPITH ELIAL LESIO N OR REGINE MACK . TRICH OMONA S VAGIN CALLI IS PRESE NT. CELLU LAR YANG ES ASSOC IATED WITH INFLA MMATI ON ARE PRESE NT. Not Available [facility] ([facility] [place] [facility] [address] [place], [address], 07/13/2019 20:07:26 07/12/19 20 07/13/2019 pap, IG + CT/NG + HR HPV + refle x HPV (16+1 8) specimen adequacy: Nikki murphy Satis facto ry for evalu ation . Endoc ervic al and/o r squam ous metap lasti c cells (endo cervi courtney compo nent) are prese nt. Not Available [facility] ([facility] [address] [facility], [place], [address], 07/13/2019 20:07:26 07/12/19 20 07/13/2019 pap, IG + CT/NG + HR HPV + refle x HPV (16+1 8) clinician provided ICD10: Nikki murphy N95.0 Z12.4 N89.8 Not Available [facility] ([facility] [place] [facility] [address] [facility], [place], [address], 07/13/2019 20:07:26 07/12/19 20 07/13/2019 pap, IG + CT/NG + HR HPV + refle x HPV (16+1 8) performed by: Nikki hanson, Tarsha murphy (ASCP ) Not Available [facility] ([facility] [address] [facility], [place], [address], 07/13/2019 20:07:26 07/12/19 20 07/13/2019 pap, IG + CT/NG + HR HPV + refle x HPV (16+1 8) . . Not Available [facility] ([facility] [address] [place], [address], 07/13/2019 20:07:26 07/12/19 20 07/13/2019 pap, IG + CT/NG + HR HPV + refle x HPV (16+1 8) note: Nikki murphy The Pap smear is a scree ammy test desfartun gupta to aid in the detec tion of chris ligna nt and malig nant condi tions of the uteri ne cervi x. It is not a diagn ostic proce dure and shoul d not be used as the sole means of detec ting cervi courtney cance r. Both false -posi tive and false -nega tive repor ts do occur . Not Available [facility] ([facility] [address] [place], [address], 07/13/2019 20:07:26 07/12/19 20 07/13/2019 pap, IG + CT/NG + HR HPV + refle x HPV (16+1 8) test methodology: Commen t This liqui d based ThinP rep(R ) pap test was cholo gupta with the use of an image guide alberto epstein Not Available [facility] ([facility] [address] [place], [address], 07/13/2019 20:07:26 07/12/19 20 07/13/2019 pap, IG + CT/NG + HR HPV + refle x HPV (16+1 8) HPV, high-risk Negati ve negati ve This nucle ic acid ampli ficat ion high- risk HPV test detec ts thirt een high- risk types (16,1 8,31, 33,35 ,39,4 5,51, 52,56 ,58,5 9,68) witho ut diffe renti ation . Not Available [facility] ([facility] [address] [place], [address], 07/13/2019 20:07:26 07/12/1907/13/2019 pap, IG + CT/NG + HR HPV + refle x HPV (16+1 8) chlamydia, nuc. acid amp Negati ve negati ve Not Available [facility] ([facility] [address] [place], [address], 07/13/2019 20:07:26 07/12/19 20 07/13/2019 pap, IG + CT/NG + HR HPV + refle x HPV (16+1 8) gonococcus, nuc. acid amp Negati ve negati ve Not Available [facility] ([facility] [address] [place], [address], 07/13/2019 20:07:26 07/12/19 20 07/18/2019 bacte rial vagin osis + vagin itis panel , vagin al trich vag by MAX Positi ve negati ve abnormal Not Available [facility] ([facility] [place] [facility] [address] [facility], [place], [address], 07/19/2019 06:15:11 07/12/19 20 07/19/2019 bacte rial vagin osis + vagin itis panel , vagin al atopobium vaginae High - 2 score abnormal Not Available [facility] ([facility] [address] [place], [address], 07/19/2019 06:15:11 07/12/1907/19/2019 bacte rial vagin osis + vagin itis panel , vagin al bvab 2 High - 2 score abnormal Not Available [facility] ([facility] [address] [place], [address], 07/19/2019 06:15:11 07/12/1907/19/2019 bacte rial vagin osis [...] clear ance or appro zuleyma is not manuel farfan. Not Available [facility] ([facility] [address] [place], [address], 07/19/2019 06:15:11 07/12/1907/19/2019 bacte rial vagin osis + vagin itis panel , vagin al rashawn albicans, MAX Negati ve negati ve Not Available [facility] ([facility] [address] [place], [address], 07/19/2019 06:15:11 07/12/1907/19/2019 bacte rial vagin osis + vagin itis panel , vagin al rashawn glabrata, MAX Negati ve negati ve Not Available [facility] ([facility] [address] [place], [address], 07/19/2019 06:15:11 07/12/1907/13/2019 lh + FSH, serum LH 21.7 mIU/m L Adult Femal e: Folli cular phase 2.4 - 12.6 Ovula tion phase 14.0 - 95.6 Lutea l phase 1.0 - 11.4 Postm enopa usal 7.7 - 58.5 Not Available [facility] ([facility] [address] [place], [address], 07/19/2019 06:15:11 07/12/1907/13/2019 lh + FSH, serum FSH 18.9 mIU/m L Adult Femal e: Folli cular phase 3.5 - 12.5 Ovula tion phase 4.7 - 21.5 Lutea l phase 1.7 - 7.7 Postm enopa usal 25.8 - 134.8 Not Available [facility] ([facility] [address] [place], [address], 07/19/2019 06:15:11 07/12/1907/13/2019 estra diol, serum estradiol 26.9 pg/mL Adult Femal e: Folli cular phase 12.5 - 166.0 Ovula tion phase 85.8 - 498.0 Lutea l phase 43.8 - 211.0 Postm enopa usal <6.0 - 54.7 Pregn cortney 1st trime ster 215.0 - >4300 .0 Girls (1-10 years ) 6.0 - 27.0 Dewayne ECLIA metho dolog y Not Available [facility] ([facility] [address] [facility], [place], [address], 07/19/2019 06:15:12 08/30/1909/01/2019 patho logy study . Commen t Mater ial submi tted: . endom etriu m - ENDOM ETRIA L BIOPS Y Not Available [facility] ([facility] [address] [facility], [place], [address], 09/01/2019 13:08:37 08/30/1909/01/2019 patho logy study . [...] NO ATYPI A OR MALIG FREDERICK . [facility] 08/31 1250 Local Not Available [facility] ([facility] [address] [place], [address], 09/01/2019 13:08:37 08/30/19 20 09/01/2019 patho logy study . Commtatiana t Britney brumfield d: . Kelsea guajardo MD, Patho logis t Not Available [facility] ([facility] [address] [place], [address], 09/01/2019 13:08:37 08/30/19 20 09/01/2019 patho logy study . Commtatiana t Gross descr iptio n: . 1 Conta [...] AV 08/30 0720 Local Not Available [facility] ([facility] [address] [facility], [place], [address], 09/01/2019 13:08:37 08/30/19 20 09/01/2019 patho logy study . Commtatiana t Patho logis t provi ded ICD-1 0: N85.8 Not Available [facility] ([facility] [address] [place], [address], 09/01/2019 13:08:37 08/30/19 20 09/01/2019 patho logy study . Commtatiana t CPT . 68842 1 Not Available [facility] ([facility] [address] [facility], [place], [address], 09/01/2019 13:08:37 02/18/20 21 02/18/2021 TSH+F REE T4 TSH 0.010 uIU/m L 0.450- 4.500 below low normal Not Available [facility] ([facility] [address] [facility], [place], [address], 02/18/2021 10:12:41 02/18/20 21 02/18/2021 TSH+F REE T4 T4,free(dire ct) 2.26 NG/dL 0.82-1 .77 above high normal Not Available [facility] ([facility] [address] [facility], [place], [address], 02/18/2021 10:12:41 02/18/20 21 02/18/2021 CBC WITH DIFFE RENTI AL/PL ATELE T WBC 12.1 x10e3 /uL 3.4-10 .8 above high normal Not Available [facility] ([facility] [place] [facility] [address] [facility], [place], [address], 02/18/2021 10:12:42 02/18/20 21 02/18/2021 CBC WITH DIFFE RENTI AL/PL ATELE T RBC 5.31 x10e6 /uL 3.77-5 .28 above high normal Not Available [facility] ([facility] [place] [place] [facility] [address] [place], [address], 02/18/2021 10:12:42 02/18/20 21 02/18/2021 CBC WITH DIFFE RENTI AL/PL ATELE T hemoglobin 15.3 g/dL 11.1-1 5.9 Not Available [facility] ([facility] [place] [place] [facility] [address] [place], [address], 02/18/2021 10:12:42 02/18/20 21 02/18/2021 CBC WITH DIFFE RENTI AL/PL ATELE T hematocrit 45.0 % 34.0-4 6.6 Not Available [facility] ([facility] [place] [place] [facility] [address] [facility], [place], [address], 02/18/2021 10:12:42 02/18/20 21 02/18/2021 CBC WITH DIFFE RENTI AL/PL ATELE T MCV 85 fL 79-97 Not Available [facility] ([facility] [place] [place] [facility] [address] [facility], [place], [address], 02/18/2021 10:12:42 02/18/20 21 02/18/2021 CBC WITH DIFFE RENTI AL/PL ATELE T MCH 28.8 pg 26.6-3 3.0 Not Available [facility] ([facility] [place] [place] [facility] [address] [facility], [place], [address], 02/18/2021 10:12:42 02/18/20 21 02/18/2021 CBC WITH DIFFE RENTI AL/PL ATELE T MCHC 34.0 g/dL 31.5-3 5.7 Not Available [facility] ([facility] [place] [place] [facility] [address] [facility], [place], [address], 02/18/2021 10:12:42 02/18/20 21 02/18/2021 CBC WITH DIFFE RENTI AL/PL ATELE T RDW 14.2 % 11.7-1 5.4 Not Available [facility] ([facility] [place] [place] [facility] [address] [facility], [place], [address], 02/18/2021 10:12:42 02/18/20 21 02/18/2021 CBC WITH DIFFE RENTI AL/PL ATELE T platelets 383 x10e3 /uL 150-45 0 Not Available [facility] ([facility] [place] [place] [facility]) [address] [facility], [place], [address], 02/18/2021 10:12:42 02/18/20 21 02/18/2021 CBC WITH DIFFE RENTI AL/PL ATELE T neutrophils 63 % not estab. Not Available [facility] ([facility] [place] [place] [facility]) [address] [place], [address], 02/18/2021 10:12:42 02/18/20 21 02/18/2021 CBC WITH DIFFE RENTI AL/PL ATELE T lymphs 24 % not estab. Not Available [facility] ([facility] [place] [place] [facility] [address] [facility], [place], [address], 02/18/2021 10:12:42 02/18/20 21 02/18/2021 CBC WITH DIFFE RENTI AL/PL ATELE T monocytes 7 % not estab. Not Available [facility] ([facility] [place] [place] [facility]) [address] [facility], [place], [address], 02/18/2021 10:12:42 02/18/20 21 02/18/2021 CBC WITH DIFFE RENTI AL/PL ATELE T eos 3 % not estab. Not Available [facility] ([facility] [place] [place] [facility] [address] [place], [address], 02/18/2021 10:12:42 02/18/20 21 02/18/2021 CBC WITH DIFFE RENTI AL/PL ATELE T basos 1 % not estab. Not Available [facility] ([facility] [place] [place] [facility]) [address] [facility], [place], [address], 02/18/2021 10:12:42 02/18/20 21 02/18/2021 CBC WITH DIFFE RENTI AL/PL ATELE T immature cells GEM EXPERT Not Available [facility] ([facility] [place] [place] [facility]) [address] [place], [address], 02/18/2021 10:12:42 02/18/20 21 02/18/2021 CBC WITH DIFFE RENTI AL/PL ATELE T neutrophils (absolute) 7.7 x10e3 /uL 1.4-7. 0 above high normal Not Available [facility] ([facility] [place] [place] [facility]) [address] [place], [address], 02/18/2021 10:12:42 02/18/20 21 02/18/2021 CBC WITH DIFFE RENTI AL/PL ATELE T lymphs (absolute) 2.9 x10e3 /uL 0.7-3. 1 Not Available [facility] ([facility] [place] [place] [facility]) [address] [place], [address], 02/18/2021 10:12:42 02/18/20 21 02/18/2021 CBC WITH DIFFE RENTI AL/PL ATELE T monocytes(ab solute) 0.9 x10e3 /uL 0.1-0. 9 Not Available [facility] ([facility] [place] [place] [facility] [address] [facility], [place], [address], 02/18/2021 10:12:42 02/18/20 21 02/18/2021 CBC WITH DIFFE RENTI AL/PL ATELE T eos (absolute) 0.4 x10e3 /uL 0.0-0. 4 Not Available [facility] ([facility] [place] [place] [facility] [address] [facility], [place], [address], 02/18/2021 10:12:42 02/18/20 21 02/18/2021 CBC WITH DIFFE RENTI AL/PL ATELE T baso (absolute) 0.1 x10e3 /uL 0.0-0. 2 Not Available [facility] ([facility] [place] [place] [facility] [address] [facility], [place], [address], 02/18/2021 10:12:42 02/18/20 21 02/18/2021 CBC WITH DIFFE RENTI AL/PL ATELE T immature granulocytes 2 % not estab. Not Available [facility] ([facility] [place] [place] [facility] [address] [place], [address], 02/18/2021 10:12:42 02/18/20 21 02/18/2021 CBC WITH [...] locyt es witho ut clini courtney signi lauren ce.) Not Available [facility] ([facility] [place] [place] [facility]) [address] [facility], [place], [address], 02/18/2021 10:12:42 02/18/20 21 02/18/2021 CBC WITH DIFFE RENTI AL/PL ATELE T NRBC GEM EXPERT Not Available [facility] ([facility] [place] [place] [facility]) [address] [facility], [place], [address], 02/18/2021 10:12:42 02/18/20 21 02/18/2021 CBC WITH DIFFE RENTI AL/PL ATELE T hematology comments: GEM EXPERT Not Available [facility] ([facility] [place] [place] [facility] [address] [facility], [place], [address], 02/18/2021 10:12:42 02/18/20 21 02/18/2021 COMP. METAB OLIC PANEL (14) glucose 110 mg/dL 65-99 above high normal Not Available [facility] ([facility] [place] [place] [facility] [address] [facility], [place], [address], 02/18/2021 10:12:43 02/18/20 21 02/18/2021 COMP. METAB OLIC PANEL (14) BUN 11 mg/dL 6-24 Not Available [facility] ([facility] [place] [place] [facility] [address] [facility], [place], [address], 02/18/2021 10:12:43 02/18/20 21 02/18/2021 COMP. METAB OLIC PANEL (14) creatinine 0.67 mg/dL 0.57-1 .00 Not Available [facility] ([facility] [place] [place] [facility] [address] [facility] [place], [address], 02/18/2021 10:12:43 02/18/20 21 02/18/2021 COMP. METAB OLIC PANEL (14) eGFR if nonafricn AM 100 mL/mi n/1.7 3 >59 Not Available [facility] ([facility] [place] [place] [facility] [address] [facility], [place], [address], 02/18/2021 10:12:43 02/18/20 21 02/18/2021 COMP. METAB [...] a race varia ble. Not Available [facility] ([facility] [place] [place] [facility]) [address] [facility], [place], [address], 02/18/2021 10:12:43 02/18/20 21 02/18/2021 COMP. METAB OLIC PANEL (14) BUN/creatini ne ratio 16 9-23 Not Available [facility] ([facility] [place] [place] [facility]) [address] [facility], [place], [address], 02/18/2021 10:12:43 02/18/20 21 02/18/2021 COMP. METAB OLIC PANEL (14) sodium 142 mmol/ L 134-14 4 Not Available [facility] ([facility] [place] [place] [facility] [address] [facility], [place], [address], 02/18/2021 10:12:43 02/18/20 21 02/18/2021 COMP. METAB OLIC PANEL (14) potassium 5.2 mmol/ L 3.5-5. 2 Not Available [facility] ([facility] [place] [place] [facility] [address] [place], [address], 02/18/2021 10:12:43 02/18/20 21 02/18/2021 COMP. METAB OLIC PANEL (14) chloride 101 mmol/ L 96-106 Not Available [facility] ([facility] [place] [place] [facility] [address] [place], [address], 02/18/2021 10:12:43 02/18/20 21 02/18/2021 COMP. METAB OLIC PANEL (14) carbon dioxide, total 23 mmol/ L 20-29 Not Available [facility] ([facility] [place] [place] [facility] [address] [facility], [place], [address], 02/18/2021 10:12:43 02/18/20 21 02/18/2021 COMP. METAB OLIC PANEL (14) calcium 9.8 mg/dL 8.7-10 .2 Not Available [facility] ([facility] [place] [place] [facility]) [address] [facility], [place], [address], 02/18/2021 10:12:43 02/18/20 21 02/18/2021 COMP. METAB OLIC PANEL (14) protein, total 7.3 g/dL 6.0-8. 5 Not Available [facility] ([facility] [place] [place] [facility]) [address] [facility] [place], [address], 02/18/2021 10:12:43 02/18/20 21 02/18/2021 COMP. METAB OLIC PANEL (14) albumin 4.0 g/dL 3.8-4. 9 Not Available [facility] ([facility] [place] [place] [facility] [address] [facility] [place], [address], 02/18/2021 10:12:43 02/18/20 21 02/18/2021 COMP. METAB OLIC PANEL (14) globulin, total 3.3 g/dL 1.5-4. 5 Not Available [facility] ([facility] [place] [place] [facility] [address] [facility] [place], [address], 02/18/2021 10:12:43 02/18/20 21 02/18/2021 COMP. METAB OLIC PANEL (14) A/G ratio 1.2 1.2-2. 2 Not Available [facility] ([facility] [place] [place] [facility] [address] [facility] [place], [address], 02/18/2021 10:12:43 02/18/20 21 02/18/2021 COMP. METAB OLIC PANEL (14) bilirubin, total <0.2 mg/dL 0.0-1. 2 Not Available [facility] ([facility] [place] [place] [facility] [address] [place], [address], 02/18/2021 10:12:43 02/18/20 21 02/18/2021 COMP. METAB OLIC PANEL (14) alkaline phosphatase 87 IU/L 44-121 Ple ase note refer ence inter zuleyma yang e Not Available [facility] ([facility] [place] [place] [facility]) [address] [place], [address], 02/18/2021 10:12:43 02/18/20 21 02/18/2021 COMP. METAB OLIC PANEL (14) AST (SGOT) 30 IU/L 0-40 Not Available [facility] ([facility] [place] [place] [facility] [address] [place], [address], 02/18/2021 10:12:43 02/18/20 21 02/18/2021 COMP. METAB OLIC PANEL (14) ALT (SGPT) 47 IU/L 0-32 above high normal Not Available [facility] ([facility] [place] [place] [facility] [address] [place], [address], 02/18/2021 10:12:43 02/18/20 21 02/18/2021 HEMOG LOBIN A1C hemoglobin A1C 7.1 % 4.8-5. 6 above high normal Predi abete s: 5.7 - 6.4 Diabe ousmane: >6.4 Glyce prashant contr ol for adult s with diabe ousmane: <7.0 Not Available [facility] ([facility] [place] [place] [facility] [address] [place], [address], 02/18/2021 10:12:44 02/18/20 21 02/18/2021 TRIIO DOTHY SIMONE E (T3), FREE triiodothyro nine (T3), free 3.1 pg/mL 2.0-4. 4 Not Available [facility] ([facility] [place] [place] [facility] [address] [facility], [place], [address], 02/18/2021 10:12:45 02/18/20 21 02/17/2021 DESIREE Gomez NOTE please note Commen t The date and/o r time of colle ction was not indic ated on the requi sitio n as requi red by state and letty al law. The date of recei pt of the speci men was used as the colle ction date if not suppl ied. Not Available [facility] ([facility] [place] [place] [facility] [address] [facility], [place], [address], 02/18/2021 10:12:46 07/28/19 20 US, trans vagin al No observ ation record ed. Not Available 2019 08:21:00 07/31/19 20 07/28/2019 US, trans vagin al No observ ation record ed. [email or web address] [place] [facility] [address] [place] [address] , [place], [address], 07/31/2019 09:25:52 07/31/19 20 07/28/2019 US, trans vagin al No observ ation record ed. BARCODE [place] [facility] [address] [place] [address] , [place], [address], 07/31/2019 09:06:25 04/15/19 21 XR, lumba r spine No observ ation record ed. [facility] [address], [place], [address], 04/15/2020 13:37:05 Result Notes None recorded. Problems Name Problem SNOMED Code Status Onset Date Resolution Date Notes Provider Name and Address Organization Details Recorded Time Chronic obstructive pulmonary disease 82895367 Active 2017 EDI Santos - [facility] 8 09:11:47 Hypothyroidism 85556631 Active 2017 EDI Santos - [facility] 8 09:11:53 Hypertensive disorder 70337752 Active 2017 Horacegraham Mayer null, [place] - [facility] 8 09:12:11 Arthritis 2739335 Active 2017 Horacegraham Mayer null, [place] - [facility] 8 09:12:15 Gastroesophage al reflux disease 590387609 Active 2017 Horacegraham Mayer null, [place] - [facility] 8 09:16:17 Diabetes mellitus 20587703 Active 2017 Horacekedar Mayer null, [place] - [facility] 8 13:29:33 Hyperlipidemia 22778533 Active 2017 Horacegraham Mayer [place], [place] - [facility] 8 13:29:47 History of malignant neoplasm of thyroid 276634840 Active 2019 Amanda Noonan, SAFETY INVESTIGATOR [address], [place], [address], [place] - [facility] 0 09:57:24 Trichomonal vaginitis 991722043 Active 2019 Amanda Noonan, SAFETY INVESTIGATOR [address], [place], [address], [place] - [facility] 0 07:53:58 Uterine leiomyoma 03541059 Active 2019 Amanda Noonan, SAFETY INVESTIGATOR [address], [place], [address], [place] - [facility] 0 08:22:08 Problem Notes Documentation Provider Name and Address Organization Details Recorded Time Hospital Admission : CADDO History Physical - Adult REPORT #: [id number] REPORT STATUS: Signed DATE: 02/09/21 TIME: 1534 PATIENT: SABA ARGUETA UNIT #: [id number] ROOM/BED: [address] AGE: 55 SEX: F ATTEND: Mundo Rubalcava MD ADM AUTHOR: Mundo Rubalcava MD * ALL edits or amendments must be made on the electronic/computer document * History of Present Illness Date of Service: 02/09/21 Chief complaint: My right breast hurts HPI: 55-year-old female states that the approximately a week ago she noticed a pimple on her right breast that just kept getting worse. It was initially very tiny but then became red inflamed hot swollen and caused her a significant deal of pain. It was the pain that actually brought her in to [facility] emergency room today to be further evaluated. Dr. Dumont did an ultrasound which did show a large abscess in her breast. He discussed the case with Dr. Maloney who recommended she be transferred to [facility] for preoperative clearance prior to surgical intervention on Wednesday morning. She was initially treated with Zosyn in the emergency room at [facility]. Here she continues to describe pain in her right breast. She denies fever chills or diaphoresis. No lightheadedness, dizziness, nausea, vomiting. Preoperative clearance she denies any cardiac problems in the past. No arrhythmia, [place], stent, bleeding, blood clots, pulmonary emboli, liver problem, cirrhosis, alcohol, illicit drug, pancreas problem, no problems with previous anesthesia done for right kidney cancer in 2009. She has no resulting kidney disease. She also had thyroid cancer with resection years ago but has been stable on medications since. She does smoke and is diabetic. She takes no routine medication for lung disease Medications: Home Medications: Medication Dose/Rte/Freq Days Qty Entered Last Max Daily Dose Reviewed LOSARTAN POTASSIUM 50 MG PO DAILY 02/09/21 02/09/21 (COZAAR) 1515 1523 Strength: 50 MG TAB POTASSIUM CHLORIDE 20 MEQ PO BID 02/09/21 02/09/21 (K-DUR) 1517 1523 Strength: 20 MEQ TABLET Methocarbamol 750 MG PO 02/09/21 02/09/21 Strength: 750 MG TABLET BID PRN BACK PAIN 1519 1523 LEVOTHYROXINE SODIUM 250 MCG PO 0600 02/09/21 02/09/21 (UNITHROID) 1521 1523 Strength: 200 MCG TABLET Metformin HCl 500 MG PO ACBK 02/09/21 02/09/21 Strength: 500 MG TABLET 1522 1523 Allergies: Coded Allergies: codeine (Mild, NAUSEA VOMITING 02/09/21) Past Medical/Social History Past medical history: Reports: arthritis, cancer (Right kidney and thyroid), COPD, diabetes mellitus, hyperlipidemia, hypertension. Additional surgical history: Thyroid cancer with resection 2004? Right kidney cancer 2009 Family history: Reports: hypertension. Social history: Reports: lives with family, single, no alcohol use, no drug abuse, good social support, smoker. Review of Systems Constitutional: Denies: chills, fatigue, fever, generalized weakness, lethargy, malaise, recent wt loss. Skin: Reports: swelling ( right breast). Denies: abrasion, bruising, contusion, diaphoresis, ecchymosis, itching, laceration, rash. Allergy/Immun: Denies: allergic reaction, anaphylaxis, hives, itching, rhinorrhea, sneezing. Eyes: Denies: redness, discharge, visual loss/blurred, itching, diplopia, eye pain, photophobia, swelling. ENT: Denies: ear drainage, ear ringing, earache, hearing loss, mouth pain, nasal congestion, nose bleeding, sinus problem, sore throat, throat pain, throat swelling, tongue pain, tongue swelling, toothache, voice change. Respiratory: Reports: SOB ( occasional), wheezing. Denies: MARS (dyspnea on exertion), hemoptysis, non productive cough, parox nocturnal dyspnea, pleurisy, pleuritic pain, pneumonia, productive cough (sputum). Cardiovascular: Reports: MARS (dyspnea on exertion) ( occasional), palpitations ( occasional). Denies: chest pain, edema, orthopnea, parox nocturnal dyspnea. GI: Denies: abdominal pain, anorexia, constipation, diarrhea, dysphagia, GERD, hematemesis, hematochezia, hiatal hernia, melena, nausea, rectal pain, vomiting. : Denies: dysuria, flank pain, frequency, hematuria, nocturia, pelvic pain, , urgency, vaginal bleeding, vaginal discharge. Musculoskeletal: Reports: arthritis. Denies: extremity pain, extremity swelling, joint pain, joint swelling, lumbar pain, myalgias, neck pain, thoracic pain. Heme: Denies: adenopathy, bleeding, bruising, petechiae. Endocrine: Denies: cold intolerance, heat intolerance, polydipsia, polyphagia, polyuria, weight gain, weight loss. Neuro: Denies: bladder dysfunction, bowel dysfunction, change in LOC, confusion, dizziness, focal weakness, gait problem, headache, lightheaded, numbness, seizure, slurred speech, spinning sensation, syncope, unable to speak, vision change, weakness. Psych: Denies: agitation, anxiety, auditory hallucination, change in mental status, confusion, delusional, depression, homicidal ideation, hostile, insomnia, stress , suicidal ideation, visual hallucination. Physical Exam VS/I O Vital Signs Result Date Time Pulse Ox 95 02/09 1515 B/P 113/78 02/09 1515 O2 Delivery CANNULA 02/09 1515 Temp 98.8 02/09 1515 Pulse 82 02/09 1515 Resp 18 02/09 1515 General appearance: alert, awake, no acute distress, conversant, face symmetrical, MS normal, oriented, obese Head/Eyes: atraumatic, EOMI, PERRLA ENT: normal pharynx, normal sinus, moist mucosal membranes Neck: non-tender, no lymphadenopathy Cardiovascular: normal capillary refill, regular rate rhythm, normal heart sounds, BP/pulses equal bilat., no ectopy, pedal pulses present Respiratory: aerating well, symmetric expansion, wheezing ( bilateral) Abdomen: soft, non-tender, no guarding, no rebound, no distention ( obese) Abdomen quadrants: LLQ normal bowel sounds Extremities: moves all, no edema, normal tone, no cyanosis, pedal pulses Musculoskeletal: normal inspection Neuro/SLAB POLISHER: alert, oriented X 3, normal speech, CNII-XII grossly intact Skin: dry, intact, abscess, abscess location ( right breast inner quadrant), abscess condition ( 2 in painful to manipulation), abscess size ( 2 in or 5 cm), abnormal color ( erythema with warmth) Lymphatic: no lymphadenopathy Psychiatry: no hallucinations, normal affect, normal judgment/insight, normal mood Results Findings/Data: [facility] laboratory values Results: labs reviewed, vital signs stable Diagnosis, Assessment Plan Dx/Assessment/Plan: Assessment 1. Right breast abscess 2. COPD not on home oxygen/persistent tobacco use 3. Hypertension 4. Morbid obesity with BMI 55 5. Diabetes type 2 not on insulin 6. History of right renal cancer and thyroid cancer 7. Hypothyroid postoperatively on Synthroid Plan 1. Admit to general medical floor/NPO after midnight for surgery 2. IV hydration with normal saline preop 3. IV Zosyn 3.375 IV Q 8/pain control as needed 4. Consult surgery for abscess drainage/ aware 5. DuoNebs q.i.d. With albuterol Q 3 p.r.n./oxygen p.r.n. Not previously worn prior to hospitalization 6. Continue home medications 7. Accu-Cheks with sliding scale insulin 8. Resume diabetic diet postop 9. Preoperative clearance: patient at low risk for intended procedure/may proceed Full code Power of [place] attorney it would be her sister per her designation Potential Risk of Events: Potential risk of an Adverse Event for this patient may include: [ ] Worsening infection, arrhythmia, complications of anesthesia Consultants: surgery Code status: full code Plan discussed with: patient, Surgery at 1554 RPT #: [id number] END OF REPORT CC'ed Logic: Attending Provider: TABITHA SMALLS Referring Provider: JEREMIAS DAVIS Consulting Provider: MYRA TORRES Admitting Provider: TABITHA Muro, SAFETY INVESTIGATOR [address], [place], [address], [place] - [facility] 02/17/2021 17:29:22 Procedures Surgical History Date Name Laterality Status Provider Name and Address Organization Details Recorded Time 02/18/20 21 Medication Reconcilliation completed Horace [place] - [facility] 02/17/2021 16:00:32 04/15/19 21 Diastolic B/P 80-89 mm Hg completed Horace [place] - [facility] 04/15/2020 11:05:37 04/15/19 21 Systolic B/P 130-139 mm Hg completed Horace [place] - [facility] 04/15/2020 11:05:34 04/15/19 21 Medication Reconcilliation completed Horace [place] - [facility] 04/15/2020 10:57:42 08/30/19 20 Endometrial Biopsy completed Amanda Noonan APRN [address], [place], [address], [place] - [facility] 08/30/2019 10:34:06 08/30/19 20 Endometrial Biopsy completed Amanda Noonan APRN [address], [place], [address], [place] - [facility] 09/05/2019 09:55:18 07/12/19 20 Date of Last Pap Smear completed Amanda Noonan APRN [address], [place], [address], [place] - [facility] 07/14/2019 07:55:20 02/24/20 04 Caesarean Section completed Gabriela DALEY [facility] 07/12/2019 09:44:41 Lipoma Removal completed Gabriela DALEY [facility] 07/12/2019 09:46:21 Thyroidectomy completed Gabriela DALEY [facility] 07/12/2019 09:45:14 Renal bx surg exposure kdn completed Gabriela DALEY [facility] 07/12/2019 09:45:58 Imaging Results None recorded. Procedure Notes None recorded. Medical Equipment None Reported. Allergies Allergen ID Allergen Name Allergen Category Reaction Reaction Severity Criticality Documentation Date Start Date Code Code System Note Provider Name and Address Organization Details Recorded Time 20795 codeine medicatio n vomiting Not available Not available 08/13/2017 2670 RxNorm Horace Mayer g[facility]mez [facility] 8 09:13:27 Medications Name Sig Start Date [...] Not Available Not Available No t Available [employer] Ultra Blue Test Strip test once daily E11.9 active Not Available Not Available No t Available Vitals Date Recorded Body height Body mass index (BMI) Body weight Body temperature Heart rate Oxygen saturation Oxygen saturation in Arterial blood by Pulse oximetry Respiratory rate Systolic blood pressure Diastolic blood pressure Provider Name and Address Organization Details Last Updated DateTime 1 167.64 cm 64.9 kg/m2 897532. 53 g 98 [degF] 90 /min 97 % 97 % 18 /min 130 mm[Hg] 88 mm[Hg] Horace Mayer [place] - [facility] 1 11:05:20 Date Recorded Body height Body mass index (BMI) Body weight Systolic blood pressure Diastolic blood pressure Provider Name and Address Organization Details Last Updated DateTime 07/28/2019 167.64 cm 58.4 kg/m2 509725.4 4 g 136 mm[Hg] 84 mm[Hg] Gabriela Jamison [place] - [facility] 0 14:49:16 Date Recorded Body height Body mass index (BMI) Body weight Systolic blood pressure Diastolic blood pressure Provider Name and Address Organization Details Last Updated DateTime 08/30/2019 167.64 cm 58.4 kg/m2 167081.4 4 g 138 mm[Hg] 80 mm[Hg] Gabriela [...] Updated DateTime 1 167.64 cm 58.4 kg/m2 979378. 14 g 98.3 [degF] 97 /min 97 % 97 % 18 /min 170 mm[Hg] 78 mm[Hg] Horace Mayer [place] - [facility] 1 16:01:16 Social History Question Answer Notes LastModified by Organizat ion Details LastModified Time Tobacco Smoking Status Current Every Day Smoker Horace [place] null, [place] - [facility] 08/13/2017 09:17:38 Do You Have An Advance Directive? No Information not available 08/13/2017 Are You Blind Or Do You Have Difficulty Seeing? No Information not available 08/13/2017 Is Blood Transfusion Acceptable In An Emergency? Yes Information not available 07/12/2019 What Is Your Level Of Caffeine Consumption? Moderate Information not available 08/13/2017 How Much Tobacco Do You Chew? None [email or web address] Information not available 07/12/2019 Are You Deaf Or Do You Have Serious Difficulty Hearing? No Information not available 08/13/2017 What Type Of Diet Are You Following? REGULAR Information not available 08/13/2017 Which Illicit Or Recreational Drugs Have You Used? Declines Information not available 07/12/2019 What Is The Highest Grade Or Level Of School You Have Completed Or The Highest Degree You Have Received? [id number] [email or web address] Information not available 07/12/2019 How Many Days Of Moderate To Strenuous Exercise, Like A Brisk Walk, Did You Do In The Last 7 Days? 0 [email or web address] Information not available 07/12/2019 On Those Days That You Engage In Moderate To Strenuous Exercise, How Many Minutes, On Average, Do You Exercise? 0 [email or web address] Information not available 07/12/2019 How Hard Is It For You To Pay For The Very Basics Like Food, Housing, Medical Care, And Heating? [id number] [email or web address] Information not available 07/12/2019 Live Alone Or With Others? With Others Information not available 08/13/2017 Last Menstrual Period? 06/19/2019 [email or web address] Information not available 07/12/2019 What Was The Date Of Your Most Recent Tobacco Screening? 08/24/2018 Information not available 11/02/2018 How Many Children Do You Have? 1 [email or web address] Information not available 07/12/2019 What Is Your Current Pack Years? [email or web address] Information not available 08/13/2017 Performs Monthly Self-breast Exam? Yes [email or web address] Information no t available 07/12/2019 Do You Use Protection During Sex? Always Information not available 08/13/2017 What Is Your Relationship Status? [email or web address] Information not available 07/12/2019 Seat Belts Used [...] 08/13/2017 Do You Use Sunscreen Routinely? Yes [email or web address] Information not available 07/12/2019 Has Tobacco Cessation [...] available 06/19/2019 Are you currently employed? No [email or web address] Information not available 07/12/2019 Are you able [...] 06/19/2019 What is your exercise level? None [email or web address] Information not available 07/12/2019 Mental Status Question Answer Note LastModified by Organizat ion Details LastModified Time Do you feel stressed (tense, restless, nervous, or anxious, or unable to sleep at night)? [id number] [email or web address] Information not available 07/12/2019 Do you have [...] at First Child 38 Last Annual Exam/Provider 07-12-2019/JUN Last 2017 If Post Menopausal, Age at Menopause 49 [...] SNOMED-CT Code Diagnosis ICD10 Code Diagnosis Note [id number] [facility] [address] [place] [address] 08/13/2017 08:57:05 08/13/2017 10:10:56 Body mass index 40+ - severely obese 302849883 Z68.44 Nicotine dependence 5629 4008 F17.200 Hypothyroidism 46382430 E03.9 Hypertensive disorder 38 852179 I10 Chronic ob structive pulmonary disease 35264622 J44.9 Edema of l ower extremity 442875951 R60.0 Cough 05224897 R05 Hyperlipidemia 66120378 E78.5 Candidiasis of skin 4988 3006 B37.2 Vitamin D deficiency 347 23773 E55.9 [id number] [facility]uro [facility]N [facility] [address] [place] [address] 08/30/2017 10:49:27 08/30/2017 11:31:38 Mixed hyperlipidemia 043219020 E78.2 Essential hypertension 15155525 I10 Vitamin D deficiency 347 06707 E55.9 Osteoarthr itis of knee 285670963 M17.9 Impaired g lucose tolerance 1185052 R73.02 [id number] [facility] [address] [place] [address] 09/27/2017 09:47:24 09/27/2017 10:48:00 General examination of patient 756695299 Z00.00 Screening mammography 24 645752 Z12.31 Body mass index 40+ - severely obese 714036543 Z68.44 Screening for malignant neoplasm of colon 988211192 Z12.11 Screening for malignant neoplasm of cervix 056861789 Z12.4 Pain in left knee 111978 8523 48702 M25.562 Candidiasis of skin 4988 3006 B37.2 Prediabetes 706498683 R7 3.03 [id number] Claud[facility]uro [facility] [address] [place] [address] 02/16/2018 13:20:43 02/16/2018 14:30:13 Mixed hyperlipidemia 178646245 E78.2 Diabetes mellitus 710511 09 E11.9 Body mass index 40+ - severely obese 171686076 Z68.44 Edema of l ower extremity 486827478 R60.0 Hypothyroidism 83315071 E03.9 Sleep apnea 16766672 G47 .30 History of malignant neoplasm of thyroid 173336456 Z85.850 Cervical lymphadenopathy 158476144 R59.0 [id number] Claudia Muro APRN [facility] [address] [place] [address] 08/24/2018 11:05:18 08/24/2018 11:38:42 Body mass index 40+ - severely obese 133759490 Z68.43 Candidiasis of skin 4988 3006 B37.2 Diabetes mellitus 391528 09 E11.9 Mixed hyperlipidemia 267 977408 E78.2 Chronic ob structive pulmonary disease 46094918 J44.9 Vitamin D deficiency 347 85985 E55.9 Pain in left knee 122195 1050 91034 M25.562 Hyperlipidemia 20317690 E78.5 Gastroesop hageal reflux disease 996058799 K21.9 Arthritis 4785731 M19.90 Hypertensive disorder 38 908955 I10 Hypothyroidism 77057719 E03.9 [id number] [facility] [address] [place] [address] 06/19/2019 09:23:05 06/19/2019 10:01:51 Diabetes mellitus 19934688 E11.9 Body mass index 40+ - severely obese 586410335 Z68.43 Postmenopa usal bleeding 29718730 N95.0 Hyperlipidemia 48651656 E78.5 Hypothyroidism 68463392 E03.9 Chronic ob structive pulmonary disease 59109013 J44.9 [id number] HER[facility] [address] [place] [address] 07/12/2019 09:24:32 07/12/2019 10:52:00 Routine gynecologic examination done 8326698672 9101 Z01.419 Examinatio n of blood pressure 531243682 Z01.30 BP goal < 140/90 Depression screening 171 613930 Z13.31 Diet education 16754842 Z71.3 9174-3896 calorie diet recommende d with emphasis on low saturated fat, low carbohydra te, and adequate protein intake. She declines dietary consult. Counseling 182622001 Z71 .82 Exercise counselvandana betts Patient encouraged to exercise 30 minutes 5 days a week. Screening for malignant neoplasm of breast 038352266 Z12.31 Postmenopa usal bleeding 10140475 N95.0 Tinea corporis 48600378 B35.4 Screening for malignant neoplasm of cervix 711104516 Z12.4 Vaginal discharge 063905 006 N89.8 Body mass index 40+ - severely obese 085967729 Z68.43 Chronic ob structive pulmonary disease 62085099 J44.9 Diabetes mellitus 936507 09 E11.9 History of malignant neoplasm of thyroid 479733632 Z85.850 Hypertensive disorder 38 835527 I10 Hypothyroidism 31848192 E03.9 [id number] HERO Sewell ADMINISTRATIVE DIRECTOR [address] [facility] [place] [address] 07/28/2019 13:42:06 07/28/2019 15:15:04 Postmenopausal bleeding 84661537 N95.0 Uterine leiomyoma 274405 05 D25.9 Body mass index 40+ - severely obese 004348318 Z68.43 [id number] [place] [place] [address] [place] [address] 08/30/2019 09:47:26 08/30/2019 10:29:36 Postmenopausal bleeding 21254158 N95.0 Screening for malignant neoplasm of breast 007634563 Z12.31 Order placed already. [facility] Central scheduled phone number given. [id number] HERO Fuentesamilcar [place] [address] [place] [address] 09/21/2019 10:02:56 09/21/2019 10:34:43 Diabetes mellitus 63593189 E11.9 Papillary thyroid carcinoma 767047884 C73 [id number] HERO Fuentes [place] [address] [place] [address] 04/15/2020 10:52:20 04/15/2020 11:36:38 Body mass index 40+ - severely obese 627374746 Z68.44 Low back pain 715606309 M54.5 Morbid obesity 162115083 E66.01 [id number] [facility] [address] [place] [place] [address] 02/17/2021 15:46:30 02/17/2021 16:21:40 Abscess of breast 07475924 N61.1 improving Essential hypertension 01810865 I10 chronic uncontroll ed Diabetes mellitus 421936 09 E11.9 chronic stable Medication side effects present 072800963 T50.905A Hypothyroidism 43227205 E03.9 chronic stable, sees Dr Gonzalez for history of thyroid cancer. Health Concerns Section Related Observation LastModified by Organization Detai ls LastModified Time None Recorded Concern Status LastModified by Organization Details LastModified Time None Recorded Advance Directives Directive N: Payers Insurance Date Sequence Insurance Name Policy Number Policy Pierce Covered Member ID Pierce Member ID Guarantor Name 03/18/2021 1 [employer] [facility] (MEDICAID HMO) Saba Argueta [id number] Saba Argueta 03/12/2021 [place] [facility] [employer] ([place]ICAID) [place] Dave [id number] Saba Argueta Notes Date Note Type Note Provider Name and Address Organization Details Recorded Time 07/28/2019 text/html [place] is here for ultrasound and visit. No further bleeding. FSH perimenopausal with no bleeding x 4 years except for June 2019, Amanda NoonanHERO [address], [place], [address], [facility] 07/31/2019 08:22:50 08/30/2019 text/html [place] is here for Endometrial Biopsy r/t one episode of PMB. No bleeding since then. She is c/o new tenderness around her right nipple. Denies any discharge. She has not had her recommended screening mammogram yet. Amanda NoonanHERO [address], [place], [address], [facility] - [facility] 08/30/2019 12:54:32 09/21/2019 text/html Patient is being seen via telemed. Called patient to obtain consent to allow video conferencing, verbal consent was granted. Patient is being seen today for follow up and needing refills on DM medications, need test strips and lancets. Needs new referral to endocrinolgy Claudia MuroHERO [address], [place], [address], [place] - [facility] 09/21/2019 10:34:05 04/15/2020 text/html Back PainReporte d bypatient.Location:[facility];pain radiating to the legs Severity:worsening;pa in level 9/10 Onset/Timing:days ago Associated Symptoms:no weak limbs;numbness of the legs/feetEmergency Department Follow-Up RecordReported bypatient.Discharge InformationName of hospital/urgent care patient was seen: ([facility]); Patient presented to hospital/urgent care on [...] making her back hurt even more. Claudia HERO Muro [address], [place], [address], [facility] - [facility] 04/15/2020 12:53:13 02/17/2021 text/html Emergency Depart ment Follow-Up RecordReported bypatient.Discharge InformationName of hospital/urgent care patient was seen: ([facility]); Patient presented to hospital/urgent care on or around: actual date 02/09/2021; Patient presented to hospital for treatment of: (Breast Abscess); Hospital records available at the time of this visit: YesNotes:has a f.u with Dr Mi in 2 weeks, currently taking clindamycin for breast abscessneeds labs today for chronic diseaseher blood pressure is high. Claudia AriasHERO luu [address], [place], [address], [place] - [facility] 02/17/2021 17:32:29 OBGyn Episode No OBEpisode recorded.
--- OUTSIDE RECORDS SUMMARY | 2024-10-02 14:24 | XMS_ITS | Clinical Summary ---
Author Organization [facility] Address [address] [place] [address] Care Team Providers Care Cartography/Mapping Technician Name Role Phone Martinez Weaver MD Primary Care Provider Angely Alycia Juarez PROTEIN CHEMIST Unavailable [phone] Allergies Active Allergy Reactions Criticality Noted Date [...] Dates Next Due Influenza, seasonal, injectable 02/12/2009,02/17 [employer]Mailpile COVID-19 Vaccine (Purple Cap) 12 + 05/08/2021,01/23/2021 [...] Date Smoking Tobacco: Every Day Cigarettes 0.5 44.5 Started: 1980 Passive Smoke Exposure: Past Smokeless [...] Info) Description 10/27/2024 12:20 PM EDT Appointment [facility] Rad[facility] [address] [place] [address] 10/27/2024 2:15 PM EDT Office Visit [facility] Gynecology [address] [place] [address] Rosario Sam MD [address] [facility] [address] [place] [address] 01/24/2025 12:45 PM EDT Appointment [facility] [address] [place] [address] 01/24/2025 2:30 PM EDT Clinical Support [facility] [address] [facility] [place] [address] 01/24/2025 3:00 PM EDT Office Visit [facility] [address] [facility] [place] [address] Savana Jamison, PROTEIN CHEMIST, MANAGER SUPPORT SERVICES [address] [place] [address] Health Maintenance Due Date Last [...] Cancer Screening 11/18/2011 [facility]-Breast Cancer Screening 2016 AAT-TMQSI-07 Vaccine (3 - Pfizer risk series) 06/05/2021 [...] abdomen pelvis 12/28/2022, MRI scan of the jupapz5902/24/2023 FINDINGS: Chest: Lymph Nodes and Mediastinum: No [...] measuring up to 12 mm (series 3 [id number], 263). There is also a stable 13 [...] 1:50 PM EDT) Case Report Cytology Case: [id number] Authorizing Provider: Rosaroi Sam MD Collected: 01/22/2023 1350 Ordering Location: [facility] Gynecology Received: 01/25/2023 1102 First Screen: [place] Pathologist: Bernarda Allen MD Specimen: ThinPrep Pap Test, Liquid-Based Cervical/Vaginal 02/01/2023 10:46 AM EDT [facility] Interpretation NEGATIVE FOR INTRAEPITHELIAL LESION OR MALIGNANCY 02/01/2023 10:46 AM EDT [facility] at 1046 EDT Specimen Adequacy Satisfactory for evaluation; endocervical/colin sformation zone component absent/insufficie nt. Slide imaged by the ThinPrep Imaging system and selected 22 bowie reviewed then full manual screening. 02/01/2023 10:46 AM EDT [facility] Cervical cytology is a screening test [...] results is suggested (please call Microbiology at [phone] for results). 02/01/2023 10:46 AM EDT [facility] Menstrual Status Post-Menopausal 10:46 AM EDT [facility] History of Hysterectomy Not Applicable 02/01/2023 10:46 AM EDT [facility] Contraceptive History Not Applicable 02/01/2023 10:46 AM EDT [facility] Screening Type Routine Screen 2022 10:46 AM EDT [facility] High Risk? No 02/01/2023 10:46 AM EDT [facility] HPV Testing Requested? Request HPV testing if ASCUS or LSIL. 02/01/2023 10:46 AM EDT [facility] Previous Cancer History No 02/01/2023 10:46 AM EDT [facility] Clinical Information R93.89 - Thickened endometrium [ICD-10-CM] 02/01/2023 10:46 AM EDT [facility] Swab Vaginal and cervical cytologic material / Unknown Non-blood Collection / Unknown 01/22/2023 1:50 PM EDT 01/25/2023 11:02 AM EDT Rosario Sam MD LAB CYTOLOGY ORDERABLES F inal Result [facility] [address] [place] [address] from Last 3 Months or Most Recently Relevant to Health Maintenance Insurance [employer] [facility] MEDICAID Advance Directives * Full Code (Latest Code Status on File) Date Activated Date Inactivated Comments 03/26/2023 11:15 AM 03/27/2023 2:37 AM Question Answer Comments Patient has decision-making capacity? Yes Care Teams Cartography/Mapping Technician Relationship Specialty Start Date End Date Martinez Weaver MD PCP - General Family Medicine 11/24/22 Alycia Florence APRN [address] [phone] Nurse Practitioner Medical Oncology 01/18/23
--- OUTSIDE RECORDS SUMMARY | 2024-10-02 14:24 | XMS_ITS ---
Author Organization [facility] Address [address] [place] [address] Care Team Providers Care Assigner Name Role Phone Martinez Weaver MD Primary Care Provider Angely leonedgarlizbet Naman, Alycia Wang TANKROOM WORKER Unavailable [phone] Active Problems Problem Noted Date Diagnosed Date [...] Lifetime Dose Automatic Entry Manual Entr y CTDIvol 456 mGy 456 mGy 0 mGy Radiation (DLP) 3,446 mGy-cm 3,446 mGy-cm 0 mGy-cm
--- NOTE | 2024-10-02 14:25 | CT_ITS ---
FINAL REPORT TECHNIQUE: Noncontrast exam This study was performed with techniques to keep radiation doses as low as reasonably achievable, (ALARA). Individualized dose reduction techniques using automated exposure control or adjustment of mA and/or kV according to the patient's size were employed. CLINICAL HISTORY: headache COMPARISON: None FINDINGS: No abnormal density is seen. Ventricles are normal. There is no hemorrhage. No mass effect is seen. Bone windows show no evidence of fracture. There is a small left maxillary sinus air-fluid level consistent with sinusitis. IMPRESSION: Small left maxillary sinus air-fluid level consistent with sinusitis. No acute intracranial findings are identified. Reviewed, Interpreted and Dictated by Melinda Harrison MD Transcribed by Nickie Rivas Authenticated and [facility]
--- NOTE | 2024-10-02 14:28 | XR_ITS ---
FINAL REPORT CLINICAL HISTORY: shortness of breath COMPARISON: 09/18/2024 CTA chest FINDINGS: PA and lateral views of the chest were obtained. No acute pulmonary density is evident. There is no evidence of effusion or other pleural disease. The mediastinum has a normal appearance. The cardiac silhouette is unremarkable. IMPRESSION: Unremarkable chest exam. Reviewed, Interpreted and Dictated by Melinda Harrison MD Transcribed by Lucy Muller Authenticated and [facility]
[2024-10-02 14:49] LABS: Albumin Level 3.7 g/dl (3.5-5.0); Chloride 93 mmol/L (98-107); Potassium 4.8 mmoL/L (3.5-5.1); Sodium 137 mmol/L (136-145)
[2024-10-02] MEDS: 0.9 % SODIUM CHLORIDE 1000ML 1,000 ML 999 ML IV (14:49)
[2024-10-02] MEDS: diphenhydrAMINE 50MG/ML VIAL 25 MG IV (14:49)
[2024-10-02] MEDS: METOCLOPRAMIDE HCL 10MG/2ML VIAL 10 MG IVP (14:50)
[2024-10-02 14:51] LABS: Lactate Venous 1.5 mmol/L (0.4-2.0); VBG PH 7.33 mmol/L (7.31-7.41); VBG PO2 48.6 mmol/L (28-40)
[2024-10-02 14:52] LABS: Alanine Aminotransferase 25 U/L (12-78); Alkaline Phosphatase 84 U/L (38-126); Anion Gap 10.8 mEq/L (5-15); Aspartate Amino Transferase 22 U/L (14-36); Bilirubin,Total 0.3 mg/dl (0.2-1.3); Blood Urea Nitrogen 14 mg/dl (7-17); Carbon Dioxide 38 mmol/L (22.0-30.0); Creatinine Clearance Estimated 97 mL/min (50-200); Estimated Glomerular Filt Rate 103 ml/min (>60); GFR (African American) 125 ML/MIN (>60); Globulin 3.7 g/dL (1.3-3.2); Glucose 397 mg/dl (74-100); Lipase 71 U/L (23-300); Total Protein,Serum 7.4 g/dl (6.3-8.2)
[2024-10-02 14:53] LABS: Magnesium 1.6 mg/dl (1.6-2.3)
[2024-10-02 14:53] LABS: VBG PCO2 64.3 mmol/L (35-51)
[2024-10-02 14:57] LABS: Basophils # 0.1 K/mm3 (0-0.2); Basophils % 0.5 % (0.1-2.0); Eosinophils # 0.2 Kmm3 (0.0-0.4); Eosinophils % 2.1 % (0.1-12.0); Hematocrit 47.5 % (37.0-47.0); Hemoglobin 14.9 g/dL (12.2-16.2); Immature Granulocytes # 0.16 10^3uL; Immature Granulocytes % 1.4 %; Lymphocytes # 2.2 K/mm3 (0.7-4.5); Lymphocytes % 18.9 % (10-50); Mean Corpuscular HGB Conc 31.4 g/dL (31.8-35.4); Mean Corpuscular Volume 92.6 fl (81-99); Mean Platelet Volume 10.7 fl (7.4-10.4); Monocytes # 0.8 K/mm3 (0.1-1.0); Monocytes % 7.2 % (1.7-9.3); Neutrophils # 8.1 K/mm3 (1.8-7.8); Neutrophils % 69.9 % (37.0-80.0); Nucleated Red Blood Cells # 0 10^3/uL; Nucleated Red Blood Cells % 0 %; Platelet Count 306 K/mm3 (142-424); Red Blood Count 5.13 M/mm3 (4.20-5.40); Red Cell Distribution Width 14.6 % (11.5-17.5); Red Cell Distribution Width-SD 49.1 fL; White Blood Count 11.6 K/mm3 (4.8-10.8)
[2024-10-02 15:04] LABS: Troponin I 0.02 ng/ml (0.00-0.034)
[2024-10-02 15:55] LABS: INR 1.16 (0.9-1.1); Prothrombin Time 12.7 seconds (10.1-12.5)
--- NOTE | 2024-10-02 16:07 | ED_ITS ---
<Statement entered by Malena Black DO - 10/02/24 20:02> I was consulted by the HEIDE, and we discussed the complexity of the problems being addressed. I approved the treatment and management plan for this patient's care in the emergency department, thus performing a substantive portion of the medical decision making. Malena Black DO Discharge Plan Disposition Patient Disposition: Home, Self-Care Prescriptions Prescriptions: New azithromycin 250 mg tablet See Rx Instructions .ROUTE .COMPLEX Qty: 6 0RF Rx Instructions: For 250 mg dose pack: take 500 mg today (day 1), then 250 mg for 4 days (days 2-5) No Action losartan 50 mg tablet 50 mg PO DAILY 30 Days Qty: 30 3RF metformin 500 mg tablet 1,000 mg PO BID 30 Days Qty: 120 3RF levothyroxine 200 mcg capsule 200 mcg PO DAILY Qty: 30 3RF atenolol 25 mg tablet 25 mg PO DAILY 30 Days Qty: 30 3RF megestrol 40 mg tablet 40 mg PO DAILY Qty: 30 3RF meloxicam 15 mg tablet 15 mg PO DAILY atorvastatin 40 mg Tablet 80 mg PO HS 30 Days Qty: 60 0RF Xarelto 15 mg Tablet 15 mg PO BIDWMEAL Qty: 40 0RF rivaroxaban 20 mg tablet 20 mg PO HS Qty: 30 0RF Rx Instructions: start after completion of 15mg twice daily course (10/11/24) albuterol sulfate 90 mcg/actuation HFA aerosol inhaler 2 puff inhalation Q6HP PRN (Reason: shortness of breath or wheezing) Referrals Follow up/Referrals: Martinez Weaver MD [Primary Care Provider, Internal Medicine] - See instructions Activity Restrictions/Add. Instructions Additional Instructions/Restrictions: Follow-up with PCP for further workup if needed. Return to ED if any worsening signs or symptoms. Wear oxygen as needed. Do not take Motrin or ibuprofen with your Xarelto. CT scan did show some sinus infection. We will treat that. Clinical Impressions Clinical Impression: Diabetes, Headache Hypertension Qualifiers: Hypertension type: primary hypertension Qualified Code(s): I10 - Essential (primary) hypertension Instructions Patient Instructions: DI for Sinus Headache, DI for Headache Print Language Print Language: [place] Discharge ED Provider: Malena Black General Adult HPI General Chief complaint: Headache Stated complaint: migraines x 2 weeks Time Seen by Provider: 10/02/24 14:18 Mode of Arrival: Ambulatory Source of Information: Patient Description of Symptoms (Recalled from ER Triage Doc. by RN): PT TO THE ED WITH INTERMITTEN HEADACHES FOR 3 WEEKS. PT STATED SHE WILL TAKE MOTRIN AND LAY DOWN AND TAKE A NAP WHICH WILL GIVE HER RELIEF BUT THEN WHEN SHE WAKES UP AND STARTS DOING ACTIVITIES AGAIN THEY WILL RETURN. PT REPORTS SON REPORTS SHE HAS BEEN ON AND OFF T/O THE DAY AND ALMOST DAILY History of Present Illness HPI narrative: 58-year-old female presents to the ED today for complaints of intermittent headaches for the past 2 to 3 weeks. Patient states that she has been taking ibuprofen with her blood thinner. She will lay down and take a nap but states that when she wakes up her head starts hurting again. She has had no visual changes with the headaches. She does occasionally get lightheaded with these. She was diagnosed with PEs in the ER 2 weeks ago. States that she has not been wearing her O2 except for when she lays down. Typically she will wear 3 L nasal cannula at home. She denies any trauma has not hit her head. She just randomly started getting the headaches. She does have history of hypertension and diabetes. She does cough and has some productive sputum. Patient is here in 84% on room air. When we placed her on 3 L nasal cannula she is 94%. Related Data Home Medications ?Medication ?Instructions ?Recorded ?Confirmed albuterol sulfate 90 mcg/actuation 2 puff inhalation Q 6HP PRN 05/24/24 09/18/24 aerosol inhaler shortness of breath or wheez ing meloxicam 15 mg tablet 15 mg PO DAILY 09/18/2401/04 Held on 09/20/24. Instructions: do not take with anticoagulant Previous Rx's ?Medication ?Instructions ?Recorded losartan 50 mg tablet 50 mg PO DAILY Hypertension 30 12/16/23 days #30 tabs metformin 500 mg tablet 1,000 mg (2 x 500 mg) PO BID 30 02/10/24 days #120 tabs atenolol 25 mg tablet 25 mg PO DAILY 30 days #30 t abs 09/11/24 levothyroxine 200 mcg capsule 200 mcg PO DAILY #30 cap s 09/11/24 megestrol 40 mg tablet 40 mg PO DAILY #30 tabs 06/06 atorvastatin 40 mg tablet 80 mg (2 x 40 mg) PO HS 30 d ays 09/20/24 #60 tabs rivaroxaban 15 mg tablet (Xarelto) 15 mg PO BIDWMEAL # 40 tabs 09/20/24 rivaroxaban 20 mg tablet 20 mg PO HS #30 tabs 5 azithromycin 250 mg tablet See Rx Instructions PO .COM PLEX #6 10/02/24 tabs Allergies Allergy/AdvReac Type Severity Reaction Status Date / Time cephalexin Allergy Rash Verified 09/18/24 18:39 acetaminophen AdvReac Nausea Verified 09/18/24 18:39 PFSH [facility] Disclaimer: The information contained in this section may have been updated after the patient was seen, as this information can be updated by other users. Medical History (Updated 10/02/24 @ 16:49 by Meghan Bower (ED), DEBT MANAGEMENT COUNSELOR) Pneumonia Hyperthyroidism Acute exacerbation of chronic obstructive pulmonary disease Influenza A Abscess of breast Breast cancer screening by mammogram Mediastinal lymphadenopathy Hilar lymphadenopathy Tobacco use disorder Class 3 obesity Hypothyroidism (acquired) Diabetes Renal cancer Thyroid cancer Hypertension Sciatica of left side Surgical History History of incision and drainage History of H/O thyroidectomy Family History Mother Diabetes Hypertension Father Diabetes Hypertension Brother Cancer Social History Smoking Status: Current every day smoker tobacco type: cigarettes quit status: considering quitting alcohol intake: never substance use type: denies use current occupational status: disabled Travel in the last 8 weeks?: None household members: children housing: apartment lives independently: Yes marital status: single education level: high school special cal needs: No agree to transfusion: No do you feel safe at home: Yes victim of physical abuse: No victim of emotional abuse: No victim of sexual abuse: No would you like helpful sources: No Have you lived/traveled outside [place] in past 30 days?: No Contact w/someone who lives/traveled outside [place] past 30 days?: No Exposure to someone with infectious disease in past 14 days?: No Do you have a fever (greater than 100.4 F or 38 C)?: No Have you tested positive for COVID-19?: No Exposed to someone with COVID-19 in past 14 days?: No Do you have a sore throat?: No Do you have a cough?: No Do you have any weakness?: No Do you have any diarrhea?: No Are you experiencing any unusual bleeding?: No Do you have any muscle aches/pain?: No Do you have any abdominal pain?: No Are you experiencing loss of taste or smell?: No Other Medical History Have you received the Flu Vaccine for this season: No Have you received the Pneumonia Vaccine: No ROS Obtained: Yes Systems reviewed as appropriate & no additional complaints except as documented Constitutional Constitutional: Reports as per HPI Physical Exam General General appearance: alert and in no apparent distress Head Head exam: atraumatic and normocephalic Eye Eye exam: Present normal appearance, PERRL and EOMI ENT ENT exam: Present normal oropharynx and mucous membranes moist Neck Neck exam: Present full ROM and trachea midline Respiratory Respiratory exam: Present normal lung sounds bilaterally Cardiovascular Cardiovascular exam: Present regular rate, normal rhythm, normal heart sounds, +S1 and +S2 Abdominal Exam Abdominal exam: Present soft and normal bowel sounds Extremities Exam Extremities exam: Present normal inspection, full ROM and normal capillary refill Neurological Exam Neurological exam: Present alert, oriented X3 and normal gait Skin Skin exam: Present warm, dry and intact Medical Decision Making Medical Records Screening: Per USPSTF and CDC recommendations, given the prevalence of disease in our region, it is our hospital?s policy to screen for HIV and viral Hepatitis for all patients aged 18 and over and those with ongoing risk factors. Win Inquiry Pt receiving controlled substance: No Win was queried for this patient: No Vital Signs: 10/02/24 14:09 10/02/24 14:45 10/02/24 15:00 Temperature Pulse Rate 69 74 Pulse Rate [Left Radial] 98 H Respiratory Rate 20 19 18 Blood Pressure 109/72 L 127/82 Blood Pressure [Right Arm] 114/62 Blood Pressure Mean 95 Blood Pressure Mean [Right Arm] 79 Blood Pressure Source [Right Arm] Automatic Cuff Blood Pressure Position [Right Arm] Sitting 02 Sat by Pulse Oximetry 84 L 93 L 95 Oxygen Delivery Method Room Air 10/02/24 15:30 10/02/24 16:00 10/02/24 16:30 Temperature Pulse Rate 63 74 74 Pulse Rate [Left Radial] Respiratory Rate 18 18 18 Blood Pressure 131/72 128/78 136/83 Blood Pressure [Right Arm] Blood Pressure Mean 91 87 97 Blood Pressure Mean [Right Arm] Blood Pressure Source [Right Arm] Blood Pressure Position [Right Arm] 02 Sat by Pulse Oximetry 95 93 L 93 L Oxygen Delivery Method 10/02/24 16:57 Temperature 97.8 F Pulse Rate 77 Pulse Rate [Left Radial] Respiratory Rate 17 Blood Pressure 139/63 Blood Pressure [Right Arm] Blood Pressure Mean Blood Pressure Mean [Right Arm] Blood Pressure Source [Right Arm] Blood Pressure Position [Right Arm] 02 Sat by Pulse Oximetry Oxygen Delivery Method Room Air Lab Data Lab Results 10/02/24 14:28: WBC 11.6 H, RBC 5.13, Hgb 14.9, Hct 47.5 H, MCV 92.6, MCH 29.0, MCHC 31.4 L, RDW 14.6, Plt Count 306, MPV 10.7 H, Neut % (Auto) 69.9, Lymph % (Auto) 18.9, Barber % (Auto) 7.2, Eos % (Auto) 2.1, Baso % (Auto) 0.5, Neut # (Auto) 8.1 H, Lymph # (Auto) 2.2, Barber # (Auto) 0.8, Eos # (Auto) 0.2, Baso # (Auto) 0.1, PT 12.7 H, INR 1.16 H, Sodium 137, Potassium 4.8, Chloride 93 L, C arbon Dioxide 38 H, Anion Gap 10.8, BUN 14, Creatinine 0.60, Estimated Creat Clear 97, Estimated GFR 103, Est GFR ( Amer) 125, Glucose 397 H, Calcium 10.0, Magnesium 1.6, Total Bilirubin 0.3, AST 22, ALT 25, Alkaline Phosphatase 84, Troponin I 0.02, Total Protein 7.4, Albumin 3.7, Globulin 3.7 H, A lbumin/Globulin Ratio 1.0 L, Lipase 71 10/02/24 14:29: VBG pH 7.33, VBG pCO2 64.3 H, VBG pO2 48.6 H, VBG HCO3 33.0 H, V BG Total CO2 35.0 H, VBG O2 Saturation 84.0 H, VBG Base Excess 7.0 H, VBG Lactic Acid 1.5 10/02/24 14:28 10/02/24 14:28 Orders (Tests/Meds): ED MEDICATIONS Discontinued Medications Generic Name Dose Route Start Last Admin Trade Name Roni PRN Reason Stop Dose Admin Diphenhydramine HCl 25 mg 10/02/24 14:31 10/02/24 14:49 Diphenhydramine 50mg/Ml Vial IV 10/02/24 14:32 25 mg ONCE ONE Administration Sodium Chloride 1,000 mls @ 999 mls/hr 10/02/24 14:31 10/02/24 14:49 Sod Chlor 0.9% 1000ml Bag IV 10/02/24 15:31 999 mls/hr .Q1H1M ONE Administration Metoclopramide HCl 10 mg 10/02/24 14:31 10/02/24 14:50 Metoclopramide Hcl 10mg/2ml Vial IVP 10/02/24 14:32 10 mg ONCE ONE Administration ORDERS Category Date Time Status CT head/brain wo con Stat Cat Scan 10/02/24 14:25 Completed XR chest AP Stat Exams 10/02/24 14:28 Completed CBC [Complete Blood Count Auto Diff] Stat Lab 10/02/24 14:28 Completed Comprehensive Metabolic Panel Stat Lab 10/02/24 14:28 Completed Lipase Stat Lab 10/02/24 14:28 Completed Magnesium Stat Lab 10/02/24 14:28 Completed PT INR [Prothrombin Time INR] Stat Lab 10/02/24 14:28 Completed Trop I [Troponin I] Stat Lab 10/02/24 14:28 Completed Venous Blood Gas Stat RT 10/02/24 14:29 Completed Medical Decision Narrative: patient is a 58-year-old female presenting to the emergency department for evaluation of headache for the past 2 weeks. Patient is hemodynamically stable and nontoxic-appearing upon arrival, afebrile. Differential diagnosis includes head bleed, hypoxia, hypertension among others. Workup will be conducted with hematologic labs, specific imaging including CT scan of the head. Initial inventions include crystalloid bolus, analgesics. Initial workup reviewed by me minimally elevated white count and elevated glucose at 397. Imaging informally interpreted by me and remarkable for nothing acute. Please see radiology report for formal read. Upon repeat evaluation patient's pain is improved, appears better perfused and says her headache is improved. We discussed wearing oxygen as needed and not taking ibuprofen with Xarelto. Follow-up with PCP. Patient is safe for discharge home. Critical Care Critical Care Time Critical Care Time: No
== END 2024-10-02 17:07 | disposition home or self-care (01) ==
PROVIDERS: Nurse Practitioner; Emergency Provider Emergency Medicine; PCP Family Medicine
DX: R51.9 Headache, unspecified (principal); E11.65 Type 2 diabetes mellitus with hyperglycemia; I10 Essential (primary) hypertension; F17.210 Nicotine dependence, cigarettes, uncomplicated
CPT/HCPCS: 70450; 71045; 80053; 82803; 83690; 83735; 84484; 85025; 85610; 96361; 96374; 96375; 99284; J1200; J2765; J7030